=== PATIENT | female | born 1945 | race Caucasian/White ===

== ENCOUNTER 2019-10-19 10:39 | Inpatient (IN) | payer MEDICARE, BC, SELFPAY ==
[2019-10-19] VITALS (7 sets, daily range): BP systolic 129–178; BP diastolic 51–90; PULSE 59–88; RESP 14–22; TEMP 36.4–36.8; O2SAT 96–100; BMI 29.5
--- NOTE | ~2019-10-19 | CT_ITS ---
EXAMINATION: CT abdomen pelvis w con EXAM DATE: 10/19/2019 12:35 INDICATION: Low abdominal pain. Rectal bleeding. TECHNIQUE: Spiral CT of the abdomen and pelvis was performed following intravenous injection of 100 m L Omnipaque 350. Axial, coronal and sagittal images were reviewed. The dose-length product (DLP) fo r this examination was 797.08 mGy-cm. The exposure was tailored according to patient size (auto mA e xposure control), and iterative reconstruction (ASIR) was used as additional dose reduction technique . Comparison is made to prior examination from 07/03/2019. FINDINGS: The liver, spleen, adrenal glands and pancreas are unremarkable. The gallbladder is contra cted but otherwise unremarkable. Portal and splenic veins are patent. Kidneys enhance symmetrically . There is no hydronephrosis. Small regions of right renal cortical scarring. Mild right renal atrop hy. The uterus is unremarkable. The bladder is unremarkable. There is no retroperitoneal or pelvi c lymphadenopathy. Aortobiiliac endograft. Umbilical, infraumbilical small fat-containing hernias. The appendix is normal. The stomach and small bowel are unremarkable. There is rectosigmoid small a mount of fluid. Possible mild rectosigmoid wall edema, possible mild colitis. There is mild scattered colonic diverticulosis. There is no adjacent inflammatory change to suggest diverticulitis. No keely e intraperitoneal gas. The heart is normal in size. There are no pericardial or pleural effusions. The lung bases are unremarkable. There are no osteoblastic or osteolytic lesions identified. IMPRESSION: 1. Possible mild rectosigmoid colitis. 2. Small amount of rectosigmoid fluid correlate for diarrhea. 3. Chronic findings. Reviewed, dictated and finalized at location B. [employer] SPECIALIST
[2019-10-19 11:04] LABS: Basophils Percent Auto 0.4 % (0.2-1.2); Eosinophils Absolute Auto 0.1 K/mm3 (0-0.3); Eosinophils Percent Auto 1.6 % (0-4.4); Hematocrit 33.1 % (37.0-47.0); Immature Granulocyte Absolute 0.03 K/mm3 (0.00-0.031); Immature Granulocyte Percent A 0.5 % (0-0.5); Lymphocytes Absolute Auto 0.61 K/mm3 (0.9-3.2); Lymphocytes Percent Auto 11.1 % (18.3-44.2); Mean Corpuscular HGB Conc 30.2 g/dl (32-36); Mean Corpuscular Hemoglobin 28.3 pg (26-34); Mean Corpuscular Volume 93.8 fl (80-100); Mean Platelet Volume 10.8 fl (7.4-10.4); Monocytes Absolute Auto 0.4 K/mm3 (0.1-0.6); Monocytes Percent Auto 6.4 % (2.6-8.5); Neutrophils Absolute Auto 4.4 K/mm3 (1.3-6.7); Platelet Count Result 202 k/mm3 (150-375); Red Blood Count 3.53 M/mm3 (4.2-5.4); Red Cell Distribution Width 14.6 % (11.5-14.5); White Blood Count 5.5 K/mm3 (4.5-10.0)
[2019-10-19 11:14] LABS: Prothrombin Time 12.7 Seconds (11.1-14.7)
[2019-10-19 11:15] LABS: Partial Thromboplastin Time 23.9 SECONDS (22.3-36.8)
[2019-10-19 11:20] LABS: Alanine Aminotransferase 17 U/L (4-35); Alkaline Phosphatase 106 U/L (38-126); Aspartate Amino Transferase 37 U/L (14-36); Bilirubin,Total 0.4 mg/dL (0.2-1.3); Blood Urea Nitrogen 23 mg/dL (7-17); Calcium 8.9 mg/dL (8.4-10.2); Carbon Dioxide 26 mmol/L (22-30); Chloride 107 mmol/L (98-107); Estimated Glomerular Filt Rate 49; Glucose 110 mg/dL (65-105); Potassium 4.2 mmol/L (3.4-5.0); Sodium 143 mmol/L (137-145)
--- NOTE | 2019-10-19 11:41 | ED.GIBLEED ---
HPI - GI Bleed General Chief complaint: GI Bleed Stated complaint: gi bleed Time Seen by Provider: 10/19/19 11:34 Source: patient, family (Son at bedside) and RN notes reviewed Mode of arrival: ambulatory Limitations: no limitations History of Present Illness HPI Narrative: Pt is a 73 y/o female presenting to the ED c/o rectal bleeding. Pt states she started experiencing rectal bleeding this morning at 0200 with clots. Pt states her stools were originally bright red this morning but is now dark red. Pt also reports ABD cramping, diarrhea starting yesterday, and lightheadedness last Saturday, but denies N/V or fever. Pt states she [place] light[place] at a mall last Saturday that led to near-syncope. Pt notes she was admitted to this facility about 1.5 months ago in which she was seen by Dr. Kong and diagnosed with Colitis and a kidney infection. Pt reports Dr. Kong recommended a Colonoscopy if the pt noticed rectal bleeding again, so she has presented to the ED. Pt states she has a Hx of anemia and sees Dr. Wells as her PCP. Pt notes she is not currently on a blood thinner. Pt states she last had a Colonoscopy about 4 years ago that was negative. Pt also reports Hx's of SLE and Sjogren's disease. Pt's son at bedside reports the pt has been experiencing generalized weakness and SOB with exertion. Onset (ago): hour(s) (9.5) Context: other (Hx of Colitis) Associated symptoms: abdominal pain, shortness of breath (with exertion (per son)), weakness (Generalized (per son)) and other (Diarrhea; Lightheadedness; near-syncope) Related Data Home Medications Medication Instructions Recorded Confirmed acetaminophen 500 mg PO BID 10/19/19 10/19/19 albuterol sulfate 2 puff INHALATION BID 10/19/19 10/19/19 alprazolam 0.5 mg PO BID PRN 10/19/19 10/19/19 azathioprine 50 mg PO DAILY 10/19/19 10/19/19 cyclobenzaprine 10 mg PO HS PRN 10/19/19 10/19/19 fluoxetine 20 mg PO DAILY 10/19/19 10/19/19 fluticasone propion-salmeterol 2 puff INHALATION Q12H 10/19/19 10/19/19 [Advair HFA] furosemide 20 mg PO DAILY 10/19/19 10/19/19 irbesartan 300 mg PO DAILY 10/19/19 10/19/19 metronidazole 1 appful VAGINAL HS 10/19/19 10/19/19 pilocarpine HCl [Salagen 5 mg PO TID 10/19/19 10/19/19 (pilocarpine)] pregabalin 150 mg PO BID 10/19/19 10/19/19 Allergies Allergy/AdvReac Type Severity Reaction Status Date / Time cat dander Allergy Unknown Sneezing Verified 10/19/19 12:55 ciprofloxacin Allergy Unknown Nausea Verified 10/19/19 12:55 erythromycin base Allergy Unknown Nausea Verified 10/19/19 12:55 house dust Allergy Unknown Sneezing Verified 10/19/19 12:55 mold Allergy Unknown Sneezing Verified 10/19/19 12:55 Sulfa (Sulfonamide Allergy Unknown Nausea Verified 10/19/19 12:55 Antibiotics) Review of Systems Review of Systems: All systems reviewed & are unremarkable except as noted in HPI and below Constitutional: Constitutional: Denies fever(s) and Reports weakness (Generalized (per son)) Cardiovascular: Cardiovascular: Reports lightheadedness Respiratory: Respiratory: Reports dyspnea on exertion (Per son) Gastrointestinal: Gastrointestinal: Reports abdominal pain, Reports hematochezia, Reports diarrhea, Denies nausea and Denies vomiting Neurologic: Reports syncope (Near) [facility] Past Medical History Medical History Anemia Anxiety Asthma Bursitis of both hips C. difficile colitis Depression Early cataracts, bilateral Fibromyalgia GERD (gastroesophageal reflux disease) Herniated disc, cervical x2 Hypertension Lupus erythematosus RA (rheumatoid arthritis) Shingles UTI (urinary tract infection) Surgical History Surgical History H/O cataract extraction H/O cervical discectomy H/O laminectomy History of lumbar fusion History of renal stent History of tonsillectomy Family History Family History Sibling Family history
[2019-10-19] MEDS: LACTATED RINGERS 1,000 ML 999 ML IV CONT (13:12)
--- NOTE | 2019-10-19 14:41 | PC.NURSE ---
This patient, Carmen House, was admitted to 3 [facility] Surg Room 323-01. Patient/family oriented to hospital policies and general routines including ID bracelet, bed and alarms, visiting hours, pain management, procedures, bathroom and other care routines, personal items, smoking policy, room service/diet, and visiting hours. Valuables list has been completed. Information on how to activate the Rapid Response Team has been discussed. Patient/Family are encouraged to report perceived risks to care and to ask questions if they do not understand what they are told or what they should do.
[2019-10-19 15:17] LABS: Hematocrit 31.7 % (37.0-47.0); Hemoglobin 9.6 g/dL (12.0-15.0)
[2019-10-19] MEDS: LACTATED RINGERS 1,000 ML 125 ML IV CONT ×2 (15:21→23:58)
--- NOTE | 2019-10-19 19:30 | PM.IMHP ---
H&P: HPI History of Present Illness Chief complaint: Bloody stools. Narrative: Carmen House is a pleasant 73-year-old female with history of C diff, GERD, hypertension, chronic kidney disease, lupus, and several other comorbidities who presented to the emergency department earlier this morning via private vehicle from home for evaluation of bloody stools. Yesterday afternoon she had sudden onset of lower abdominal cramping, and estimates she had 9 episodes of diarrhea within the next couple of hours. Sometime this morning she felt the urge to have another bowel movement, and notes that she passed bright red blood followed by dark clots. She has felt a bit lightheaded upon standing and notes that she has been waking up at night with hot sweats for the past 4 days or so. She has also felt more fatigued than usual. She does mention straining to have a bowel movement a couple of days ago. She had oatmeal for breakfast this morning and tolerated that well and in fact, she is hungry at this time. She has not had any bowel movements since admission to the hospital, and feels much better. She has not had documented fever. No current abdominal pain or discomfort. No recent travel or antibiotic use. She denies sick contacts with similar symptoms. Weight has remained stable. Review of Systems Review of Systems: All systems reviewed & are unremarkable except as noted in HPI and below PMFSH Past Medical History Medical History (Updated 10/19/19 @ 22:40 by Veronica Estrada PA-C) Anxiety Asthma C. difficile colitis In August 2010. Chronic anemia Chronic kidney disease, stage 3 Baseline creatinine is between 1.0 and 1.10. Depression Fibromyalgia GERD (gastroesophageal reflux disease) Herniated disc, cervical x2 Hypertension Lupus erythematosus Osteoarthritis Shingles Tobacco dependence Surgical History Surgical History H/O cataract extraction H/O cervical discectomy H/O laminectomy History of lumbar fusion History of renal stent History of tonsillectomy Family History Family History Sibling Family history of cardiovascular disease Diabetes mellitus Family history of malignant neoplasm of urinary bladder Hypertension Father Patient's father is , Onset Age: 64 Family history of coronary artery disease Family history of schizophrenia Heart attack Atrial fibrillation Mother Patient's mother is , Onset Age: 89 Family history of coronary artery disease Family history of chronic obstructive pulmonary disease Throat cancer Other Cerebrovascular accident Family history of alcoholism Family history of arthritis Family history of heart disease in male family member before age 55 Family history of kidney disease Family history of malignant neoplasm Family history of mental disorder Family history of tuberculosis Social History Social History Social History: Patient lives with her of 50 years. She had 3 children, but 1 is now due to suicide. She smokes daily and has for the past 40 years, drinks 1 cocktail a week socially, and denies any recent illicit drug use. She wishes to be a full code and currently her is her POA, but she is requesting her [id number], Pratima to be her surrogate due to her 's recent diagnosis of dementia. Smoking packs per day: 1 Smoking cigarettes per day: 20.0 Years smoked: 40 Smoking pack-years: 40.00 Smoking status: Current every day smoker Tobacco type: cigarettes Second hand tobacco smoke exposure: Yes Alcohol intake: never Substance use: never Substance use type: marijuana Last use: Gender identity (if verbalized by the patient): Female Spiritual care concerns: No Agree to blood products: Yes Meds
[2019-10-19 19:49] LABS: Hematocrit 28.5 % (37.0-47.0)
[2019-10-19] MEDS: PREGABALIN 75 MG CAPSULE 150 MG PO (23:54)
[2019-10-19] MEDS: ACETAMINOPHEN 500 MG TABLET PO (23:54)
[2019-10-20 06:46] LABS: Basophils Percent Auto 0.4 % (0.2-1.2); Eosinophils Absolute Auto 0.1 K/mm3 (0-0.3); Eosinophils Percent Auto 4.1 % (0-4.4); Hematocrit 28.6 % (37.0-47.0); Hemoglobin 9.1 g/dL (12.0-15.0); Immature Granulocyte Absolute 0.01 K/mm3 (0.00-0.031); Immature Granulocyte Percent A 0.4 % (0-0.5); Lymphocytes Absolute Auto 0.69 K/mm3 (0.9-3.2); Lymphocytes Percent Auto 25.6 % (18.3-44.2); Mean Corpuscular HGB Conc 31.8 g/dl (32-36); Mean Corpuscular Hemoglobin 29.1 pg (26-34); Mean Corpuscular Volume 91.4 fl (80-100); Mean Platelet Volume 10.1 fl (7.4-10.4); Monocytes Absolute Auto 0.3 K/mm3 (0.1-0.6); Monocytes Percent Auto 10.7 % (2.6-8.5); Neutrophils Absolute Auto 1.6 K/mm3 (1.3-6.7); Neutrophils Percent Auto 58.8 % (45.5-73.1); Platelet Count Result 149 k/mm3 (150-375); Red Blood Count 3.13 M/mm3 (4.2-5.4); Red Cell Distribution Width 14.4 % (11.5-14.5); White Blood Count 2.7 K/mm3 (4.5-10.0)
[2019-10-20 06:49] LABS: Hematocrit 28.4 % (37.0-47.0); Hemoglobin 8.9 g/dL (12.0-15.0)
[2019-10-20 06:55] VITALS: BP 147/55; PULSE 56; RESP 20; TEMP 36.9; O2SAT 98
[2019-10-20 07:02] LABS: Alanine Aminotransferase 14 U/L (4-35); Albumin Level 3.2 g/dL (3.5-5.1); Alkaline Phosphatase 86 U/L (38-126); Aspartate Amino Transferase 33 U/L (14-36); Bilirubin,Total 0.6 mg/dL (0.2-1.3); Blood Urea Nitrogen 15 mg/dL (7-17); Calcium 8.3 mg/dL (8.4-10.2); Carbon Dioxide 28 mmol/L (22-30); Chloride 106 mmol/L (98-107); Estimated CRCL calculation 49 ml/min; Estimated Glomerular Filt Rate > 60; Glucose 97 mg/dL (65-105); Potassium 3.7 mmol/L (3.4-5.0); Sodium 140 mmol/L (137-145)
[2019-10-20] MEDS: LACTATED RINGERS 1,000 ML 125 ML IV CONT (08:51)
[2019-10-20] MEDS: FUROSEMIDE 20 MG TABLET PO (08:55)
[2019-10-20] MEDS: ACETAMINOPHEN 500 MG TABLET PO (08:55)
[2019-10-20] MEDS: FLUOXETINE HCL 20 MG CAP PO (08:55)
[2019-10-20] MEDS: IRBESARTAN 150 MG TABLET 300 MG PO (08:56)
[2019-10-20] MEDS: AZATHIOPRINE 50 MG TABLET PO (08:56)
[2019-10-20] MEDS: PREGABALIN 75 MG CAPSULE 150 MG PO (08:58)
[2019-10-20] MEDS: ALBUTEROL SULFATE (*SP) AEROSOL 1 PUFF 2 PUFF INHALATION (09:40)
--- NOTE | 2019-10-20 11:59 | PM.DS ---
DS: Diagnosis Admitting Diagnosis Admitting Diagnosis: Hemorrhage of anus and rectum Discharge Diagnosis (1) Rectal bleeding: Code(s): K62.5 - Hemorrhage of anus and rectum Status: Acute Assessment and Plan: Findings of possible mild rectosigmoid colitis on imaging today. Suspect a viral etiology and thus antibiotics are not indicated at this juncture. Will send stool studies for culture. Dr. Mckeon has been consulted and his input is appreciated. (2) Chronic anemia: Code(s): D64.9 - Anemia, unspecified Status: Acute Assessment and Plan: Hemoglobin and hematocrit are stable on review of previous labs. We will continue to trend these given rectal bleeding. (3) Chronic kidney disease, stage 3: Code(s): N18.3 - Chronic kidney disease, stage 3 (moderate) Status: Acute Assessment and Plan: Creatinine is stable on review of previous labs. (4) Hypertension: Code(s): I10 - Essential (primary) hypertension Status: Inactive Assessment and Plan: A bit elevated on arrival to the emergency department, but have improved. Continue antihypertensives and monitor daily. (5) Lupus erythematosus: Code(s): L93.0 - Discoid lupus erythematosus Status: Acute Assessment and Plan: She is immunosuppressed, on azathioprine. Will continue with this for now, but would need to be held should she developed fever or leukocytosis. (6) Tobacco dependence: Code(s): F17.200 - Nicotine dependence, unspecified, uncomplicated Status: Acute Assessment and Plan: Smoking cessation encouraged. DS: Summary Hospital Course Reason for hospitalization: Carmen House is a 73 year old female with a history of lupus, C-diff, COPD, and fibromyalgia that presented to the ER after being directed there per her PCP, Dr. Wells. The patient reports that she has been having severe diarrhea for over a week, but yesterday her abdominal pain was severe in the left lower quadrant. She was sent to the ER for a CT scan that showed 1. Colitis involving descending and proximal sigmoid colon. 2. Widemouthed infraumbilical ventral hernia containing nonobstructed small bowel. She was given one dose of IV Flagyl and Zosyn and placed on a heart healthy diet. Her creatinine was noted to be elevated at 1.7 and she was started on IVF. Her WBC in the ER was normal, 5.7. 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 She was previously on Plaquenil, but that was discontinued after having problems with her retina. She is currently not on any treatment. Upon my assessment the patient had eaten breakfast and immediately needed to use the restroom. Her diet will be changed to NPO and will consult GI for recommendations. Hospital Course: Findings of possible mild rectosigmoid colitis on imaging today. Suspect a viral etiology and thus antibiotics are not indicated at this juncture. Will send stool studies for culture. Dr. Mckeon has been consulted and his input is appreciated. Patient was seen by GI and evaluated patient is clinicaly stable, her symptoms have improved. can be discharge home on oral abx of 3 days. Status at Discharge Functional status at discharge: uses cane/walker Overall status at discharge: patient is back to baseline Time Spent with Patient Time attestation: Total time spent providing and/or coordinating discharge services: Patient was seen and examined at the time of the discharge Condition at discharge is stable Code status: Full code. Time spent preparing discharge summary, discharge medications, discussing discharge planning with case assembler and patient is 35 minutes. Time spent: Alexia bry
--- NOTE | 2019-10-20 12:01 | WPDGICN ---
Assessment and Plan Assessment and plan (1) Colitis: Code(s): K52.9 - Noninfective gastroenteritis and colitis, unspecified Status: Acute Assessment and Plan: probably infectious, could be also ischemic but already doing much better. Denies more bleeding. tolerating diet and asymptomatic now. ok to go home with soft diet, complete 3 more days of oral abx follow up office in 2-3 weeks and will plan on colonoscopy in ~6 weeks (2) Rectal bleeding: Code(s): K62.5 - Hemorrhage of anus and rectum Status: Acute Assessment and Plan: resolved (3) Chronic anemia: Code(s): D64.9 - Anemia, unspecified Status: Acute (4) Dehydration: Code(s): E86.0 - Dehydration Status: Acute Assessment and Plan: resolved (5) Essential (primary) hypertension: Code(s): I10 - Essential (primary) hypertension Status: Acute GI Consult Note Consult date/time: 10/20/19 12:01 Reason for consult: colitis HPI: Carmen House is a 74 year old female with history of remote C diff about 8 years ago, GERD, hypertension, chronic kidney disease, lupus and previous colitis 06/2019 treated medically (stool cultures back then were negative, no C diff) who presented to the emergency department because new onset of lower abdominal cramping followed by several episodes of diarrhea, then noted bright red blood followed by dark clots. She came to the hospital and admitted, CT scan showed mild rectosigmoid colitis. No fever, no travel history, no sick contacts. Her last colonoscopy about 3 years ago. Now she is doing great, no more pain and no diarrhea or bleeding since admission. She also has chronic anemia (10 last hospitalization, now ~ 9) Review of Systems Constitutional: Constitutional: Denies headache(s) and Denies weakness Eyes: Eyes: Denies blurry vision ENT: Reports Normal hearing present, Denies headache(s) and Denies neck pain Cardiovascular: Cardiovascular: Denies chest pain and Denies dyspnea Respiratory: Respiratory: Denies dyspnea Gastrointestinal: Gastrointestinal: Reports no additional gastrointestinal complaints Genitourinary: Genitourinary: Denies dysuria Musculoskeletal: Musculoskeletal: Denies neck pain Integumentary/Breasts: Skin/Breast: Denies dry skin Neurologic: Reports Normal hearing present, Denies headache(s) and Denies weakness Psychiatric: Psychiatric: Denies anxiety Endocrine: Endocrine: Denies change in body appearance Hematologic/Lymphatic: Hematologic/Lymphatic: Denies easy bleeding Allergic/Immunologic: Allergic/Immunologic: Denies urticaria PENDING SALE TO [facility] Past Medical History Medical History (Updated 10/19/19 @ 22:40 by Veronica Estrada PA-C) Anxiety Asthma C. difficile colitis In August 2010. Chronic anemia Chronic kidney disease, stage 3 Baseline creatinine is between 1.0 and 1.10. Depression Fibromyalgia GERD (gastroesophageal reflux disease) Herniated disc, cervical x2 Hypertension Lupus erythematosus Osteoarthritis Shingles Tobacco dependence Surgical History Surgical History H/O cataract extraction H/O cervical discectomy H/O laminectomy History of lumbar fusion History of renal stent History of tonsillectomy Family History Family History Sibling Family history of cardiovascular disease Diabetes mellitus Family history of malignant neoplasm of urinary bladder Hypertension Father Patient's father is , Onset Age: 64 Family history of coronary artery disease Family history of schizophrenia Heart attack Atrial fibrillation Mother Patient's mother is , Onset Age: 89 Family history of coronary artery disease Family history of chronic obstructive pulmonary disease Throat cancer Other Cerebrovascular accident Family history of alcoholism Family history of arthri
--- NOTE | 2019-10-20 13:20 | PCDIET ---
Nutrition MST screen complete Pt current nutrition is regular level 7 Nutrition recommendation: Agree Last recorded weight is 77.9 kg. Bowel Motility: diarrhea prior to arrival, now stopped Labs Reviewed:Hgb 9.1, Hct 28.6, Alb 3.2 Meds Noted:LRs, Prozac, Lasix, Lyrica Additional Notes: Seeing pt today due to MST score of 2 for mild wt loss of 2-13lbs and reduced appetite. Pt is going home today. Diarrhea has stopped and appetite improved. Pt with BMI of 29.5 and appears well nourished. Colitis confirmed by MD. Education provided regarding diet and colitis per pt request. Details under nutrition teaching. We will continue to monitor every five days if pt remains inpatient.
[2019-10-20 14:00] VITALS: BP 122/64; PULSE 60; RESP 16; TEMP 36.4; O2SAT 97
== END 2019-10-20 14:50 | disposition home or self-care (01) | DRG 392 ==
LOC: ANHED 13:19 → ANH3MEDSUR 14:29
PROVIDERS: Emergency Medicine; Admitting Provider Internal Medicine; Emergency Provider General Practice; PCP Family Medicine; Visit Provider Family Medicine
DX: A08.4 Viral intestinal infection, unspecified (principal); K62.5 Hemorrhage of anus and rectum; E86.0 Dehydration; K21.9 Gastro-esophageal reflux disease without esophagitis; I12.9 Hypertensive chronic kidney disease with stage 1 through stage 4 chronic kidney disease, or unspecified chronic kidney disease; N18.3 Chronic kidney disease, stage 3 (moderate); D63.1 Anemia in chronic kidney disease; L93.0 Discoid lupus erythematosus; M79.7 Fibromyalgia; J45.909 Unspecified asthma, uncomplicated; F41.9 Anxiety disorder, unspecified; M19.90 Unspecified osteoarthritis, unspecified site; F32.9 Major depressive disorder, single episode, unspecified; F17.210 Nicotine dependence, cigarettes, uncomplicated; Z98.1 Arthrodesis status; Z98.42 Cataract extraction status, left eye; Z98.41 Cataract extraction status, right eye
CPT/HCPCS: 36415; 74177; 80053; 85014; 85018; 85025; 85610; 85730; 86850; 86900; 86901; 94640; 96360; 99285; A9270; J7120; Q9967

== ENCOUNTER 2019-11-24 11:30 | Outpatient (CLI) | payer MEDICARE, BC, SELFPAY ==
[2019-11-24 11:49] LABS: Basophils Percent Auto 0.4 % (0.2-1.2); Eosinophils Absolute Auto 0.1 K/mm3 (0-0.3); Eosinophils Percent Auto 1.8 % (0-4.4); Hematocrit 33.4 % (37.0-47.0); Hemoglobin 10.6 g/dL (12.0-15.0); Immature Granulocyte Absolute 0.02 K/mm3 (0.00-0.031); Immature Granulocyte Percent A 0.4 % (0-0.5); Immature Reticulocyte Fraction 9.2 % (3.0-15.9); Lymphocytes Absolute Auto 0.56 K/mm3 (0.9-3.2); Lymphocytes Percent Auto 12.5 % (18.3-44.2); Mean Corpuscular HGB Conc 31.7 g/dl (32-36); Mean Corpuscular Volume 91.5 fl (80-100); Mean Platelet Volume 10.1 fl (7.4-10.4); Monocytes Absolute Auto 0.4 K/mm3 (0.1-0.6); Monocytes Percent Auto 8.5 % (2.6-8.5); Neutrophils Absolute Auto 3.4 K/mm3 (1.3-6.7); Neutrophils Percent Auto 76.4 % (45.5-73.1); Platelet Count Result 230 k/mm3 (150-375); Red Blood Count 3.65 M/mm3 (4.2-5.4); Red Cell Distribution Width 14.3 % (11.5-14.5); Reticulocyte Hemoglobin Conten 33.2 pg (28.2-35.7); Reticulocyte Percent 1.53 % (0.7-4.3); Reticulocytes Absolute 0.06 B/L (32.2-175.7); White Blood Count 4.5 K/mm3 (4.5-10.0)
[2019-11-24 16:41] LABS: Iron 74 ug/dL (37-170)
[2019-11-24 16:43] LABS: Alanine Aminotransferase 76 U/L (4-35); Albumin Level 3.9 g/dL (3.5-5.1); Alkaline Phosphatase 245 U/L (38-126); Aspartate Amino Transferase 106 U/L (14-36); Bilirubin,Total 0.4 mg/dL (0.2-1.3); Blood Urea Nitrogen 21 mg/dL (7-17); Calcium 8.9 mg/dL (8.4-10.2); Carbon Dioxide 25 mmol/L (22-30); Chloride 105 mmol/L (98-107); Estimated Glomerular Filt Rate 54; Glucose 95 mg/dL (65-105); Lactate Dehydrogenase 507 U/L (313-618); Potassium 4.5 mmol/L (3.4-5.0); Sodium 137 mmol/L (137-145)
[2019-11-24 16:53] LABS: Percent Iron Saturation 23 % (20-50)
[2019-11-24 17:31] LABS: Vitamin B12 > 1000.0 pg/mL (239-931)
[2019-11-26 21:45] LABS: Methylmalonic Acid 175 nmol/L (87-318)
[2019-11-27 16:32] LABS: Soluble Transferrin Receptor 1.75 mg/L (0.76-1.76)
== END 2019-11-24 11:31 | disposition home or self-care (01) ==
PROVIDERS: PCP Family Medicine; Referring Provider Family Medicine; Visit Provider Internal Medicine Hematology & Oncology
DX: D64.9 Anemia, unspecified (principal)
CPT/HCPCS: 36415; 80053; 82607; 82728; 83540; 83550; 83615; 83921; 84238; 85025; 85046

== ENCOUNTER 2019-12-04 07:20 | Outpatient (CLI) | payer MEDICARE, BC, SELFPAY ==
--- NOTE | ~2019-12-04 | US_ITS ---
EXAMINATION: US abdomen complete DATE: 12/04/2019 08:06 INDICATION: Abnormal liver function tests. TECHNIQUE: Multiple grayscale and Doppler ultrasound images of the abdomen were obtained. COMPARISON: CT abdomen and pelvis 10/19/2019 FINDINGS: Abdominal aorta is normal in caliber. Inferior vena cava is normal. The visualized portions of the head, body, and tail of the pancreas are normal. The liver is normal without focal lesion. No liver surface nodularity. There is normal flow in main portal vein. The gallbladder is normal in siz e and contains gallstones. No gallbladder wall thickening or sonographic Portillo sign. The common duct is normal and measures 3 mm. Right kidney measures 8.2 x 3.4 x 3.8 cm. Left kidney measures 9.9 x 5. 3 x 5.7 cm. The spleen is normal in size. IMPRESSION: 1. Cholelithiasis. No evidence of acute cholecystitis. 2. Mild atrophy of right kidney. Reviewed, dictated and finalized at location A.
== END 2019-12-04 07:21 | disposition home or self-care (01) ==
LOC: ANHIMG 07:24
PROVIDERS: PCP Family Medicine; Visit Provider Internal Medicine Hematology & Oncology
DX: R94.5 Abnormal results of liver function studies (principal); K80.20 Calculus of gallbladder without cholecystitis without obstruction
CPT/HCPCS: 76700

== ENCOUNTER 2020-01-15 10:52 | Outpatient (CLI) | payer MEDICARE, BC, SELFPAY ==
--- NOTE | ~2020-01-15 | XR_ITS ---
XR sacroiliac joints min 3V DATE: 01/15/2020 11:17 INDICATION: Pain TECHNIQUE: AP and bilateral oblique views COMPARISON: 10/19/2019 CT abdomen pelvis FINDINGS: Status post anterior and posterior lower lumbar spinal fusion. There is a transitional lumb osacral vertebra with sacralization pseudoarthrosis on the right. The sacroiliac joints are normal. There is normal alignment at the sacroiliac joints. No erosive adler ge or ankylosis or any significant degenerative changes identified. Mild osteitis pubis. Aortic/bilateral common iliac artery stent is noted. IMPRESSION: Transitional lumbosacral vertebra Normal sacroiliac joints Mild osteitis pubis Postoperative change of the lumbar spine Reviewed, dictated and finalized at Location A. Reviewed, dictated and finalized at location A.
--- NOTE | ~2020-01-15 | XR_ITS ---
EXAMINATION: XR hand BI arthritis min 3V DATE: 01/15/2020 11:17 INDICATION: Unspecified osteoarthritis, unspecified site TECHNIQUE: Posteroanterior, lateral, and oblique views of the left and of the right hands as well as a ballcatchers view of both hands were obtained. COMPARISON: 04/16/2015 FINDINGS: There is no fracture, dislocation, or subluxation. There is unchanged mild osteoarthritis of the left triscaphe and first carpometacarpal joint as well as in multiple interphalangeal joints of the left hand. There is unchanged mild osteoarthritis of the first metacarpophalangeal joint of the right hand and multiple interphalangeal joints. The soft tissues are unremarkable. IMPRESSION: 1. Mild polyarticular osteoarthritis of the hands without acute findings or significant interval adler ge. Reviewed, dictated and finalized at location A. IMPRESSION: 1. Mild polyarticular osteoarthritis of the hands without acute findings or sig nificant interval change.
--- NOTE | ~2020-01-15 | XR_ITS ---
EXAMINATION: XR foot LT standing 2V INDICATION: Other specified abnormal immunological findings in serum TECHNIQUE: Two views of the left foot are obtained. COMPARISON: None available FINDINGS: The bones are osteopenic. There is no fracture. Bone alignment is normal. There is mild-to- moderate osteoarthritis of multiple interphalangeal joints. Mild osteoarthritis is present in the fir st metatarsophalangeal joint. The soft tissues are unremarkable. IMPRESSION: 1. Polyarticular osteoarthritis without acute findings. Reviewed, dictated and finalized at location A.
--- NOTE | ~2020-01-15 | XR_ITS ---
EXAMINATION: XR foot RT standing 2V INDICATION: Other specified abnormal immunological findings in serum TECHNIQUE: Two views of the right foot are obtained. COMPARISON: None available FINDINGS: The bones are osteopenic. There is no fracture. Mild to moderate osteoarthritis is noted in multiple interphalangeal joints. There is mild osteoarthritis of the first metatarsophalangeal joint . The soft tissues are unremarkable. IMPRESSION: 1. Polyarticular osteoarthritis without acute findings. Reviewed, dictated and finalized at location A.
[2020-01-15 11:44] LABS: Hematocrit 35.9 % (37.0-47.0); Hemoglobin 11.5 g/dL (12.0-15.0); Mean Corpuscular Hemoglobin 29.3 pg (26-34); Mean Corpuscular Volume 91.3 fl (80-100); Platelet Count Result 244 k/mm3 (150-375); Red Blood Count 3.93 M/mm3 (4.2-5.4); Red Cell Distribution Width 14.6 % (11.5-14.5); White Blood Count 5.1 K/mm3 (4.5-10.0)
[2020-01-15 11:59] LABS: Alanine Aminotransferase 26 U/L (4-35); Alkaline Phosphatase 223 U/L (38-126); Aspartate Amino Transferase 47 U/L (14-36); Bilirubin,Total 0.3 mg/dL (0.2-1.3); Blood Urea Nitrogen 21 mg/dL (7-17); CRP 0.7 mg/dL (<1.0); Carbon Dioxide 29 mmol/L (22-30); Chloride 104 mmol/L (98-107); Estimated Glomerular Filt Rate 49; Glucose 97 mg/dL (65-105); Potassium 4.3 mmol/L (3.4-5.0); Rheumatoid Factor 69.8 IU/ML (<12); Sodium 139 mmol/L (137-145)
[2020-01-15 12:14] LABS: Erythrocyte Sedimentation Rate 79 mm/hr (0-20)
[2020-01-19 10:49] LABS: Anti Cyclic Citrullinated Pept <16 Units (<20)
== END 2020-01-15 10:53 | disposition home or self-care (01) ==
PROVIDERS: PCP Family Medicine; Visit Provider Internal Medicine
DX: R76.8 Other specified abnormal immunological findings in serum (principal); M25.551 Pain in right hip; M25.552 Pain in left hip; M32.9 Systemic lupus erythematosus, unspecified; M19.042 Primary osteoarthritis, left hand; M19.041 Primary osteoarthritis, right hand; Q76.49 Other congenital malformations of spine, not associated with scoliosis; M85.38 Osteitis condensans, other site; M19.072 Primary osteoarthritis, left ankle and foot; M19.071 Primary osteoarthritis, right ankle and foot
CPT/HCPCS: 36415; 72202; 73130; 73620; 80053; 85027; 85652; 86140; 86200; 86430

== ENCOUNTER 2020-01-25 10:32 | Outpatient (CLI) | payer MEDICARE, BC, SELFPAY ==
--- NOTE | ~2020-01-25 | XR_ITS ---
XR chest 1V DATE: 01/25/2020 10:50 INDICATION: Nontraumatic mitral insufficiency. Shortness of breath. TECHNIQUE: PA chest COMPARISON: 08/26/2016 AP and lateral chest FINDINGS: Probable chronic interstitial changes are noted throughout both lungs. The lungs are modera tely hyperinflated. No pulmonary consolidation. No pleural effusion. No pulmonary vascular congestion or pneumothorax. Normal heart size. IMPRESSION: Moderate bilateral hyperinflation and likely chronic interstitial changes throughout both lungs Reviewed, dictated and finalized at location A. IMPRESSION: Moderate bilateral hyperinflation and likely chronic interstitial c hanges throughout both lungs
[2020-01-25 11:45] LABS: Add Urine Microscopic? YES; Appearance Urine Clear (Clear); Bacteria Urine Trace /hpf; Bilirubin Urine Negative (Negative); Blood Urine Negative (Negative); Color Urine Yellow (Yellow); Glucose Urine UA Negative (Negative); Ketones Urine Negative (Negative); Leukocyte Esterase Ur Negative LEU/UL (Negative); Mucus Urine Rare /lpf; Nitrate Urine Negative (Negative); Protein Urine 1+ mg/dL (Negative); RBC Urine 0-2 /hpf (0-2); Specific Grav Ur 1.017 (1.001-1.035); Squamous Epithelial Cell Urine Few /hpf (Few); Transitional Epi Cells Urine Rare /hpf (None Seen); Urobilinogen Urine Negative mg/dL (<2.0); WBC Urine 0-3 /hpf
== END 2020-01-25 10:33 | disposition home or self-care (01) ==
PROVIDERS: PCP Family Medicine; Visit Provider Internal Medicine
DX: N39.0 Urinary tract infection, site not specified (principal); Z71.89 Other specified counseling; I34.0 Nonrheumatic mitral (valve) insufficiency; Z79.899 Other long term (current) drug therapy
CPT/HCPCS: 71045; 81001

== ENCOUNTER 2020-02-09 17:54 | Outpatient (CLI) | payer MEDICARE, BC, SELFPAY ==
--- NOTE | ~2020-02-09 | CT_ITS ---
EXAMINATION:CT chest high resolution w con DATE: 02/09/2020 18:39 INDICATION: Abnormal chest radiograph. TECHNIQUE: Computed tomography (CT) of the chest was performed without intravenous contrast. Automate d exposure control and iterative reconstruction technique were employed. The dose-length product (DLP ) was 231.74 mGy-cm. COMPARISON: Chest single view 01/25/2020, CT abdomen and pelvis 10/19/2019, 08/26/2016 FINDINGS: There is moderate emphysema. There is a 10 mm nodule in left lower lobe. No pleural effusio n. There is left atrial enlargement of the heart. There are coronary artery calcifications. No perica rdial effusion. A right paratracheal node measures 18 x 16 mm. There is cortical thinning of the kidn eys. Calcified periportal lymph nodes are consistent with old granulomatous disease. There is severe cervical and thoracic spondylosis. IMPRESSION: 1. Moderate emphysema. 2. 10 mm left lower lobe pulmonary nodule, stable from 08/26/2016, likely benign. 3. Enlarged right paratracheal lymph node, likely reactive. Reviewed, dictated and finalized at location A.
== END 2020-02-09 17:55 | disposition home or self-care (01) ==
LOC: ANHIMG 17:55
PROVIDERS: PCP Family Medicine; Visit Provider Internal Medicine
DX: J43.9 Emphysema, unspecified (principal); R91.1 Solitary pulmonary nodule; R59.0 Localized enlarged lymph nodes
CPT/HCPCS: 71260; Q9967

== ENCOUNTER 2020-04-25 11:59 | Outpatient (CLI) | payer MEDICARE, BC, SELFPAY ==
--- NOTE | ~2020-04-25 | XR_ITS ---
XR tibia fibula LT 2V DATE: 04/25/2020 12:14 INDICATION: Fall. Left leg injury, pain TECHNIQUE: AP and lateral views COMPARISON: None FINDINGS: No fracture or dislocation, periosteal reaction or bone destruction. Normal alignment at th e knee and ankle joints. IMPRESSION: Negative Reviewed, dictated and finalized at location A. IMPRESSION: Negative
== END 2020-04-25 12:00 | disposition home or self-care (01) ==
PROVIDERS: PCP Family Medicine; Visit Provider Physician Assistant
DX: M79.605 Pain in left leg (principal)
CPT/HCPCS: 73590

== ENCOUNTER 2020-05-16 15:52 | Outpatient (CLI) | payer MEDICARE, BC, SELFPAY ==
--- NOTE | ~2020-05-16 | CT_ITS ---
EXAMINATION: CT LE LT wo/w con DATE: 05/16/2020 16:31 INDICATION: Left lower extremity mass. TECHNIQUE: Computed tomography (CT) of the left lower leg was performed without and with 100 mL Omnip aque 350 intravenous contrast. Automated exposure control and iterative reconstruction technique were employed. The dose-length product was 1488.86 mGy-cm. COMPARISON: Left tibia and fibula radiographs 04/25/2020 FINDINGS: Bone alignment is normal. No fracture. There is mild fatty atrophy of some of the musculatu re. There is tendinopathy of Achilles tendon. There is intermittent total occlusion of posterior tibi al artery. There is moderate stenosis of left anterior tibial artery origin. There is mild stenosis o f the tibioperoneal trunk. There is subcutaneous edema, worst laterally where there is a skin marker. IMPRESSION: 1. Subcutaneous edema in the lower leg in the patient's area of concern. No abnormal mass. 2. Arterial occlusive disease. Reviewed, dictated and finalized at location A. IMPRESSION: 1. Subcutaneous edema in the lower leg in the patient's area of concern. No abn ormal mass. 2. Arterial occlusive disease.
== END 2020-05-16 15:53 | disposition home or self-care (01) ==
PROVIDERS: PCP Family Medicine; Visit Provider Physician Assistant
DX: M79.89 Other specified soft tissue disorders (principal); I73.9 Peripheral vascular disease, unspecified
CPT/HCPCS: 73702; Q9967

== ENCOUNTER 2020-09-12 09:13 | Outpatient (CLI) | payer MEDICARE, BC, SELFPAY ==
--- NOTE | 2020-09-12 09:24 | ECHO_ITS ---
Patient Info Name: Carmen House Age: 74 years : 1945 Gender: Female Ht: 64 in Wt: 145 lbs BSA: 1.73 m2 HR: 60 bpm BP: 145 / 84 mmHg Heart Rhythm: Sinus Rhythm Technical Quality: Good Exam Date: 09/12/2020 9:32 AM Exam Location: [facility] Pulmonary Patient Status: Outpatient Admit Date: 09/12/2020 Staff Ordering Physician: Ivanna Meng MD Dispute Resolution Analyst: Juan Francisco Marley RDCS Attending Provider: Ivanna Meng MD Referring Physician: Taqueria MUJICA; Exam Type: CA echo doppler color flow Study Info Indications R06.02 - Shortness of breath Complete two-dimensional, color flow and Doppler transthoracic echocardiogram is performed. History/Risk Factors Shortness of breath; COPD. Summary 1. Complete two-dimensional, color flow and Doppler transthoracic echocardiogram is performed. 2. Left ventricular chamber dimension is normal. 3. Left ventricular systolic function is normal, estimated at 55-60%. 4. There is mildly increased left ventricular wall thickness. 5. The left ventricular diastolic function is abnormal. 6. E/e' 20 is elevated. 7. Right ventricular systolic function is mildly reduced and with TAPSE 1.6 cm. 8. Left atrial chamber dimension is moderately enlarged. 9. There is mild aortic valve sclerosis. 10. The mitral valve has mildly calcified annulus. 11. There is mild mitral valve regurgitation. 12. There is mild tricuspid valve regurgitation. 13. No pulmonary hypertension, estimated pulmonary arterial systolic pressure is 25 mmHg. 14. There is trace pulmonic regurgitation. 15. There is small circumferential pericardial effusion. Left Ventricle E/e' 20 is elevated. Left ventricular chamber dimension is normal. Left ventricular systolic function is normal, estimated at 55-60%. There is mildly increased left ventricular wall thickness. The left ventricular diastolic function is abnormal. Right Ventricle Right ventricular systolic function is mildly reduced and with TAPSE 1.6 cm. Right ventricular chamber dimension is normal. Left Atria Left atrial chamber dimension is moderately enlarged. Right Atria Right atrial chamber dimension is normal. Aortic Valve The aortic valve is trileaflet. There is mild aortic valve sclerosis. There is no aortic valve stenosis. There is no aortic valve regurgitation. Pulmonic Valve There is trace pulmonic regurgitation. Mitral Valve The mitral valve has mildly calcified annulus. There is no mitral valve stenosis. There is mild mitral valve regurgitation. Tricuspid Valve There is mild tricuspid valve regurgitation. No pulmonary hypertension, estimated pulmonary arterial systolic pressure is 25 mmHg. Pericardium/Pleural There is small circumferential pericardial effusion. Inferior Vena Cava Normal inferior vena cava with >50% collapse upon inspiration consistent with normal right atrial pressure, 5 mmHg. Aorta The aortic root size at the sinus of Valsalva is normal. Left Ventricular Outflow Tract Name Value Normal LVOT 2D LVOT Diameter 2.0 cm LVOT Doppler LVOT Peak Gradient
--- NOTE | 2020-09-12 13:22 | WPDSIXMINUTE ---
Six Minute Walk This is a 6 minutes walk for exertional dyspnea. Findings: The patient's resting room air oxygen saturation measured by pulse oximetry was 96% and her heart rate was 67 bpm. Patient ambulated for 244 meters and oxygen saturation remained 94 to 98%. Heart rate at the end of the study was 96 bpm. There are no prior studies for comparison.
--- NOTE | 2020-09-12 13:24 | WPDPFTINT ---
PFT Interpretation This is a pulmonary function test with pre and post-bronchodilator spirometry, plethysmography and diffusing capacity. The test was performed and results interpreted in accordance with the 2019 and 2005 ATS/ERS Task Force guidelines respectively using the Lei/Jim reference equations. Findings: Spirometry: There is decreased maximal expiratory airflow at all lung volumes with concave expiratory flow tracing. The pre bronchodilator FVC is 2.62 L, 95% predicted. The pre bronchodilator FEV1 is 1.63 L, 84% predicted. That if the V1: FVC ratio 62%. The post bronchodilator FVC is 2.73 L, representing a 4% increase. The post bronchodilator FEV1 is 1.72 L, representing a 5% increase. Plethysmography: The total lung capacity is 3.99 L, 83% predicted. The functional residual capacity is 2.16 L, 78% predicted. The residual volume is 1.36 L, 70% predicted. Diffusing capacity absolute diffusion capacity is 10.1, 55% predicted. The diffusing capacity corrected for alveolar volume is 2.81, 81% predicted. Impression: There is a mild obstructive abnormality without significant improvement after inhaling a single dose of albuterol. There is no significant improvement after inhaling a single dose of albuterol. There is a reduction in the residual volume and functional residual capacity with a normal total lung capacity. This is an abnormal but nonspecific lung volume pattern. The absolute diffusing capacity is moderately decreased but normalizes when corrected for alveolar volume. There are no prior studies for comparison
== END 2020-09-12 09:14 | disposition home or self-care (01) ==
LOC: ANHCARD 09:16
PROVIDERS: PCP Family Medicine; Visit Provider Internal Medicine Critical Care Medicine
DX: R06.02 Shortness of breath (principal); J44.9 Chronic obstructive pulmonary disease, unspecified; R94.2 Abnormal results of pulmonary function studies; I34.0 Nonrheumatic mitral (valve) insufficiency; I35.1 Nonrheumatic aortic (valve) insufficiency; I36.1 Nonrheumatic tricuspid (valve) insufficiency
CPT/HCPCS: 93306; 94060; 94726; 94729

== ENCOUNTER → 2020-11-17 14:16 | Outpatient (CLI) | payer MEDICARE, BC, SELFPAY ==
--- NOTE | ~2020-11-17 | MR_ITS ---
EXAMINATION: MR brain/brain stem wo/w con EXAM DATE: 11/17/2020 15:43 INDICATION: Episode of dizziness, blurred vision, left-sided paresthesia lasting 1 1/2 hours. Episode was a few weeks ago, the 1st week in October. TECHNIQUE: Magnetic resonance imaging (MRI) of the brain/brain stem obtained without contrast. Sagit murphy T1, axial diffusion, gradient echo (T2*), T1, T2, FLAIR sequences obtained. Patient was then inj ected with 13 cc intravenous Multihance contrast. Axial and coronal postcontrast T1 weighted sequence s obtained. Correlation is made to head CT 04/16/2015. FINDINGS: There are no areas of restricted diffusion to suggest acute infarction. There is no acute hemorrhage seen on the T2*, a hemosiderin sensitive sequence. No intraparenchymal brain mass lesion. There is mild periventricular and subcortical T2/FLAIR signal hyperintensity, nonspecific but probab ly related to small vessel ischemic disease (microangiopathy). There is mild prominence of the sulc i and ventricles related to cerebral atrophy. There are no extra-axial collections. Flow voids are seen in the cerebral arteries on the T2-weighted sequences consistent with their expected patency. Patient has had bilateral ocular lens surgery. Soft tissue is unremarkable. Trace mastoid effusions . There are no areas of abnormal enhancement on the post contrast images. IMPRESSION: 1. No acute intracranial findings. 2. Mild age related findings. Reviewed, dictated and finalized at location A.
[2020-11-17 15:04] LABS: Estimated Glomerular Filt Rate > 60
== END ==
PROVIDERS: PCP Family Medicine; Visit Provider Physician Assistant
DX: G81.90 Hemiplegia, unspecified affecting unspecified side (principal)
CPT/HCPCS: 70553; A9577

== ENCOUNTER → 2021-04-29 00:46 | Outpatient (CLI) | payer MEDICARE, BC, SELFPAY ==
[2021-04-29 21:01] LABS: SARS-CoV-2 RNA PCR Negative
== END ==
PROVIDERS: PCP Family Medicine; Visit Provider Internal Medicine Gastroenterology
DX: Z01.812 Encounter for preprocedural laboratory examination (principal); Z20.828 Contact with and (suspected) exposure to other viral communicable diseases; Z20.822 Contact with and (suspected) exposure to COVID-19
CPT/HCPCS: C9803; U0003; U0005

== ENCOUNTER 2021-05-02 00:58 | Day surgery (SDC) | payer MEDICARE, BC, SELFPAY ==
[2021-04-19 13:44] VITALS: BMI 25.0
[2021-05-02 06:49] VITALS: BP 120/56; PULSE 80; RESP 18; TEMP 36.3; O2SAT 98
[2021-05-02] MEDS: LACTATED RINGERS 1,000 ML 150 ML IV CONT (06:51)
--- NOTE | 2021-05-02 06:52 | WPDANESEPPF ---
Anes - Initial Pre Proc Eval Procedure: Operation Date: 05/02/21 08:00 Proposed Procedures p Esophagogastroduodenoscopy & Colonoscopy - Gerald Mckeon MD Date/Time: 05/02/21 06:52 Surgeon: Gerald Mckeon MD Pre Op Diagnosis: VANDANA D50.9, Colitis K52.89 Patient Data Age: 75 Gender: F Height: 1.63 m Weight: 66.5 kg Last Vital Signs Temp 36.3 C L 05/02/21 06:49 Pulse 80 05/02/21 06:49 Resp 18 05/02/21 06:49 BP 120/56 L 05/02/21 06:49 Pulse Ox 98 05/02/21 06:49 Allergies Allergy/AdvReac Type Severity Reaction Status Date / Time cat dander Allergy Unknown Sneezing Verified 05/02/21 06:47 ciprofloxacin Allergy Unknown Nausea Verified 05/02/21 06:47 erythromycin base Allergy Unknown Nausea Verified 05/02/21 06:47 house dust Allergy Unknown Sneezing Verified 05/02/21 06:47 mold Allergy Unknown Sneezing Verified 05/02/21 06:47 Sulfa (Sulfonamide Allergy Unknown Nausea Verified 05/02/21 06:47 Antibiotics) Home Medications Medication Instructions Recorded Confirmed Type metronidazole 1 appful VAGINAL HS 10/19/19 05/02/21 History pilocarpine HCl [Salagen 5 mg PO TID PRN 10/19/19 05/02/21 History (pilocarpine)] nystatin 100,000 unit/gram topical See Rx Instructions .ROUTE 06/30/20 05/02/21 Rx cream .COMPLEX #30 g methocarbamol 750 mg tablet 750 mg PO TID PRN #90 tablet 07/05/20 05/02/21 Rx irbesartan 300 mg tablet 300 mg PO DAILY #90 tablet 08/02/20 05/02/21 Rx pregabalin 150 mg capsule 150 mg PO BID #60 cap 10/31/20 05/02/21 Rx aspirin 81 mg tablet,delayed 81 mg PO DAILY 11/10/20 05/02/21 History release alprazolam 0.5 mg tablet 0.5 mg PO BID PRN #60 tablet 12/01/20 05/02/21 Rx clotrimazole 10 mg lenny 10 mg MUCOUS MEMBRANE .COMPLEX #35 12/08/20 05/02/21 Rx tablet hydrocodone 5 mg-acetaminophen 325 1 tablet PO Q6H PRN #60 tablet 01/03/21 05/02/21 Rx mg tablet albuterol sulfate 2 puff INHALATION BID PRN 04/19/21 05/02/21 History clopidogrel 75 mg PO DAILY 04/19/21 05/02/21 History fluoxetine 20 mg PO DAILY 04/19/21 05/02/21 History vspbllblyzq-ppqusznan-bciifaiy 1 inh INHALATION DAILY 04/19/21 05/02/21 History [Trelegy Ellipta] furosemide 20 mg PO DAILY 04/19/21 05/02/21 History tramadol 50 mg tablet 50 mg PO QID PRN #60 tablet 04/24/21 05/02/21 Rx Patient hx anesthesia problems: none Family hx anesthesia problems: none [facility] Past Medical History Medical History (Updated 04/28/21 @ 12:23 by Eulogio August DO) Abnormal CXR Anemia Anxiety Aortic dissection Asthma C. difficile colitis In August 2010. Chronic anemia Chronic kidney disease, stage 3 Baseline creatinine is between 1.0 and 1.10. 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 Shingles Shortness of Breath SLE (systemic lupus erythematosus related syndrome) (~1988) TIA (transient ischemic attack) Tobacco abuse Tobacco dependence Surgical History Surgical History (Updated 05/02/21 @ 06:59 by Eulogio August DO) H/O cataract extraction H/O cervical discectomy H/O laminectomy History of lumbar fusion History of renal stent History of tonsillectomy Family History Family History Sibling Family history of cardiovascular disease Diabetes mellitus Family history of malignant neoplasm of urinary bladder Hypertension Father Patient's father is , Onset Age: 64 Family history of coronary artery disease Family history of schizophrenia Heart attack Atrial fibrillation Mother Patient's mother is , Onset Age: 89 Family history of coronary artery disease Family history of chronic obstructive pulmonary disease [place]
--- NOTE | 2021-05-02 07:52 | WPDHPUPDATE1 ---
History and Physical Update Update Date/Time: 05/02/21 07:52 History and Physical has been reviewed, including an updated exam of the patient. There are NO changes in the patient's condition. Risks, benefits, and alternatives have been discussed and questions answered. Patient agrees to proceed with procedure.
[2021-05-02 08:33] VITALS: BP 139/71; PULSE 63; RESP 18; O2SAT 100
[2021-05-02 08:43] VITALS: BP 155/77; PULSE 63; RESP 15; O2SAT 100
[2021-05-02 08:53] VITALS: BP 156/69; PULSE 61; RESP 14; O2SAT 99
== END 2021-05-02 09:08 | disposition home or self-care (01) ==
PROVIDERS: PCP Family Medicine; Visit Provider Internal Medicine Gastroenterology
PROC: 0DJ08ZZ Inspection of Upper Intestinal Tract, Via Natural or Artificial Opening Endoscopic (ICD-10-PCS; CPT 43235; principal; 2021-05-02 08:00)
DX: D50.0 Iron deficiency anemia secondary to blood loss (chronic) (principal); K57.30 Diverticulosis of large intestine without perforation or abscess without bleeding; K64.8 Other hemorrhoids; K29.50 Unspecified chronic gastritis without bleeding; F41.8 Other specified anxiety disorders; J44.9 Chronic obstructive pulmonary disease, unspecified; M79.7 Fibromyalgia; K21.9 Gastro-esophageal reflux disease without esophagitis; M32.9 Systemic lupus erythematosus, unspecified; I12.9 Hypertensive chronic kidney disease with stage 1 through stage 4 chronic kidney disease, or unspecified chronic kidney disease; N18.30 Chronic kidney disease, stage 3 unspecified; Z98.1 Arthrodesis status; F17.210 Nicotine dependence, cigarettes, uncomplicated; Z86.73 Personal history of transient ischemic attack (TIA), and cerebral infarction without residual deficits; Z79.02 Long term (current) use of antithrombotics/antiplatelets; Z79.51 Long term (current) use of inhaled steroids; Z79.82 Long term (current) use of aspirin; Z79.891 Long term (current) use of opiate analgesic
CPT/HCPCS: 45378; 43239; 88305; J2704; J7120

== ENCOUNTER 2021-05-15 06:08 | Inpatient (IN) | payer MEDICARE, BC, SELFPAY ==
[2021-05-15] VITALS (23 sets, daily range): BP systolic 103–152; BP diastolic 57–118; PULSE 63–97; RESP 15–63; TEMP 36.1–36.6; O2SAT 95–100; BMI 25.8
--- NOTE | ~2021-05-15 | XR_ITS ---
EXAMINATION: XR chest 1V portable DATE: 05/19/2021 05:29 INDICATION: Lung disease. Abnormal chest radiographs. TECHNIQUE: A single frontal view of the chest was obtained. COMPARISON: Chest single view 05/16/2021 FINDINGS: There are airspace and interstitial opacities throughout the lungs bilaterally. There is a small right pleural effusion. No pneumothorax. The heart size is normal. IMPRESSION: 1. Stable diffuse lung disease, consistent with pulmonary edema versus pneumonia superimposed on emph ysema. 2. Small right pleural effusion. Reviewed, dictated and finalized at location A. IMPRESSION: 1. Stable diffuse lung disease, consistent with pulmonary edema versus pneumoni a superimposed on emphysema. 2. Small right pleural effusion.
--- NOTE | ~2021-05-15 | XR_ITS ---
EXAMINATION: XR chest 1V portable DATE: 05/16/2021 07:38 INDICATION: Shortness of breath. TECHNIQUE: A single frontal view of the chest was obtained. COMPARISON: Chest 2 views 05/15/21, chest single view 01/25/20 FINDINGS: The patient is rotated to her right. There are airspace and interstitial opacities througho ut the lungs bilaterally. No pleural effusion or pneumothorax. The heart size is normal. IMPRESSION: 1. Worsened diffuse lung disease, consistent with pulmonary edema versus pneumonia superimposed on em physema. Reviewed, dictated and finalized at location A. IMPRESSION: 1. Worsened diffuse lung disease, consistent with pulmonary edema versus pneumo red superimposed on emphysema.
--- NOTE | ~2021-05-15 | CT_ITS ---
EXAMINATION: CT diagnostic chest wo con DATE: 05/19/2021 17:27 INDICATION: pna TECHNIQUE: Computed tomography (CT) of the chest was performed without intravenous contrast. Addition al 3D reconstructions utilizing coronal maximum intensity projection (MIP) were performed. Automated exposure control and iterative reconstruction technique were employed. The dose-length product was 15 0.70 mGy-cm. COMPARISON: 02/09/2020 and FINDINGS: Moderate emphysema. Small bilateral pleural effusions. There are new groundglass opacities in the garrick ateral upper lobes. There is also new smooth septal line thickening consistent with mild pulmonary ed santo at the bilateral lung bases. No interval change in a 1.3 x 1.1 cm left lower lobe nodule. Mild ca rdiomegaly with left atrial enlargement. No pericardial effusion. Small amount of atherosclerotic cor onary artery calcific lesion along the left anterior descending coronary artery with likely stenting along the circumflex coronary artery. Thoracic aorta is normal in caliber. Mediastinal lymphadenopath y with increase in size of a now 2.3 x 2.1 cm precarinal lymph node most recently measuring 1.8 x 1.5 cm corresponding dimensions. Calcite periportal lymph nodes consistent with old granulomatous diseas e. Severe cervical and thoracic spondylosis. IMPRESSION: 1. Likely congestive heart failure with mild interstitial edema at the at the lung bases and small bi lateral pleural effusions. 2. New groundglass opacities in bilateral upper lobes which could represent additional pulmonary erin a or pneumonia. 3. Moderate emphysema. 4. No interval change since 08/26/2016 in a 1.3 x 1.1 cm left lower lobe nodule which given the interva l stability is most likely benign. 5. Mediastinal lymphadenopathy with mild increase in size of a pretracheal lymph node most likely hayes ctive although differential includes metastatic disease of unknown primary or lymphoma. Reviewed, dictated and finalized at location A. IMPRESSION: 1. Likely congestive heart failure with mild interstitial edema at the at the l luke bases and small bilateral pleural effusions. 2. New groundglass opacities in bilateral upper lobes which could represent add itional pulmonary edema or pneumonia. 3. Moderate emphysema. 4. No interval change since 08/26/2016 in a 1.3 x 1.1 cm left lower lobe nodule w hich given the interval stability is most likely benign. 5. Mediastinal lymphadenopathy with mild increase in size of a pretracheal lymp h node most likely reactive although differential includes metastatic disease o f unknown primary or lymphoma.
--- NOTE | ~2021-05-15 | XR_ITS ---
EXAMINATION: XR chest 2V DATE: 05/15/2021 06:43 INDICATION: Shortness of breath. TECHNIQUE: Frontal and lateral views of the chest were obtained. COMPARISON: Chest single view 01/25/2020, chest CT 02/09/2020 FINDINGS: The lungs are hyperexpanded. There are airspace opacities and coarse interstitial opacities throughout the lungs bilaterally. No pleural effusion or pneumothorax. The heart size is normal. IMPRESSION: 1. Worsened diffuse lung disease, consistent with pneumonia versus pulmonary edema superimposed on em physema. Reviewed, dictated and finalized at location A. IMPRESSION: 1. Worsened diffuse lung disease, consistent with pneumonia versus pulmonary ed santo superimposed on emphysema.
--- NOTE | 2021-05-15 06:17 | ECG_ITS ---
Measurements Intervals [place] Rate: 73 P: 68 CT: 156 QRS: 22 QRSD: 94 T: 180 QT: 403 QTc: 445 Interpretive Statements SINUS RHYTHM DELAYED PRECORDIAL R/S TRANSITION NONSPECIFIC ST & T-WAVE ABNORMALITY- DIFFUSE LEADS BASELINE ARTIFACT- I, II, III, AVR, AVL, AVF, V4 BORDERLINE ECG Electronically Signed On 05-15-2021 7:26:51 CDT by Beka Cervantes D.O.
[2021-05-15 06:34] LABS: Basophils Percent Auto 0.3 % (0.2-1.2); Eosinophils Absolute Auto 0.1 K/mm3 (0-0.3); Eosinophils Percent Auto 1.1 % (0-4.4); Hematocrit 27.6 % (37.0-47.0); Hemoglobin 8.5 g/dL (12.0-15.0); Immature Granulocyte Absolute 0.03 K/mm3 (0.00-0.031); Immature Granulocyte Percent A 0.4 % (0-0.5); Lymphocytes Absolute Auto 0.64 K/mm3 (0.9-3.2); Lymphocytes Percent Auto 8.8 % (18.3-44.2); Mean Corpuscular HGB Conc 30.8 g/dl (32-36); Mean Corpuscular Hemoglobin 27.5 pg (26-34); Mean Corpuscular Volume 89.3 fl (80-100); Mean Platelet Volume 11.2 fl (7.4-10.4); Monocytes Absolute Auto 0.5 K/mm3 (0.1-0.6); Neutrophils Percent Auto 82.4 % (45.5-73.1); Platelet Count Result 296 k/mm3 (150-375); Red Blood Count 3.09 M/mm3 (4.2-5.4); Red Cell Distribution Width 14.7 % (11.5-14.5); White Blood Count 7.3 K/mm3 (4.5-10.0)
[2021-05-15 06:45] LABS: Anion Gap 9 mmol/L (8-16); Blood Urea Nitrogen 23 mg/dL (7-17); Calcium 8.4 mg/dL (8.4-10.2); Carbon Dioxide 25 mmol/L (22-30); Chloride 105 mmol/L (98-107); Estimated CRCL calculation 44 ml/min; Estimated Glomerular Filt Rate 54; Glucose 137 mg/dL (65-110); Potassium 3.5 mmol/L (3.4-5.0); Sodium 139 mmol/L (137-145)
--- NOTE | 2021-05-15 06:47 | ED.GENADULT ---
HPI - General Adult General Chief complaint: Shortness of Breath/Dyspnea <Main Vela MD - Last Filed: 05/15/21 06:50> Stated complaint: sob <Main Vela MD - Last Filed: 05/15/21 06:50> Time Seen by Provider: 05/15/21 06:36 <Main Vela MD - Last Filed: 05/15/21 06:50> History of Present Illness HPI narrative: Patient is a 75-year-old female presents the emergency department with chief complaint of shortness of breath. Patient reports she has history of asthma and reports that she has been having some generalized body aches and not feeling well since she had a colonoscopy and EGD in the first week of April. The patient states that she has had chills reports that she just started having increasing shortness of breath and was wheezing tonight whenever EMS was called. The patient was given a dose of steroids and also given a breathing treatment in route. Per EMS the patient had saturations in the 80s when they arrived and placed the patient on 3 L nasal cannula upon arrival to the emergency department patient was 99% and was able to be removed from oxygen therapy. The patient reports she is had a cough that is been productive for some time she reports that she received 1 vaccination of the Covid vaccine and had a reaction and was advised to not take any further doses of the Covid vaccine. <Main Vela MD - Last Filed: 05/15/21 06:50> Related Data Home medications: Home Medications Medication Instructions Recorded Confirmed metronidazole 1 appful VAGINAL HS 10/19/19 05/02/21 pilocarpine HCl [Salagen 5 mg PO TID PRN 10/19/19 05/02/21 (pilocarpine)] aspirin 81 mg tablet,delayed 81 mg PO DAILY 11/10/20 05/02/21 release albuterol sulfate 2 puff INHALATION BID PRN 04/19/21 05/02/21 clopidogrel 75 mg PO DAILY 04/19/21 05/02/21 fluoxetine 20 mg PO DAILY 04/19/21 05/02/21 imhhlxjsfoi-xhxoqdzvu-pftfplzm 1 inh INHALATION DAILY 04/19/21 05/02/21 [Trelegy Ellipta] furosemide 20 mg PO DAILY 04/19/21 05/02/21 <Main Vela MD - Last Filed: 05/15/21 06:50> Allergies/adverse reactions: Allergies Allergy/AdvReac Type Severity Reaction Status Date / Time cat dander Allergy Unknown Sneezing Verified 05/15/21 06:15 ciprofloxacin Allergy Unknown Nausea Verified 05/15/21 06:15 erythromycin base Allergy Unknown Nausea Verified 05/15/21 06:15 house dust Allergy Unknown Sneezing Verified 05/15/21 06:15 mold Allergy Unknown Sneezing Verified 05/15/21 06:15 Sulfa (Sulfonamide Allergy Unknown Nausea Verified 05/15/21 06:15 Antibiotics) <Main Vela MD - Last Filed: 05/15/21 06:50> Review of Systems Review of Systems: A 10 system review of systems was completed on the patient and is negative except for what is stated in the HPI. Nursing and ancillary documentation was reviewed. <Main Vela MD - Last Filed: 05/15/21 06:50> [facility] Past Medical History Medical History: Medical History Abnormal CXR Anemia Anxiety Aortic dissection Asthma C. difficile colitis In August 2010. Chronic anemia Chronic kidney disease, stage 3 Baseline creatinine is between 1.0 and 1.10. 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
--- NOTE | 2021-05-15 07:03 | PC.NURSE ---
Covid swab obtained and sent to lab as ordered. RT notified on inhaler and administration ordered. pt resting on stretcher c call light in reach. Will continue to monitor.
[2021-05-15] MEDS: ALBUTEROL SULFATE (*SP) INHALER 2 PUFF INHALATION (07:11)
[2021-05-15 07:20] LABS: Alanine Aminotransferase 22 U/L (4-35); Albumin Level 3.6 g/dL (3.5-5.1); Alkaline Phosphatase 193 U/L (38-126); Aspartate Amino Transferase 44 U/L (14-36); Bilirubin,Total 0.5 mg/dL (0.2-1.3)
[2021-05-15 07:34] LABS: INR 1.2; Lactic Acid Reflex 1.1 mmol/L (0.7-2.1); Prothrombin Time 14.6 Seconds (11.1-14.7)
[2021-05-15 07:35] LABS: Partial Thromboplastin Time 31.3 SECONDS (22.3-36.8)
[2021-05-15 07:42] LABS: NT Pro B Type Natriuretic Pept 9340 pg/mL (5-100)
[2021-05-15] MEDS: FUROSEMIDE INJ 40 MG/4 ML VIAL IV PUSH (08:35)
[2021-05-15] MEDS: HEPARIN SODIUM 5,000 UNITS/ML VIAL 4000 UNITS IV PUSH ×2 (09:01→16:21)
[2021-05-15 09:11] LABS: Add Urine Microscopic? YES; Appearance Urine Clear (Clear); Bilirubin Urine Negative (Negative); Blood Urine Negative (Negative); Color Urine Yellow (Yellow); Glucose Urine UA Negative (Negative); Ketones Urine Negative (Negative); Leukocyte Esterase Ur Negative LEU/UL (Negative); Nitrate Urine Negative (Negative); Protein Urine 2+ mg/dL (Negative); RBC Urine 0-2 /hpf (0-2); Specific Grav Ur 1.023 (1.001-1.035); Squamous Epithelial Cell Urine Rare /hpf (Few); Urobilinogen Urine Negative mg/dL (<2.0); WBC Urine 0-3 /hpf
[2021-05-15] MEDS: HEPARIN SOD/D5W 100 UNITS/ML 25,000 UNITS/250 ML BAG 8 UNITS IV CONT (09:34)
--- NOTE | 2021-05-15 10:00 | ADMGEN ---
This patient, Carmen House, was admitted to Intensive Care Unit-10. Patient/family oriented to hospital policies and general routines including ID bracelet, bed and alarms, visiting hours, pain management, procedures, bathroom and other care routines, personal items, smoking policy, room service/diet, and visiting hours. Information on how to activate the Rapid Response Team has been discussed. Patient/Family are encouraged to report perceived risks to care and to ask questions if they do not understand what they are told or what they should do.
--- NOTE | 2021-05-15 13:35 | PM.CNCAR ---
Assessment and Plan Assessment and plan (1) Non-ST elevation [place] (NSTEMI): Code(s): I21.4 - Non-ST elevation (NSTEMI) myocardial infarction Status: Acute Assessment and Plan: Elevated troponin with downward trend since admission most likely consistent with subacute pattern. Patient describes chest tightness intermittently for several months at rest primarily and not with exertion prior to admission. No anginal symptoms at present. Ongoing fatigue and exertional dyspnea may be anginal equivalent. EKG with diffuse ST abnormalities consider ischemia, no ST elevation. No prior known history of CAD. -Heparin infusion for 48 hours, aspirin 81 mg daily, statin. -repeat 12 lead EKG. -repeat 2D echocardiogram. -follow H&H closely. Monitor renal function. -CT chest with coronary artery calcification on CT lower extremities with significant peripheral arterial disease significantly increases in likelihood of obstructive CAD. Hold off on coronary angiography as patient is otherwise relatively asymptomatic, downward trending troponin, acute on chronic anemia. Follow H/H to establish trend and tolerance of heparin infusion. Angiography may be considered if hemodynamic instability and or refractory anginal symptoms. Further recommendations to follow. Ischemic evaluation warranted timing and nature of this evaluation depending upon clinical course. (2) CHF exacerbation: Code(s): I50.9 - Heart failure, unspecified Status: Acute Assessment and Plan: Elevated BNP, chest x-ray possible pulmonary vascular congestion, however, appears more concerning for diffuse infiltrate. She remains on isolation for COVID rule out. (3) PAD (peripheral artery disease): Code(s): I73.9 - Peripheral vascular disease, unspecified Status: Acute Assessment and Plan: Documented PAD on CT lower extremity total occlusion of posterior tibial artery, moderate stenosis left anterior to ileal mild stenosis of tibioperoneal trunk left lower extremity. Followed by vascular surgery as an outpatient, Dr. Pinto. Patient has a history of prior iliac stenting of the left lower extremity. Patient also has stable moderate right internal carotid arterial stenosis. (4) Suspected COVID-19 virus infection: Code(s): Z20.822 - Contact with and (suspected) exposure to COVID-19 Status: Acute Assessment and Plan: COVID swab pending. Swab pending. She has a history of receiving only 1 vaccination in December with an adverse reaction possible TIAs reported for which she was counseled not to receive the 2nd vaccination. (5) Anemia: Code(s): D64.9 - Anemia, unspecified Status: Acute Assessment and Plan: Follow H&H closely. Tolerating heparin drip thus far. Check CBC. (6) Lupus erythematosus: Code(s): L93.0 - Discoid lupus erythematosus Status: Acute Assessment and Plan: Per primary service. (7) Essential (primary) hypertension: Code(s): I10 - Essential (primary) hypertension Status: Acute Assessment and Plan: Stable no acute issues. History of Present Illness History of Present Illness Consult date/time: Date of service: 05/15/21 13:35 Cardiology consultation at the request of Dr. Calvillo of the [facility] for our opinion regarding elevated troponin and CHF. Requesting physician: Ike Calvillo MD Consult reason: congestive heart failure and Other (elevated troponin) Reason For Visit: chest pain/chf exacerbation/covid pui/anemia Narrative: Patient is a pleasant 75-year-old female with a past medical history significant for peripheral arterial disease followed by Dr. Pinto, irregular heart rhythm found to be consistent with PACs without atrial fibrillation, systemic lupus erythema ptosis, hypertension, tobacco abuse, anemia, chronic kidney disease who presented to the emergency department with complaints of worsening shortness of breath and fatigue.
[2021-05-15 16:04] LABS: Partial Thromboplastin Time 50.8 SECONDS (22.3-36.8)
[2021-05-15 19:00] LABS: SARS-CoV-2 RNA PCR Negative
--- NOTE | 2021-05-15 20:22 | PM.IMHP ---
H&P: HPI History of Present Illness Date/Time: 05/15/21 20:22 Chief Complaint: Shortness of breath Narrative: This is a 75-year-old female with past medical history significant for SLE, peripheral vascular disease, COPD, congestive heart failure, erosive esophagitis. Patient presented to the emergency room due to worsening shortness of breath for the last 3 days or so. Patient has been ruled out for COVID-19 pneumonia. Preliminary workup in the emergency room was significant for elevated troponims and diffuse ST segment changes in EKG. Patient had recently had an endoscopy performed due to anemia that was significant for esophagitis erosive. Upon further investigation she had COVID vaccine vaccination 1st dose but had some sort of reaction to it and was discouraged to get second shot. She has had productive cough of jack to greenish sputum has been having trouble getting around due to her shortness of breath getting progressively worse she denies any fevers any chills any rigors. She usually uses a cane to help her walk. 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 She denies any chest pain, nausea, vomiting, diarrhea, no PND no orthopnea no leg swelling, no syncope or near syncope no lightheadedness or dizziness. Chest x-ray was significant for diffuse infiltrates as well. Review of Systems Review of Systems: Worsening shortness of breath cough productive of jack to greenish sputum. Constitutional: Constitutional: Denies chills, Reports fatigue, Denies fever(s), Reports lethargy, Denies malaise, Denies night sweats and Reports weakness Eyes: Eyes: Denies change in vision ENT: Denies dysphagia, Denies nasal congestion, Denies nasal discharge, Denies nasal obstruction and Denies odynophagia Cardiovascular: Cardiovascular: Denies lightheadedness, Denies radiating jaw, neck or arm pain, Denies palpitations, Reports dyspnea, Reports dyspnea on exertion and Denies orthopnea Respiratory: Respiratory: Reports change in phlegm color, Reports cough, Reports excessive phlegm production and Reports dyspnea Gastrointestinal: Gastrointestinal: Denies abdominal pain, Denies dyspepsia, Denies heartburn, Denies nausea and Denies vomiting Genitourinary: Genitourinary: Reports no additional female genitourinary complaints Musculoskeletal: Musculoskeletal: Reports no additional musculoskeletal complaints Integumentary/Breasts: Skin/Breast: Reports system reviewed and no additional complaints, except as docu Neurologic: Reports system reviewed and no additional complaints, except as documented Psychiatric: Psychiatric: Reports no additional psychiatric complaints Endocrine: Endocrine: Reports no additional endocrine complaints Hematologic/Lymphatic: Hematologic/Lymphatic: Reports no additional hematologic/lymphatic complaints Allergic/Immunologic: Allergic/Immunologic: Reports no additional allergic/immunologic complaints PMFSH Past Medical History Medical History Abnormal CXR Anemia Anxiety Aortic dissection Asthma C. difficile colitis In August 2010. Chronic anemia Chronic kidney disease, stage 3 Baseline creatinine is between 1.0 and 1.10. Colitis COPD (chronic obstructive pulmonary disease) Cough Degenerative joint disease (DJD) of lumbar spine Depression Fibromyalgia GERD (gastroesophageal reflux disease) Herniated disc, cervical x2 Hypertension Lupus erythematosus Osteoarthritis Other senior care (current) drug therapy Shingles Shortness of Breath SLE (systemic lupus erythematosus related syndrome) (~1988) TIA (transient ischemic attack) Tobacco abuse Tobacco dependence Surgical History Surgical History H/O cataract extraction H/O cervical discectomy H/O laminectomy History of lumbar fusion History of renal stent History of t
--- NOTE | 2021-05-15 21:45 | PHAR ---
HOME MED VERIFIED = YAIR [id number] PILOCARPINE 5 MG TABS TAKE 1 TAB TID
[2021-05-15 21:55] LABS: Partial Thromboplastin Time 155.6 SECONDS (22.3-36.8)
[2021-05-15] MEDS: FUROSEMIDE INJ 40 MG/4 ML VIAL 20 MG IV PUSH (22:24)
[2021-05-15] MEDS: MICONAZOLE NITRATE 2% CREAM 30 GM TUBE 1 APPLIC TOPICAL (22:25)
[2021-05-16] VITALS (17 sets, daily range): BP systolic 106–127; BP diastolic 55–74; PULSE 62–78; RESP 16–24; TEMP 36.5–36.9; O2SAT 97–100
[2021-05-16] MEDS: PREGABALIN (*CRX) 75 MG CAPSULE 150 MG PO ×3 (00:26→17:45)
[2021-05-16] MEDS: ALBUTEROL SULFATE (*SP) AEROSOL 1 PUFF 2 PUFF INHALATION (00:33)
[2021-05-16 06:41] LABS: Basophils Percent Auto 0.3 % (0.2-1.2); Eosinophils Percent Auto 0.4 % (0-4.4); Hematocrit 26.2 % (37.0-47.0); Hemoglobin 8.1 g/dL (12.0-15.0); Immature Granulocyte Absolute 0.04 K/mm3 (0.00-0.031); Immature Granulocyte Percent A 0.6 % (0-0.5); Lymphocytes Absolute Auto 0.93 K/mm3 (0.9-3.2); Lymphocytes Percent Auto 13.2 % (18.3-44.2); Mean Corpuscular HGB Conc 30.9 g/dl (32-36); Mean Corpuscular Hemoglobin 27.9 pg (26-34); Mean Corpuscular Volume 90.3 fl (80-100); Mean Platelet Volume 11.2 fl (7.4-10.4); Monocytes Absolute Auto 0.5 K/mm3 (0.1-0.6); Monocytes Percent Auto 6.5 % (2.6-8.5); Neutrophils Absolute Auto 5.6 K/mm3 (1.3-6.7); Platelet Count Result 286 k/mm3 (150-375); Red Cell Distribution Width 14.7 % (11.5-14.5); White Blood Count 7.1 K/mm3 (4.5-10.0)
[2021-05-16 06:57] LABS: Alanine Aminotransferase 21 U/L (4-35); Albumin Level 3.4 g/dL (3.5-5.1); Alkaline Phosphatase 149 U/L (38-126); Anion Gap 8 mmol/L (8-16); Aspartate Amino Transferase 38 U/L (14-36); Bilirubin,Total 0.2 mg/dL (0.2-1.3); Blood Urea Nitrogen 28 mg/dL (7-17); Calcium 8.4 mg/dL (8.4-10.2); Carbon Dioxide 25 mmol/L (22-30); Chloride 106 mmol/L (98-107); Estimated CRCL calculation 38 ml/min; Estimated Glomerular Filt Rate 54; Glucose 118 mg/dL (65-110); Magnesium 1.8 mg/dL (1.6-2.3); Potassium 3.8 mmol/L (3.4-5.0); Sodium 139 mmol/L (137-145)
[2021-05-16 06:59] LABS: Partial Thromboplastin Time 55.8 SECONDS (22.3-36.8)
--- NOTE | 2021-05-16 07:00 | PM.IMPN ---
Progress Note: A&P Assessment and Plan (1) Hypoxia: Code(s): R09.02 - Hypoxemia Status: Acute Assessment and Plan: Patient's chest x-ray shows some diffuse bilateral lung infiltrates. She has normal WBC count and elevated BNP suggestive of congestive heart failure COVID-19 PCR was negative and patient is partially vaccinated with 1 dose of Pfizer She is also being empirically treated for pneumonia-blood cultures are pending Continue empiric antibiotics and deescalate depending on the cultures at 48 hours Continue Lasix IV q.12 hours and increase dose to 40 mg DuoNebs q.4 hours p.r.n. Continue prednisone Continue supplemental oxygen Check procalcitonin Incentive spirometry (2) CHF exacerbation: Code(s): I50.9 - Heart failure, unspecified Status: Acute Assessment and Plan: See above David in Intake and output daily (3) COPD mixed type: Code(s): J44.9 - Chronic obstructive pulmonary disease, unspecified Status: Acute Assessment and Plan: See above (4) Suspected COVID-19 virus infection: Code(s): Z20.822 - Contact with and (suspected) exposure to COVID-19 Status: Acute Assessment and Plan: PCR was negative and she is partially vaccinated with 1 dose of Pfizer I encouraged patient to get either 2nd dose of Pfizer or get a different vaccine for example Ramon &Ramon (5) Non-ST elevation CO (NSTEMI): Code(s): I21.4 - Non-ST elevation (NSTEMI) myocardial infarction Status: Acute Assessment and Plan: Patient is on heparin drip, aspirin, statin and ARB ECHO is ordered and pending Cardiology is following (6) Hypertension: Qualifiers: Hypertension type: essential hypertension Qualified Code(s): I10 - Essential (primary) hypertension Code(s): I10 - Essential (primary) hypertension Status: Inactive Assessment and Plan: Currently on losartan (7) Nonrheumatic mitral (valve) insufficiency: Code(s): I34.0 - Nonrheumatic mitral (valve) insufficiency Status: Acute Assessment and Plan: Check echo (8) Fibromyalgia: Code(s): M79.7 - Fibromyalgia Status: Acute Assessment and Plan: Resume home med (9) Lupus erythematosus: Qualifiers: Lupus erythematosus form: unspecified Qualified Code(s): L93.0 - Discoid lupus erythematosus Code(s): L93.0 - Discoid lupus erythematosus Status: Acute Assessment and Plan: Plaquenil has been stopped Patient receiving infliximab infusion (10) Nicotine dependence, cigarettes, uncomplicated: Code(s): F17.210 - Nicotine dependence, cigarettes, uncomplicated Status: Acute Assessment and Plan: Patient states she quit 2 months ago and has not smoked (11) Chronic back pain: Code(s): M54.9 - Dorsalgia, unspecified; G89.29 - Other chronic pain Status: Acute Assessment and Plan: Continue home med (12) PAD (peripheral artery disease): Code(s): I73.9 - Peripheral vascular disease, unspecified Status: Acute Assessment and Plan: Stable Continue to monitor (13) C. difficile colitis: Code(s): A04.72 - Enterocolitis due to Clostridium difficile, not specified as recurrent Status: Acute Assessment and Plan: P.o. vancomycin for prophylaxis Additional Plan DVT prophylaxis -heparin infusion Nutrition -cardiac diet Code Status - Full Code Subjective Date/time seen: 05/16/21 09:05 Patient states he continues to feel shortness of breath although it is better than when she presented. Some dry cough. She has an episode of chest pressure on left side last night which has resolved at this time. She continues to be on heparin infusion. Her review of system was positive for dyspnea on exertion and orthopnea. All other systems were reviewed and were negative Review of Systems Review of Systems: All systems reviewed & are unremarkable
[2021-05-16] MEDS: LEVALBUTEROL NEB 1.25 MG/3 ML 0.63 MG INHALATION (07:27)
[2021-05-16] MEDS: HEPARIN SODIUM 5,000 UNITS/ML VIAL 2500 UNITS IV PUSH (07:48)
[2021-05-16] MEDS: ASPIRIN 81 MG ENTERIC TABLET PO (08:42)
[2021-05-16] MEDS: PANTOPRAZOLE 40 MG TABLET PO (08:42)
[2021-05-16] MEDS: ATORVASTATIN 40 MG TABLET PO (08:43)
[2021-05-16] MEDS: CYANOCOBALAMIN 1,000 MCG TABLET 1000 MCG PO (08:44)
[2021-05-16] MEDS: FLUoxetine HCL 20 MG CAPSULE PO (08:44)
[2021-05-16] MEDS: FUROSEMIDE INJ 40 MG/4 ML VIAL IV PUSH ×2 (08:45→21:21)
[2021-05-16] MEDS: IRBESARTAN 150 MG TABLET 300 MG PO (08:45)
[2021-05-16] MEDS: predniSONE 20 MG TABLET 40 MG PO (08:51)
[2021-05-16] MEDS: FLUTICASONE/UMECLIDIN/VILANTER 100-62.5-25 MCG ELLIPTA 1 PUFF INHALATION (09:53)
[2021-05-16] MEDS: HEPARIN SOD/D5W 100 UNITS/ML 25,000 UNITS/250 ML BAG 10 UNITS IV CONT (12:40)
--- NOTE | 2021-05-16 13:06 | PM.PNCARD ---
Progress Note: A&P Assessment and Plan (1) Non-ST elevation VT (NSTEMI): Code(s): I21.4 - Non-ST elevation (NSTEMI) myocardial infarction Status: Acute Assessment and Plan: Elevated troponin with downward trend since admission most likely consistent with subacute pattern. Patient describes chest tightness intermittently for several months at rest primarily and not with exertion prior to admission. No anginal symptoms at present. Ongoing fatigue and exertional dyspnea may be anginal equivalent. EKG with diffuse ST abnormalities consider ischemia, no ST elevation. No prior known history of CAD. -Heparin infusion for 48 hours, aspirin 81 mg daily, statin. Personally review 2D echocardiogram. Discussed results with patient. Given declining EF now moderate LV dysfunction and 35-40% concern for underlying CAD given she does presentation with subacute NSTEMI. Patient remains relatively asymptomatic yet worsening chest x-ray suggestive of heart failure concerned this is ischemic driven. Discussed options including coronary angiography for delineation of coronary anatomy. Patient verbalized understanding and agrees. She states she is not comfortable with medical therapy alone and wishes to proceed with coronary angiography. Hold heparin drip in a.m.. NPO after midnight plan for coronary angiography as tolerated. Discussed in detail risks versus benefits she, alternatives including but not limited to bleeding, infection, stroke, myocardial infarction, and or . All questions answered to her satisfaction. We discussed medical therapy, stent implantation and or possible recommendation for CABG referral. (2) CHF exacerbation: Code(s): I50.9 - Heart failure, unspecified Status: Acute Assessment and Plan: Agree with increase Lasix. Chest x-ray worse compared to yesterday. She is now on 2 L nasal cannula. Ruled out for COVID. (3) PAD (peripheral artery disease): Code(s): I73.9 - Peripheral vascular disease, unspecified Status: Acute Assessment and Plan: Documented PAD on CT lower extremity total occlusion of posterior tibial artery, moderate stenosis left anterior to ileal mild stenosis of tibioperoneal trunk left lower extremity. Followed by vascular surgery as an outpatient, Dr. Pinto. Patient has a history of prior iliac stenting of the left lower extremity. Patient also has stable moderate right internal carotid arterial stenosis. (4) Suspected COVID-19 virus infection: Code(s): Z20.822 - Contact with and (suspected) exposure to COVID-19 Status: Acute Assessment and Plan: Swab negative. (5) Anemia: Code(s): D64.9 - Anemia, unspecified Status: Acute Assessment and Plan: Follow H&H closely. Tolerating heparin drip thus far. (6) Lupus erythematosus: Code(s): L93.0 - Discoid lupus erythematosus Status: Acute Assessment and Plan: Per primary service. (7) Essential (primary) hypertension: Code(s): I10 - Essential (primary) hypertension Status: Acute Assessment and Plan: Stable no acute issues. Subjective Date/time seen: Date of service: 05/16/21 13:06 Follow-up for CHF, elevated troponin She denies chest pain, cough shortness of breath improved on oxygen. IV Lasix increased due to worsening chest x-ray. Denies palpitations. She continues to feel somewhat weak. No fevers, chills overnight. She remains on heparin drip and IV antibiotics. 2D echo performed earlier today revealed declined EF 35-40%, severe pulmonary hypertension RVSP 79 mm Hg all new compared to echo from August 2020. Review of Systems Review of Systems: All systems reviewed & are unremarkable except as noted in HPI and below Constitutional: Constitutional: Reports as per HPI, Reports no additional constitutional complaints, Reports fatigue, Reports lethargy and Reports weakness Eyes: Eyes: Reports as per HPI and Reports
--- NOTE | 2021-05-16 14:16 | ECHO_ITS ---
Patient Info Name: Carmen House Age: 75 years : 1945 Gender: Female Ht: 64 in Wt: 150 lbs BSA: 1.77 m2 HR: 67 bpm BP: 106 / 62 mmHg Exam Date: 05/16/2021 9:33 AM Exam Location: [facility] Patient Status: Inpatient Admit Date: 05/15/2021 Staff Ordering Physician: Kashif Barrientos MD Hedis Abstractor: Arpit Portillo, NATTY, RT Attending Provider: Emerald Cortez MD Referring Physician: Iliana ELIZALDE; Exam Type: CA echo doppler color flow Study Info Indications I50.9 - Heart failure, unspecified Complete two-dimensional, color flow and Doppler transthoracic echocardiogram is performed. Strain analysis performed. Summary 1. Complete two-dimensional, color flow and Doppler transthoracic echocardiogram is performed. 2. Mild LVH, borderline LV enlargement; moderate LV systolic dysfunction, ejection fraction 35-40%; diastolic dysfunction is present with elevated left heart pressures. Mild RV enlargement with mild hypokinesis. TAPSE 1.9 cm. Mild biatrial enlargement. Mild mitral annular calcification, [id number] MR, mild mitral stenosis. Sclerotic aortic valve, mild aortic stenosis, RICKIE 1.8 cm2. Moderate tricuspid regurgitation, severe pulmonary hypertension, RVSP 79 mmHg. Mild pulmonic regurgitation. Dilated IVC without respiratory collapse. Left Ventricle Left ventricular chamber dimension is mildly enlarged. Left ventricular systolic function is moderately reduced, estimated at 35-40%. There is mildly increased left ventricular wall thickness. The left ventricular diastolic function is abnormal. Right Ventricle Right ventricular chamber dimension is mildly enlarged. Right ventricular systolic function is reduced. Left Atria Left atrial chamber dimension is mildly enlarged. Right Atria Right atrial chamber dimension is mildly enlarged. Aortic Valve There is mild aortic valve sclerosis. There is mild aortic valve stenosis. Pulmonic Valve The pulmonic valve is not well visualized. There is mild pulmonic regurgitation. Mitral Valve The mitral valve has normal leaflets. There is mild to moderate mitral valve regurgitation. There is mild mitral valve calcification. Tricuspid Valve The tricuspid valve leaflets are normal. There is moderate tricuspid valve regurgitation. Severe pulmonary hypertension, estimated pulmonary arterial systolic pressure is 79 mmHg. Pericardium/Pleural There is trivial pericardial effusion. Inferior Vena Cava Dilated inferior vena cava with no collapse upon inspiration consistent with elevated right atrial pressure, 15 mmHg. Tricuspid Valve Name Value Normal Estimated PAP/RSVP RA Pressure 15 mmHg <=5 PA Systolic Pressure 79 mmHg <36 Report Signatures
[2021-05-16 17:24] LABS: Partial Thromboplastin Time 38.8 SECONDS (22.3-36.8)
[2021-05-16 17:38] LABS: Anion Gap 10 mmol/L (8-16); Blood Urea Nitrogen 28 mg/dL (7-17); Calcium 8.2 mg/dL (8.4-10.2); Carbon Dioxide 26 mmol/L (22-30); Chloride 103 mmol/L (98-107); Estimated CRCL calculation 38 ml/min; Estimated Glomerular Filt Rate 54; Glucose 216 mg/dL (65-110); Potassium 3.5 mmol/L (3.4-5.0); Sodium 139 mmol/L (137-145)
[2021-05-16] MEDS: HEPARIN SODIUM 5,000 UNITS/ML VIAL 4000 UNITS IV PUSH (17:45)
[2021-05-16] MEDS: ALPRAZolam (*CRX) 0.5 MG TABLET PO (17:47)
--- NOTE | 2021-05-16 18:38 | PC.NURSE ---
This patient, Carmen House, was transferred to [facility] via bed on 05/16/21 at 1725 without issue. Personal belongings sent with patient. Report given to Margi Daugherty RN. Appropriate documentation sent with patient.
[2021-05-16] MEDS: MICONAZOLE NITRATE 2% CREAM 30 GM TUBE 1 APPLIC TOPICAL (21:31)
[2021-05-17] VITALS (31 sets, daily range): BP systolic 104–132; BP diastolic 43–83; PULSE 55–70; RESP 16–22; TEMP 36.2–37; O2SAT 94–100
[2021-05-17 01:43] LABS: Partial Thromboplastin Time 166.7 SECONDS (22.3-36.8)
[2021-05-17 05:52] LABS: Hematocrit 26.2 % (37.0-47.0); Hemoglobin 8.2 g/dL (12.0-15.0); Mean Corpuscular HGB Conc 31.3 g/dl (32-36); Mean Corpuscular Hemoglobin 27.9 pg (26-34); Mean Corpuscular Volume 89.1 fl (80-100); Mean Platelet Volume 11.8 fl (7.4-10.4); Platelet Count Result 328 k/mm3 (150-375); Red Blood Count 2.94 M/mm3 (4.2-5.4); Red Cell Distribution Width 14.7 % (11.5-14.5)
[2021-05-17 06:13] LABS: Alanine Aminotransferase 24 U/L (4-35); Albumin Level 3.5 g/dL (3.5-5.1); Alkaline Phosphatase 149 U/L (38-126); Anion Gap 8 mmol/L (8-16); Aspartate Amino Transferase 37 U/L (14-36); Bilirubin,Total 0.2 mg/dL (0.2-1.3); Blood Urea Nitrogen 32 mg/dL (7-17); Calcium 8.6 mg/dL (8.4-10.2); Carbon Dioxide 25 mmol/L (22-30); Chloride 106 mmol/L (98-107); Estimated CRCL calculation 38 ml/min; Estimated Glomerular Filt Rate 54; Glucose 113 mg/dL (65-110); Sodium 139 mmol/L (137-145)
--- NOTE | 2021-05-17 07:20 | P.CDI_ITS ---
CDI Query Clarification Request -CHF exacerbation has been documented -BNP 9340 -05/16 CXR impression: Worsened diffuse lung disease, consistent with pulmonary edema versus pneumonia superimposed on emphysema -05/16 Echo summary: EF 35-40%, abnormal diastolic function Please further specify type of CHF: * Systolic *Acute * Diastolic *Chronic * Both systolic and diastolic *Acute on chronic * Unable to determine *Unable to determine <Ivonne Barber RN - Last Filed: 05/17/21 07:26> Acute on chronic systolic and diastolic heart failure <Lani Rodriguez MD - Last Filed: 05/20/21 18:59>
[2021-05-17] MEDS: IRBESARTAN 150 MG TABLET 300 MG PO (08:08)
[2021-05-17] MEDS: PREGABALIN (*CRX) 75 MG CAPSULE 150 MG PO ×2 (08:08→17:16)
[2021-05-17] MEDS: PANTOPRAZOLE 40 MG TABLET PO (08:09)
[2021-05-17] MEDS: CYANOCOBALAMIN 1,000 MCG TABLET 1000 MCG PO (08:09)
[2021-05-17] MEDS: ASPIRIN 81 MG ENTERIC TABLET PO (08:09)
[2021-05-17] MEDS: FLUoxetine HCL 20 MG CAPSULE PO (08:09)
[2021-05-17] MEDS: ATORVASTATIN 40 MG TABLET PO (08:09)
[2021-05-17] MEDS: predniSONE 20 MG TABLET 40 MG PO (08:09)
[2021-05-17] MEDS: FLUTICASONE/UMECLIDIN/VILANTER 100-62.5-25 MCG ELLIPTA 1 PUFF INHALATION (08:27)
--- NOTE | 2021-05-17 08:54 | WPDMODSED ---
Moderate Sedation Note-Pt Data Patient Data Diagnosis: Newly diagnosed left ventricular systolic dysfunction chronic anemia etiology yet to be determined evidence of COPD with longstanding history of previous smoking previous aortic stent in abdominal aorta details not available to me Present Complaint: generalized weakness /shortness of breath Procedure to be performed/Plan: left heart catheterization Allergies Allergy/AdvReac Type Severity Reaction Status Date / Time cat dander Allergy Unknown Sneezing Verified 05/15/21 06:15 house dust Allergy Unknown Sneezing Verified 05/15/21 06:15 mold Allergy Unknown Sneezing Verified 05/15/21 06:15 ciprofloxacin AdvReac Unknown Nausea Verified 05/16/21 13:24 erythromycin base AdvReac Unknown Nausea Verified 05/16/21 13:24 Sulfa (Sulfonamide AdvReac Unknown Nausea Verified 05/16/21 13:24 Antibiotics) Home Medications Medication Instructions Recorded Confirmed Type metronidazole 1 appful VAGINAL HS PRN 10/19/19 05/15/21 History pilocarpine HCl [Salagen 5 mg PO TID PRN 10/19/19 05/15/21 History (pilocarpine)] nystatin 100,000 unit/gram topical See Rx Instructions .ROUTE 06/30/20 05/15/21 Rx cream .COMPLEX #30 g methocarbamol 750 mg tablet 750 mg PO TID PRN #90 tablet 07/05/20 05/15/21 Rx pregabalin 150 mg capsule 150 mg PO BID #60 cap 10/31/20 05/15/21 Rx aspirin 81 mg tablet,delayed 81 mg PO DAILY 11/10/20 05/15/21 History release alprazolam 0.5 mg tablet 0.5 mg PO BID PRN #60 tablet 12/01/20 05/15/21 Rx hydrocodone 5 mg-acetaminophen 325 1 tablet PO Q6H PRN #60 tablet 01/03/21 05/15/21 Rx mg tablet albuterol sulfate 2 puff INHALATION BID PRN 04/19/21 05/15/21 History clopidogrel 75 mg PO DAILY 04/19/21 05/15/21 History fluoxetine 20 mg PO DAILY 04/19/21 05/15/21 History xlrypzgombg-[id number]-qeluzrqh 1 inh INHALATION DAILY 04/19/21 05/15/21 History [Trelegy Ellipta] furosemide 20 mg PO DAILY 04/19/21 05/15/21 History tramadol 50 mg tablet 50 mg PO QID PRN #60 tablet 04/24/21 05/15/21 Rx pantoprazole 40 mg tablet,delayed 40 mg PO QAM #30 tablet 05/02/21 05/15/21 Rx release irbesartan 300 mg tablet 300 mg PO DAILY #90 tablet 05/09/21 05/15/21 Rx cyanocobalamin (vitamin B-12) 1,000 mcg PO DAILY 05/15/21 05/15/21 History furosemide 20 mg PO DAILY 05/15/21 05/15/21 History irbesartan 300 mg PO DAILY 05/15/21 05/15/21 History pantoprazole 40 mg PO DAILY 05/15/21 05/15/21 History Current Medications: Active Medications Acetaminophen (Acetaminophen 325 Mg Tablet) 650 mg PO Q4H PRN PRN Reason: Mild Pain (1-3) or Fever Hydrocodone Bitart/Acetaminophen (Hydrocodone/Acetaminophen (*Crx) 5-325 Mg Tablet) 1 tab PO Q4H PRN PRN Reason: Pain Rated 4-6 Hydrocodone Bitart/Acetaminophen (Hydrocodone/Acetaminophen (*Crx) 5-325 Mg Tablet) 1 tab PO Q6H PRN PRN Reason: pain Albuterol (Albuterol Sulfate (*Sp) Aerosol 1 Puff) 2 puff INHALATION Q4HRT PRN PRN Reason: Wheezing Alprazolam (Alprazolam (*Crx) 0.5 Mg Tablet) 0.5 mg PO BID PRN PRN Reason: Anxiety Last Admin: 05/16/21 17:47 Dose: 0.5 mg Documented by: Aspirin (Aspirin 81 Mg Enteric Tablet) 81 mg PO QAM [facility] Last Admin: 05/17/21 08:09 Dose: 81 mg Documented by: Atorvastatin Calcium (Atorvastatin 40 Mg Tablet) 40 mg PO DAILY [facility] Last Admin: 05/17/21 08:09 Dose: 40 mg Documented by: Cyanocobalamin (Cyanocobalamin 1,000 Mcg Tablet) 1,000 mcg PO DAILY [facility] Last Admin: 05/17/21 08:09 Dose: 1,000 mcg Documented by: Fluoxetine HCl (Fluoxetine Hcl 20 Mg Capsule) 20 mg PO DAILY [facility] Last Admin: 05/17/21 08:09 Dose: 20 mg Documented by: Fluticasone/Umeclidinium/Vilanterol (Fluticasone/Umeclidin/Vilanter 100-62.5-25 Mcg Ellipta) 1 puff INHALATION DAILY [facility] Last Admin: 05/17/21 08:27 Dose: 1 puff Documented by: Furosemide (Furosemide Inj 40 Mg/4 Ml Vial) 40 mg IV PUSH Q12HR [facility] Last Admin: 05/16/21 21:21 Dose: 40 mg Documented by: Cefepime HCl (Maxipime 2 Gm/D5w 50 Ml) 2 gm in 50 mls @ 100 mls/hr IV
[2021-05-17 08:58] LABS: Partial Thromboplastin Time 30.8 SECONDS (22.3-36.8)
--- NOTE | 2021-05-17 09:53 | ECG_ITS ---
Measurements Intervals [place] Rate: 63 P: 79 SC: 151 QRS: 43 QRSD: 122 T: 39 QT: 461 QTc: 475 Interpretive Statements SINUS RHYTHM ST-T WAVE ABNORMALITY IN ANTEROLATERAL LEADS- CONSIDER ISCHEMIA BASELINE ARTIFACT- I, II, III, AVR, AVL, AVF ABNORMAL ECG Electronically Signed On 05-17-2021 10:29:22 CDT by Beka Cervantes D.O.
--- NOTE | 2021-05-17 09:58 | WPDCARDPROC ---
Cardiac Cath Procedure Note Date of procedure:: 05/17/21 Performing physician:: Maxwell Gaines MD Indication:: newly diagnosed left ventricular systolic dysfunction Brief clinical history:: this is a 75-year-old woman without previous cardiac history who has been found to have left ventricular systolic dysfunction by echo. Patient has a long history of previous smoking and also history of significant anemia which is still being evaluated and worked up. GI evaluation has shown no evidence of bleeding. Procedure Procedure performed:: Coronary angiography left ventriculography PCI(ROYAL) to the circumflex Sedation/Medication given:: fentanyl 50 mg Versed 2 mg case start time 9:03 a.m. case end time 9:47 a.m. sedation provided by Dl Goodman RN, trained observer Access site:: right femoral artery Estimated blood loss:: 10-15 cc Procedure note:: patient was brought to the cardiac catheterization lab in the postabsorptive state where the right femoral triangleWas prepared and draped in usual sterile fashion. Anesthesia was provided with 1% lidocaine infiltrated locally. Using the modified Seldinger technique a 5 Russian vascular sheath was placed into the right common femoral artery. The patient has had a previous aortoiliac distal stent. Under fluoroscopic visualization the guidewire was advanced through the stent material into the central aorta. After this I engaged and injected the left coronary artery using a standard 5 Russian FL4 catheter. The catheter was then exchanged over the wire for a 5 Russian JR4 catheter which was used to engage inject the RCA. the cineangiograms were then reviewed and PCI of the circumflex was recommended and carried out as detailed below. At that point the 5 Russian sheath was changed over the guidewire for 6 Russian device. The patient was systemically anticoagulated with Angiomax and received 2 baby aspirins and 600 mg of clopidogrel orally. I used a 6 Russian CLS 3.5 guiding catheter to engage and inject the left coronary artery for PCI. Following intervention the guiding catheter wires were removed. Lastly I used a 5 Russian angled pigtail catheter to measure left-sided hemodynamics and to inject LV g in the RODRIGUEZ projection. The catheters were then removed the sheath was sutured into position with 2-0 silk and the case was terminated the patient was taken back to her room for post cath/PCI recovery. Procedure was uncomplicated and well tolerated there was no sign of a groin hematoma upon leaving the hatchery laborer. Findings:: Hemodynamics: Central aortic pressure is 108 over 54 left ventricle 108/6 end-diastolic 20 there is no gradient on pullback across the aortic valve. Left ventricle: The LV is mildly enlarged the infero posterior segments are markedly hypodynamic the anterior wall contracts well. The global ejection fraction I would natural science curator to be 35% by visual estimation the left main coronary artery is widely patent and relatively short the left anterior descending is a large to moderate size artery extending down to around the apex. There is mild atherosclerosis in proximal LAD no more than 20-30% stenosis is identified in any segment. The circumflex is a large caliber vessel which is dominant to the posterior circulation. Most of the circumflex looks angiographically normal but interestingly there is a high-grade 95% stenosis in the mid circumflex at the origin of a very small OM branch. The distal circumflex vessels after this are free of significant disease. The right coronary artery small to medium in caliber non dominant giving rise to right ventricular circulation the right coronary artery is angiographically not disease. Intervention: The left coronary artery once again was engaged using 6 Russian CLS 3.5 guiding catheter. I used a 0.014 BMW coronary guidewire to traverse the circumflex lesion advancing the wire into the distal posterior circumflex vessels. After this the myranda
[2021-05-17] MEDS: FUROSEMIDE INJ 40 MG/4 ML VIAL IV PUSH ×2 (10:23→21:01)
[2021-05-17] MEDS: SODIUM CHLORIDE 0.9% IV 1,000 ML 125 ML IV CONT (10:23)
[2021-05-17 10:27] LABS: Cholesterol 147 mg/dL (0-200); HDL Direct 36 mg/dL; Triglycerides 89 mg/dL (<150)
[2021-05-17 10:38] LABS: LDL Cholesterol Direct 79 mg/dL
--- NOTE | 2021-05-17 11:00 | PC.NURSE ---
Patient arrived back from [facility] shortly before 10:00 with Lore Insurance Sales Associate RN present. Per GAGAN Torrez there are no available beds for patient recovery in the [facility] or [facility] PACU so she will be remaining with the patient and recovering her in 209 following their standard protocol. Lore will stay with her throughout the Angiomax infusion, bedrest, sheath pull and for one hour post hemostasis.
[2021-05-17] MEDS: METOPROLOL SUCCINATE EXT REL 25 MG TABCR PO (13:00)
--- NOTE | 2021-05-17 14:11 | SUR.PHASEII ---
Pt in IMU room 209, Cardiac Glass Pulverizer Equipment Operator RN observing patient, sheath site, VS. Sheath removed at 1348 - manual pressure currently in progress by Rosalba Gandhi, label drier RN
--- NOTE | 2021-05-17 15:21 | SUR.PHASEII ---
Report given to Cynthia FARAH, Site remains clean dry and intact. HOB elevated to 30 degrees - tolerated well. Taking sips of clear liquids without nausea and vomiting. Pt instructed on bedrest until 2020 - 6 hours after completed with sheath pull. Pt instructed on continuing to take Plavix daily and the importance of not missing any doses.
--- NOTE | 2021-05-17 15:43 | PC.NURSE ---
I resumed care of the patient from Lore Longwall Machine Operator Helper RN at 15:25. Patients sheath was pulled at 13:48 and hemostasis was achieved at 14:18. Site is dry and clear with no hematoma present. Patient is alert and oriented and vital signs are stable. Will continue recovery vital signs. Bedrest until 20:20. Patient verbalizes understanding.
--- NOTE | 2021-05-17 16:16 | PC.NURSE ---
On 05/17/21, the student, Deonna OVALLES, PSYCHIATRIC, provided care and completed [employer] documentation on this patient. I have reviewed the student's documentation and agree with the findings.
--- NOTE | 2021-05-17 17:29 | PC.NURSE ---
[facility] flyer was given to patient.
[2021-05-17] MEDS: MICONAZOLE NITRATE 2% CREAM 30 GM TUBE 1 APPLIC TOPICAL (21:05)
--- NOTE | 2021-05-17 22:03 | PM.IMPN ---
Progress Note: A&P Assessment and Plan (1) Multilobar lung infiltrate: Code(s): R91.8 - Other nonspecific abnormal finding of lung field Status: Acute Assessment and Plan: Patient has been started on vancomycin cefepime and Zithromax Blood cultures pending Continue to monitor (2) Non-ST elevation [place] (NSTEMI): Code(s): I21.4 - Non-ST elevation (NSTEMI) myocardial infarction Status: Acute Assessment and Plan: Patient is on heparin drip Follow cardiology recommendations (3) Suspected COVID-19 virus infection: Code(s): Z20.822 - Contact with and (suspected) exposure to COVID-19 Status: Acute Assessment and Plan: Ruled out (4) CHF exacerbation: Code(s): I50.9 - Heart failure, unspecified Status: Acute Assessment and Plan: Gentle diuresis Hernandez in Intake and output daily (5) C. difficile colitis: Code(s): A04.72 - Enterocolitis due to Clostridium difficile, not specified as recurrent Status: Acute Assessment and Plan: P.o. vancomycin for prophylaxis (6) Fibromyalgia: Code(s): M79.7 - Fibromyalgia Status: Acute Assessment and Plan: Resume home med (7) Lupus erythematosus: Qualifiers: Lupus erythematosus form: unspecified Qualified Code(s): L93.0 - Discoid lupus erythematosus Code(s): L93.0 - Discoid lupus erythematosus Status: Acute Assessment and Plan: Plaquenil has been stopped Patient receiving infliximab infusion (8) Nicotine dependence, cigarettes, uncomplicated: Code(s): F17.210 - Nicotine dependence, cigarettes, uncomplicated Status: Acute Assessment and Plan: Nicotine patch as needed (9) Nonrheumatic mitral (valve) insufficiency: Code(s): I34.0 - Nonrheumatic mitral (valve) insufficiency Status: Acute Assessment and Plan: Continue to monitor (10) Tobacco dependence: Code(s): F17.200 - Nicotine dependence, unspecified, uncomplicated Status: Acute Assessment and Plan: Nicotine patch as needed (11) COPD mixed type: Code(s): J44.9 - Chronic obstructive pulmonary disease, unspecified Status: Acute Assessment and Plan: Continue home meds Breathing treatments Continuous pulse ox Actively wheezing Will start on prednisone 40 p.o. (12) Chronic back pain: Code(s): M54.9 - Dorsalgia, unspecified; G89.29 - Other chronic pain Status: Acute Assessment and Plan: Continue home med (13) PAD (peripheral artery disease): Code(s): I73.9 - Peripheral vascular disease, unspecified Status: Acute Assessment and Plan: Stable Continue to monitor Additional Plan 05/17/21 doing ok s/p uncomplicated cath w PCI (see report above) monitor overnight cont telemetry monitoring supportive care possible dc in am cardiology recs appreciated Subjective Date/time seen: 05/17/21 12:03 pt seen s/p cath w PCI doing ok no complaints Exam Narrative: GEN: NAD, AAOx3, cooperative HEENT: NCAT, MMM, EOMI Neck: no JVD Heart: S1S2 RRR Lungs: CTA B/l Abd: soft, NT, ND, bowel sounds normoactive Neuro: CN intact no motor deficits appreciated Psych: mood and affect congruent Objective Data Vital Signs Vital Signs: Vital Signs - 24 hr 05/16/21 23:44 05/17/21 00:00 05/17/21 02:00 Temperature 97.9 F Pulse Rate 65 65 56 L Respiratory Rate 20 Blood Pressure 113/68 Pulse Oximetry 97 98 05/17/21 04:00 05/17/21 06:00 05/17/21 08:00 Temperature 97.8 F 98.6 F Pulse Rate 59 L 55 L 61 Respiratory Rate 20 18 Blood Pressure 127/74 130/69 Pulse Oximetry 99 100 05/17/21 10:00 05/17/21 10:10 05/17/21 10:20 Temperature 97.5 F L Pulse Rate 64 63 62 Respiratory Rate 18 18 Blood Pressure 109/58 L 109/52 L Pulse Oximetry 96 100 05/17/21 10:30 05/17/21 10:45 05/17/21 11:00 Temperature Pulse Rate 65 66 64 Respiratory Rate 18 18 17 [place]
[2021-05-17] MEDS: DOCUSATE SODIUM 100 MG CAPSULE PO (22:49)
[2021-05-18] VITALS (16 sets, daily range): BP systolic 96–119; BP diastolic 50–67; PULSE 52–64; RESP 12–18; TEMP 36.1–36.8; O2SAT 95–100
[2021-05-18 03:45] LABS: Hematocrit 25.9 % (37.0-47.0); Hemoglobin 8.2 g/dL (12.0-15.0); Mean Corpuscular HGB Conc 31.7 g/dl (32-36); Mean Corpuscular Hemoglobin 28.6 pg (26-34); Mean Corpuscular Volume 90.2 fl (80-100); Mean Platelet Volume 11.3 fl (7.4-10.4); Platelet Count Result 344 k/mm3 (150-375); Red Blood Count 2.87 M/mm3 (4.2-5.4); Red Cell Distribution Width 14.6 % (11.5-14.5); White Blood Count 8.7 K/mm3 (4.5-10.0)
[2021-05-18 03:51] LABS: Alanine Aminotransferase 22 U/L (4-35); Albumin Level 3.4 g/dL (3.5-5.1); Alkaline Phosphatase 138 U/L (38-126); Anion Gap 8 mmol/L (8-16); Aspartate Amino Transferase 36 U/L (14-36); Bilirubin,Total 0.2 mg/dL (0.2-1.3); Blood Urea Nitrogen 31 mg/dL (7-17); Calcium 8.6 mg/dL (8.4-10.2); Carbon Dioxide 27 mmol/L (22-30); Chloride 103 mmol/L (98-107); Estimated CRCL calculation 34 ml/min; Estimated Glomerular Filt Rate 49; Glucose 107 mg/dL (65-110); Magnesium 1.9 mg/dL (1.6-2.3); Potassium 3.7 mmol/L (3.4-5.0); Sodium 138 mmol/L (137-145)
--- NOTE | 2021-05-18 05:11 | ECG_ITS ---
Measurements Intervals [place] Rate: 65 P: 98 NV: 160 QRS: 32 QRSD: 96 T: -61 QT: 431 QTc: 449 Interpretive Statements SINUS RHYTHM VENTRICULAR PREMATURE COMPLEX ST-T WAVE ABNORMALITY IN INFERIOR LEADS- CONSIDER ISCHEMIA BASELINE ARTIFACT- I, II, III, AVR, AVL, AVF, V1-V6 BORDERLINE ECG Electronically Signed On 05-18-2021 9:22:17 CDT by Beka Cervantes D.O.
[2021-05-18] MEDS: PREGABALIN (*CRX) 75 MG CAPSULE 150 MG PO ×2 (08:33→16:42)
[2021-05-18] MEDS: CYANOCOBALAMIN 1,000 MCG TABLET 1000 MCG PO (08:33)
[2021-05-18] MEDS: METOPROLOL SUCCINATE EXT REL 25 MG TABCR PO (08:33)
[2021-05-18] MEDS: IRBESARTAN 150 MG TABLET 300 MG PO (08:33)
[2021-05-18] MEDS: ATORVASTATIN 40 MG TABLET PO (08:33)
[2021-05-18] MEDS: predniSONE 20 MG TABLET 40 MG PO (08:33)
[2021-05-18] MEDS: DOCUSATE SODIUM 100 MG CAPSULE PO ×2 (08:33→20:16)
[2021-05-18] MEDS: CLOPIDOGREL BISULFATE 75 MG TABLET PO (08:34)
[2021-05-18] MEDS: PANTOPRAZOLE 40 MG TABLET PO (08:34)
[2021-05-18] MEDS: ASPIRIN 81 MG CHEWABLE TABLET PO (08:34)
[2021-05-18] MEDS: FUROSEMIDE INJ 40 MG/4 ML VIAL IV PUSH ×2 (08:41→20:16)
[2021-05-18] MEDS: ALBUTEROL SULFATE (*SP) AEROSOL 1 PUFF 2 PUFF INHALATION (08:56)
[2021-05-18] MEDS: FLUTICASONE/UMECLIDIN/VILANTER 100-62.5-25 MCG ELLIPTA 1 PUFF INHALATION (08:56)
[2021-05-18] MEDS: ALPRAZolam (*CRX) 0.5 MG TABLET PO (09:00)
--- NOTE | 2021-05-18 09:02 | PM.PNCARD ---
Progress Note: A&P Assessment and Plan (1) Non-ST elevation [place] (NSTEMI): Code(s): I21.4 - Non-ST elevation (NSTEMI) myocardial infarction Status: Acute Assessment and Plan: Elevated troponin with downward trend since admission most likely consistent with subacute pattern. Patient describes chest tightness intermittently for several months at rest primarily and not with exertion prior to admission. No anginal symptoms at present. Ongoing fatigue and exertional dyspnea may be anginal equivalent. EKG with diffuse ST abnormalities consider ischemia, no ST elevation. No prior known history of CAD. -Heparin infusion for 48 hours, aspirin 81 mg daily, statin. Status post 3.5 x 23 mm Orsiro ROYAL to 95% stenosis mid Cx without complication. Continue aspirin 81 mg daily, clopidogrel 75 mg daily, Toprol XL 25 mg daily, and atorvastatin 40 mg daily. Needs DVT prophylaxis. (2) CHF exacerbation: Code(s): I50.9 - Heart failure, unspecified Status: Acute Assessment and Plan: Clinically she appears minimally decompensated based on crackles on exam otherwise no edema, abdominal fullness or JVD. Continue IV Lasix. Accurate input and output, daily weight. Monitor renal function electrolytes. (3) Multilobar lung infiltrate: Code(s): R91.8 - Other nonspecific abnormal finding of lung field Status: Acute Assessment and Plan: Management per primary service. She remains on vancomycin, azithromycin, and cefepime. Cultures pending. Respiratory status compromised by multilobar pneumonia. Repeat Chest x-ray. She is now on 2 L nasal cannula. Bronchodilator therapy. Although less likely, it is possible she may be experiencing bronchoconstriction from beta-boy therapy. Will monitor closely in this regard as we may need to discontinue if suspicion is high. (4) Anemia: Code(s): D64.9 - Anemia, unspecified Status: Acute Assessment and Plan: She remains significantly anemic but H&H stable at present. Continue to follow H&H closely. (5) PAD (peripheral artery disease): Code(s): I73.9 - Peripheral vascular disease, unspecified Status: Acute Assessment and Plan: Documented PAD on CT lower extremity total occlusion of posterior tibial artery, moderate stenosis left anterior to ileal mild stenosis of tibioperoneal trunk left lower extremity. Followed by vascular surgery as an outpatient, Dr. Pinto. Patient has a history of prior iliac stenting of the left lower extremity. Patient also has stable moderate right internal carotid arterial stenosis. (6) Essential (primary) hypertension: Code(s): I10 - Essential (primary) hypertension Status: Acute Assessment and Plan: Stable no acute issues. (7) Lupus erythematosus: Code(s): L93.0 - Discoid lupus erythematosus Status: Acute Assessment and Plan: Per primary service. Subjective Date/time seen: Date of service: 05/18/21 09:02 Follow-up for NSTEMI, shortness of breath and chest pain, new cardiomyopathy Patient was doing very well yesterday afternoon status post coronary angiography and 3.5 x 23 mm Orsiro ROYAL to mid Cx 95% stenosis. However, overnight became more short of breath the oxygen saturations were stable placed on 2 L nasal cannula. Patient complains of coughing and wheezing. No chest pain. No bleeding complications post cardiac catheterization. She admits she was feeling very well yesterday Review of Systems Review of Systems: All systems reviewed & are unremarkable except as noted in HPI and below Constitutional: Constitutional: Reports as per HPI, Reports no additional constitutional complaints, Reports fatigue, Reports lethargy and Reports weakness Eyes: Eyes: Reports as per HPI and Reports no additional eye complaints ENT: Reports system reviewed and no additional complaints, except as documented and Reports as per HPI Cardiovascular: Cardiovascular:
--- NOTE | 2021-05-18 11:49 | PM.IMPN ---
Progress Note: A&P Assessment and Plan (1) Multilobar lung infiltrate: Code(s): R91.8 - Other nonspecific abnormal finding of lung field Status: Acute Assessment and Plan: Patient has been started on vancomycin cefepime and Zithromax Blood cultures pending Continue to monitor (2) Non-ST elevation [place] (NSTEMI): Code(s): I21.4 - Non-ST elevation (NSTEMI) myocardial infarction Status: Acute Assessment and Plan: Patient is on heparin drip Follow cardiology recommendations (3) Suspected COVID-19 virus infection: Code(s): Z20.822 - Contact with and (suspected) exposure to COVID-19 Status: Acute Assessment and Plan: Ruled out (4) CHF exacerbation: Code(s): I50.9 - Heart failure, unspecified Status: Acute Assessment and Plan: Gentle diuresis Hernandez in Intake and output daily (5) C. difficile colitis: Code(s): A04.72 - Enterocolitis due to Clostridium difficile, not specified as recurrent Status: Acute Assessment and Plan: P.o. vancomycin for prophylaxis (6) Fibromyalgia: Code(s): M79.7 - Fibromyalgia Status: Acute Assessment and Plan: Resume home med (7) Lupus erythematosus: Qualifiers: Lupus erythematosus form: unspecified Qualified Code(s): L93.0 - Discoid lupus erythematosus Code(s): L93.0 - Discoid lupus erythematosus Status: Acute Assessment and Plan: Plaquenil has been stopped Patient receiving infliximab infusion (8) Nicotine dependence, cigarettes, uncomplicated: Code(s): F17.210 - Nicotine dependence, cigarettes, uncomplicated Status: Acute Assessment and Plan: Nicotine patch as needed (9) Nonrheumatic mitral (valve) insufficiency: Code(s): I34.0 - Nonrheumatic mitral (valve) insufficiency Status: Acute Assessment and Plan: Continue to monitor (10) Tobacco dependence: Code(s): F17.200 - Nicotine dependence, unspecified, uncomplicated Status: Acute Assessment and Plan: Nicotine patch as needed (11) COPD mixed type: Code(s): J44.9 - Chronic obstructive pulmonary disease, unspecified Status: Acute Assessment and Plan: Continue home meds Breathing treatments Continuous pulse ox Actively wheezing Will start on prednisone 40 p.o. (12) Chronic back pain: Code(s): M54.9 - Dorsalgia, unspecified; G89.29 - Other chronic pain Status: Acute Assessment and Plan: Continue home med (13) PAD (peripheral artery disease): Code(s): I73.9 - Peripheral vascular disease, unspecified Status: Acute Assessment and Plan: Stable Continue to monitor Additional Plan 05/17/21 doing ok s/p uncomplicated cath w PCI (see report above) monitor overnight cont telemetry monitoring supportive care possible dc in am cardiology recs appreciated 05/18/21 pt w systolic CHF s/p cath pt w pulmonary edema diruesis hold dc cont current care cardiology following Subjective Date/time seen: 05/18/21 11:49 Patient with shortness of breath noted to have wheezing on physical examination this morning discharge planning held. At the time of my interview she continues to report some shortness of breath but is improving Exam Narrative: GEN: NAD, AAOx3, cooperative HEENT: NCAT, MMM, EOMI Neck: no JVD Heart: S1S2 RRR Lungs: diffuse wheezing and rales Abd: soft, NT, ND, bowel sounds normoactive Neuro: CN intact no motor deficits appreciated Psych: mood and affect congruent Objective Data Vital Signs Vital Signs: Vital Signs - 24 hr 05/17/21 18:00 05/17/21 20:00 05/17/21 23:46 Temperature 97.2 F L 97.8 F 97.9 F Pulse Rate 58 L 65 65 Respiratory Rate 16 18 20 Blood Pressure 132/48 L 109/57 L 117/70 Pulse Oximetry 98 99 97 05/18/21 00:00 05/18/21 02:00 05/18/21 04:00 Temperature 97.6 F Pulse Rate 58 L 61 64 Respiratory Rate 18 Blood Pressure
[2021-05-18] MEDS: MICONAZOLE NITRATE 2% CREAM 30 GM TUBE 1 APPLIC TOPICAL (20:17)
[2021-05-18 22:33] LABS: Vancomycin Trough 8.8 ug/mL (10.0-20.0)
[2021-05-19] VITALS (19 sets, daily range): BP systolic 103–125; BP diastolic 59–75; PULSE 49–61; RESP 16–24; TEMP 36.7–37.1; O2SAT 98–100
[2021-05-19 05:04] LABS: Hematocrit 25.7 % (37.0-47.0); Hemoglobin 7.9 g/dL (12.0-15.0); Mean Corpuscular HGB Conc 30.7 g/dl (32-36); Mean Corpuscular Hemoglobin 28.1 pg (26-34); Mean Corpuscular Volume 91.5 fl (80-100); Mean Platelet Volume 11.4 fl (7.4-10.4); Platelet Count Result 333 k/mm3 (150-375); Red Blood Count 2.81 M/mm3 (4.2-5.4); Red Cell Distribution Width 14.6 % (11.5-14.5); White Blood Count 8.3 K/mm3 (4.5-10.0)
[2021-05-19 05:19] LABS: Alanine Aminotransferase 20 U/L (4-35); Albumin Level 3.3 g/dL (3.5-5.1); Alkaline Phosphatase 121 U/L (38-126); Anion Gap 7 mmol/L (8-16); Aspartate Amino Transferase 30 U/L (14-36); Bilirubin,Total 0.2 mg/dL (0.2-1.3); Blood Urea Nitrogen 37 mg/dL (7-17); Calcium 8.8 mg/dL (8.4-10.2); Carbon Dioxide 31 mmol/L (22-30); Chloride 101 mmol/L (98-107); Estimated CRCL calculation 27 ml/min; Estimated Glomerular Filt Rate 37; Glucose 120 mg/dL (65-110); Magnesium 1.9 mg/dL (1.6-2.3); Potassium 3.8 mmol/L (3.4-5.0); Sodium 139 mmol/L (137-145)
--- NOTE | 2021-05-19 08:06 | PM.IMPN ---
Progress Note: A&P Assessment and Plan (1) Multilobar lung infiltrate: Code(s): R91.8 - Other nonspecific abnormal finding of lung field Status: Acute Assessment and Plan: Patient has been started on vancomycin cefepime and Zithromax Blood cultures pending Continue to monitor (2) Non-ST elevation [place] (NSTEMI): Code(s): I21.4 - Non-ST elevation (NSTEMI) myocardial infarction Status: Acute Assessment and Plan: Patient is on heparin drip Follow cardiology recommendations (3) Suspected COVID-19 virus infection: Code(s): Z20.822 - Contact with and (suspected) exposure to COVID-19 Status: Acute Assessment and Plan: Ruled out (4) CHF exacerbation: Code(s): I50.9 - Heart failure, unspecified Status: Acute Assessment and Plan: Gentle diuresis Hernandez in Intake and output daily (5) C. difficile colitis: Code(s): A04.72 - Enterocolitis due to Clostridium difficile, not specified as recurrent Status: Acute Assessment and Plan: P.o. vancomycin for prophylaxis (6) Fibromyalgia: Code(s): M79.7 - Fibromyalgia Status: Acute Assessment and Plan: Resume home med (7) Lupus erythematosus: Qualifiers: Lupus erythematosus form: unspecified Qualified Code(s): L93.0 - Discoid lupus erythematosus Code(s): L93.0 - Discoid lupus erythematosus Status: Acute Assessment and Plan: Plaquenil has been stopped Patient receiving infliximab infusion (8) Nicotine dependence, cigarettes, uncomplicated: Code(s): F17.210 - Nicotine dependence, cigarettes, uncomplicated Status: Acute Assessment and Plan: Nicotine patch as needed (9) Nonrheumatic mitral (valve) insufficiency: Code(s): I34.0 - Nonrheumatic mitral (valve) insufficiency Status: Acute Assessment and Plan: Continue to monitor (10) Tobacco dependence: Code(s): F17.200 - Nicotine dependence, unspecified, uncomplicated Status: Acute Assessment and Plan: Nicotine patch as needed (11) COPD mixed type: Code(s): J44.9 - Chronic obstructive pulmonary disease, unspecified Status: Acute Assessment and Plan: Continue home meds Breathing treatments Continuous pulse ox Actively wheezing Will start on prednisone 40 p.o. (12) Chronic back pain: Code(s): M54.9 - Dorsalgia, unspecified; G89.29 - Other chronic pain Status: Acute Assessment and Plan: Continue home med (13) PAD (peripheral artery disease): Code(s): I73.9 - Peripheral vascular disease, unspecified Status: Acute Assessment and Plan: Stable Continue to monitor Additional Plan 05/17/21 doing ok s/p uncomplicated cath w PCI (see report above) monitor overnight cont telemetry monitoring supportive care possible dc in am cardiology recs appreciated 05/18/21 pt w systolic CHF s/p cath pt w pulmonary edema diruesis hold dc cont current care cardiology following 05/19/21 Cr and BUN rising on lasix for diuresis CXR w/o improvement CT chest wo con (elevated Cr) decrease IV lasix stop prophylactic C dif tx stop vanco pt came from [facility] for PNA procal , CRP, ESR cont steroids, duonebs Subjective Date/time seen: 05/19/21 08:06 Patient reports that she is feeling somewhat better but not overall improved. We review her history of Clostridium difficile colitis which she cannot confirm. She has never taken oral vancomycin for any problem with her bowels. Pt w dx of SLE but is not currently on any therapy for this. Exam Narrative: GEN: NAD, AAOx3, cooperative HEENT: NCAT, MMM, EOMI Neck: no JVD Heart: S1S2 RRR Lungs:improved wheezing and rales Abd: soft, NT, ND, bowel sounds normoactive Neuro: CN intact no motor deficits appreciated Psych: mood and affect congruent Objective Data Vital Signs Vital Signs: Vital Signs - 24 hr 0
--- NOTE | 2021-05-19 08:23 | WPDCDIQUERY2 ---
CDI Query Clarification Request - Respiratory status compromised by multilobar pneumonia documented by cardiology -Multilobar lung infiltrate and Patient has been started on vancomycin cefepime and Zithromax documented by hospitalist Please clarify if pneumonia has been ruled in or ruled out. <Ivonne Barber RN - Last Filed: 05/19/21 08:36>
[2021-05-19] MEDS: CYANOCOBALAMIN 1,000 MCG TABLET 1000 MCG PO (08:55)
[2021-05-19] MEDS: CLOPIDOGREL BISULFATE 75 MG TABLET PO (08:55)
[2021-05-19] MEDS: POTASSIUM CHLORIDE 20 MEQ TABLET PO (08:55)
[2021-05-19] MEDS: predniSONE 20 MG TABLET 40 MG PO (08:55)
[2021-05-19] MEDS: FUROSEMIDE INJ 40 MG/4 ML VIAL IV PUSH (08:55)
[2021-05-19] MEDS: ASPIRIN 81 MG CHEWABLE TABLET PO (08:56)
[2021-05-19] MEDS: ATORVASTATIN 40 MG TABLET PO (08:56)
[2021-05-19] MEDS: DOCUSATE SODIUM 100 MG CAPSULE PO ×2 (08:56→21:03)
[2021-05-19] MEDS: PANTOPRAZOLE 40 MG TABLET PO (08:56)
[2021-05-19] MEDS: IRBESARTAN 150 MG TABLET 300 MG PO (08:56)
[2021-05-19] MEDS: METOPROLOL SUCCINATE EXT REL 25 MG TABCR PO (08:56)
[2021-05-19] MEDS: PREGABALIN (*CRX) 75 MG CAPSULE 150 MG PO ×2 (08:56→18:27)
[2021-05-19] MEDS: MICONAZOLE NITRATE 2% CREAM 30 GM TUBE 1 APPLIC TOPICAL (08:57)
[2021-05-19] MEDS: FLUTICASONE/UMECLIDIN/VILANTER 100-62.5-25 MCG ELLIPTA 1 PUFF INHALATION (09:18)
--- NOTE | 2021-05-19 13:49 | PM.PNCARD ---
Progress Note: A&P Assessment and Plan (1) Non-ST elevation [place] (NSTEMI): Code(s): I21.4 - Non-ST elevation (NSTEMI) myocardial infarction Status: Acute Assessment and Plan: Elevated troponin with downward trend since admission most likely consistent with subacute pattern. Patient describes chest tightness intermittently for several months at rest primarily and not with exertion prior to admission. No anginal symptoms at present. Ongoing fatigue and exertional dyspnea may be anginal equivalent. EKG with diffuse ST abnormalities consider ischemia, no ST elevation. No prior known history of CAD. -Heparin infusion for 48 hours, aspirin 81 mg daily, statin. Status post 3.5 x 23 mm Orsiro ROYAL to 95% stenosis mid Cx without complication. Continue aspirin 81 mg daily, clopidogrel 75 mg daily, Toprol XL 25 mg daily, and atorvastatin 40 mg daily. Needs DVT prophylaxis. (2) CHF exacerbation: Code(s): I50.9 - Heart failure, unspecified Status: Acute Assessment and Plan: Clinically she appears minimally decompensated based on crackles on exam otherwise no edema, abdominal fullness or JVD. Continue IV Lasix. Accurate input and output, daily weight. Monitor renal function electrolytes. (3) Multilobar lung infiltrate: Code(s): R91.8 - Other nonspecific abnormal finding of lung field Status: Acute Assessment and Plan: Management per primary service. She remains on vancomycin, azithromycin, and cefepime. Cultures pending. Respiratory status compromised by multilobar pneumonia. Repeat Chest x-ray. She is now on 2 L nasal cannula. Bronchodilator therapy. Although less likely, it is possible she may be experiencing bronchoconstriction from beta-boy therapy. Will monitor closely in this regard as we may need to discontinue if suspicion is high. (4) Anemia: Code(s): D64.9 - Anemia, unspecified Status: Acute Assessment and Plan: She remains significantly anemic but H&H stable at present. Continue to follow H&H closely. (5) PAD (peripheral artery disease): Code(s): I73.9 - Peripheral vascular disease, unspecified Status: Acute Assessment and Plan: Documented PAD on CT lower extremity total occlusion of posterior tibial artery, moderate stenosis left anterior to ileal mild stenosis of tibioperoneal trunk left lower extremity. Followed by vascular surgery as an outpatient, Dr. Pinto. Patient has a history of prior iliac stenting of the left lower extremity. Patient also has stable moderate right internal carotid arterial stenosis. (6) Essential (primary) hypertension: Code(s): I10 - Essential (primary) hypertension Status: Acute Assessment and Plan: Stable no acute issues. (7) Lupus erythematosus: Code(s): L93.0 - Discoid lupus erythematosus Status: Acute Assessment and Plan: Per primary service. Subjective Date/time seen: 05/19/21 13:49 Cardiology follow up Date of service 05/19/2021: Continues to have some shortness of breath today. She does say that she has been up out of bed moving about the room with no difficulty. Denying any chest pain. Review of Systems Review of Systems: All systems reviewed & are unremarkable except as noted in HPI and below Constitutional: Constitutional: Reports as per HPI, Reports no additional constitutional complaints, Reports fatigue, Reports lethargy and Reports weakness Eyes: Eyes: Reports as per HPI and Reports no additional eye complaints ENT: Reports system reviewed and no additional complaints, except as documented and Reports as per HPI Cardiovascular: Cardiovascular: Reports as per HPI, Reports no additional cardiovascular complaints, Reports chest pain, Denies diaphoresis, Denies leg edema, Denies lightheadedness, Denies palpitations, Reports dyspnea and Reports dyspnea on exertion Respiratory: Respiratory: Reports as per HPI, Reports no additional res
[2021-05-19 18:17] LABS: CRP 1.7 mg/dL (<1.0)
[2021-05-19] MEDS: SACCHAROMYCES BOULARDII 250 MG CAPSULE PO (18:27)
[2021-05-19 18:53] LABS: Erythrocyte Sedimentation Rate 61 mm/hr (0-20)
[2021-05-20] VITALS (17 sets, daily range): BP systolic 111–127; BP diastolic 49–65; PULSE 50–60; RESP 16–21; TEMP 35.6–36.8; O2SAT 97–100
[2021-05-20 05:02] LABS: Hematocrit 25.7 % (37.0-47.0); Hemoglobin 8.1 g/dL (12.0-15.0); Mean Corpuscular HGB Conc 31.5 g/dl (32-36); Mean Corpuscular Hemoglobin 27.6 pg (26-34); Mean Corpuscular Volume 87.7 fl (80-100); Mean Platelet Volume 11.5 fl (7.4-10.4); Platelet Count Result 394 k/mm3 (150-375); Red Blood Count 2.93 M/mm3 (4.2-5.4); Red Cell Distribution Width 14.5 % (11.5-14.5); White Blood Count 9.8 K/mm3 (4.5-10.0)
[2021-05-20 05:19] LABS: Alanine Aminotransferase 19 U/L (4-35); Albumin Level 3.3 g/dL (3.5-5.1); Alkaline Phosphatase 122 U/L (38-126); Anion Gap 4 mmol/L (8-16); Aspartate Amino Transferase 27 U/L (14-36); Bilirubin,Total 0.2 mg/dL (0.2-1.3); Blood Urea Nitrogen 42 mg/dL (7-17); Calcium 8.7 mg/dL (8.4-10.2); Carbon Dioxide 31 mmol/L (22-30); Chloride 102 mmol/L (98-107); Estimated CRCL calculation 32 ml/min; Estimated Glomerular Filt Rate 44; Glucose 121 mg/dL (65-110); Sodium 137 mmol/L (137-145)
[2021-05-20] MEDS: PREGABALIN (*CRX) 75 MG CAPSULE 150 MG PO ×2 (08:18→17:11)
[2021-05-20] MEDS: IRBESARTAN 150 MG TABLET 300 MG PO (08:19)
[2021-05-20] MEDS: CLOPIDOGREL BISULFATE 75 MG TABLET PO (08:20)
[2021-05-20] MEDS: predniSONE 20 MG TABLET 40 MG PO ×2 (08:20→17:12)
[2021-05-20] MEDS: METOPROLOL SUCCINATE EXT REL 25 MG TABCR PO (08:20)
[2021-05-20] MEDS: ASPIRIN 81 MG CHEWABLE TABLET PO (08:20)
[2021-05-20] MEDS: SACCHAROMYCES BOULARDII 250 MG CAPSULE PO ×3 (08:21→17:12)
[2021-05-20] MEDS: DOCUSATE SODIUM 100 MG CAPSULE PO ×2 (08:21→20:19)
[2021-05-20] MEDS: PANTOPRAZOLE 40 MG TABLET PO (08:21)
[2021-05-20] MEDS: CYANOCOBALAMIN 1,000 MCG TABLET 1000 MCG PO (08:21)
[2021-05-20] MEDS: ATORVASTATIN 40 MG TABLET PO (08:21)
[2021-05-20] MEDS: FUROSEMIDE INJ 40 MG/4 ML VIAL IV PUSH (08:24)
--- NOTE | 2021-05-20 09:00 | PM.IMPN ---
Progress Note: A&P Assessment and Plan (1) Multilobar lung infiltrate: Code(s): R91.8 - Other nonspecific abnormal finding of lung field Status: Acute Assessment and Plan: Patient has been started on vancomycin cefepime and Zithromax Blood cultures pending Continue to monitor (2) Non-ST elevation [place] (NSTEMI): Code(s): I21.4 - Non-ST elevation (NSTEMI) myocardial infarction Status: Acute Assessment and Plan: Patient is on heparin drip Follow cardiology recommendations (3) Suspected COVID-19 virus infection: Code(s): Z20.822 - Contact with and (suspected) exposure to COVID-19 Status: Acute Assessment and Plan: Ruled out (4) CHF exacerbation: Code(s): I50.9 - Heart failure, unspecified Status: Acute Assessment and Plan: Gentle diuresis Hernandez in Intake and output daily (5) C. difficile colitis: Code(s): A04.72 - Enterocolitis due to Clostridium difficile, not specified as recurrent Status: Acute Assessment and Plan: P.o. vancomycin for prophylaxis (6) Fibromyalgia: Code(s): M79.7 - Fibromyalgia Status: Acute Assessment and Plan: Resume home med (7) Lupus erythematosus: Qualifiers: Lupus erythematosus form: unspecified Qualified Code(s): L93.0 - Discoid lupus erythematosus Code(s): L93.0 - Discoid lupus erythematosus Status: Acute Assessment and Plan: Plaquenil has been stopped Patient receiving infliximab infusion (8) Nicotine dependence, cigarettes, uncomplicated: Code(s): F17.210 - Nicotine dependence, cigarettes, uncomplicated Status: Acute Assessment and Plan: Nicotine patch as needed (9) Nonrheumatic mitral (valve) insufficiency: Code(s): I34.0 - Nonrheumatic mitral (valve) insufficiency Status: Acute Assessment and Plan: Continue to monitor (10) Tobacco dependence: Code(s): F17.200 - Nicotine dependence, unspecified, uncomplicated Status: Acute Assessment and Plan: Nicotine patch as needed (11) COPD mixed type: Code(s): J44.9 - Chronic obstructive pulmonary disease, unspecified Status: Acute Assessment and Plan: Continue home meds Breathing treatments Continuous pulse ox Actively wheezing Will start on prednisone 40 p.o. (12) Chronic back pain: Code(s): M54.9 - Dorsalgia, unspecified; G89.29 - Other chronic pain Status: Acute Assessment and Plan: Continue home med (13) PAD (peripheral artery disease): Code(s): I73.9 - Peripheral vascular disease, unspecified Status: Acute Assessment and Plan: Stable Continue to monitor Additional Plan 05/17/21 doing ok s/p uncomplicated cath w PCI (see report above) monitor overnight cont telemetry monitoring supportive care possible dc in am cardiology recs appreciated 05/18/21 pt w systolic CHF s/p cath pt w pulmonary edema diruesis hold dc cont current care cardiology following 05/19/21 Cr and BUN rising on lasix for diuresis CXR w/o improvement CT chest wo con (elevated Cr) decrease IV lasix stop prophylactic C dif tx stop vanco pt came from [facility] [place] for PNA procal , CRP, ESR cont steroids, duonebs 05/20/21 CT reviewed change lasix to bumex cont abx now on RA transfer to Med surg w tele cont abx anticipate dc home in 24-48hrs w outpt follow up w rheumatology, nephrology, cardiology, and her PCP Subjective Date/time seen: 05/20/21 09:00 Patient reports that she is feeling better she has successfully been weaned from oxygen. Her concern is that this morning she had very black stools. Patient here reports previous endoscopy and colonoscopy without identified source of GI bleeding. This been an ongoing problem for her. CT scan reviewed and plan of care discussed with pt and RN Exam Narrative: GEN: NAD, AAOx3, cooperative HEENT: NCAT, MMM, EOM
[2021-05-20] MEDS: FLUTICASONE/UMECLIDIN/VILANTER 100-62.5-25 MCG ELLIPTA 1 PUFF INHALATION (09:33)
[2021-05-20] MEDS: BUMETANIDE INJ 1 MG/4 ML VIAL IV PUSH ×2 (11:10→17:13)
--- NOTE | 2021-05-20 11:36 | PM.PNCARD ---
Progress Note: A&P Assessment and Plan (1) Non-ST elevation [place] (NSTEMI): Code(s): I21.4 - Non-ST elevation (NSTEMI) myocardial infarction Status: Acute Assessment and Plan: Elevated troponin with downward trend since admission most likely consistent with subacute pattern. Patient describes chest tightness intermittently for several months at rest primarily and not with exertion prior to admission. No anginal symptoms at present. Ongoing fatigue and exertional dyspnea may be anginal equivalent. EKG with diffuse ST abnormalities consider ischemia, no ST elevation. No prior known history of CAD. -Heparin infusion for 48 hours, aspirin 81 mg daily, statin. Status post 3.5 x 23 mm Orsiro ROYAL to 95% stenosis mid Cx without complication. Continue aspirin 81 mg daily, clopidogrel 75 mg daily, Toprol XL 25 mg daily, and atorvastatin 40 mg daily. (2) CHF exacerbation: Code(s): I50.9 - Heart failure, unspecified Status: Acute Assessment and Plan: Clinically she appears minimally decompensated based on crackles on exam otherwise no edema, abdominal fullness or JVD. Continue IV Bumex. Accurate input and output, daily weight. Monitor renal function electrolytes. (3) Multilobar lung infiltrate: Code(s): R91.8 - Other nonspecific abnormal finding of lung field Status: Acute Assessment and Plan: Management per primary service. She remains on vancomycin, azithromycin, and cefepime. Cultures pending. Respiratory status compromised by multilobar pneumonia. Repeat Chest x-ray off oxygen. Bronchodilator therapy. Although less likely, it is possible she may be experiencing bronchoconstriction from beta-boy therapy. Will monitor closely in this regard as we may need to discontinue if suspicion is high. (4) Anemia: Code(s): D64.9 - Anemia, unspecified Status: Acute Assessment and Plan: She remains significantly anemic but H&H stable at present. Continue to follow H&H closely especially given dual anti-platelet therapy (5) PAD (peripheral artery disease): Code(s): I73.9 - Peripheral vascular disease, unspecified Status: Acute Assessment and Plan: Documented PAD on CT lower extremity total occlusion of posterior tibial artery, moderate stenosis left anterior to ileal mild stenosis of tibioperoneal trunk left lower extremity. Followed by vascular surgery as an outpatient, Dr. Pinto. Patient has a history of prior iliac stenting of the left lower extremity. Patient also has stable moderate right internal carotid arterial stenosis. (6) Essential (primary) hypertension: Code(s): I10 - Essential (primary) hypertension Status: Acute Assessment and Plan: Stable no acute issues. (7) Lupus erythematosus: Code(s): L93.0 - Discoid lupus erythematosus Status: Acute Assessment and Plan: Per primary service. Subjective Date/time seen: 05/20/21 11:36 Interval history: 75-year-old admitted for shortness of breath Date of service 05/20/2021: Feels okay. Breathing is better and able to wean oxygen. No chest pain. No groin pain Review of Systems Review of Systems: All systems reviewed & are unremarkable except as noted in HPI and below Constitutional: Constitutional: Reports as per HPI, Reports no additional constitutional complaints, Reports fatigue, Reports lethargy and Reports weakness Eyes: Eyes: Reports as per HPI and Reports no additional eye complaints ENT: Reports system reviewed and no additional complaints, except as documented and Reports as per HPI Cardiovascular: Cardiovascular: Reports as per HPI, Reports no additional cardiovascular complaints, Reports chest pain, Denies diaphoresis, Denies leg edema, Denies lightheadedness, Denies palpitations, Reports dyspnea and Reports dyspnea on exertion Respiratory: Respiratory: Reports as per HPI, Reports no additional respiratory complaints, Denies co
[2021-05-20 13:16] LABS: Hematocrit 28.2 % (37.0-47.0); Hemoglobin 8.9 g/dL (12.0-15.0); Mean Corpuscular HGB Conc 31.6 g/dl (32-36); Mean Corpuscular Hemoglobin 28.6 pg (26-34); Mean Corpuscular Volume 90.7 fl (80-100); Mean Platelet Volume 11.1 fl (7.4-10.4); Platelet Count Result 397 k/mm3 (150-375); Red Blood Count 3.11 M/mm3 (4.2-5.4); Red Cell Distribution Width 14.6 % (11.5-14.5); White Blood Count 13.6 K/mm3 (4.5-10.0)
--- NOTE | 2021-05-20 18:21 | PC.NURSE ---
This patient, Carmen House, was transferred to [ [id number] ] on 05/20/21 at 1805. Personal belongings sent with patient. Report given to [ GAGAN Gilliam ]. Appropriate documentation sent with patient.
[2021-05-20] MEDS: MICONAZOLE NITRATE 2% CREAM 30 GM TUBE 1 APPLIC TOPICAL (20:19)
[2021-05-21] VITALS (9 sets, daily range): BP systolic 108–135; BP diastolic 50–59; PULSE 47–56; RESP 16–20; TEMP 36.1–36.5; O2SAT 97–98
[2021-05-21 05:35] LABS: Alanine Aminotransferase 17 U/L (4-35); Albumin Level 3.4 g/dL (3.5-5.1); Alkaline Phosphatase 133 U/L (38-126); Anion Gap 7 mmol/L (8-16); Aspartate Amino Transferase 24 U/L (14-36); Bilirubin,Total < 0.1 mg/dL (0.2-1.3); Blood Urea Nitrogen 40 mg/dL (7-17); Calcium 8.8 mg/dL (8.4-10.2); Carbon Dioxide 29 mmol/L (22-30); Chloride 102 mmol/L (98-107); Estimated CRCL calculation 38 ml/min; Estimated Glomerular Filt Rate 54; Glucose 201 mg/dL (65-110); Potassium 3.8 mmol/L (3.4-5.0); Sodium 138 mmol/L (137-145)
[2021-05-21 05:44] LABS: Hematocrit 26.2 % (37.0-47.0); Hemoglobin 8.4 g/dL (12.0-15.0); Mean Corpuscular HGB Conc 32.1 g/dl (32-36); Mean Corpuscular Hemoglobin 28.2 pg (26-34); Mean Corpuscular Volume 87.9 fl (80-100); Mean Platelet Volume 11.3 fl (7.4-10.4); Platelet Count Result 365 k/mm3 (150-375); Red Blood Count 2.98 M/mm3 (4.2-5.4); Red Cell Distribution Width 14.4 % (11.5-14.5); White Blood Count 11.4 K/mm3 (4.5-10.0)
[2021-05-21] MEDS: ATORVASTATIN 40 MG TABLET PO (08:37)
[2021-05-21] MEDS: SACCHAROMYCES BOULARDII 250 MG CAPSULE PO ×2 (08:37→13:16)
[2021-05-21] MEDS: CYANOCOBALAMIN 1,000 MCG TABLET 1000 MCG PO (08:37)
[2021-05-21] MEDS: CLOPIDOGREL BISULFATE 75 MG TABLET PO (08:37)
[2021-05-21] MEDS: DOCUSATE SODIUM 100 MG CAPSULE PO (08:37)
[2021-05-21] MEDS: BUMETANIDE INJ 1 MG/4 ML VIAL IV PUSH (08:37)
[2021-05-21] MEDS: methocarbamoL 750 MG TABLET PO (08:37)
[2021-05-21] MEDS: predniSONE 20 MG TABLET 40 MG PO (08:37)
[2021-05-21] MEDS: METOPROLOL SUCCINATE EXT REL 25 MG TABCR PO (08:38)
[2021-05-21] MEDS: IRBESARTAN 150 MG TABLET 300 MG PO (08:39)
[2021-05-21] MEDS: ASPIRIN 81 MG CHEWABLE TABLET PO (08:39)
[2021-05-21] MEDS: PANTOPRAZOLE 40 MG TABLET PO (08:39)
[2021-05-21] MEDS: MICONAZOLE NITRATE 2% CREAM 30 GM TUBE 1 APPLIC TOPICAL (08:40)
[2021-05-21] MEDS: PREGABALIN (*CRX) 75 MG CAPSULE 150 MG PO (08:46)
[2021-05-21] MEDS: ALPRAZolam (*CRX) 0.5 MG TABLET PO (08:46)
--- NOTE | 2021-05-21 09:18 | PM.PNCARD ---
Progress Note: A&P Assessment and Plan (1) Non-ST elevation [place] (NSTEMI): Code(s): I21.4 - Non-ST elevation (NSTEMI) myocardial infarction Status: Acute Assessment and Plan: Elevated troponin with downward trend since admission most likely consistent with subacute pattern. Patient describes chest tightness intermittently for several months at rest primarily and not with exertion prior to admission. No anginal symptoms at present. Ongoing fatigue and exertional dyspnea may be anginal equivalent. EKG with diffuse ST abnormalities consider ischemia, no ST elevation. No prior known history of CAD. -Heparin infusion for 48 hours, aspirin 81 mg daily, statin. Status post 3.5 x 23 mm Orsiro ROYAL to 95% stenosis mid Cx without complication. Continue aspirin 81 mg daily, clopidogrel 75 mg daily, Toprol XL 25 mg daily, and atorvastatin 40 mg daily. (2) CHF exacerbation: Code(s): I50.9 - Heart failure, unspecified Status: Acute Assessment and Plan: Clinically she appears minimally decompensated based on crackles on exam otherwise no edema, abdominal fullness or JVD. Continue IV Bumex times another 24 hours then likely transition oral diuretics.. Accurate input and output, daily weight. Monitor renal function electrolytes. Hopefully home within the next 24-48 hours (3) Multilobar lung infiltrate: Code(s): R91.8 - Other nonspecific abnormal finding of lung field Status: Acute Assessment and Plan: Management per primary service. She remains on vancomycin, azithromycin, and cefepime. Cultures pending. Respiratory status compromised by multilobar pneumonia. Repeat Chest x-ray off oxygen. Bronchodilator therapy. Although less likely, it is possible she may be experiencing bronchoconstriction from beta-boy therapy. Will monitor closely in this regard as we may need to discontinue if suspicion is high. (4) Anemia: Code(s): D64.9 - Anemia, unspecified Status: Acute Assessment and Plan: She remains significantly anemic but H&H stable at present. Continue to follow H&H closely especially given dual anti-platelet therapy (5) PAD (peripheral artery disease): Code(s): I73.9 - Peripheral vascular disease, unspecified Status: Acute Assessment and Plan: Documented PAD on CT lower extremity total occlusion of posterior tibial artery, moderate stenosis left anterior to ileal mild stenosis of tibioperoneal trunk left lower extremity. Followed by vascular surgery as an outpatient, Dr. Pinto. Patient has a history of prior iliac stenting of the left lower extremity. Patient also has stable moderate right internal carotid arterial stenosis. (6) Essential (primary) hypertension: Code(s): I10 - Essential (primary) hypertension Status: Acute Assessment and Plan: Stable no acute issues. (7) Lupus erythematosus: Code(s): L93.0 - Discoid lupus erythematosus Status: Acute Assessment and Plan: Per primary service. Subjective Date/time seen: 05/21/21 09:18 Interval history: 75-year-old admitted for shortness of breath Date of service 05/20/2021: Feels okay. Breathing is better and able to wean oxygen. No chest pain. No groin pain Date of service 05/21 21: Seems to be diuresing better with Bumex. No significant chest pain. Review of Systems Review of Systems: All systems reviewed & are unremarkable except as noted in HPI and below Constitutional: Constitutional: Reports as per HPI, Reports no additional constitutional complaints, Reports fatigue, Reports lethargy and Reports weakness Eyes: Eyes: Reports as per HPI and Reports no additional eye complaints ENT: Reports system reviewed and no additional complaints, except as documented and Reports as per HPI Cardiovascular: Cardiovascular: Reports as per HPI, Reports no additional cardiovascular complaints, Reports chest pain, Denies diaphoresis, Denies leg rashida
[2021-05-21] MEDS: FLUTICASONE/UMECLIDIN/VILANTER 100-62.5-25 MCG ELLIPTA 1 PUFF INHALATION (09:21)
[2021-05-21] MEDS: ALBUTEROL SULFATE (*SP) AEROSOL 1 PUFF 2 PUFF INHALATION (09:21)
[2021-05-21 14:25] LABS: IFOB Positive Control Positive; Immunochemical Fecal Occult Bl Positive (N)
--- NOTE | 2021-05-21 15:37 | PM.DS ---
DS: Admitting Diagnosis Discharge Date 05/21/21 Admitting Diagnosis (1) Multilobar lung infiltrate: Code(s): R91.8 - Other nonspecific abnormal finding of lung field Status: Acute Assessment and Plan: Patient has been started on vancomycin cefepime and Zithromax Blood cultures pending Continue to monitor (2) Non-ST elevation [place] (NSTEMI): Code(s): I21.4 - Non-ST elevation (NSTEMI) myocardial infarction Status: Acute Assessment and Plan: Patient is on heparin drip Follow cardiology recommendations (3) Suspected COVID-19 virus infection: Code(s): Z20.822 - Contact with and (suspected) exposure to COVID-19 Status: Acute Assessment and Plan: Ruled out (4) CHF exacerbation: Code(s): I50.9 - Heart failure, unspecified Status: Acute Assessment and Plan: Gentle diuresis Hernandez in Intake and output daily (5) C. difficile colitis: Code(s): A04.72 - Enterocolitis due to Clostridium difficile, not specified as recurrent Status: Acute Assessment and Plan: P.o. vancomycin for prophylaxis (6) Hypertension: Qualifiers: Hypertension type: essential hypertension Qualified Code(s): I10 - Essential (primary) hypertension Code(s): I10 - Essential (primary) hypertension Status: Inactive Assessment and Plan: Resume home med (7) Fibromyalgia: Code(s): M79.7 - Fibromyalgia Status: Acute Assessment and Plan: Resume home med (8) Lupus erythematosus: Qualifiers: Lupus erythematosus form: unspecified Qualified Code(s): L93.0 - Discoid lupus erythematosus Code(s): L93.0 - Discoid lupus erythematosus Status: Acute Assessment and Plan: Plaquenil has been stopped Patient receiving infliximab infusion (9) Nicotine dependence, cigarettes, uncomplicated: Code(s): F17.210 - Nicotine dependence, cigarettes, uncomplicated Status: Acute Assessment and Plan: Nicotine patch as needed (10) Nonrheumatic mitral (valve) insufficiency: Code(s): I34.0 - Nonrheumatic mitral (valve) insufficiency Status: Acute Assessment and Plan: Continue to monitor (11) Tobacco dependence: Code(s): F17.200 - Nicotine dependence, unspecified, uncomplicated Status: Acute Assessment and Plan: Nicotine patch as needed (12) COPD mixed type: Code(s): J44.9 - Chronic obstructive pulmonary disease, unspecified Status: Acute Assessment and Plan: Continue home meds Breathing treatments Continuous pulse ox Actively wheezing Will start on prednisone 40 p.o. (13) Chronic back pain: Code(s): M54.9 - Dorsalgia, unspecified; G89.29 - Other chronic pain Status: Acute Assessment and Plan: Continue home med (14) PAD (peripheral artery disease): Code(s): I73.9 - Peripheral vascular disease, unspecified Status: Acute Assessment and Plan: Stable Continue to monitor DS: Discharge Diagnosis Discharge Diagnosis (1) Dehydration: Code(s): E86.0 - Dehydration Status: Acute (2) Fibromyalgia: Code(s): M79.7 - Fibromyalgia Status: Acute (3) Lupus erythematosus: Qualifiers: Lupus erythematosus form: unspecified Qualified Code(s): L93.0 - Discoid lupus erythematosus Code(s): L93.0 - Discoid lupus erythematosus Status: Acute (4) Anxiety: Code(s): F41.9 - Anxiety disorder, unspecified Status: Acute (5) SWEETIE (acute kidney injury): Code(s): N17.9 - Acute kidney failure, unspecified Status: Acute (6) Chronic kidney disease, stage 3 (moderate): Code(s): N18.3 - Chronic kidney disease, stage 3 (moderate) Status: Acute (7) Chronic anemia: Code(s): D64.9 - Anemia, unspecified Status: Acute (8) Tobacco dependence: Code(s): F17.200 - Nicotine dependence, unspecified, uncomplicated Status: Acute (9) Nonrhe
== END 2021-05-21 16:17 | disposition home health service (06) | DRG 246 ==
LOC: ANHED 09:20 → ANHICU 09:43 → ANHIMU 05-19 14:57 → ANH2MED 05-21 15:37 → ANHICU 05-23 09:36 → ANHIMU 05-23 09:36
PROVIDERS: Emergency Medicine; Internal Medicine; Specialist; Admitting Provider Family Medicine; Emergency Provider Emergency Medicine; PCP Family Medicine; Visit Provider Hospitalist
PROC: 4A023N7 Measurement of Cardiac Sampling and Pressure, Left Heart, Percutaneous Approach (ICD-10-PCS; CPT 93452; principal; 2021-05-17 08:30)
PROC: 027034Z Dilation of Coronary Artery, One Artery with Drug-eluting Intraluminal Device, Percutaneous Approach (ICD-10-PCS; CPT 92928; 2021-05-17 08:30)
DX: I13.0 Hypertensive heart and chronic kidney disease with heart failure and stage 1 through stage 4 chronic kidney disease, or unspecified chronic kidney disease (principal); J18.9 Pneumonia, unspecified organism; I21.4 Non-ST elevation (NSTEMI) myocardial infarction; I50.43 Acute on chronic combined systolic (congestive) and diastolic (congestive) heart failure; J96.01 Acute respiratory failure with hypoxia; K22.10 Ulcer of esophagus without bleeding; J44.0 Chronic obstructive pulmonary disease with (acute) lower respiratory infection; N17.9 Acute kidney failure, unspecified; K92.1 Melena; D64.9 Anemia, unspecified; Z79.82 Long term (current) use of aspirin; F32.9 Major depressive disorder, single episode, unspecified; J44.9 Chronic obstructive pulmonary disease, unspecified; I12.9 Hypertensive chronic kidney disease with stage 1 through stage 4 chronic kidney disease, or unspecified chronic kidney disease; N18.30 Chronic kidney disease, stage 3 unspecified; M79.7 Fibromyalgia; F41.9 Anxiety disorder, unspecified; K21.9 Gastro-esophageal reflux disease without esophagitis; M19.90 Unspecified osteoarthritis, unspecified site; Z86.73 Personal history of transient ischemic attack (TIA), and cerebral infarction without residual deficits; F17.210 Nicotine dependence, cigarettes, uncomplicated; I73.9 Peripheral vascular disease, unspecified; H35.52 Pigmentary retinal dystrophy; Z20.822 Contact with and (suspected) exposure to COVID-19; I34.0 Nonrheumatic mitral (valve) insufficiency; L93.0 Discoid lupus erythematosus; M54.9 Dorsalgia, unspecified; G89.29 Other chronic pain; Z86.19 Personal history of other infectious and parasitic diseases; E86.0 Dehydration; I25.10 Atherosclerotic heart disease of native coronary artery without angina pectoris
CPT/HCPCS: 36415; 51701; 71045; 71046; 71250; 80048; 80053; 80061; 80076; 80202; 81001; 82274; 83605; 83735; 83880; 84145; 84484; 85025; 85027; 85610; 85652; 85730; 86140; 87040; 93005; 93306; 93458; 94640; 96365; 96375; 96376; 97110; 97116; 97162; 97165; 97535; 99285; A9270; C1725; C1769; C1874; C1887; C1894; C9600; C9803; J0456; J0461; J0583; J0692; J0696; J1644; J1940; J2250; J3010; J3370; J7030; J7040; J7512; U0003; U0005

== ENCOUNTER 2021-07-25 07:39 | Outpatient (CLI) | payer MEDICARE, BC, SELFPAY ==
--- NOTE | ~2021-07-25 | PE_ITS ---
EXAMINATION: PET skull to mid thigh DATE: 07/25/2021 10:15 INDICATION: Solitary pulmonary nodule TECHNIQUE: Blood glucose level was 111 mg/dL. 10.945 mCi of 18-fluorodeoxyglucose (18-FDG) was admini stered i.v. Low dose computed tomography (CT) images were acquired from the base of the brain to the proximal thighs for attenuation correction and anatomic localization. Positron emission tomography (P ET) images were acquired in the same distribution beginning 81 minutes after injection. Images includ ing fused PET/CT images were reconstructed in axial, coronal, and sagittal planes. Automated exposure control technique was employed. The dose-length product was 827.14mGy-cm. COMPARISON: Chest CT dated 05/19/2021 FINDINGS: Head/neck: There is symmetric increased activity in the oral cavity, laryngeal muscles, ocular muscles without C T correlate, likely physiologic. Additional increased uptake in the left sternocleidomastoid and righ t longus capitis muscles without radiologic correlate also likely physiologic. No pathologically enla rged cervical lymphadenopathy or suspicious foci of increased FDG uptake in the visualized head or ne ck. Chest: Moderate paraseptal predominant emphysema. Small posterior layering left pleural effusion. Diffuse gr oundglass opacities throughout both lungs likely related to atelectasis and expiratory phase of imagi ng. Approximately 1.4 cm nodule at the posterior left lower lobe which is without evident FDG uptake or change since 08/26/16, likely benign. No other new, enlarging or FDG avid pulmonary nodules. Mild ca rdiomegaly with left atrial enlargement. No abnormal increased FDG uptake associated with the previou s noted mildly enlarged mediastinal lymph nodes including the largest precarinal lymph nodes measurin g 2.2 x 1.7 cm with maximal SUV value of 2.6 and 1.3 x 1.2 cm with maximal SUV of 2.2 which are likel y reactive. No other abnormal FDG avid lesions in the thorax. Abdomen/pelvis/proximal thighs: Physiologic renal accumulation and excretion of FDG activity in the kidneys, bladder and along portio ns of ureters. Normal degree and heterogenous pattern of increased uptake throughout the liver withou t radiologic correlate or dominant FDG avid lesion. The gallbladder, pancreas, spleen and bilateral a drenal glands are normal. Mild uptake scattered throughout the bowels without radiologic correlate, a lso likely physiologic. Mild scattered diverticulosis with sigmoid predominance without adjacent infl ammatory change to suggest diverticular colitis. Normal appendix. Small fat-containing ventral hernia along a surgical scar. No other abnormal foci of increased FDG uptake or pathologically enlarged lym phadenopathy in the abdomen, pelvis or proximal thighs. Aortobiiliac stenting. Musculoskeletal: Severe thoracolumbar spondylosis. Postoperative changes in the lumbar spine including L3-L4 and parti al L2 laminectomies with L3-L4 posterior spinal fusion with bilateral vertical keisha and pedicle screw fixation and L4-L5 anterior spinal fusion with anterior plate and screw fixation. No suspicious lytic , blastic or FDG avid bone lesions. IMPRESSION: 1. No FDG uptake associated with a likely benign 1.4 cm nodule in the left lower lobe which is also w ithout interval change since 2017. 2. Moderate emphysema and small left pleural effusion. 3. Cardiomegaly. 4. Mild mediastinal lymphadenopathy without significant increased FDG uptake to suggest metastatic di sease or lymphoma and these are most likely reactive. Reviewed, dictated and finalized at location A. T METAL WORKER SUPERVISOR IMPRESSION: 1. No FDG uptake associated with a likely benign 1.4 cm nodule in the left lowe r lobe which is also without interval change since 2017. 2. Moderate emphysema and s
[2021-07-25 07:57] LABS: Glucose Point of Care 111 mg/dl (65-105)
== END 2021-07-25 07:40 | disposition home or self-care (01) ==
PROVIDERS: PCP Family Medicine; Visit Provider Internal Medicine Critical Care Medicine
DX: R91.1 Solitary pulmonary nodule (principal); R59.0 Localized enlarged lymph nodes; J43.9 Emphysema, unspecified
CPT/HCPCS: 78815; A9552

== ENCOUNTER 2021-10-05 11:00 | Outpatient (RCR) | payer MEDICARE, BC, SELFPAY | END 2021-10-05 19:30 | disposition home or self-care (01) | LOC: ANHCPREHAB 11:00 | PROVIDERS: PCP Family Medicine; Visit Provider Specialist | DX: Z95.5 Presence of coronary angioplasty implant and graft (principal) | CPT/HCPCS: 93798 ==

== ENCOUNTER 2021-10-09 13:43 | Outpatient (CLI) | payer MEDICARE, BC, SELFPAY ==
[2021-10-09 16:26] LABS: Add Urine Microscopic? YES; Appearance Urine Clear (Clear); Bacteria Urine Trace /hpf; Bilirubin Urine Negative (Negative); Blood Urine Negative (Negative); Color Urine Yellow (Yellow); Glucose Urine UA Negative (Negative); Ketones Urine Negative (Negative); Leukocyte Esterase Ur Negative LEU/UL (Negative); Mucus Urine Rare /lpf; Nitrate Urine Negative (Negative); Protein Urine 2+ mg/dL (Negative); Squamous Epithelial Cell Urine Few /hpf (Few); Urobilinogen Urine Negative mg/dL (<2.0); WBC Urine 0-3 /hpf
== END 2021-10-09 13:44 | disposition home or self-care (01) ==
LOC: ANHLAB 13:43
PROVIDERS: PCP Family Medicine; Visit Provider Internal Medicine Hematology & Oncology
DX: L93.0 Discoid lupus erythematosus (principal)
CPT/HCPCS: 81001

== ENCOUNTER 2021-11-01 09:24 | Outpatient (CLI) | payer MEDICARE, BC, SELFPAY ==
--- NOTE | ~2021-11-01 | CT_ITS ---
EXAMINATION: CT chest high resolution wo nd DATE: 11/01/2021 09:41 INDICATION: Crackles, shortness of breath TECHNIQUE: Computed tomography (CT) of the chest was performed without intravenous contrast. The dose -length product (DLP) was 152.85 mGy-cm. Automated exposure control and iterative reconstruction tech [employer] were employed. COMPARISON: 05/19/2021, 02/09/2020 FINDINGS: There is moderate emphysema. Previously described interstitial opacities have resolved. No acute airspace opacities are identified. There is stable 1.3 cm nodule of the left lower lobe. There is no pleural effusion or pneumothorax. Mediastinal lymphadenopathy persists but has improved. Cardio megaly is noted. The gallbladder is surgically absent. There is severe thoracic spondylosis. IMPRESSION: 1. Interval resolution of pulmonary edema versus pneumonia. 2. Persistent but improved mediastinal lymphadenopathy, likely reactive. 3. Moderate emphysema. 4. Stable left lower lobe nodule, probably benign. Reviewed, dictated and finalized at location B. CHAIN DYEING MACHINE OPERATOR
== END 2021-11-01 09:25 | disposition home or self-care (01) ==
LOC: ANHIMG 09:25
PROVIDERS: PCP Family Medicine; Visit Provider Internal Medicine Critical Care Medicine
DX: R91.8 Other nonspecific abnormal finding of lung field (principal); J43.9 Emphysema, unspecified; R91.1 Solitary pulmonary nodule
CPT/HCPCS: 71250

== ENCOUNTER → 2021-11-17 02:30 | Outpatient (CLI) | payer MEDICARE, BC, SELFPAY ==
[2021-11-17 12:15] LABS: SARS-CoV-2 RNA PCR Negative
== END ==
PROVIDERS: PCP Family Medicine; Visit Provider Internal Medicine Cardiovascular Disease
DX: Z01.812 Encounter for preprocedural laboratory examination (principal); Z20.822 Contact with and (suspected) exposure to COVID-19
CPT/HCPCS: C9803; U0003; U0005

== ENCOUNTER 2021-11-20 01:47 | Day surgery (SDC) | payer MEDICARE, BC, SELFPAY ==
[2021-11-20] VITALS (10 sets, daily range): BP systolic 121–165; BP diastolic 57–95; PULSE 47–59; RESP 11–22; TEMP 36.6; O2SAT 96–100; BMI 26.3
--- NOTE | 2021-11-20 07:00 | ECG_ITS ---
Measurements Intervals [place] Rate: 66 P: [place]: 0 QRS: 7 QRSD: 97 T: 0 QT: 415 QTc: 436 Interpretive Statements ATRIAL FIBRILLATION NONSPECIFIC ST DEPRESSION [0.05+ mV ST DEPRESSION] ABNORMAL ECG COMPARED TO ECG 05/18/2021 09:10:51 ATRIAL FIBRILLATION NOW PRESENT ST (T WAVE) DEVIATION NOW PRESENT Electronically Signed On 11-20-2021 12:20:46 CDT by Kashif Barrientos M.D.
[2021-11-20 07:41] LABS: Anion Gap 8 mmol/L (8-16); Blood Urea Nitrogen 21 mg/dL (7-17); Carbon Dioxide 26 mmol/L (22-30); Chloride 105 mmol/L (98-107); Estimated CRCL calculation 41 ml/min; Estimated Glomerular Filt Rate > 60; Glucose 96 mg/dL (65-110); Potassium 3.1 mmol/L (3.4-5.0); Sodium 139 mmol/L (137-145)
[2021-11-20 07:43] LABS: Magnesium 1.6 mg/dL (1.6-2.3)
[2021-11-20] MEDS: POTASSIUM CHLORIDE INJ 40 MEQ in SODIUM CHLORIDE 0.9% IV 500 ML 130 MEQ IVPB (08:27)
--- NOTE | 2021-11-20 08:32 | WPDHPUPDATE1 ---
History and Physical Update Update Date/Time: 11/20/21 08:32 History and Physical has been reviewed, including an updated exam of the patient. There are NO changes in the patient's condition. Risks, benefits, and alternatives have been discussed and questions answered. Patient agrees to proceed with procedure.
--- NOTE | 2021-11-20 08:32 | WPDCARDVER ---
Cardioversion Cardioversion Date of procedure: 11/20/21 Procedure: Elective electrical cardioversion Pre-op diagnosis: Atrial fibrillation Post-op diagnosis: Same Indications: Atrial fibrillation Description of procedure: Brief history present illness: Patient is a pleasant 76-year-old female with past medical history significant for CAD status post NSTEMI and PCI symptom 2020, recent onset new atrial fibrillation started on Xarelto, history of systemic lupus erythematosus and COPD, history of cardiomyopathy referred for elective electrical cardioversion in attempt to restore sinus rhythm. Pt. confirmed she has not missed a single dose of Xarelto 20mg qhs, therefore, REED guidance not warranted. Procedure in detail: After verbal and written informed consent was obtained the patient risks, benefits, and alternatives explained in detail the patient agreed to proceed with the plan of care as outlined above. Patient was evaluated at bedside in the [facility] procedure room. On examination, neck was supple with normal range of motion, no restrictions to opening of the oral cavity, jaw angle and posterior hypopharynx was clear. Lungs were clear to auscultation. Patient was placed in appropriate 30 to 45 degree angle in a supine position. Patient was monitored throughout the study with telemetry, oxygen saturation, end-tidal CO2 monitoring, blood pressure, heart rate, and respirations. Anterior and posterior defibrillator pads placed in the appropriate positions. After confirmation of adequate sedation electrical cardioversion was carried out without complication. Patient tolerated the procedure well without difficulty. Prior to proceeding with the procedure her potassium was noted to be low at 3.1 for which potassium chloride 40 mEq IV supplementation was ordered and procedure was delayed for approximately 2 hours post initiation of infusion to improve success with the procedure. Sedation: Moderate Sedation/Anesthesia administration: Patient denied previous intolerance or complications with anesthesia/sedation. Please see sedation note for documentation of the pre-procedure physical examination. A total of 2mg intravenous Versed and a total of 75mcg intravenous Fentanyl in multiple divided doses was utilized for moderate sedation. Sedation start time was 1025 and end time was 1034 for a total of 11 minutes [id number] intra-procedure time. Sedation was administered by a qualified observer Juhi Bansal RN under my supervision with intra-procedure [id number] observation and management throughout the entirety of the procedure. There were no other issues or complications and patient tolerated the procedure well and sedation protocol well and I was present for the entirety. Findings: Elective electrical cardioversion: After confirmation of adequate sedation and persistence of atrial fibrillation, 200 joules synched biphasic energy x1 was delivered with immediate yazdanism of sinus rhythm. Twelve lead EKG was obtained postprocedure confirming sinus rhythm. Complications: None Conclusion: Successful yazdanism of sinus rhythm with 200J synched biphasic energy x1. Recommendation: Continue systemic anticoagulation without interruption unless otherwise advised but especially for the next 30 days post cardioversion. Complete KCl 40MEQ infusion and check K+ level prior to discharge. Obtain BMP in one week post discharge to check potassium levels. Add KCl 10MEQ daily upon discharge.
--- NOTE | 2021-11-20 08:45 | ECG_ITS ---
Measurements Intervals [place] Rate: 49 P: 67 [place]: 173 QRS: 16 QRSD: 97 T: 30 QT: 494 QTc: 448 Interpretive Statements SINUS BRADYCARDIA WITH OCCASIONAL SUPRAVENTRICULAR PREMATURE COMPLEXES LOW-VOLTAGE QRS PRECORDIAL LEADS BORDERLINE ECG COMPARED TO ECG 11/20/2021 07:19:06 SINUS BRADYCARDIA NOW PRESENT MYOCARDIAL INFARCT FINDING NOW PRESENT Electronically Signed On 11-20-2021 12:29:36 CDT by Kashif Barrientos M.D.
[2021-11-20 13:34] LABS: Potassium 3.9 mmol/L (3.4-5.0)
--- NOTE | 2021-11-20 14:39 | SUR.PHASEII ---
1350-kcl infusion completed. Potassium level drawn as ordered. Potassium level resulted, 3.9. Okay for discharge. Discharge instruction reviewed with pt., verbalized understanding. Pt escorted off floor via w/c.
== END 2021-11-20 14:00 | disposition home or self-care (01) ==
PROVIDERS: PCP Family Medicine; Visit Provider Internal Medicine Cardiovascular Disease
PROC: 5A2204Z Restoration of Cardiac Rhythm, Single (ICD-10-PCS; principal; 2021-11-20 08:30)
DX: I48.19 Other persistent atrial fibrillation (principal); I25.10 Atherosclerotic heart disease of native coronary artery without angina pectoris; I25.2 Old myocardial infarction; J44.9 Chronic obstructive pulmonary disease, unspecified; M32.9 Systemic lupus erythematosus, unspecified; I42.9 Cardiomyopathy, unspecified; N18.2 Chronic kidney disease, stage 2 (mild); D64.9 Anemia, unspecified; Z87.891 Personal history of nicotine dependence; Z79.02 Long term (current) use of antithrombotics/antiplatelets; Z95.5 Presence of coronary angioplasty implant and graft; Z79.01 Long term (current) use of anticoagulants
CPT/HCPCS: 36415; 80048; 83735; 84132; 92960; J2250; J2310; J3010; J3480; J7040

== ENCOUNTER 2022-03-09 13:47 | Outpatient (RCR) | payer MEDICARE, BC, SELFPAY ==
[2022-03-09] MEDS: ACETAMINOPHEN 325 MG TABLET 650 MG PO (14:44)
[2022-03-09] MEDS: diphenhydrAMINE HCl CAP 25 MG CAPSULE PO (14:45)
[2022-03-09] MEDS: SODIUM CHLORIDE 0.9% IV 250 ML 30 ML IV CONT (14:48)
[2022-03-09 14:52] VITALS: BP 122/62; PULSE 56; RESP 16; TEMP 36.1; O2SAT 100
[2022-03-09 15:07] VITALS: BP 147/61; PULSE 56; RESP 16; TEMP 36.1; O2SAT 100
[2022-03-09 16:07] VITALS: BP 113/60; PULSE 57; RESP 18; TEMP 36.2; O2SAT 100
[2022-03-09 17:07] VITALS: BP 132/69; PULSE 50; RESP 18; TEMP 36.4; O2SAT 100
[2022-03-09 18:00] VITALS: BP 146/61; PULSE 58; RESP 18; TEMP 36.4; O2SAT 100
== END 2022-03-09 14:00 | disposition home or self-care (01) ==
LOC: ANHCPCTRAN 13:47
PROVIDERS: PCP Family Medicine; Visit Provider Internal Medicine Hematology & Oncology
DX: D64.9 Anemia, unspecified (principal)
CPT/HCPCS: 36415; 36430; 86850; 86900; 86901; 86920; A9270; J7050; P9016

== ENCOUNTER 2022-04-01 13:21 | Emergency (ER) | payer MEDICARE, BC, SELFPAY ==
[2022-04-01 13:32] VITALS: BP 105/56; PULSE 84; RESP 20; TEMP 36.4; O2SAT 100
--- NOTE | 2022-04-01 14:08 | ED.FEMALEGU ---
HPI - Female Genitourinary General Chief complaint: Urogenital-Female Stated complaint: UTI Time Seen by Provider: 04/01/22 14:08 Source: patient Mode of arrival: ambulatory Limitations: no limitations History of Present Illness HPI Narrative: 76-year-old female presents with complaint of urinary frequency, urgency, pressure for 4 days. Reports started to have low back pain yesterday. Has been diaphoretic during the night for the last 2 nights. Denies chills. No nausea vomiting diarrhea. Called her urology office on Saturday and no one called her back. [facility] to [facility] urgent care was closed. Was told by her daughter to come to [facility] today. All systems reviewed and negative except as noted above. Related Data Home Medications Medication Instructions Recorded Confirmed pilocarpine HCl 5 mg tablet 5 mg PO TID PRN Dry Mouth 10/19/19 03/30/22 (Salagen (pilocarpine)) irbesartan 300 mg tablet 300 mg PO DAILY 05/15/21 03/30/22 furosemide 20 mg tablet 40 mg PO BID 06/27/21 03/30/22 cyclobenzaprine 10 mg tablet 10 mg PO HS PRN Spasms 07/10/21 03/30/22 rivaroxaban 2.5 mg tablet (Xarelto) 2.5 mg PO BID 10/06/21 03/30/22 Allergies Allergy/AdvReac Type Severity Reaction Status Date / Time cat dander Allergy Unknown Sneezing Verified 03/30/22 13:44 house dust Allergy Unknown Sneezing Verified 03/30/22 13:44 mold Allergy Unknown Sneezing Verified 03/30/22 13:44 ciprofloxacin AdvReac Unknown Nausea Verified 03/30/22 13:44 erythromycin base AdvReac Unknown Nausea Verified 03/30/22 13:44 Sulfa (Sulfonamide AdvReac Unknown Nausea Verified 03/30/22 13:44 Antibiotics) Review of Systems Review of Systems: CONSTITUTIONAL: Denies fever, chills, or sweats. EYES: Denies visual changes, redness, or discharge. ENT: Denies rhinorrhea, congestion, sore throat, or otalgia. CARDIOVASCULAR: Denies chest pain, palpitations, or edema. RESPIRATORY: Denies cough or dyspnea. GASTROINTESTINAL: Denies abdominal pain, nausea, vomiting, or diarrhea. GENITOURINARY: Reports dysuria, pressure, frequency, urgency. SKIN: Denies rash or itching. MUSCULOSKELETAL: Denies back pain, joint pain, or myalgia. NEUROLOGIC: Denies headache, numbness, or weakness. PSYCHIATRIC: Denies anxiety or depression. All other systems reviewed are negative, except as documented in HPI. [facility] Past Medical History Medical History Abnormal CXR Anemia Anxiety Aortic dissection Asthma C. difficile colitis In August 2010. 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 Colitis Congestive heart disease (~05/16/21) COPD (chronic obstructive pulmonary disease) Cough Degenerative joint disease (DJD) of lumbar spine Depression Fibromyalgia GERD (gastroesophageal reflux disease) Heart attack Herniated disc, cervical x2 Hypertension Lupus erythematosus Osteoarthritis Other long term care phlebotomist (current) drug therapy Shingles Shortness of Breath SLE (systemic lupus erythematosus related syndrome) (~1988) TIA (transient ischemic attack) Tobacco abuse Tobacco dependence Surgical History Surgical History H/O cataract extraction H/O cervical discectomy H/O laminectomy History of lumbar fusion History of renal stent History of tonsillectomy Family History Family History Sibling Family history of cardiovascular disease Diabetes mellitus Family history of malignant neoplasm of urinary bladder Hypertension Father Patient's father is , Onset Age: 64 Family history of coronary artery disease Family history of schizophrenia Heart attack Atrial fibrillation Mother Patient's mother is , Onset Age: 89 Family history of coronary artery disease Family history of chronic obstructive pulmonary dis
== END 2022-04-01 14:26 | disposition home or self-care (01) ==
PROVIDERS: Emergency Provider Nurse Practitioner Family
DX: N39.0 Urinary tract infection, site not specified (principal); Z87.891 Personal history of nicotine dependence; I13.0 Hypertensive heart and chronic kidney disease with heart failure and stage 1 through stage 4 chronic kidney disease, or unspecified chronic kidney disease; N18.30 Chronic kidney disease, stage 3 unspecified; I50.9 Heart failure, unspecified; J44.9 Chronic obstructive pulmonary disease, unspecified; M79.7 Fibromyalgia; K21.9 Gastro-esophageal reflux disease without esophagitis; I25.2 Old myocardial infarction; M19.90 Unspecified osteoarthritis, unspecified site; M32.9 Systemic lupus erythematosus, unspecified; Z79.01 Long term (current) use of anticoagulants
CPT/HCPCS: 81003; 87077; 87086; 87186; 99213; G0463

== ENCOUNTER 2022-04-16 06:37 | Inpatient (IN) | payer MEDICARE, BC, SELFPAY ==
[2022-04-16] VITALS (28 sets, daily range): BP systolic 119–144; BP diastolic 53–81; PULSE 57–82; RESP 12–26; TEMP 36.2–37.1; O2SAT 93–100; BMI 29.7
--- NOTE | 2022-04-16 | ECHO_ITS ---
Patient Info Name: Carmen House Age: 76 years : 1945 Gender: Female Ht: 63 in Wt: 167 lbs BSA: 1.86 m2 HR: 82 bpm BP: 136 / 60 mmHg Heart Rhythm: Bradycardia, Sinus Rhythm Technical Quality: Good Exam Date: 04/16/2022 3:11 PM Exam Location: [facility] Pulmonary Exam Room: 212 Patient Status: Inpatient Admit Date: 04/16/2022 Staff Ordering Physician: Alan Brown Market Superintendent: Mira Mitchell RDCS Attending Provider: Emerald Cortez MD Referring Physician: Kevin ATKINSON; Exam Type: CA echo doppler color flow Study Info Indications - fluid status elevated troponins Complete two-dimensional, color flow and Doppler transthoracic echocardiogram is performed. Summary 1. Complete two-dimensional, color flow and Doppler transthoracic echocardiogram is performed. 2. Left ventricular chamber dimension is normal. 3. Left ventricular systolic function is normal, estimated at 65-70%. 4. There is mildly increased left ventricular wall thickness. 5. The left ventricular diastolic function is grade II diastolic dysfunction. 6. Color-flow Doppler consistent with prominent vhke-[id number]-vzqwl shunt. 7. There is mild mitral valve regurgitation. 8. There is mild tricuspid valve regurgitation. 9. Mild pulmonary hypertension, estimated pulmonary arterial systolic pressure is 40 mmHg. 10. Technically difficult study with limited views. Left Ventricle Left ventricular chamber dimension is normal. Left ventricular systolic function is normal, estimated at 65-70%. There is mildly increased left ventricular wall thickness. The left ventricular diastolic function is grade II diastolic dysfunction. Right Ventricle Right ventricular chamber dimension is normal. Right ventricular systolic function is normal. Left Atria Left atrial chamber dimension is mildly enlarged. Right Atria Right atrial chamber dimension is mildly enlarged. Atrial Septum Color-flow Doppler consistent with prominent [id number]-sp-ffcvp shunt. Aortic Valve The aortic valve is trileaflet. There is no aortic valve stenosis. There is trace aortic valve regurgitation. There is mild aortic valve calcification. Pulmonic Valve The pulmonic valve is not well visualized. There is mild pulmonic regurgitation. Mitral Valve The mitral valve has thickened leaflets. There is mild mitral valve regurgitation. The mitral valve annulus is moderately calcified. Tricuspid Valve The tricuspid valve leaflets are normal. There is mild tricuspid valve regurgitation. Mild pulmonary hypertension, estimated pulmonary arterial systolic pressure is 40 mmHg. Pericardium/Pleural The pericardium appears not well visualized. There is small pericardial effusion. Aorta The aortic root size at the sinus of Valsalva is normal. There is mild aortic atherosclerosis. Left Ventricular Outflow Tract Name Value Normal LVOT 2D LVOT Diameter 2.0 cm LVOT Doppler LVOT Peak Gradient 5 mmHg LVOT Mean Gradient 3 mmHg LVOT VTI 22 cm LVOT VTI/AV VT
--- NOTE | ~2022-04-16 | XR_ITS ---
EXAMINATION: XR chest 1V portable DATE: 04/16/2022 07:10 INDICATION: Shortness of breath. TECHNIQUE: A single frontal view of the chest was obtained. COMPARISON: Chest single view 05/19/2021, chest CT 11/01/2021 FINDINGS: The lung volumes are normal. There is a coarse interstitial pattern throughout the lungs bi laterally. There are small pleural effusions. No pneumothorax. Cardiomegaly is noted. IMPRESSION: 1. Diffuse lung disease, likely mild pulmonary edema superimposed on emphysema. 2. Small pleural effusions. 3. Cardiomegaly. Reviewed, dictated and finalized at location A.
--- NOTE | 2022-04-16 06:46 | ECG_ITS ---
Measurements Intervals [place] Rate: 68 P: 68 [place]: 157 QRS: 5 QRSD: 89 T: 7 QT: 430 QTc: 460 Interpretive Statements SINUS RHYTHM WITH FREQUENT SUPRAVENTRICULAR PREMATURE COMPLEXES BASELINE ARTIFACT POOR R WAVE PROGRESSION BORDERLINE ECG COMPARED TO ECG 11/20/2021 10:37:31 SINUS RHYTHM NOW PRESENT Electronically Signed On 04-16-2022 16:19:50 CDT by Kashif Barrientos M.D.
[2022-04-16 07:08] LABS: Basophils Percent Auto 0.3 % (0.2-1.2); Eosinophils Absolute Auto 0.1 K/mm3 (0-0.3); Eosinophils Percent Auto 0.9 % (0-4.4); Hematocrit 24.8 % (37.0-47.0); Hemoglobin 7.5 g/dL (12.0-15.0); Immature Granulocyte Absolute 0.02 K/mm3 (0.00-0.031); Immature Granulocyte Percent A 0.3 % (0-0.5); Lymphocytes Percent Auto 6.9 % (18.3-44.2); Mean Corpuscular HGB Conc 30.2 g/dl (32-36); Mean Corpuscular Hemoglobin 31.5 pg (26-34); Mean Corpuscular Volume 104.2 fl (80-100); Mean Platelet Volume 10.8 fl (7.4-10.4); Monocytes Absolute Auto 0.4 K/mm3 (0.1-0.6); Neutrophils Percent Auto 85.6 % (45.5-73.1); Platelet Count Result 200 k/mm3 (150-375); Red Blood Count 2.38 M/mm3 (4.2-5.4); Red Cell Distribution Width 18.1 % (11.5-14.5); White Blood Count 5.8 K/mm3 (4.5-10.0)
[2022-04-16 07:15] LABS: Alveolar/Arterial O2 Gradient 36.7 mmHg; Base Excess ABG 2.4 mEq/l (+/-2.0); Carboxyhemoglobin 0.3 % THb (0-2.0); Fractional Inspired Oxygen 21 %; HCO3 ABG 25.7 mEq/l (22.0-26.0); Methemoglobin ABG 0.2 %THb (0-1.5); Oxygen Content ABG 10.9 %vol (16.0-22.0); Oxygen Saturation ABG 95.8 % (95.0-100.0); Oxyhemoglobin 93.3 % THb (90.0-100.0); PCO2 ABG 34.2 mmHg (35.0-45.0); PO2 ABG 72.1 mmHg (80.0-100.0); PO2 FiO2 Ratio Arterial Blood 3.43 %; Reduced Hemoglobin 6.2 %THb (0-5.0); Total Hemoglobin 8.2 g/dL (12.0-18.0); pH ABG 7.494 (7.350-7.450)
[2022-04-16 07:16] LABS: Device ROOM AIR; Modified Allen's Test Pass; Site Drawn LEFT RADIAL
[2022-04-16 07:18] LABS: INR 3.6; Prothrombin Time 34.9 Seconds (11.1-14.7)
--- NOTE | 2022-04-16 07:18 | ED.SOB ---
HPI - SOB/Dyspnea General Chief Complaint: Shortness of Breath/Dyspnea <Rosanne Willoughby MD - Last Filed: 04/16/22 07:23> Stated Complaint: difficulty breathing, sob <Rosanne Willoughby MD - Last Filed: 04/16/22 07:23> Time Seen by Provider: 04/16/22 06:40 <Rosanne Willoughby MD - Last Filed: 04/16/22 07:23> Source: patient, family (son at bedside), EMS and RN notes reviewed <Rosanne Willoughby MD - Last Filed: 04/16/22 07:23> Mode of arrival: EMS <Rosanne Willoughby MD - Last Filed: 04/16/22 07:23> Limitations: no limitations <Rosanne Willoughby MD - Last Filed: 04/16/22 07:23> History of Present Illness HPI Narrative: This is a 76 year old female with history of atrial fibrillation who presents for evaluation of shortness of breath. Her son is at bedside to assist with history. He states he is in town to take care of his mother as she recuperates from her cardiac ablation on Saturday. He states she told him she has been short of breath since midnight, and it worsened at 3 am. She tried her inhaler without relief. Patient denies chest pain, fever, or chills. She has had similar episodes in the past and she states at that time she was diagnosed with heart attack. She has mild cough. She also has sore throat from her intubation for her procedure. Car Lot Attendant is Dr. Barrientos. <Rosanne Willoughby MD - Last Filed: 04/16/22 07:23> Related Data Home Medications: Home Medications Medication Instructions Recorded Confirmed pilocarpine HCl 5 mg tablet 5 mg PO TID PRN Dry Mouth 10/19/19 03/30/22 (Salagen (pilocarpine)) irbesartan 300 mg tablet 300 mg PO DAILY 05/15/21 03/30/22 furosemide 20 mg tablet 40 mg PO BID 06/27/21 03/30/22 cyclobenzaprine 10 mg tablet 10 mg PO HS PRN Spasms 07/10/21 03/30/22 rivaroxaban 2.5 mg tablet (Xarelto) 2.5 mg PO BID 10/06/21 03/30/22 <Rosanne Willoughby MD - Last Filed: 04/16/22 07:23> Allergies/Adverse Reactions: Allergies Allergy/AdvReac Type Severity Reaction Status Date / Time cat dander Allergy Unknown Sneezing Verified 04/16/22 06:48 house dust Allergy Unknown Sneezing Verified 04/16/22 06:48 mold Allergy Unknown Sneezing Verified 04/16/22 06:48 ciprofloxacin AdvReac Unknown Nausea Verified 04/16/22 06:48 erythromycin base AdvReac Unknown Nausea Verified 04/16/22 06:48 Sulfa (Sulfonamide AdvReac Unknown Nausea Verified 04/16/22 06:48 Antibiotics) <Rosanne Willoughby MD - Last Filed: 04/16/22 07:23> Review of Systems Review of Systems: All systems reviewed & are unremarkable except as noted in HPI and below <Rosanne Willoughby MD - Last Filed: 04/16/22 07:23> Constitutional: Constitutional: Denies chills, Reports fatigue and Denies fever(s) <Rosanne Willoughby MD - Last Filed: 04/16/22 07:23> ENT: Denies nasal congestion and Reports sore throat <Rosanne Willoughby MD - Last Filed: 04/16/22 07:23> Cardiovascular: Cardiovascular: Denies chest pain and Denies radiating jaw, neck or arm pain <Rosanne Willoughby MD - Last Filed: 04/16/22 07:23> Respiratory: Respiratory: Reports cough and Reports dyspnea <Rosanne Willoughby MD - Last Filed: 04/16/22 07:23> Gastrointestinal: Gastrointestinal: Denies abdominal pain, Denies bloating, Reports nausea and Denies vomiting <Rosanne Willoughby MD - Last Filed: 04/16/22 07:23> [facility] Past Medical History Medical History: Medical History Abnormal CXR Anemia Anxiety Aortic dissection Asthma C. difficile colitis In August 2010. 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 Colitis Congestive heart disease (~05/16/21) COPD (chronic obstructive pulmonary disease) Cough Degenerative joint disease (DJD) of lumbar spine Depression Fibromyalgia GERD (gastroesophageal reflux disease) Heart attack Herniated disc, cervical x2 Hypertension Lupus erythema
[2022-04-16 07:19] LABS: Partial Thromboplastin Time 47.6 SECONDS (22.3-36.8)
[2022-04-16 07:27] LABS: Alanine Aminotransferase 29 U/L (6-35); Albumin Level 3.2 g/dL (3.5-5.1); Alkaline Phosphatase 210 U/L (38-126); Anion Gap 8 mmol/L (8-16); Aspartate Amino Transferase 47 U/L (14-36); Bilirubin,Total 0.9 mg/dL (0.2-1.3); Blood Urea Nitrogen 13 mg/dL (7-17); Carbon Dioxide 24 mmol/L (22-30); Chloride 105 mmol/L (98-107); Estimated Glomerular Filt Rate > 60; Glucose 124 mg/dL (65-110); Potassium 3.6 mmol/L (3.4-5.0); Sodium 137 mmol/L (137-145)
--- NOTE | 2022-04-16 07:35 | ECG_ITS ---
Measurements Intervals [place] Rate: 58 P: [place]: 0 QRS: 13 QRSD: 94 T: 13 QT: 429 QTc: 422 Interpretive Statements SINUS BRADYCARDIA WITH FREQUENT PREMATURE ATRIAL CONTRACTIONS BORDERLINE ECG COMPARED TO ECG 04/16/2022 06:55:20 NO SIGNIFICANT CHANGE Electronically Signed On 04-16-2022 16:21:07 CDT by Kashif Barrientos M.D.
[2022-04-16 07:43] LABS: NT Pro B Type Natriuretic Pept 4820 pg/mL (5-100); Troponin I 0.666 ng/mL (0.000-0.034)
[2022-04-16 08:32] LABS: SARS-CoV-2 RNA PCR Negative
--- NOTE | 2022-04-16 09:00 | PM.IMHP ---
H&P: HPI History of Present Illness Date/Time: 04/16/22 0900 Chief Complaint: Shortness of breath Narrative: patient is 76-year-old female with a past medical history of COPD, hypertension, chronic anemia, lupus who presented the ED with increased shortness of breath. Patient stated that all started last night about 10 or 11:00 p.m.. She said that she has had an ablation last Saturday [employer] in which she was told that she had multiple places that needed cauterization. She stated that Dr went in and did it all. Her shortness of breath started the next day. She stated that she start diuretics day before the procedure but restarted than the very next day. She stated as the shortness of breath got worse she did try her inhaler which did not help. She denies any pain including chest pain. She did state that she has a cough and her mucus has been white or green. She denies it being more different than normal she did state that it was less than normal. She does have chronic anemia in which she sees Dr. Olmedo and usually gets an iron infusion every other week. She did get blood about a month ago. She also stated that she got her last iron infusion 2 weeks ago. She denies any issues with urination. She did state that her chest has been sore which she contributes to the ablation. She also stated that she never has any swelling however last week she did notice some bilateral ankle swelling. However she does state that she was on her feet or legs a lot isn't her who is in the memory care center for dementia. She also has been very nausea the last couple days. About a month ago she stated that she was having issues with dizziness and syncope and did almost fall however caught herself on the night stand. Currently patient's BNP was 48 20 and her troponin was elevated at 0.666 and 0.573. Cardiology is consulted and patient has been placed on IV Lasix twice a day. Patient has been admitted to the hospital service as observation. Review of Systems Review of Systems: All systems reviewed & are unremarkable except as noted in HPI and below PMFSH Past Medical History Medical History Abnormal CXR Afib Anemia Anxiety Aortic dissection Asthma C. difficile colitis In August 2010. 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 Colitis Congestive heart disease (~05/16/21) COPD (chronic obstructive pulmonary disease) Cough Degenerative joint disease (DJD) of lumbar spine Depression Fibromyalgia GERD (gastroesophageal reflux disease) Heart attack Herniated disc, cervical x2 Hypertension Lupus erythematosus Osteoarthritis Other penitentiary (current) drug therapy Shingles Shortness of Breath SLE (systemic lupus erythematosus related syndrome) (~1988) TIA (transient ischemic attack) Tobacco abuse Tobacco dependence Surgical History Surgical History H/O cataract extraction H/O cervical discectomy H/O laminectomy History of lumbar fusion History of renal stent History of tonsillectomy Family History Family History Sibling Family history of cardiovascular disease Diabetes mellitus Family history of malignant neoplasm of urinary bladder Hypertension Father Patient's father is , Onset Age: 64 Family history of coronary artery disease Family history of schizophrenia Heart attack Atrial fibrillation Mother Patient's mother is , Onset Age: 89 Family history of coronary artery disease Family history of chronic obstructive pulmonary disease Throat cancer Other Cerebrovascular accident Family history of alcoholism Family history of arthritis Family history of heart disease in male family member before age 55 Family history of kidney di
[2022-04-16] MEDS: FUROSEMIDE INJ 40 MG/4 ML VIAL IV PUSH ×2 (09:04→18:05)
--- NOTE | 2022-04-16 10:26 | PM.CNCAR ---
Assessment and Plan Assessment and plan (1) Heart failure with reduced ejection fraction: Code(s): I50.20 - Unspecified systolic (congestive) heart failure Status: Acute Assessment and Plan: EF 35-40% by echocardiogram 04/2021 setting of NSTEMI status post drug-eluting stent to circumflex. BNP mildly elevated in setting of chronic anemia, very recent atrial fibrillation ablation mild troponin elevation. Chest x-ray with minimal pulmonary vascular congestion, no peripheral edema or obvious JVD on exam. May continue diuresis with somewhat cautiously. Monitor input and output, daily weight. Monitor electrolytes closely. Ideally, I would transition to Entresto over irbesartan. Continue Toprol XL. Repeat 2D echocardiogram to assess LV size/function, valve pathology and pulmonary pressures, chamber size. Recommendations to follow. She also has a history of severe pulmonary hypertension with mild COPD. Overall, I believe for shortness of breath multifactorial with possibly more mild decompensated heart failure with reduced ejection fraction, severe anemia, history of severe pulmonary hypertension, underlying COPD. Do not resume irbesartan. Plan to initiate Entresto tomorrow evening after 36 hour washout. (2) CAD (coronary artery disease): Code(s): I25.10 - Atherosclerotic heart disease of [place] coronary artery without angina pectoris Status: Acute Assessment and Plan: She must continue Clopidogrel through April 2022 given drug-eluting stent 05/17/21. Follow H&H. Resume beta-boy, statin therapy. Off aspirin given concomitant systemic anticoagulation with clopidogrel to reduce bleeding risk. (3) Elevated troponin: Code(s): R77.8 - Other specified abnormalities of plasma proteins Status: Acute Assessment and Plan: Most likely type 2 infarction not acute coronary syndrome and/or plaque rupture. Repeat troponin, follow trend. No acute ischemic changes by EKG. Patient is not exhibiting clear anginal symptoms. Elevated troponin not surprising since soon after atrial fibrillation ablation. She remains on clopidogrel and Xarelto (4) Chronic anemia: Code(s): D64.9 - Anemia, unspecified Status: Acute Assessment and Plan: She is followed by Dr. Olmedo and has received IV iron, oral iron and blood transfusions. She has chronic anemia which has been reasonably stable. She reports blood transfusion approximately 1 month ago. (5) Paroxysmal atrial fibrillation: Code(s): I48.0 - Paroxysmal atrial fibrillation Status: Acute Assessment and Plan: Currently maintaining sinus rhythm thus far post ablation. Continue systemic anticoagulation with Xarelto 20mg qhs appropriate dose given renal function GFR greater than 60. Continue Toprol XL 25 mg daily as tolerated. (6) Pulmonary hypertension: Code(s): I27.20 - Pulmonary hypertension, unspecified Status: Acute Assessment and Plan: Previously noted to be severe, RVSP 79 mm Hg 04/2021 echocardiogram. Repeat 2D echo to assess. History of mild COPD yet severity of pulmonary hypertension appears to be out of proportion who documented lung disease. (7) Chronic kidney disease, stage 3 (moderate): Code(s): N18.3 - Chronic kidney disease, stage 3 (moderate) Status: Acute Assessment and Plan: Stable, historically stage III although creatinine 0.8 improved compared to prior admissions. (8) Lupus erythematosus: Qualifiers: Lupus erythematosus form: unspecified Qualified Code(s): L93.0 - Discoid lupus erythematosus Code(s): L93.0 - Discoid lupus erythematosus Status: Acute Assessment and Plan: Per primary service. History of Present Illness History of Present Illness Consult date/time: Date of service: 04/16/22 10:26 Cardiology consultation at the request of Alan Brown NP of the [facility] service for opinion regarding shortness of baljit
--- NOTE | 2022-04-16 11:27 | PC.NURSE ---
This patient, Carmen House, was admitted to IMU Room 212-01. Patient/family oriented to hospital policies and general routines including ID bracelet, bed and alarms, visiting hours, pain management, procedures, bathroom and other care routines, personal items, smoking policy, room service/diet, and visiting hours. Information on how to activate the Rapid Response Team has been discussed. Patient/Family are encouraged to report perceived risks to care and to ask questions if they do not understand what they are told or what they should do.
[2022-04-16 11:57] LABS: Troponin I 0.573 ng/mL (0.000-0.034)
[2022-04-16] MEDS: CLOPIDOGREL BISULFATE 75 MG TABLET PO (13:38)
[2022-04-16 14:45] LABS: Troponin I 0.547 ng/mL (0.000-0.034)
[2022-04-16] MEDS: RIVAROXABAN 20 MG TABLET PO (18:06)
[2022-04-16] MEDS: ALPRAZolam (*CRX) 0.5 MG TABLET PO (20:23)
[2022-04-16] MEDS: PREGABALIN (*CRX) 75 MG CAPSULE 150 MG PO (20:23)
[2022-04-17] VITALS (14 sets, daily range): BP systolic 103–148; BP diastolic 43–63; PULSE 53–97; RESP 12–20; TEMP 36.1–37.3; O2SAT 94–98
[2022-04-17 05:12] LABS: Basophils Percent Auto 0.3 % (0.2-1.2); Eosinophils Absolute Auto 0.2 K/mm3 (0-0.3); Eosinophils Percent Auto 5.1 % (0-4.4); Hematocrit 25.2 % (37.0-47.0); Hemoglobin 7.6 g/dL (12.0-15.0); Immature Granulocyte Absolute 0.03 K/mm3 (0.00-0.031); Immature Granulocyte Percent A 0.8 % (0-0.5); Lymphocytes Absolute Auto 0.42 K/mm3 (0.9-3.2); Lymphocytes Percent Auto 11.2 % (18.3-44.2); Mean Corpuscular HGB Conc 30.2 g/dl (32-36); Mean Corpuscular Hemoglobin 30.6 pg (26-34); Mean Corpuscular Volume 101.6 fl (80-100); Mean Platelet Volume 10.5 fl (7.4-10.4); Monocytes Absolute Auto 0.4 K/mm3 (0.1-0.6); Monocytes Percent Auto 10.7 % (2.6-8.5); Neutrophils Absolute Auto 2.7 K/mm3 (1.3-6.7); Neutrophils Percent Auto 71.9 % (45.5-73.1); Nucleated Red Blood Cells Perc 0.5 % (0.0-0.2); Platelet Count Result 217 k/mm3 (150-375); Red Blood Count 2.48 M/mm3 (4.2-5.4); Red Cell Distribution Width 17.3 % (11.5-14.5); White Blood Count 3.8 K/mm3 (4.5-10.0)
[2022-04-17 05:20] LABS: Alanine Aminotransferase 23 U/L (6-35); Albumin Level 3.1 g/dL (3.5-5.1); Alkaline Phosphatase 180 U/L (38-126); Anion Gap 6 mmol/L (8-16); Aspartate Amino Transferase 43 U/L (14-36); Bilirubin,Total 0.9 mg/dL (0.2-1.3); Blood Urea Nitrogen 11 mg/dL (7-17); Calcium 7.8 mg/dL (8.4-10.2); Carbon Dioxide 32 mmol/L (22-30); Chloride 101 mmol/L (98-107); Estimated CRCL calculation 42 ml/min; Estimated Glomerular Filt Rate 54; Glucose 108 mg/dL (65-110); Magnesium 1.5 mg/dL (1.6-2.3); Potassium 3.1 mmol/L (3.4-5.0); Sodium 139 mmol/L (137-145)
[2022-04-17 08:35] LABS: Immature Reticulocyte Fraction 24.6 % (3.0-15.9); Reticulocyte Hemoglobin Conten 28.3 pg (28.2-35.7); Reticulocyte Percent 4.67 % (0.7-4.3); Reticulocytes Absolute 0.12 B/L (32.2-175.7)
--- NOTE | 2022-04-17 08:45 | PM.IMPN ---
Progress Note: A&P Assessment and Plan (1) CHF (congestive heart failure): Code(s): I50.9 - Heart failure, unspecified Status: Acute Assessment and Plan: EKG Shows afib Chest xray shows pulmonary edema superimposed on emphysema Heart rate controlled BNP elevated at 4820 Strict I&Os Trend urine output From review this appears to be an acute on chronic combined systolic and diastolic heart failure Echo from 05/16 shows EF of 35/40% with an abnormal diastolic dysfunction repeat echo EF of 65-70% left vent wall thickness, with grade 2 diastolic dysfunction, Pulm HTN 40mmHg IV lasix 40mg BID Continue metoprolol Entresto will be started per cardiology Tele monitor (2) Elevated troponin: Code(s): R77.8 - Other specified abnormalities of plasma proteins Status: Acute Assessment and Plan: Trop 0.666, 0.573 Probably elevated from recent ablation and CHF exacerbation Continue to trend Cardiology consulted thank you for your help EKG looks stable and does not appear to have any ST elevation, or any significant changes from her last admission (3) Essential (primary) hypertension: Code(s): I10 - Essential (primary) hypertension Status: Acute Assessment and Plan: Current BP is 148/63 Hold home irbesartan 300mg pO Daily Continue metoprolol 25mg PO Daily Start Entresto per cardiology Trend BP Adjust therapy as indicated (4) COPD (chronic obstructive pulmonary disease): Code(s): J44.9 - Chronic obstructive pulmonary disease, unspecified Status: Acute Assessment and Plan: Hold home Trelegy for now Neb treatments ordered PRN Does not fit an acute exacerbation, as she denies any increased sputum production, or increased wheezes Supplemental oxygen as indicated, titrate to maintain saturation >90% Restart home medications as indicated (5) Anemia: Code(s): D64.9 - Anemia, unspecified Status: Acute Assessment and Plan: Current H/H 7.6/25.2 Could be related to fluid overload Trend labs Anemia labs Supplement as indicated Consider iron infusion Probably will need some iron supplementation orally as well Transfuse if HGB <7.0 (6) CAD (coronary artery disease): Code(s): I25.10 - Atherosclerotic heart disease of [place] coronary artery without angina pectoris Status: Acute Assessment and Plan: No reports of chest pain Continue aspirin, Plavix Tele monitor (7) Afib: Code(s): I48.91 - Unspecified atrial fibrillation Status: Acute Assessment and Plan: Ablation noted last saturday EKG shows patient is currently in afib Continue Xarelto Hold Aspirin while on the Plavix Chadvas score is a 6 Cardiology on board (8) Pulmonary hypertension: Code(s): I27.20 - Pulmonary hypertension, unspecified Status: Acute Assessment and Plan: Echo from 05/16 shows RVSP 79 mm Hg Repeat echo shows RVSP of 40 History of mild COPD yet severity of pulmonary hypertension appears to be out of proportion who documented lung disease (9) Type 2 [place] (myocardial infarction): Code(s): I21.A1 - Myocardial infarction type 2 Status: Acute Assessment and Plan: Does not appear to be ischemic Probably related to CHF exacerbation, or increased pulmonary HTN Cardiology following (10) Electrolyte abnormality: Code(s): E87.8 - Other disorders of electrolyte and fluid balance, not elsewhere classified Status: Acute Assessment and Plan: K is 3.1, Mg is 1.5 Replace with 4gm of mag, and 40mcg of potassium Recheck electrolytes this afternoon replace as indicated Time Spent With Patient Time with patient: Greater than 35 minutes Subjective Date/time seen: 04/17/22 08:45 Interval history: 04/17/22 8:45 Patient stated that s
--- NOTE | 2022-04-17 08:45 | P.PNIM_ITS ---
Progress Note: A&P Assessment and Plan (1) CHF (congestive heart failure): Code(s): I50.9 - Heart failure, unspecified Status: Acute Assessment and Plan: * EKG Shows afib * Chest xray shows pulmonary edema superimposed on emphysema * Heart rate controlled * BNP elevated at 4820 * Strict I&Os * Trend urine output * From review this appears to be an acute on chronic combined systolic and diastolic heart failure * Echo from 05/16 shows EF of 35/40% with an abnormal diastolic dysfunction * repeat echo EF of 65-70% left vent wall thickness, with grade 2 diastolic dysfunction, Pulm HTN 40mmHg * IV lasix 40mg BID * Continue metoprolol * Entresto will be started per cardiology * Tele monitor (2) Elevated troponin: Code(s): R77.8 - Other specified abnormalities of plasma proteins Status: Acute Assessment and Plan: * Trop 0.666, 0.573 * Probably elevated from recent ablation and CHF exacerbation * Continue to trend * Cardiology consulted thank you for your help * EKG looks stable and does not appear to have any ST elevation, or any significant changes from her last admission (3) Essential (primary) hypertension: Code(s): I10 - Essential (primary) hypertension Status: Acute Assessment and Plan: * Current BP is 148/63 * Hold home irbesartan 300mg pO Daily * Continue metoprolol 25mg PO Daily * Start Entresto per cardiology * Trend BP * Adjust therapy as indicated (4) COPD (chronic obstructive pulmonary disease): Code(s): J44.9 - Chronic obstructive pulmonary disease, unspecified Status: Acute Assessment and Plan: * Hold home Trelegy for now * Neb treatments ordered PRN * Does not fit an acute exacerbation, as she denies any increased sputum production, or increased wheezes * Supplemental oxygen as indicated, titrate to maintain saturation >90% * Restart home medications as indicated (5) Anemia: Code(s): D64.9 - Anemia, unspecified Status: Acute Assessment and Plan: * Current H/H 7.6/25.2 * Could be related to fluid overload * Trend labs * Anemia labs * Supplement as indicated * Consider iron infusion * Probably will need some iron supplementation orally as well * Transfuse if HGB <7.0 (6) CAD (coronary artery disease): Code(s): I25.10 - Atherosclerotic heart disease of [place] coronary artery without angina pectoris Status: Acute Assessment and Plan: * No reports of chest pain * Continue aspirin, Plavix * Tele monitor (7) Afib: Code(s): I48.91 - Unspecified atrial fibrillation Status: Acute Assessment and Plan: * Ablation noted last saturday * EKG shows patient is currently in afib * Continue Xarelto * Hold Aspirin while on the Plavix * Chadvas score is a 6 * Cardiology on board (8) Pulmonary hypertension: Code(s): I27.20 - Pulmonary hypertension, unspecified Status: Acute Assessment and Plan: * Echo from 05/16 shows RVSP 79 mm Hg * Repeat echo shows RVSP of 40 * History of mild COPD yet severity of pulmonary hypertension appears to be out of proportion who documented lung disease (9) Type 2 [place] (myocardial infarction): Code(s): I21.A1 - Myocardial infarction type 2 Status: Acute Assessment and Plan:
[2022-04-17] MEDS: PREGABALIN (*CRX) 75 MG CAPSULE 150 MG PO ×2 (09:33→20:50)
[2022-04-17] MEDS: METOPROLOL SUCCINATE EXT REL 25 MG TABCR PO (09:33)
[2022-04-17] MEDS: POTASSIUM CHLORIDE 10 MEQ TABLET.ER PO (09:33)
[2022-04-17] MEDS: FLUoxetine HCL 20 MG CAPSULE PO (09:33)
[2022-04-17] MEDS: CLOPIDOGREL BISULFATE 75 MG TABLET PO (09:33)
[2022-04-17] MEDS: FUROSEMIDE INJ 40 MG/4 ML VIAL IV PUSH (09:34)
[2022-04-17] MEDS: ATORVASTATIN 40 MG TABLET PO (09:34)
[2022-04-17] MEDS: POTASSIUM CHLORIDE 20 MEQ TABLET 40 MEQ PO ×2 (10:00→15:34)
[2022-04-17] MEDS: MAGNESIUM SULF 4 GM/WATER100ML 4 GM/100 ML BAG IVPB (10:04)
[2022-04-17 11:13] LABS: Iron 47 ug/dL (37-170)
[2022-04-17 11:26] LABS: Percent Iron Saturation 19 % (20-50)
[2022-04-17 11:41] LABS: Transferrin 154 mg/dL (206-381)
[2022-04-17 13:06] LABS: Folic Acid 10.2 ng/mL (2.76->20)
--- NOTE | 2022-04-17 13:21 | PM.PNCARD ---
Progress Note: A&P Assessment and Plan (1) Heart failure with reduced ejection fraction: Code(s): I50.20 - Unspecified systolic (congestive) heart failure <HAROON Gan - Last Filed: 04/17/22 16:31> Status: Acute <HAROON Gan - Last Filed: 04/17/22 16:31> Assessment and Plan: EF 35-40% by echocardiogram 04/2021 setting of NSTEMI status post drug-eluting stent to circumflex. BNP mildly elevated in setting of chronic anemia, very recent atrial fibrillation ablation mild troponin elevation. Chest x-ray with minimal pulmonary vascular congestion, no peripheral edema or obvious JVD on exam. May continue diuresis with somewhat cautiously. Shift to oral diuretic. Monitor input and output, daily weight. Monitor electrolytes closely. Continue Toprol XL. Start Entresto 24-26 tonight. Monitor blood pressure closely Echocardiogram showed normal LV systolic function, EF 65-70%. Grade 2 diastolic dysfunction. Mild MR, mild TR, mild pulmonary hypertension estimated PASP 44 mmHg. Anticipate discharge home possibly tomorrow <HAROON Gan - Last Filed: 04/17/22 16:31> (2) CAD (coronary artery disease): Code(s): I25.10 - Atherosclerotic heart disease of [place] coronary artery without angina pectoris <HAROON Gan - Last Filed: 04/17/22 16:31> Status: Acute <HAROON Gan - Last Filed: 04/17/22 16:31> Assessment and Plan: She must continue Clopidogrel through April 2022 given drug-eluting stent 05/17/21. Follow H&H. Resume beta-boy, statin therapy. Off aspirin given concomitant systemic anticoagulation with clopidogrel to reduce bleeding risk. <HAROON Gan - Last Filed: 04/17/22 16:31> (3) Elevated troponin: Code(s): R77.8 - Other specified abnormalities of plasma proteins <HAROON Gan - Last Filed: 04/17/22 16:31> Status: Acute <HAROON Gan - Last Filed: 04/17/22 16:31> Assessment and Plan: Most likely type 2 infarction not acute coronary syndrome and/or plaque rupture. Repeat troponin, follow trend. No acute ischemic changes by EKG. Patient is not exhibiting clear anginal symptoms. Elevated troponin not surprising since soon after atrial fibrillation ablation. She remains on clopidogrel and Xarelto <HAROON Gan - Last Filed: 04/17/22 16:31> (4) Chronic anemia: Code(s): D64.9 - Anemia, unspecified <HAROON Gan - Last Filed: 04/17/22 16:31> Status: Acute <HAROON Gan - Last Filed: 04/17/22 16:31> Assessment and Plan: She is followed by Dr. Olmedo and has received IV iron, oral iron and blood transfusions. She has chronic anemia which has been reasonably stable. She reports blood transfusion approximately 1 month ago. <HAROON Gan - Last Filed: 04/17/22 16:31> (5) Paroxysmal atrial fibrillation: Code(s): I48.0 - Paroxysmal atrial fibrillation <HAROON Gan - Last Filed: 04/17/22 16:31> Status: Acute <HAROON Gan - Last Filed: 04/17/22 16:31> Assessment and Plan: Currently maintaining sinus rhythm thus far post ablation. Continue systemic anticoagulation with Xarelto 20mg qhs appropriate dose given renal function GFR greater than 60. Continue Toprol XL 25 mg daily as tolerated. <HAROON Gan - Last Filed: 04/17/22 16:31> (6) Pulmonary hypertension: Code(s): I27.20 - Pulmonary hypertension, unspecified <HAROON Gan - Last Filed: 04/17/22 16:31> Status: Acute <HAROON Gan - Last Filed: 04/17/22 16:31> Assessment and Plan: Previously noted to be severe, RVSP 79 mm Hg 04/2021 echocardiogram. Repeat 2D echo to assess. History of mild COPD yet severity of pulmonary hypertension appears to be out of proportion who documented lung disease. <Maricel Valderrama APN-C - Last Filed: 04/17/22 16:31>
[2022-04-17 14:20] LABS: Alanine Aminotransferase 23 U/L (6-35); Albumin Level 3.2 g/dL (3.5-5.1); Alkaline Phosphatase 182 U/L (38-126); Anion Gap 10 mmol/L (8-16); Aspartate Amino Transferase 39 U/L (14-36); Blood Urea Nitrogen 13 mg/dL (7-17); Calcium 8.2 mg/dL (8.4-10.2); Carbon Dioxide 29 mmol/L (22-30); Chloride 98 mmol/L (98-107); Estimated CRCL calculation 42 ml/min; Estimated Glomerular Filt Rate 54; Glucose 128 mg/dL (65-110); Magnesium 2.9 mg/dL (1.6-2.3); Potassium 3.1 mmol/L (3.4-5.0); Sodium 137 mmol/L (137-145)
[2022-04-17] MEDS: POTASSIUM CHLORIDE INJ 40 MEQ in SODIUM CHLORIDE 0.9% IV 500 ML 130 MEQ IVPB (15:34)
[2022-04-17] MEDS: FUROSEMIDE 40 MG TABLET PO (17:16)
[2022-04-17] MEDS: RIVAROXABAN 20 MG TABLET PO (17:16)
[2022-04-17] MEDS: FERROUS SULFATE 324 MG TABLET PO (17:16)
[2022-04-17 20:29] LABS: Anion Gap 8 mmol/L (8-16); Blood Urea Nitrogen 13 mg/dL (7-17); Carbon Dioxide 27 mmol/L (22-30); Chloride 102 mmol/L (98-107); Estimated CRCL calculation 42 ml/min; Estimated Glomerular Filt Rate 54; Glucose 112 mg/dL (65-110); Potassium 4.9 mmol/L (3.4-5.0); Sodium 137 mmol/L (137-145)
[2022-04-17] MEDS: SACUBITRIL/VALSARTAN 24-26 MG TABLET 1 TAB PO (20:50)
[2022-04-17] MEDS: ALPRAZolam (*CRX) 0.5 MG TABLET PO (20:53)
[2022-04-18] VITALS: PULSE 56
[2022-04-18 04:00] VITALS: PULSE 54
[2022-04-18 05:18] LABS: Basophils Percent Auto 0.6 % (0.2-1.2); Eosinophils Absolute Auto 0.2 K/mm3 (0-0.3); Eosinophils Percent Auto 7.1 % (0-4.4); Hematocrit 27.5 % (37.0-47.0); Hemoglobin 8.2 g/dL (12.0-15.0); Immature Granulocyte Absolute 0.02 K/mm3 (0.00-0.031); Immature Granulocyte Percent A 0.6 % (0-0.5); Lymphocytes Absolute Auto 0.59 K/mm3 (0.9-3.2); Lymphocytes Percent Auto 17.4 % (18.3-44.2); Mean Corpuscular HGB Conc 29.8 g/dl (32-36); Mean Corpuscular Hemoglobin 30.6 pg (26-34); Mean Corpuscular Volume 102.6 fl (80-100); Mean Platelet Volume 10.4 fl (7.4-10.4); Monocytes Absolute Auto 0.5 K/mm3 (0.1-0.6); Monocytes Percent Auto 13.9 % (2.6-8.5); Neutrophils Absolute Auto 2.1 K/mm3 (1.3-6.7); Neutrophils Percent Auto 60.4 % (45.5-73.1); Platelet Count Result 261 k/mm3 (150-375); Red Blood Count 2.68 M/mm3 (4.2-5.4); Red Cell Distribution Width 17.2 % (11.5-14.5); White Blood Count 3.4 K/mm3 (4.5-10.0)
[2022-04-18 05:29] LABS: Alanine Aminotransferase 22 U/L (6-35); Albumin Level 3.1 g/dL (3.5-5.1); Alkaline Phosphatase 202 U/L (38-126); Anion Gap 3 mmol/L (8-16); Aspartate Amino Transferase 36 U/L (14-36); Bilirubin,Total 0.8 mg/dL (0.2-1.3); Blood Urea Nitrogen 15 mg/dL (7-17); Carbon Dioxide 33 mmol/L (22-30); Chloride 101 mmol/L (98-107); Estimated CRCL calculation 38 ml/min; Estimated Glomerular Filt Rate 48; Glucose 112 mg/dL (65-110); Magnesium 2.2 mg/dL (1.6-2.3); Potassium 4.6 mmol/L (3.4-5.0); Sodium 137 mmol/L (137-145)
[2022-04-18 08:00] VITALS: BP 119/66; PULSE 51; PULSE 52; RESP 16; TEMP 36.4; O2SAT 99
[2022-04-18 08:01] VITALS: PULSE 58; O2SAT 96
--- NOTE | 2022-04-18 08:30 | P.DS_ITS ---
DS: Admitting Diagnosis Discharge Date 04/18/22 0830 Admitting Diagnosis CHF exacerbation DS: Discharge Diagnosis Discharge Diagnosis (1) CHF (congestive heart failure): Code(s): I50.9 - Heart failure, unspecified Status: Acute Assessment and Plan: * EKG Shows afib * Chest xray shows pulmonary edema superimposed on emphysema * Heart rate controlled * BNP elevated at 4820 * Strict I&Os * Trend urine output * From review this appears to be an acute on chronic combined systolic and diastolic heart failure * Echo from 05/16 shows EF of 35/40% with an abnormal diastolic dysfunction * repeat echo EF of 65-70% left vent wall thickness, with grade 2 diastolic dysfunction, Pulm HTN 40mmHg * IV lasix 40mg BID, convert to 40mg PO BID * Continue metoprolol * Entresto will be started per cardiology * Tele monitor (2) Elevated troponin: Code(s): R77.8 - Other specified abnormalities of plasma proteins Status: Acute Assessment and Plan: * Trop 0.666, 0.573 * Probably elevated from recent ablation and CHF exacerbation * Continue to trend * Cardiology consulted thank you for your help * EKG looks stable and does not appear to have any ST elevation, or any significant changes from her last admission (3) Essential (primary) hypertension: Code(s): I10 - Essential (primary) hypertension Status: Acute Assessment and Plan: * Current BP is 119/66 * Hold home irbesartan 300mg pO Daily * Continue metoprolol 25mg PO Daily * Start Entresto per cardiology * Trend BP * Adjust therapy as indicated (4) COPD (chronic obstructive pulmonary disease): Code(s): J44.9 - Chronic obstructive pulmonary disease, unspecified Status: Acute Assessment and Plan: * Hold home Trelegy for now * Neb treatments ordered PRN * Does not fit an acute exacerbation, as she denies any increased sputum production, or increased wheezes * Supplemental oxygen as indicated, titrate to maintain saturation >90% * Restart home medications as indicated (5) Anemia: Code(s): D64.9 - Anemia, unspecified Status: Acute Assessment and Plan: * Current H/H 8.2/27.5 * Could be related to fluid overload * Trend labs * Anemia labs * Supplement as indicated * Consider iron infusion * Probably will need some iron supplementation orally as well * Transfuse if HGB <7.0 (6) CAD (coronary artery disease): Code(s): I25.10 - Atherosclerotic heart disease of [place] coronary artery without angina pectoris Status: Acute Assessment and Plan: * No reports of chest pain * Continue aspirin, Plavix * Tele monitor (7) Afib: Code(s): I48.91 - Unspecified atrial fibrillation Status: Acute Assessment and Plan: * Ablation noted last saturday * EKG shows patient is currently in afib * Continue Xarelto * Hold Aspirin while on the Plavix * Chadvas score is a 6 * Cardiology on board (8) Pulmonary hypertension: Code(s): I27.20 - Pulmonary hypertension, unspecified Status: Acute Assessment and Plan: * Echo from 05/16 shows RVSP 79 mm Hg * Repeat echo shows RVSP of 40 * History of mild COPD yet severity of pulmonary hypertension appears to be out of proportion who documented lung disease (9) Type 2 [place] (myocardial infa
--- NOTE | 2022-04-18 08:30 | PM.DS ---
DS: Admitting Diagnosis Discharge Date 04/18/22 0830 Admitting Diagnosis CHF exacerbation DS: Discharge Diagnosis Discharge Diagnosis (1) CHF (congestive heart failure): Code(s): I50.9 - Heart failure, unspecified Status: Acute Assessment and Plan: EKG Shows afib Chest xray shows pulmonary edema superimposed on emphysema Heart rate controlled BNP elevated at 4820 Strict I&Os Trend urine output From review this appears to be an acute on chronic combined systolic and diastolic heart failure Echo from 05/16 shows EF of 35/40% with an abnormal diastolic dysfunction repeat echo EF of 65-70% left vent wall thickness, with grade 2 diastolic dysfunction, Pulm HTN 40mmHg IV lasix 40mg BID, convert to 40mg PO BID Continue metoprolol Entresto will be started per cardiology Tele monitor (2) Elevated troponin: Code(s): R77.8 - Other specified abnormalities of plasma proteins Status: Acute Assessment and Plan: Trop 0.666, 0.573 Probably elevated from recent ablation and CHF exacerbation Continue to trend Cardiology consulted thank you for your help EKG looks stable and does not appear to have any ST elevation, or any significant changes from her last admission (3) Essential (primary) hypertension: Code(s): I10 - Essential (primary) hypertension Status: Acute Assessment and Plan: Current BP is 119/66 Hold home irbesartan 300mg pO Daily Continue metoprolol 25mg PO Daily Start Entresto per cardiology Trend BP Adjust therapy as indicated (4) COPD (chronic obstructive pulmonary disease): Code(s): J44.9 - Chronic obstructive pulmonary disease, unspecified Status: Acute Assessment and Plan: Hold home Trelegy for now Neb treatments ordered PRN Does not fit an acute exacerbation, as she denies any increased sputum production, or increased wheezes Supplemental oxygen as indicated, titrate to maintain saturation >90% Restart home medications as indicated (5) Anemia: Code(s): D64.9 - Anemia, unspecified Status: Acute Assessment and Plan: Current H/H 8.2/27.5 Could be related to fluid overload Trend labs Anemia labs Supplement as indicated Consider iron infusion Probably will need some iron supplementation orally as well Transfuse if HGB <7.0 (6) CAD (coronary artery disease): Code(s): I25.10 - Atherosclerotic heart disease of [place] coronary artery without angina pectoris Status: Acute Assessment and Plan: No reports of chest pain Continue aspirin, Plavix Tele monitor (7) Afib: Code(s): I48.91 - Unspecified atrial fibrillation Status: Acute Assessment and Plan: Ablation noted last saturday EKG shows patient is currently in afib Continue Xarelto Hold Aspirin while on the Plavix Chadvas score is a 6 Cardiology on board (8) Pulmonary hypertension: Code(s): I27.20 - Pulmonary hypertension, unspecified Status: Acute Assessment and Plan: Echo from 05/16 shows RVSP 79 mm Hg Repeat echo shows RVSP of 40 History of mild COPD yet severity of pulmonary hypertension appears to be out of proportion who documented lung disease (9) Type 2 [place] (myocardial infarction): Code(s): I21.A1 - Myocardial infarction type 2 Status: Acute Assessment and Plan: Does not appear to be ischemic Probably related to CHF exacerbation, or increased pulmonary HTN Cardiology following (10) Electrolyte abnormality: Code(s): E87.8 - Other disorders of electrolyte and fluid balance, not elsewhere classified Status: Acute Assessment and Plan: K is 4.6, Mg is 2.5 Trend labs Keep K above 4 and mag above 2 replace as indicated DS: Summary Hospital Course Hospital Course: Patient is 76-year-old female with a past medical histor
[2022-04-18] MEDS: CLOPIDOGREL BISULFATE 75 MG TABLET PO (08:55)
[2022-04-18] MEDS: FERROUS SULFATE 324 MG TABLET PO (08:55)
[2022-04-18] MEDS: ATORVASTATIN 40 MG TABLET PO (08:55)
[2022-04-18] MEDS: FLUoxetine HCL 20 MG CAPSULE PO (08:56)
[2022-04-18 09:16] VITALS: PULSE 54
[2022-04-18] MEDS: SACUBITRIL/VALSARTAN 24-26 MG TABLET 1 TAB PO (09:16)
[2022-04-18] MEDS: PREGABALIN (*CRX) 75 MG CAPSULE 150 MG PO (09:16)
[2022-04-18] MEDS: FUROSEMIDE 40 MG TABLET PO (09:16)
[2022-04-18] MEDS: METOPROLOL SUCCINATE EXT REL 25 MG TABCR PO (09:16)
[2022-04-18 12:00] VITALS: PULSE 62
== END 2022-04-18 15:27 | disposition home or self-care (01) | DRG 280 ==
LOC: ANHED 08:17 → ANHIMU 08:44
PROVIDERS: General Practice; Admitting Provider Family Medicine; Emergency Provider Emergency Medicine; Visit Provider Nurse Practitioner
DX: I13.0 Hypertensive heart and chronic kidney disease with heart failure and stage 1 through stage 4 chronic kidney disease, or unspecified chronic kidney disease (principal); I50.43 Acute on chronic combined systolic (congestive) and diastolic (congestive) heart failure; I21.A1 Myocardial infarction type 2; N18.30 Chronic kidney disease, stage 3 unspecified; I25.10 Atherosclerotic heart disease of native coronary artery without angina pectoris; I48.91 Unspecified atrial fibrillation; R77.8 Other specified abnormalities of plasma proteins; J43.9 Emphysema, unspecified; Z20.822 Contact with and (suspected) exposure to COVID-19; D63.1 Anemia in chronic kidney disease; E78.5 Hyperlipidemia, unspecified; E87.8 Other disorders of electrolyte and fluid balance, not elsewhere classified; F41.9 Anxiety disorder, unspecified; F32.A Depression, unspecified; I27.20 Pulmonary hypertension, unspecified; I25.2 Old myocardial infarction; I73.9 Peripheral vascular disease, unspecified; K21.9 Gastro-esophageal reflux disease without esophagitis; L93.0 Discoid lupus erythematosus; M47.816 Spondylosis without myelopathy or radiculopathy, lumbar region; M79.7 Fibromyalgia; M19.90 Unspecified osteoarthritis, unspecified site; Z79.899 Other long term (current) drug therapy; Z86.73 Personal history of transient ischemic attack (TIA), and cerebral infarction without residual deficits; Z87.891 Personal history of nicotine dependence; Z98.49 Cataract extraction status, unspecified eye; Z98.1 Arthrodesis status; Z96.0 Presence of urogenital implants; Z95.5 Presence of coronary angioplasty implant and graft; Z79.02 Long term (current) use of antithrombotics/antiplatelets; Z79.01 Long term (current) use of anticoagulants
CPT/HCPCS: 36415; 36600; 71045; 80048; 80053; 82375; 82607; 82728; 82746; 82805; 83050; 83540; 83550; 83735; 83880; 84466; 84484; 85025; 85046; 85610; 85730; 93005; 93306; 96375; 99285; A9270; C9803; G0378; J1940; J3475; J3480; J7040; U0003; U0005

== ENCOUNTER 2022-07-08 13:05 | Inpatient (IN) | payer MEDICARE, BC, SELFPAY ==
[2022-07-08] VITALS (9 sets, daily range): BP systolic 139–164; BP diastolic 67–82; PULSE 65–74; RESP 12–20; TEMP 36.6; O2SAT 97–100; BMI 25.3; BMI 21.5
--- NOTE | ~2022-07-08 | US_ITS ---
EXAMINATION: US abdomen limited DATE: 07/09/2022 09:44 INDICATION: Abnormal liver function tests. TECHNIQUE: Multiple grayscale and Doppler ultrasound images of the abdomen were obtained. COMPARISON: Chest CT 11/01/2021 FINDINGS: The visualized portions of the head, body, and tail of the pancreas are normal. The liver i s normal without focal lesion. There is normal flow in main portal vein. The gallbladder is normal in size and contains gallstones. No gallbladder wall thickening or sonographic Portillo sign. The common duct is normal and measures 4 mm. IMPRESSION: 1. Cholelithiasis. No evidence of acute cholecystitis. Reviewed, dictated and finalized at location A. TIZER
--- NOTE | ~2022-07-08 | CT_ITS ---
EXAMINATION: CT brain wo con INDICATION: Transient alteration of awareness COMPARISON: 04/16/2015 TECHNIQUE: Standard unenhanced head CT. The dose-length product (DLP) was 605.33 mGy-cm. The mA was a djusted according to patient size. Iterative reconstruction technique was employed. FINDINGS: There is no acute intraparenchymal hemorrhage. No evidence of mass lesion. No evidence of a cute infarction. There is mild periventricular and subcortical hypodensity probably related to small vessel ischemic disease. There is mild prominence of the sulci and ventricles related to cerebral atr ophy. Intracranial calcified cerebral atherosclerosis is noted. There are no extra-axial collections. There is no mass effect or midline shift. Changes in the globes are likely from ocular lens surgery. The visualized sinuses and mastoid air cells are well aerated. IMPRESSION: 1. No acute intracranial abnormality. 2. Age related findings. Reviewed, dictated and finalized at location A. RWRITING SUPPORT MANAGER
--- NOTE | ~2022-07-08 | XR_ITS ---
EXAMINATION: XR chest 2V DATE: 07/08/2022 14:10 INDICATION: Transient alteration of awareness TECHNIQUE: AP and lateral views of the chest are obtained. COMPARISON: 04/16/2022 FINDINGS: Coarse interstitial opacities are present with improvement since the comparison examination . No pleural effusion or pneumothorax. Cardiomegaly is noted. There is moderate thoracic spondylosis. IMPRESSION: 1. Diffuse lung disease, likely mild pulmonary edema on a background of emphysema. Reviewed, dictated and finalized at location A. NEERING TEST MECHANIC IMPRESSION: 1. Diffuse lung disease, likely mild pulmonary edema on a background of emphyse maAlba
--- NOTE | 2022-07-08 13:47 | ECG_ITS ---
Measurements Intervals [place] Rate: 72 P: 125 ID: [id number] QRS: 28 QRSD: 92 T: 55 QT: 407 QTc: 447 Interpretive Statements SINUS RHYTHM FREQUENT VENTRICULAR PREMATURE COMPLEXES NONSPECIFIC ST & T-WAVE ABNORMALITY- DIFFUSE LEADS BASELINE ARTIFACT- I, II, III, AVR, AVL, AVF, V1-V6 ABNORMAL ECG COMPARED TO ECG 04/16/2022 07:42:05 SINUS RHYTHM NOW PRESENT FREQUENT VENTRICULAR PREMATURE COMPLEXES NOW PRESENT NONSPECIFIC ST & T-WAVE ABNORMALITY- DIFFUSE LEADS NOW PRESENT Electronically Signed On 07-08-2022 16:19:40 COPRA SAMPLER by Beka eCrvantes D.O.
[2022-07-08] MEDS: MECLIZINE HCL 25 MG TABLET 12.5 MG PO (14:13)
[2022-07-08 14:22] LABS: Basophils Percent Auto 0.5 % (0.2-1.2); Eosinophils Absolute Auto 0.1 K/mm3 (0-0.3); Eosinophils Percent Auto 2.1 % (0-4.4); Hematocrit 34.4 % (37.0-47.0); Hemoglobin 10.9 g/dL (12.0-15.0); Immature Granulocyte Absolute 0.01 K/mm3 (0.00-0.031); Immature Granulocyte Percent A 0.2 % (0-0.5); Lymphocytes Absolute Auto 0.42 K/mm3 (0.9-3.2); Lymphocytes Percent Auto 6.7 % (18.3-44.2); Mean Corpuscular HGB Conc 31.7 g/dl (32-36); Mean Corpuscular Hemoglobin 30.5 pg (26-34); Mean Corpuscular Volume 96.4 fl (80-100); Mean Platelet Volume 11.3 fl (7.4-10.4); Monocytes Absolute Auto 0.6 K/mm3 (0.1-0.6); Monocytes Percent Auto 9.5 % (2.6-8.5); Neutrophils Absolute Auto 5.1 K/mm3 (1.3-6.7); Platelet Count Result 191 k/mm3 (150-375); Red Blood Count 3.57 M/mm3 (4.2-5.4); Red Cell Distribution Width 13.2 % (11.5-14.5); White Blood Count 6.3 K/mm3 (4.5-10.0)
[2022-07-08 14:54] LABS: Appearance Urine Slightly Cloudy (Clear); Bilirubin Urine 3+ (Negative); Blood Urine Trace-intact (Negative); Color Urine Yellow (Yellow); Glucose Urine UA Negative (Negative); Ketones Urine 1+ mg/dL (Negative); Leukocyte Esterase Ur 1+ LEU/UL (Negative); Nitrate Urine Negative (Negative); Protein Urine 2+ mg/dL (Negative); pH Urine 5.5 (5.0-9.0)
[2022-07-08 15:01] LABS: Alanine Aminotransferase 92 U/L (6-35); Albumin Level 3.5 g/dL (3.5-5.1); Alkaline Phosphatase 197 U/L (38-126); Anion Gap 11 mmol/L (8-16); Aspartate Amino Transferase 206 U/L (14-36); Bilirubin,Total 2.1 mg/dL (0.2-1.3); Blood Urea Nitrogen 12 mg/dL (7-17); Calcium 8.5 mg/dL (8.4-10.2); Carbon Dioxide 27 mmol/L (22-30); Chloride 101 mmol/L (98-107); Estimated CRCL calculation 37 ml/min; Estimated Glomerular Filt Rate 54; Glucose 114 mg/dL (65-110); Potassium 2.8 mmol/L (3.4-5.0); Sodium 139 mmol/L (137-145)
[2022-07-08 15:05] LABS: Bacteria Urine 2+ /hpf; Mucus Urine Heavy /lpf; Squamous Epithelial Cell Urine Few /hpf (Few); WBC Urine >75 /hpf
[2022-07-08 15:10] LABS: Add Urine Microscopic? YES
--- NOTE | 2022-07-08 15:19 | ED.WEAKNESS ---
HPI - Weakness General Chief complaint: Weakness Stated complaint: SYNCOPAL Time Seen by Provider: 07/08/22 13:21 History of Present Illness HPI Narrative: Patient is a 76-year-old female who presents ER with weakness and syncope. Reports for several weeks she has been getting lightheaded when she goes from sitting to standing. Over the last couple days she has had multiple syncopal episodes were EMS of had to come out to the house and pick her up. Denies chest pain. No fevers or chills or sweats. Reports normal oral intake of food and water. She lives at home with her who has dementia. She reports she is not ready to be in a fpc or assisted living. Patient was her dizziness is not rotational and things go black. She does take Xarelto and has hit her head on the floor. Related Data Home Medications Medication Instructions Recorded Confirmed pilocarpine HCl 5 mg tablet 5 mg PO TID PRN Dry Mouth 10/19/19 05/03/22 ([place] (pilocarpine)) cyclobenzaprine 10 mg tablet 10 mg PO HS PRN Spasms 07/10/21 05/03/22 rivaroxaban 2.5 mg tablet (Xarelto) 2.5 mg PO DAILY 10/06/21 05/03/22 albuterol sulfate 90 mcg/actuation 2 inh inhalation BID 04/16/22 05/03/22 aerosol inhaler clopidogrel 75 mg tablet 75 mg PO DAILY 04/16/22 05/03/22 fluoxetine 20 mg tablet 20 mg PO DAILY 04/16/22 05/03/22 fluticasone fur. 100 mcg-umeclid 1 inh inhalation DAILY 04/16/22 05/03/22 62.5 mcg-vilant 25 mcg inhalat.powder (Trelegy Ellipta) nystatin 100,000 unit/gram topical See Rx Instructions .Route 04/16/22 05/03/22 cream .COMPLEX PRN yeast pregabalin 150 mg capsule 150 mg PO Q12H 04/16/22 05/03/22 irbesartan 300 mg tablet 150 mg PO DAILY 06/07/22 Allergies Allergy/AdvReac Type Severity Reaction Status Date / Time cat dander Allergy Unknown Sneezing Verified 07/08/22 13:16 house dust Allergy Unknown Sneezing Verified 07/08/22 13:16 mold Allergy Unknown Sneezing Verified 07/08/22 13:16 ciprofloxacin AdvReac Unknown Nausea Verified 07/08/22 13:16 erythromycin base AdvReac Unknown Nausea Verified 07/08/22 13:16 Sulfa (Sulfonamide AdvReac Unknown Nausea Verified 07/08/22 13:16 Antibiotics) Review of Systems Review of Systems: All systems reviewed & are unremarkable except as noted in HPI and below Constitutional: Constitutional: Denies chills, Reports fatigue, Denies fever(s) and Reports weakness ENT: Denies nasal congestion and Denies sore throat Cardiovascular: Cardiovascular: Denies chest pain, Denies rapid heart rate and Denies radiating jaw, neck or arm pain Respiratory: Respiratory: Denies cough and Denies dyspnea Gastrointestinal: Gastrointestinal: Denies abdominal pain, Denies nausea and Denies vomiting Neurologic: Reports syncope, Denies headache(s), Denies focal weakness and Denies numbness PMF Past Medical History Medical History (Updated 07/08/22 @ 17:13 by Ike Calvillo MD) Abnormal CXR Anemia Anxiety Aortic dissection Asthma C. difficile colitis In August 2010. 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 Colitis Congestive heart disease (~05/16/21) Cough Degenerative joint disease (DJD) of lumbar spine Depression Fibromyalgia GERD (gastroesophageal reflux disease) Heart attack Herniated disc, cervical x2 Osteoarthritis Other manager intermediate (current) drug therapy Shingles Shortness of Breath SLE (systemic lupus erythematosus related syndrome) (~1988) Tobacco abuse Surgical History Surgical History H/O cataract extraction H/O cervical discectomy H/O laminectomy History of lumbar fusion History of renal stent History of tonsillectomy Family History Family History Sibling Family history of cardiovascular disease Diabetes mellitus Family history of malignant neoplasm of urinary bladder Hypertension F
[2022-07-08 15:20] LABS: NT Pro B Type Natriuretic Pept 948 pg/mL (5-100)
--- NOTE | 2022-07-08 16:05 | PC.NURSE ---
Pt refused the powder potassium said i am going to vomit, I just can not take liquid meds.
[2022-07-08] MEDS: POTASSIUM CHLORIDE 20 MEQ TABLET 40 MEQ PO (16:16)
--- NOTE | 2022-07-08 17:00 | PM.IMHP ---
H&P: HPI History of Present Illness Date/Time: 07/08/22 17:00 Chief Complaint: Weakness and syncope. Narrative: This is a 76-year-old female with history of coronary artery disease with history of stents, heart failure with reduced ejection fraction with most recent EF of 35 to 40%, peripheral arterial disease, hypertension, hyperlipidemia, paroxysmal atrial fibrillation status post ablation, chronic anemia, and systemic lupus erythematosus who presented to the emergency department via EMS from home for evaluation of weakness and syncope x2. Over the last couple of months she has been having issues with what sounds like orthostatic hypotension and she reports that she occasionally feels lightheaded and dizzy when going from a seated to standing position. She has had a couple of falls over the last 2 days and she believes those falls were due to a brief loss of consciousness after she became extremely weak, lightheaded, and dizzy when standing. She reports crumbling to the floor and luckily she did not sustain any injuries in these falls. She believes that she did hit the back of her head however there was no laceration or swelling noted on exam. She also reports that she has not had much of an appetite for the last 1 and half to 2 weeks though she has not had any overt nausea. Additionally she has felt run down and increasingly fatigued and the last few days she has had some urinary urgency. She has not had fever, chills, or sweats. No headache or neck ache. She has had mild runny nose and itchy watery eyes. No sore throat. No chest pain, pleuritic pain, or palpitations. She has no sick contacts to her knowledge. Her vital signs were stable on arrival to the emergency department. Labs in the ER were significant for a potassium of 2.8, total bilirubin 2.1, AST 206, ALT 92, alkaline phosphatase 187, troponin 0.080, BNP 948. Chest x-ray showed diffuse lung disease, likely mild pulmonary edema on a background of emphysema though with questioning she has not had any chest congestion cough, wheezing, or shortness of breath. Brain CT was unremarkable. EKG showed sinus rhythm with frequent PVCs and nonspecific ST T-wave abnormalities in diffuse leads. She is being admitted in this setting for potassium replacement, close monitoring on telemetry and Cardiology consultation, as well as investigation into her elevated LFTs. Review of Systems Review of Systems: Twelve systems were reviewed and are negative except for as per HPI. [facility] Past Medical History Medical History (Updated 07/08/22 @ 21:27 by Veronica Estrada PA-C) Anemia Anxiety Aortic dissection Asthma C. difficile colitis In August 2010. 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 Colitis Congestive heart disease (~05/16/21) Cough Degenerative joint disease (DJD) of lumbar spine Depression Fibromyalgia GERD (gastroesophageal reflux disease) Heart attack Herniated disc, cervical x2 Osteoarthritis Paroxysmal atrial fibrillation Pulmonary hypertension Shingles SLE (systemic lupus erythematosus related syndrome) (~1988) Tobacco abuse Surgical History Surgical History (Updated 07/08/22 @ 21:21 by Veronica Estrada PA-C) H/O cataract extraction H/O cervical discectomy H/O laminectomy History of cardiac radiofrequency ablation History of lumbar fusion History of renal stent History of tonsillectomy Family History Family History Sibling Family history of cardiovascular disease Diabetes mellitus Family history of malignant neoplasm of urinary bladder Hypertension Father Patient's father is , Onset Age: 64 Family history of coronary artery disease Family history of schizophrenia Heart attack Atrial fibrillation Mother Patient's mother is , Onset Age: 89 Family history of coronary artery disease Fam
[2022-07-08] MEDS: POTASSIUM CHLORIDE INJ 40 MEQ in SODIUM CHLORIDE 0.9% IV 500 ML 130 MEQ IVPB (17:07)
[2022-07-08 18:00] LABS: SARS-CoV-2 RNA PCR Negative
--- NOTE | 2022-07-08 20:52 | PC.NURSE ---
patient transferred to IMU with potassium infusing.
--- NOTE | 2022-07-08 21:23 | ADMGEN ---
This patient, Carmen House, was admitted to IMU Room 205-02 at 2058. Patient/family oriented to hospital policies and general routines including ID bracelet, bed and alarms, visiting hours, pain management, procedures, bathroom and other care routines, personal items, smoking policy, room service/diet, and visiting hours. Information on how to activate the Rapid Response Team has been discussed. Patient/Family are encouraged to report perceived risks to care and to ask questions if they do not understand what they are told or what they should do.
[2022-07-08 22:21] LABS: Magnesium 1.5 mg/dL (1.6-2.3); Potassium 3.7 mmol/L (3.4-5.0)
[2022-07-08 23:57] LABS: Procalcitonin 0.1 ng/mL
[2022-07-09] VITALS (17 sets, daily range): BP systolic 110–157; BP diastolic 48–64; PULSE 55–84; RESP 16–28; TEMP 35.7–36.7; O2SAT 96–100
[2022-07-09 05:05] LABS: Hematocrit 31.2 % (37.0-47.0); Hemoglobin 9.7 g/dL (12.0-15.0); Mean Corpuscular HGB Conc 31.1 g/dl (32-36); Mean Corpuscular Hemoglobin 30.4 pg (26-34); Mean Corpuscular Volume 97.8 fl (80-100); Mean Platelet Volume 11.8 fl (7.4-10.4); Platelet Count Result 169 k/mm3 (150-375); Red Blood Count 3.19 M/mm3 (4.2-5.4); Red Cell Distribution Width 13.2 % (11.5-14.5); White Blood Count 3.6 K/mm3 (4.5-10.0)
[2022-07-09 05:13] LABS: INR 1.3; Prothrombin Time 15.9 Seconds (11.1-14.7)
[2022-07-09 05:15] LABS: Alanine Aminotransferase 76 U/L (6-35); Albumin Level 3.1 g/dL (3.5-5.1); Alkaline Phosphatase 188 U/L (38-126); Anion Gap 7 mmol/L (8-16); Aspartate Amino Transferase 160 U/L (14-36); Bilirubin,Total 1.3 mg/dL (0.2-1.3); Blood Urea Nitrogen 12 mg/dL (7-17); Calcium 8.2 mg/dL (8.4-10.2); Carbon Dioxide 25 mmol/L (22-30); Chloride 106 mmol/L (98-107); Estimated CRCL calculation 37 ml/min; Estimated Glomerular Filt Rate 54; Glucose 103 mg/dL (65-110); Lipase 71 U/L (23-300); Magnesium 1.5 mg/dL (1.6-2.3); Potassium 3.8 mmol/L (3.4-5.0); Sodium 138 mmol/L (137-145)
[2022-07-09 06:06] LABS: Hepatitis B Surface Antigen Negative (Negative)
[2022-07-09 06:11] LABS: HAV RESULT Negative (Negative); Hepatitis B Core IgM Result Negative (Negative)
[2022-07-09 06:23] LABS: Hepatitis C Virus Antibody Negative (Negative)
[2022-07-09] MEDS: ENOXAPARIN 40 MG/0.4 ML SYRINGE SUB-Q (10:00)
[2022-07-09] MEDS: ARTIFICIAL TEARS OPHTH SOLN 15 ML BOTTLE 1 DROP EACH EYE (10:00)
[2022-07-09] MEDS: POTASSIUM CHLORIDE 20 MEQ TABLET.ER PO (10:00)
--- NOTE | 2022-07-09 10:41 | PM.CNCAR ---
Assessment and Plan Assessment and plan (1) Vasovagal syncope: Code(s): R55 - Syncope and collapse Status: Acute Assessment and Plan: falls and syncopal episodes preceded by weakness, dizziness with positional change, previously documented orthostatic hypotension yet she remained on diuretic therapy and antihypertensive. Furthermore, symptoms very likely complicated by poor oral intake for several weeks and the presence of a UTI. Judicious hydration, hold off on diuretics and irbesartan for now. Monitor orthostatic vital signs with recommendations to follow. Treatment of UTI with antibiotics per primary service. Will monitor response to therapy. Continue telemetry for now. Clinically, I do not suspect arrhythmia etiology for her symptoms as they are clearly positional in nature in the setting as noted above. Will continue to monitor however as above. (2) Orthostatic hypotension: Code(s): I95.1 - Orthostatic hypotension Status: Acute Assessment and Plan: As above. If she remains orthostatic judicious IV fluids. Recommendation to follow. Hold off on Lasix for now. (3) Elevated troponin: Code(s): R77.8 - Other specified abnormalities of plasma proteins Status: Acute Assessment and Plan: Mild elevation troponin 0.080 x 1 without anginal symptoms most likely demand ischemia in setting of anemia and orthostatic hypotension. No clinical evidence for acute coronary syndrome and/or plaque rupture. (4) Coronary artery disease: Qualifiers: Coronary Disease-Associated Artery/Lesion type: [place] artery [place] vs. transplanted heart: [place] heart Associated angina: without angina Qualified Code(s): I25.10 - Atherosclerotic heart disease of [place] coronary artery without angina pectoris Code(s): I25.10 - Atherosclerotic heart disease of [place] coronary artery without angina pectoris Status: Acute Assessment and Plan: Continue aggressive medical therapy as tolerated with Antiplatelet therapy, statin therapy. History of drug-eluting stent April 2021. as it has been 12 months since her last intervention may change to aspirin 81 mg daily in addition to systemic anticoagulation for atrial fibrillation with Xarelto 20 mg at bedtime. (5) Acute UTI: Code(s): N39.0 - Urinary tract infection, site not specified Status: Acute Assessment and Plan: Per primary service. As above. (6) Elevated LFTs: Code(s): R79.89 - Other specified abnormal findings of blood chemistry Status: Acute Assessment and Plan: Significant elevation in liver function tests somewhat chronic but more significant since admission. May be related to statin therapy. Workup underway. Hold statin for now observe response. Abdominal ultrasound revealed cholelithiasis without acute cholecystitis. (7) Paroxysmal atrial fibrillation: Code(s): I48.0 - Paroxysmal atrial fibrillation Status: Acute Assessment and Plan: Maintaining sinus rhythm status post ablation. Previous discussions with regards to left atrial appendage occlusion as an outpatient. For now anticoagulation as appropriate. Counseled the risk of falls and catastrophic bleeding complications on anticoagulation unless patient deemed stable after treatment of UTI, appropriate hydration prior to discharge. Xarelto 2.5 mg daily is an inappropriate dose for embolic stroke risk reduction for recurrence of atrial fibrillation. Patient is not currently on AV mitchel blocking agents or antiarrhythmic therapy. 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 (8) Hypokalemia: Code(s): E87.6 - Hypokalemia Status: Acute Assessment and Plan: Patient was on Lasix 40 mg daily as well as potassium chloride she claims 3 tablets daily of 10 mEq potassium chloride. Our records indicate she was taking potassium chloride 10 mEq once daily. Nonetheless, replete potassium
[2022-07-09] MEDS: PREGABALIN (*CRX) 75 MG CAPSULE 150 MG PO ×2 (11:43→20:05)
[2022-07-09] MEDS: MAGNESIUM SULF 2 GM/WATER 50ML 2 GM/50 ML BAG IVPB (11:43)
[2022-07-09] MEDS: SODIUM CHLORIDE 0.9% IV 500 ML 100 ML IV CONT (11:44)
[2022-07-09] MEDS: FERROUS SULFATE 324 MG TABLET PO (17:04)
--- NOTE | 2022-07-09 18:16 | PM.IMPN ---
Progress Note: A&P Assessment and Plan (1) Syncope: Code(s): R55 - Syncope and collapse Status: Acute Assessment and Plan: 07/09/2022 interval history: patient is 76-year-old female presented with complaint of dizzy and lightheadedness patient is positive for orthostatic hypotension seen by cardiology and discussed recommended to hold blood pressure medication and to monitor, will continue to monitor orthostatics, and have PT OT evaluate the patient, patient is found to have elevated liver enzymes acute hepatitis panel is negative most likely secondary to statin, will hold, as well as inflammation and stress, to further evaluate patient had a right upper quadrant ultrasound it shows patient has cholelithiasis but no cholecystitis, will continue to trend LFT, will continue to monitor patient seen by Cardiology and further recommendation to follow, will have a PT OT evaluate the patient will benefit going to acute rehab. (2) Hypokalemia: Code(s): E87.6 - Hypokalemia Status: Acute Assessment and Plan: will monitor and supplement (3) Abnormal chest x-ray: Code(s): R93.89 - Abnormal findings on diagnostic imaging of other specified body structures Status: Acute Assessment and Plan: patient has a mild CHF as well as emphysema (4) Heart failure with reduced ejection fraction: Code(s): I50.20 - Unspecified systolic (congestive) heart failure Status: Acute Assessment and Plan: patient does not appear to be volume overloaded seen by power hammer operator further recommendation to follow (5) Chronic kidney disease, stage 3: Code(s): N18.3 - Chronic kidney disease, stage 3 (moderate) Status: Acute (6) Elevated troponin: Code(s): R77.8 - Other specified abnormalities of plasma proteins Status: Acute (7) Coronary artery disease: Qualifiers: Associated angina: without angina Coronary Disease-Associated Artery/Lesion type: [place] artery [place] vs. transplanted heart: [place] heart Qualified Code(s): I25.10 - Atherosclerotic heart disease of [place] coronary artery without angina pectoris Code(s): I25.10 - Atherosclerotic heart disease of [place] coronary artery without angina pectoris Status: Acute Assessment and Plan: most likely demand ischemia seen by cardiology no ischemic workup was recommended (8) Paroxysmal atrial fibrillation: Code(s): I48.0 - Paroxysmal atrial fibrillation Status: Acute Assessment and Plan: rate is controlled (9) SLE (systemic lupus erythematosus related syndrome): Onset Date: ~1988 Code(s): M32.9 - Systemic lupus erythematosus, unspecified Status: Chronic (10) Elevated LFTs: Code(s): R79.89 - Other specified abnormal findings of blood chemistry Status: Acute Assessment and Plan: etiology uncertain (11) Acute UTI: Code(s): N39.0 - Urinary tract infection, site not specified Status: Acute Assessment and Plan: you is concerning UTI being treated with ceftriaxone will follow-up on urine culture. Plan The patient presented to the emergency department today from home for evaluation weakness and syncope x2. She reports ongoing issues over the last month and half or more with what sounds like orthostatic hypotension. The last 2 nights she has been experiencing extreme weakness and lightheadedness with standing and she reports having to brief losses of consciousness causing her to fall into the bedroom floor, likely without injury. She has also been nauseated the last 2 weeks and her appetite has been poor. She has had mild dysuria as well. She is being admitted overnight for close monitoring on telemetry to rule out cardiac dysrhythmia as a cause of her syncopal episode. Troponins will be trended. I will ask Dr. Goode to see her in consultation for recommendations. Orthostatic vital signs will be monitored and fall
[2022-07-10] VITALS (15 sets, daily range): BP systolic 103–136; BP diastolic 53–66; PULSE 58–103; RESP 16–18; TEMP 35.9–36.9; O2SAT 10–100
[2022-07-10 05:16] LABS: Hematocrit 31.1 % (37.0-47.0); Hemoglobin 9.4 g/dL (12.0-15.0); Mean Corpuscular HGB Conc 30.2 g/dl (32-36); Mean Corpuscular Hemoglobin 30.3 pg (26-34); Mean Corpuscular Volume 100.3 fl (80-100); Mean Platelet Volume 11.7 fl (7.4-10.4); Platelet Count Result 142 k/mm3 (150-375); Red Cell Distribution Width 13.5 % (11.5-14.5); White Blood Count 2.8 K/mm3 (4.5-10.0)
[2022-07-10 05:34] LABS: Anion Gap 13 mmol/L (8-16); Blood Urea Nitrogen 8 mg/dL (7-17); Calcium 7.9 mg/dL (8.4-10.2); Carbon Dioxide 25 mmol/L (22-30); Chloride 103 mmol/L (98-107); Estimated CRCL calculation 41 ml/min; Estimated Glomerular Filt Rate > 60; Glucose 124 mg/dL (65-110); Magnesium 1.9 mg/dL (1.6-2.3); Potassium 3.8 mmol/L (3.4-5.0); Sodium 141 mmol/L (137-145)
--- NOTE | 2022-07-10 06:07 | PC.NURSE ---
This patient, Carmen House, was transferred to [[id number]] on 07/10/22 at 0607. Personal belongings sent with patient. Report given to [GAGAN Leslie]. Appropriate documentation sent with patient.
[2022-07-10 07:59] LABS: Alanine Aminotransferase 79 U/L (6-35); Albumin Level 2.8 g/dL (3.5-5.1); Alkaline Phosphatase 190 U/L (38-126); Aspartate Amino Transferase 186 U/L (14-36)
[2022-07-10] MEDS: ALBUTEROL SULFATE (*SP) AEROSOL 1 PUFF 2 PUFF INHALATION ×2 (08:31→20:54)
[2022-07-10] MEDS: FLUTICASONE/UMECLIDIN/VILANTER 100-62.5-25 MCG ELLIPTA 1 PUFF INHALATION (08:31)
[2022-07-10] MEDS: PREGABALIN (*CRX) 75 MG CAPSULE 150 MG PO ×2 (08:48→20:24)
[2022-07-10] MEDS: POTASSIUM CHLORIDE 20 MEQ TABLET.ER PO (08:49)
[2022-07-10] MEDS: FERROUS SULFATE 324 MG TABLET PO ×2 (08:50→17:11)
[2022-07-10] MEDS: ARTIFICIAL TEARS OPHTH SOLN 15 ML BOTTLE 1 DROP EACH EYE (08:50)
[2022-07-10] MEDS: RIVAROXABAN 2.5 MG TABLET PO (08:50)
[2022-07-10] MEDS: CLOPIDOGREL BISULFATE 75 MG TABLET PO (08:50)
--- NOTE | 2022-07-10 10:03 | PM.PNCARD ---
Progress Note: A&P Assessment and Plan (1) Vasovagal syncope: Code(s): R55 - Syncope and collapse Status: Acute Assessment and Plan: Falls and syncopal episodes preceded by weakness, dizziness with positional change, previously documented orthostatic hypotension yet she remained on diuretic therapy and antihypertensive. Furthermore, symptoms very likely complicated by poor oral intake for several weeks and the presence of a UTI. Feeling better today. Judicious hydration Continue to hold diuretics and irbesartan for now. Monitor orthostatic vital signs with recommendations to follow. Treatment of UTI with antibiotics per primary service. Continue telemetry for now Evidence of orthostatic hypotension with SBP 141 --> 111. (2) Orthostatic hypotension: Code(s): I95.1 - Orthostatic hypotension Status: Acute Assessment and Plan: As above. Continue to hold lasix and irbesartan (3) Elevated troponin: Code(s): R77.8 - Other specified abnormalities of plasma proteins Status: Acute Assessment and Plan: Mild elevation troponin 0.080 x 1 without anginal symptoms most likely demand ischemia in setting of anemia and orthostatic hypotension. No clinical evidence for acute coronary syndrome and/or plaque rupture. (4) Coronary artery disease: Qualifiers: Coronary Disease-Associated Artery/Lesion type: [place] artery [place] vs. transplanted heart: [place] heart Associated angina: without angina Qualified Code(s): I25.10 - Atherosclerotic heart disease of [place] coronary artery without angina pectoris Code(s): I25.10 - Atherosclerotic heart disease of [place] coronary artery without angina pectoris Status: Acute Assessment and Plan: Continue aggressive medical therapy as tolerated with Antiplatelet therapy, statin therapy. History of drug-eluting stent April 2021. as it has been 12 months since her last intervention may change to aspirin 81 mg daily in addition to systemic anticoagulation for atrial fibrillation with Xarelto 20 mg at bedtime. (5) Acute UTI: Code(s): N39.0 - Urinary tract infection, site not specified Status: Acute Assessment and Plan: Per primary service. As above. (6) Elevated LFTs: Code(s): R79.89 - Other specified abnormal findings of blood chemistry Status: Acute Assessment and Plan: Significant elevation in liver function tests somewhat chronic but more significant since admission. May be related to statin therapy. Workup underway. Hold statin for now observe response. Abdominal ultrasound revealed cholelithiasis without acute cholecystitis. (7) Paroxysmal atrial fibrillation: Code(s): I48.0 - Paroxysmal atrial fibrillation Status: Acute Assessment and Plan: Maintaining sinus rhythm status post ablation. Previous discussions with regards to left atrial appendage occlusion as an outpatient. For now anticoagulation as appropriate. (8) Hypokalemia: Code(s): E87.6 - Hypokalemia Status: Acute Assessment and Plan: Improved, 3.8 today. (9) Pulmonary hypertension: Code(s): I27.20 - Pulmonary hypertension, unspecified Status: Acute Assessment and Plan: Mild in severity RVSP 40 mm Hg by echo 03/2022. Evidence of [id number] shunt. Compared to echo 05/16/21 pulmonary pressures significantly improved with a or previously documented at 79 mm Hg. (10) (HFpEF) heart failure with preserved ejection fraction: Code(s): I50.30 - Unspecified diastolic (congestive) heart failure Status: Acute Assessment and Plan: Patient is not decompensated heart failure. In fact, clinically she appears to be somewhat intravascularly volume depleted. EF at previously normalized to 65-70% by echocardiogram 03/2022. Would not resume lasix on discharge. Subjective Date/time seen: 07/10/22 10:03 Cardiology follow up for tayo
--- NOTE | 2022-07-10 11:47 | PM.IMPN ---
Progress Note: A&P Assessment and Plan (1) Syncope: Code(s): R55 - Syncope and collapse Status: Acute Assessment and Plan: 07/10/2022 interval history: patient is 76-year-old female presented with complaint of dizzy and lightheadedness patient is positive for orthostatic hypotension seen by cardiology and on 07/09 discussed recommended to hold blood pressure medication and to monitor, Patient blood pressure is trending patient states see was able to ambulate to the bathroom by herself, will continue to monitor orthostatics, and have PT OT evaluate the patient, patient is found to have elevated liver enzymes acute hepatitis panel is negative, most likely secondary to statin, will hold, as well as inflammation and stress, to further evaluate patient had a right upper quadrant ultrasound it shows patient has cholelithiasis but no cholecystitis, will continue to trend LFT, will continue to monitor patient seen by Cardiology and further recommendation to follow, will have a PT OT evaluate the patient will benefit going to acute rehab. (2) Hypokalemia: Code(s): E87.6 - Hypokalemia Status: Acute Assessment and Plan: will monitor and supplement (3) Abnormal chest x-ray: Code(s): R93.89 - Abnormal findings on diagnostic imaging of other specified body structures Status: Acute Assessment and Plan: patient has a mild CHF as well as emphysema (4) Heart failure with reduced ejection fraction: Code(s): I50.20 - Unspecified systolic (congestive) heart failure Status: Acute Assessment and Plan: patient does not appear to be volume overloaded seen by blender operator further recommendation to follow (5) Chronic kidney disease, stage 3: Code(s): N18.3 - Chronic kidney disease, stage 3 (moderate) Status: Acute (6) Elevated troponin: Code(s): R77.8 - Other specified abnormalities of plasma proteins Status: Acute (7) Coronary artery disease: Qualifiers: Coronary Disease-Associated Artery/Lesion type: [place] artery [place] vs. transplanted heart: [place] heart Associated angina: without angina Qualified Code(s): I25.10 - Atherosclerotic heart disease of [place] coronary artery without angina pectoris Code(s): I25.10 - Atherosclerotic heart disease of [place] coronary artery without angina pectoris Status: Acute Assessment and Plan: most likely demand ischemia seen by cardiology no ischemic workup was recommended (8) Paroxysmal atrial fibrillation: Code(s): I48.0 - Paroxysmal atrial fibrillation Status: Acute Assessment and Plan: rate is controlled (9) SLE (systemic lupus erythematosus related syndrome): Onset Date: ~1988 Code(s): M32.9 - Systemic lupus erythematosus, unspecified Status: Chronic (10) Elevated LFTs: Code(s): R79.89 - Other specified abnormal findings of blood chemistry Status: Acute Assessment and Plan: etiology uncertain (11) Acute UTI: Code(s): N39.0 - Urinary tract infection, site not specified Status: Acute Assessment and Plan: you is concerning UTI being treated with ceftriaxone will follow-up on urine culture. Plan The patient presented to the emergency department today from home for evaluation weakness and syncope x2. She reports ongoing issues over the last month and half or more with what sounds like orthostatic hypotension. The last 2 nights she has been experiencing extreme weakness and lightheadedness with standing and she reports having to brief losses of consciousness causing her to fall into the bedroom floor, likely without injury. She has also been nauseated the last 2 weeks and her appetite has been poor. She has had mild dysuria as well. She is being admitted overnight for close monitoring on telemetry to rule out cardiac dysrhythmia as a cause of her syncopal episode. Troponins will be trended. I will
[2022-07-11] VITALS (15 sets, daily range): BP systolic 63–140; BP diastolic 32–82; PULSE 59–91; RESP 16–18; TEMP 35.9–36.6; O2SAT 92–100
[2022-07-11 05:12] LABS: Hematocrit 29.1 % (37.0-47.0); Hemoglobin 8.9 g/dL (12.0-15.0); Mean Corpuscular HGB Conc 30.6 g/dl (32-36); Mean Corpuscular Hemoglobin 29.5 pg (26-34); Mean Corpuscular Volume 96.4 fl (80-100); Mean Platelet Volume 12.1 fl (7.4-10.4); Platelet Count Result 134 k/mm3 (150-375); Red Blood Count 3.02 M/mm3 (4.2-5.4); Red Cell Distribution Width 13.3 % (11.5-14.5); White Blood Count 2.9 K/mm3 (4.5-10.0)
[2022-07-11 05:24] LABS: Alanine Aminotransferase 70 U/L (6-35); Albumin Level 2.6 g/dL (3.5-5.1); Alkaline Phosphatase 197 U/L (38-126); Anion Gap 6 mmol/L (8-16); Aspartate Amino Transferase 152 U/L (14-36); Bilirubin,Total 0.8 mg/dL (0.2-1.3); Blood Urea Nitrogen 8 mg/dL (7-17); Calcium 7.8 mg/dL (8.4-10.2); Carbon Dioxide 23 mmol/L (22-30); Chloride 106 mmol/L (98-107); Estimated CRCL calculation 51 ml/min; Estimated Glomerular Filt Rate > 60; Glucose 105 mg/dL (65-110); Potassium 3.7 mmol/L (3.4-5.0); Sodium 135 mmol/L (137-145)
[2022-07-11 05:42] LABS: Magnesium 1.6 mg/dL (1.6-2.3)
[2022-07-11] MEDS: PREGABALIN (*CRX) 75 MG CAPSULE 150 MG PO ×2 (08:28→20:59)
[2022-07-11] MEDS: FERROUS SULFATE 324 MG TABLET PO ×2 (08:28→17:25)
[2022-07-11] MEDS: POTASSIUM CHLORIDE 20 MEQ TABLET.ER PO (08:28)
[2022-07-11] MEDS: CLOPIDOGREL BISULFATE 75 MG TABLET PO (08:28)
[2022-07-11] MEDS: RIVAROXABAN 2.5 MG TABLET PO (08:28)
[2022-07-11] MEDS: ARTIFICIAL TEARS OPHTH SOLN 15 ML BOTTLE 1 DROP EACH EYE (08:28)
[2022-07-11] MEDS: ALBUTEROL SULFATE (*SP) AEROSOL 1 PUFF 2 PUFF INHALATION ×2 (08:50→21:42)
[2022-07-11] MEDS: FLUTICASONE/UMECLIDIN/VILANTER 100-62.5-25 MCG ELLIPTA 1 PUFF INHALATION (08:50)
--- NOTE | 2022-07-11 12:08 | PM.IMPN ---
Progress Note: A&P Assessment and Plan (1) Syncope: Code(s): R55 - Syncope and collapse Status: Acute Assessment and Plan: still had orthostatic hypotension today. Asymptomatic -No dizziness or vertigo noted. No syncope noted. (2) Hypokalemia: Code(s): E87.6 - Hypokalemia Status: Acute Assessment and Plan: will monitor and supplement (3) Abnormal chest x-ray: Code(s): R93.89 - Abnormal findings on diagnostic imaging of other specified body structures Status: Acute Assessment and Plan: patient has a mild CHF as well as emphysema No respiratory complaints (4) Heart failure with reduced ejection fraction: Code(s): I50.20 - Unspecified systolic (congestive) heart failure Status: Acute Assessment and Plan: appreciate cardiology input (5) Chronic kidney disease, stage 3: Code(s): N18.3 - Chronic kidney disease, stage 3 (moderate) Status: Acute (6) Elevated troponin: Code(s): R77.8 - Other specified abnormalities of plasma proteins Status: Acute (7) Coronary artery disease: Qualifiers: Coronary Disease-Associated Artery/Lesion type: [place] artery [place] vs. transplanted heart: [place] heart Associated angina: without angina Qualified Code(s): I25.10 - Atherosclerotic heart disease of [place] coronary artery without angina pectoris Code(s): I25.10 - Atherosclerotic heart disease of [place] coronary artery without angina pectoris Status: Acute Assessment and Plan: most likely demand ischemia seen by cardiology no ischemic workup was recommended (8) Paroxysmal atrial fibrillation: Code(s): I48.0 - Paroxysmal atrial fibrillation Status: Acute Assessment and Plan: rate is controlled (9) SLE (systemic lupus erythematosus related syndrome): Onset Date: ~1988 Code(s): M32.9 - Systemic lupus erythematosus, unspecified Status: Chronic (10) Elevated LFTs: Code(s): R79.89 - Other specified abnormal findings of blood chemistry Status: Acute Assessment and Plan: etiology uncertain (11) Acute UTI: Code(s): N39.0 - Urinary tract infection, site not specified Status: Acute Assessment and Plan: cultures noted. Need to keep the patient in the hospital until sensitivities are noted. Current bacteria growing does have some possibility of weird antibiotics Susceptibility Plan The patient presented to the emergency department today from home for evaluation weakness and syncope x2. She reports ongoing issues over the last month and half or more with what sounds like orthostatic hypotension. The last 2 nights she has been experiencing extreme weakness and lightheadedness with standing and she reports having to brief losses of consciousness causing her to fall into the bedroom floor, likely without injury. She has also been nauseated the last 2 weeks and her appetite has been poor. She has had mild dysuria as well. She is being admitted overnight for close monitoring on telemetry to rule out cardiac dysrhythmia as a cause of her syncopal episode. Troponins will be trended. I will ask Dr. Goode to see her in consultation for recommendations. Orthostatic vital signs will be monitored and fall precautions have been initiated. She does have faint bibasilar crackles on lung exam today and chest x-ray shows diffuse lung disease, likely mild pulmonary edema. Clinically she looks a bit dry if anything and her BNP is much lower than what it typically runs. Her history does not suggest underlying pneumonia. With dysuria and an abnormal urinalysis, she has been started on ceftriaxone, pending urine culture. Regarding her elevated LFTs, her abdominal exam is benign though she has had ongoing nausea and poor appetite the last few weeks. Hepatitis found right upper quadrant ultrasound have been ordered for further evaluation. Antiemetics available as needed
--- NOTE | 2022-07-11 14:57 | PC.NURSE ---
On 07/11/22, the student, [Bill العلي], provided care and completed [facility] documentation on this patient. I have reviewed the student's documentation and agree with the findings.
[2022-07-11] MEDS: MICONAZOLE NITRATE 2% CREAM 30 GM TUBE 1 APPLIC TOPICAL (17:26)
[2022-07-12] VITALS: PULSE 80
[2022-07-12 04:00] VITALS: PULSE 69
[2022-07-12 05:06] VITALS: BP 131/50; PULSE 63; RESP 17; TEMP 36.6; O2SAT 100
[2022-07-12 06:37] LABS: Hematocrit 28.8 % (37.0-47.0); Hemoglobin 8.9 g/dL (12.0-15.0); Mean Corpuscular HGB Conc 30.9 g/dl (32-36); Mean Platelet Volume 12.5 fl (7.4-10.4); Platelet Count Result 119 k/mm3 (150-375); Red Blood Count 2.97 M/mm3 (4.2-5.4); Red Cell Distribution Width 13.5 % (11.5-14.5); White Blood Count 2.8 K/mm3 (4.5-10.0)
[2022-07-12 06:59] LABS: Alanine Aminotransferase 64 U/L (6-35); Albumin Level 2.6 g/dL (3.5-5.1); Alkaline Phosphatase 182 U/L (38-126); Anion Gap 8 mmol/L (8-16); Aspartate Amino Transferase 121 U/L (14-36); Bilirubin,Total 0.6 mg/dL (0.2-1.3); Blood Urea Nitrogen 9 mg/dL (7-17); Calcium 7.9 mg/dL (8.4-10.2); Carbon Dioxide 25 mmol/L (22-30); Chloride 105 mmol/L (98-107); Estimated CRCL calculation 42 ml/min; Estimated Glomerular Filt Rate 54; Glucose 102 mg/dL (65-110); Magnesium 1.7 mg/dL (1.6-2.3); Potassium 4.3 mmol/L (3.4-5.0); Sodium 138 mmol/L (137-145)
[2022-07-12 08:00] VITALS: PULSE 64
[2022-07-12] MEDS: FLUTICASONE/UMECLIDIN/VILANTER 100-62.5-25 MCG ELLIPTA 1 PUFF INHALATION (08:13)
[2022-07-12] MEDS: ALBUTEROL SULFATE (*SP) AEROSOL 1 PUFF 2 PUFF INHALATION (08:13)
[2022-07-12 09:00] VITALS: PULSE 64; RESP 18; O2SAT 100
[2022-07-12 09:39] VITALS: RESP 18; O2SAT 100
[2022-07-12] MEDS: ARTIFICIAL TEARS OPHTH SOLN 15 ML BOTTLE 1 DROP EACH EYE (09:51)
[2022-07-12] MEDS: CLOPIDOGREL BISULFATE 75 MG TABLET PO (09:51)
[2022-07-12] MEDS: FERROUS SULFATE 324 MG TABLET PO (09:51)
[2022-07-12] MEDS: POTASSIUM CHLORIDE 20 MEQ TABLET.ER PO (09:51)
[2022-07-12] MEDS: PREGABALIN (*CRX) 75 MG CAPSULE 150 MG PO (09:51)
[2022-07-12] MEDS: RIVAROXABAN 2.5 MG TABLET PO (09:51)
--- NOTE | 2022-07-12 11:20 | PM.DS ---
DS: Admitting Diagnosis Discharge Date July 12, 2022 Admitting Diagnosis orthostatic hypotension and UTI DS: Discharge Diagnosis Discharge Diagnosis (1) Syncope: Code(s): R55 - Syncope and collapse Status: Acute Assessment and Plan: dizziness and vertigo and syncope near resolved. patient does have a drop in blood pressure when standing but she is asymptomatic and has been able walk around the room and walk in the hallway. She wants to go home. (2) Hypokalemia: Code(s): E87.6 - Hypokalemia Status: Acute Assessment and Plan: resolved (3) Heart failure with reduced ejection fraction: Code(s): I50.20 - Unspecified systolic (congestive) heart failure Status: Acute Assessment and Plan: appreciate cardiology input (4) Chronic kidney disease, stage 3: Code(s): N18.3 - Chronic kidney disease, stage 3 (moderate) Status: Acute (5) Elevated troponin: Code(s): R77.8 - Other specified abnormalities of plasma proteins Status: Acute (6) Coronary artery disease: Qualifiers: Coronary Disease-Associated Artery/Lesion type: [place] artery [place] vs. transplanted heart: [place] heart Associated angina: without angina Qualified Code(s): I25.10 - Atherosclerotic heart disease of [place] coronary artery without angina pectoris Code(s): I25.10 - Atherosclerotic heart disease of [place] coronary artery without angina pectoris Status: Acute Assessment and Plan: most likely demand ischemia seen by cardiology no ischemic workup was recommended (7) Paroxysmal atrial fibrillation: Code(s): I48.0 - Paroxysmal atrial fibrillation Status: Acute Assessment and Plan: rate is controlled (8) SLE (systemic lupus erythematosus related syndrome): Onset Date: ~1988 Code(s): M32.9 - Systemic lupus erythematosus, unspecified Status: Chronic (9) Elevated LFTs: Code(s): R79.89 - Other specified abnormal findings of blood chemistry Status: Acute Assessment and Plan: etiology uncertain (10) Acute UTI: Code(s): N39.0 - Urinary tract infection, site not specified Status: Acute Assessment and Plan: cultures noted. Need to keep the patient in the hospital until sensitivities are noted. Current bacteria growing does have some possibility of weird antibiotics Susceptibility Plan The patient presented to the emergency department today from home for evaluation weakness and syncope x2. She reports ongoing issues over the last month and half or more with what sounds like orthostatic hypotension. The last 2 nights she has been experiencing extreme weakness and lightheadedness with standing and she reports having to brief losses of consciousness causing her to fall into the bedroom floor, likely without injury. She has also been nauseated the last 2 weeks and her appetite has been poor. She has had mild dysuria as well. She is being admitted overnight for close monitoring on telemetry to rule out cardiac dysrhythmia as a cause of her syncopal episode. Troponins will be trended. I will ask Dr. Goode to see her in consultation for recommendations. Orthostatic vital signs will be monitored and fall precautions have been initiated. She does have faint bibasilar crackles on lung exam today and chest x-ray shows diffuse lung disease, likely mild pulmonary edema. Clinically she looks a bit dry if anything and her BNP is much lower than what it typically runs. Her history does not suggest underlying pneumonia. With dysuria and an abnormal urinalysis, she has been started on ceftriaxone, pending urine culture. Regarding her elevated LFTs, her abdominal exam is benign though she has had ongoing nausea and poor appetite the last few weeks. Hepatitis found right upper quadrant ultrasound have been ordered for further evaluation. Antiemetics available as needed. Her anemia and chronic kidney diseas
--- NOTE | 2022-07-12 13:35 | PC.NURSE ---
On 07/12/22, the student, [Milka Portillo], provided care and completed [facility] documentation on this patient. I have reviewed the student's documentation and agree with the findings.
== END 2022-07-12 13:25 | disposition home health service (06) | DRG 312 ==
LOC: ANHED 17:13 → ANHIMU 19:40 → ANH2MED 07-10 06:14
PROVIDERS: Family Medicine; Physician Assistant; Admitting Provider Internal Medicine; Emergency Provider Emergency Medicine; PCP Emergency Medicine; Visit Provider Chiropractor
DX: I95.1 Orthostatic hypotension (principal); I13.0 Hypertensive heart and chronic kidney disease with heart failure and stage 1 through stage 4 chronic kidney disease, or unspecified chronic kidney disease; I50.22 Chronic systolic (congestive) heart failure; N39.0 Urinary tract infection, site not specified; E87.6 Hypokalemia; N18.30 Chronic kidney disease, stage 3 unspecified; J43.9 Emphysema, unspecified; I48.0 Paroxysmal atrial fibrillation; I25.10 Atherosclerotic heart disease of native coronary artery without angina pectoris; I73.9 Peripheral vascular disease, unspecified; I25.2 Old myocardial infarction; E78.5 Hyperlipidemia, unspecified; K21.9 Gastro-esophageal reflux disease without esophagitis; K80.20 Calculus of gallbladder without cholecystitis without obstruction; M32.9 Systemic lupus erythematosus, unspecified; M79.7 Fibromyalgia; M19.90 Unspecified osteoarthritis, unspecified site; M47.816 Spondylosis without myelopathy or radiculopathy, lumbar region; F41.9 Anxiety disorder, unspecified; F32.A Depression, unspecified; Z20.822 Contact with and (suspected) exposure to COVID-19; Z79.01 Long term (current) use of anticoagulants; Z79.899 Other long term (current) drug therapy; Z95.5 Presence of coronary angioplasty implant and graft; Z98.1 Arthrodesis status; R77.8 Other specified abnormalities of plasma proteins; I27.20 Pulmonary hypertension, unspecified; R79.89 Other specified abnormal findings of blood chemistry
CPT/HCPCS: 36415; 70450; 71046; 76705; 80048; 80053; 80074; 80076; 81001; 83690; 83735; 83880; 84132; 84145; 84443; 84484; 85025; 85027; 85610; 85730; 87077; 87086; 87088; 87186; 93005; 94640; 96365; 96366; 96367; 96372; 96375; 97161; 97165; 99285; A9270; G0378; J0696; J1650; J3475; J3480; J7040; U0003; U0005

== ENCOUNTER 2022-08-27 12:41 | Inpatient (IN) | payer MEDICARE, BC, SELFPAY ==
[2022-08-27] VITALS (10 sets, daily range): BP systolic 93–189; BP diastolic 55–117; PULSE 63–85; RESP 15–22; TEMP 36.4–36.7; O2SAT 98–100; BMI 23.8
--- NOTE | ~2022-08-27 | US_ITS ---
EXAMINATION: US abdomen limited DATE: 08/30/2022 08:55 INDICATION: Abnormal liver function tests. TECHNIQUE: Multiple grayscale and Doppler ultrasound images of the abdomen were obtained. COMPARISON: Ultrasound abdomen 07/09/2022, chest CT 11/01/2021 FINDINGS: The visualized portions of the head, body, and tail of the pancreas are normal. The liver i s normal without focal lesion. There is normal flow in main portal vein. The gallbladder is normal in size and contains stones. No gallbladder wall thickening or sonographic Portillo sign. The common duct is normal and measures 6 mm. IMPRESSION: 1. Cholelithiasis. No evidence of acute cholecystitis. Reviewed, dictated and finalized at location A. FITTER HELPER
--- NOTE | ~2022-08-27 | MR_ITS ---
EXAMINATION: MR brain/brain stem wo/w con DATE: 08/28/2022 09:12 INDICATION: Vertigo. Dizziness. TECHNIQUE: Magnetic resonance imaging (MRI) of the brain and brainstem was performed without and with 12 mL MultiHance intravenous contrast. COMPARISON: Brain MRI 11/17/2020, head CT 08/27/2022 FINDINGS: There are scattered areas of nonspecific increased T2-weighted signal intensity in the cere bral white matter and kg, which is within normal limits for the patient's age. Again seen is a pun ctate focus of susceptibility artifact in posterior body of left lateral ventricle, likely an old marya rohemorrhage. There is no acute ischemic infarct or abnormal mass lesion. The ventricles are normal i n size. There is mild mucosal thickening in the ethmoid sinuses. There are likely changes of ocular l ens replacement surgeries. There are small bilateral mastoid effusions. IMPRESSION: 1. No acute intracranial pathology. 2. Small bilateral mastoid effusions. Reviewed, dictated and finalized at location A. OPATHIC NEUROLOGIST
--- NOTE | ~2022-08-27 | CT_ITS ---
EXAMINATION: CT brain wo con DATE: 08/27/2022 13:16 INDICATION: Dizziness. TECHNIQUE: Computed tomography (CT) of the head was performed without intravenous contrast. The mA wa s adjusted according to patient size. Iterative reconstruction technique was employed. The dose-lengt h product was 908.00 mGy-cm. COMPARISON: Head CT 07/08/2022 FINDINGS: There is no intracranial hemorrhage, acute infarction, or abnormal intracranial mass lesion . There are scattered areas of low attenuation in the cerebral white matter, which is within normal l imits for the patient's age. The ventricles are normal in size. The paranasal sinuses are clear. Ther e are likely changes of ocular lens replacement surgeries. There are small bilateral mastoid effusion s. IMPRESSION: 1. Normal aging brain. Reviewed, dictated and finalized at location A. INTEGRATION ARCHITECT IMPRESSION: 1. Normal aging brain.
--- NOTE | ~2022-08-27 | CT_ITS ---
EXAMINATION: CTA brain carotid DATE: 08/27/2022 17:03 INDICATION: vertigo TECHNIQUE: Computed tomographic angiography (CTA) of the head and neck was performed with 100 mL Omni paque-350 intravenous contrast. Automated exposure control and iterative reconstruction technique wer e employed. The dose-length product was 997.97 mGy-cm. Maximum intensity projection and volume render ed 3D-reconstructions were created by the technologist on a separate workstation. COMPARISON: CT brain 08/27/2022. FINDINGS: CTA HEAD: No large vessel occlusion, aneurysm, high flow vascular malformation, nidus or extravasation. [place] us carotid calcification without significant stenosis. CTA NECK: Aortic arch and proximal great vessels: Mild arch ectasia. Mild arch and proximal great vessels calci fied plaque. Very small web/dissection flap at the origin of the left subclavian artery. Right common carotid, carotid bifurcation, and internal carotid artery: Calcified and noncalcified pl aque at the bifurcation.There is 31% stenosis of the proximal right internal carotid artery relative to normal distal artery lumen diameter (NASCET criteria). Left common carotid, carotid bifurcation, and internal carotid artery: Minimal calcified plaque at th e bifurcation.There is 0% stenosis of the proximal left internal carotid artery relative to normal di stal artery lumen diameter (NASCET criteria). Vertebral arteries: No significant plaque or stenosis. Left vertebral artery is dominant. Other findings: Bilateral pleural scarring. Severe paraseptal emphysematous change. Mediastinal lymph adenopathy. IMPRESSION: 1. No large vessel occlusion. 2. 31% stenosis of the proximal right internal carotid artery relative to normal distal artery lumen diameter (Flanagna criteria). 3. 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 4. Bilateral pleural scarring. Severe paraseptal emphysematous change. Mediastinal lymphadenopathy. Reviewed, dictated and finalized at location K. CLEANER IMPRESSION: 1. No large vessel occlusion. 2. 31% stenosis of the proximal right internal carotid artery relative to aurelio l distal artery lumen diameter (Flanagan criteria). 3. 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 4. Bilateral pleural scarring. Severe paraseptal emphysematous change. Mediasti nal lymphadenopathy.
--- NOTE | 2022-08-27 12:48 | ECG_ITS ---
Measurements Intervals [place] Rate: 61 P: 72 MS: 136 QRS: 22 QRSD: 106 T: 30 QT: 434 QTc: 438 Interpretive Statements SINUS RHYTHM DELAYED PRECORDIAL R/S TRANSITION BORDERLINE T WAVE ABNORMALITY- ANTERIOR LEADS BASELINE ARTIFACT- I, II, III, AVR, AVL, AVF, V1-V6 BORDERLINE ECG COMPARED TO ECG 07/08/2022 14:42:29 NO SIGNIFICANT CHANGES Electronically Signed On 08-27-2022 14:50:22 SENIOR AGRICULTURAL ASSISTANT by Beka Cervantes D.O.
[2022-08-27 13:01] LABS: Basophils Percent Auto 1.1 % (0.2-1.2); Eosinophils Absolute Auto 0.1 K/mm3 (0-0.3); Eosinophils Percent Auto 3.3 % (0-4.4); Hematocrit 37.9 % (37.0-47.0); Hemoglobin 12.3 g/dL (12.0-15.0); Immature Granulocyte Absolute 0.01 K/mm3 (0.00-0.031); Immature Granulocyte Percent A 0.4 % (0-0.5); Lymphocytes Absolute Auto 0.62 K/mm3 (0.9-3.2); Lymphocytes Percent Auto 22.5 % (18.3-44.2); Mean Corpuscular HGB Conc 32.5 g/dl (32-36); Mean Corpuscular Hemoglobin 29.3 pg (26-34); Mean Corpuscular Volume 90.2 fl (80-100); Mean Platelet Volume 11.8 fl (7.4-10.4); Monocytes Absolute Auto 0.3 K/mm3 (0.1-0.6); Monocytes Percent Auto 9.1 % (2.6-8.5); Neutrophils Absolute Auto 1.8 K/mm3 (1.3-6.7); Neutrophils Percent Auto 63.6 % (45.5-73.1); Platelet Count Result 154 k/mm3 (150-375); Red Cell Distribution Width 14.2 % (11.5-14.5); White Blood Count 2.8 K/mm3 (4.5-10.0)
[2022-08-27 13:13] LABS: INR 1.1; Prothrombin Time 13.3 Seconds (11.1-14.7)
[2022-08-27 13:21] LABS: Alanine Aminotransferase 21 U/L (6-35); Albumin Level 3.1 g/dL (3.5-5.1); Alkaline Phosphatase 122 U/L (38-126); Anion Gap 3 mmol/L (8-16); Aspartate Amino Transferase 57 U/L (14-36); Bilirubin,Total 1.4 mg/dL (0.2-1.3); Blood Urea Nitrogen 7 mg/dL (7-17); Calcium 7.8 mg/dL (8.4-10.2); Carbon Dioxide 26 mmol/L (22-30); Chloride 107 mmol/L (98-107); Estimated CRCL calculation 59 ml/min; Estimated Glomerular Filt Rate > 60; Glucose 107 mg/dL (65-110); Sodium 136 mmol/L (137-145)
--- NOTE | 2022-08-27 13:26 | ED.GENADULT ---
HPI - General Adult General Chief complaint: Dizziness Stated complaint: dizzy/weak Time Seen by Provider: 08/27/22 12:48 History of Present Illness HPI narrative: 76-year-old female with history of coronary disease presenting the emergency department for evaluation of cute onset of dizziness. 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 Patient states he did not feel like she is going to have loss consciousness but states she did have a spinning sensation. At rest in bed patient denies any current dizziness. Patient was hypertensive on arrival but denies any current chest pain or shortness of breath. Patient states last April she did have a heart attack and had persistent generalized weakness since then. Patient denies any change in her generalized weakness. Patient did call EMS for these symptoms today. Related Data Home Medications Medication Instructions Recorded Confirmed pilocarpine HCl 5 mg tablet 5 mg PO TID PRN Dry Mouth 10/19/19 07/08/22 ([place] (pilocarpine)) cyclobenzaprine 10 mg tablet 10 mg PO HS PRN Spasms 07/10/21 07/08/22 rivaroxaban 2.5 mg tablet (Xarelto) 2.5 mg PO DAILY 10/06/21 07/08/22 albuterol sulfate 90 mcg/actuation 2 inh inhalation BID 04/16/22 07/08/22 aerosol inhaler clopidogrel 75 mg tablet 75 mg PO DAILY 04/16/22 07/08/22 fluticasone fur. 100 mcg-umeclid 1 inh inhalation DAILY 04/16/22 07/08/22 62.5 mcg-vilant 25 mcg inhalat.powder (Trelegy Ellipta) nystatin 100,000 unit/gram topical See Rx Instructions .Route 04/16/22 07/08/22 cream .COMPLEX PRN yeast pregabalin 150 mg capsule 150 mg PO Q12H 04/16/22 07/08/22 Allergies Allergy/AdvReac Type Severity Reaction Status Date / Time cat dander Allergy Unknown Sneezing Verified 07/08/22 13:16 house dust Allergy Unknown Sneezing Verified 07/08/22 13:16 mold Allergy Unknown Sneezing Verified 07/08/22 13:16 ciprofloxacin AdvReac Unknown Nausea Verified 07/08/22 13:16 erythromycin base AdvReac Unknown Nausea Verified 07/08/22 13:16 Sulfa (Sulfonamide AdvReac Unknown Nausea Verified 07/08/22 13:16 Antibiotics) Review of Systems Review of Systems: CONSTITUTIONAL: Denies fever, chills, or sweats. EYES: Denies visual changes, redness, or discharge. ENT: Denies rhinorrhea, congestion, sore throat, or otalgia. CARDIOVASCULAR: Denies chest pain, palpitations, or edema. RESPIRATORY: Denies cough or dyspnea. GASTROINTESTINAL: Denies abdominal pain, nausea, vomiting, or diarrhea. GENITOURINARY: Denies dysuria or hematuria. SKIN: Denies rash or itching. MUSCULOSKELETAL: Denies back pain, joint pain, or myalgia. NEUROLOGIC: Denies headache, numbness, or weakness. Dizziness, see HPI [facility] Past Medical History Medical History Anemia Anxiety Aortic dissection Asthma C. difficile colitis In August 2010. 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 Colitis Congestive heart disease (~05/16/21) Cough Degenerative joint disease (DJD) of lumbar spine Depression Fibromyalgia GERD (gastroesophageal reflux disease) Heart attack Herniated disc, cervical x2 Osteoarthritis Paroxysmal atrial fibrillation Pulmonary hypertension Shingles SLE (systemic lupus erythematosus related syndrome) (~1988) Tobacco abuse Surgical History Surgical History H/O cataract extraction H/O cervical discectomy H/O laminectomy History of cardiac radiofrequency ablation History of lumbar fusion History of renal stent History of tonsillectomy Family History Family History Sibling Family history of cardiovascular disease Diabetes mellitus Family history of malignant neoplasm of urin
[2022-08-27] MEDS: NITROGLYCERIN OINTMENT 1 INCH DOSE TRANSDERM (13:46)
[2022-08-27] MEDS: MECLIZINE HCL 25 MG TABLET PO (13:46)
[2022-08-27] MEDS: hydrALAZINE HCL 20 MG/ML VIAL 10 MG IV PUSH (15:36)
--- NOTE | 2022-08-27 16:58 | PC.NURSE ---
heart healthy food tray diet ordered
[2022-08-27] MEDS: ONDANSETRON INJ 4 MG/2 ML VIAL IV PUSH (17:55)
[2022-08-27] MEDS: diazePAM (*CRX) 5 MG TABLET PO (18:03)
--- NOTE | 2022-08-27 18:30 | PM.IMHP ---
H&P: HPI History of Present Illness Date/Time: 08/27/22 18:30 Chief Complaint: Extreme dizziness. Narrative: This is a 76-year-old female with history of coronary artery disease with history of stents, heart failure with reduced ejection fraction with most recent EF of 35 to 40%, peripheral arterial disease, hypertension, hyperlipidemia, paroxysmal atrial fibrillation status post ablation, chronic anemia, and systemic lupus erythematosus who presented to the emergency department via EMS from home for evaluation of extreme dizziness. She is known to myself and the hospitalist service from an admission in mid June 2022 at which time she presented with dizziness and syncope. At that time she was noted to have a drop in blood pressure with standing and it was also thought she had some component of vertigo as well. She has been doing okay since that time however reports an increase in stress as she recently brought her home from [facility]. In any event she got up last night to go to the bathroom quite quickly at which point she developed severe dizziness that she describes as a spinning sensation associated with slight blurry vision, nausea, sweats, and dry heaves. Vertigo is worse when sitting up but seems to improve when lying still. She denies aural fullness and tinnitus. She also denies facial droop, difficulty speaking and swallowing, focal weakness, and paresthesias. She has not had chest pain, pleuritic pain, palpitations, or shortness of breath. Her blood pressures were as high as 189/80 in the emergency department though she was noticeably anxious. Brain CT did not show any acute findings. 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 This was discussed with a vascular surgeon at [facility] by the ED physician who did not feel that these findings had any bearing on her symptoms today and reports patient can follow-up with them as an outpatient. She was given meclizine and Valium with some improvement in her symptoms though she continues to have significant vertigo when sitting forward and she is being admitted in this setting. Review of Systems Review of Systems: Twelve systems were reviewed and are negative except for as per HPI. [facility] Past Medical History Medical History Anemia Anxiety Aortic dissection Asthma C. difficile colitis In August 2010. 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 Colitis Congestive heart disease (~05/16/21) Cough Degenerative joint disease (DJD) of lumbar spine Depression Fibromyalgia GERD (gastroesophageal reflux disease) Heart attack Herniated disc, cervical x2 Osteoarthritis Paroxysmal atrial fibrillation Pulmonary hypertension Shingles SLE (systemic lupus erythematosus related syndrome) (~1988) Tobacco abuse Surgical History Surgical History H/O cataract extraction H/O cervical discectomy H/O laminectomy History of cardiac radiofrequency ablation History of lumbar fusion History of renal stent History of tonsillectomy Family History Family History Sibling Family history of cardiovascular disease Diabetes mellitus Family history of malignant neoplasm of urinary bladder Hypertension Father Patient's father is , Onset Age: 64 Family history of coronary artery disease Family history of schizophrenia Heart attack Atrial fibrillation Mother Patient's mother is , Onset Age: 89 Family history of coronary artery disease Family history of chronic obstructive pulmonary disease Throat cancer Other Cerebrovascular accident Family history
[2022-08-27 19:49] LABS: Influenza A QL RT-PCR Negative (Negative); Influenza B QL RT-PCR Negative (Negative); RSV RNA, RT-PCR Negative (Negative); SARS-CoV-2 RNA PCR Negative
[2022-08-28] VITALS (13 sets, daily range): BP systolic 113–139; BP diastolic 53–72; PULSE 64–94; RESP 17–18; TEMP 36.3–36.6; O2SAT 96–100
[2022-08-28] MEDS: MELATONIN 3 MG TABLET 6 MG PO (00:40)
--- NOTE | 2022-08-28 03:41 | ADMGEN ---
This patient, Carmen House, was admitted to Medical Room 253-01. Patient/family oriented to hospital policies and general routines including ID bracelet, bed and alarms, visiting hours, pain management, procedures, bathroom and other care routines, personal items, smoking policy, room service/diet, and visiting hours. Information on how to activate the Rapid Response Team has been discussed. Patient/Family are encouraged to report perceived risks to care and to ask questions if they do not understand what they are told or what they should do.
[2022-08-28 05:34] LABS: Hematocrit 32.6 % (37.0-47.0); Hemoglobin 10.5 g/dL (12.0-15.0); Mean Corpuscular HGB Conc 32.2 g/dl (32-36); Mean Corpuscular Hemoglobin 29.2 pg (26-34); Mean Corpuscular Volume 90.6 fl (80-100); Mean Platelet Volume 11.5 fl (7.4-10.4); Platelet Count Result 144 k/mm3 (150-375); Red Cell Distribution Width 14.1 % (11.5-14.5); White Blood Count 2.6 K/mm3 (4.5-10.0)
[2022-08-28 05:40] LABS: Anion Gap 2 mmol/L (8-16); Blood Urea Nitrogen 7 mg/dL (7-17); Calcium 7.6 mg/dL (8.4-10.2); Carbon Dioxide 27 mmol/L (22-30); Chloride 103 mmol/L (98-107); Estimated CRCL calculation 46 ml/min; Estimated Glomerular Filt Rate > 60; Glucose 93 mg/dL (65-110); Potassium 3.6 mmol/L (3.4-5.0); Sodium 132 mmol/L (137-145)
--- NOTE | 2022-08-28 09:32 | WPDNEURCNPN ---
Assessment and Plan Assessment and plan (1) Vertigo: Code(s): R42 - Dizziness and giddiness Status: Acute (2) Abnormal angiography: Code(s): R93.89 - Abnormal findings on diagnostic imaging of other specified body structures Status: Acute (3) Orthostatic hypotension: Code(s): I95.1 - Orthostatic hypotension Status: Acute (4) Paroxysmal atrial fibrillation: Code(s): I48.0 - Paroxysmal atrial fibrillation Status: Acute Plan Carmen House is a 76 year old female with a history of CAD s/p stents, HF, PAD, HTN, HLD, paroxysmal atrial fibrillation s/p abliation (on Xeralto), SLUE who presented due to dizziness. She has presented previously with similar symptoms that were attributed to orthostatic hypotension. MRI brain is negative for stroke involving posterior circulation or any other central cause. - Recommend checking orthostatics and ruling out cardiac etiology of symptoms - Recommend vestibular therapy with physical therapy - Outpatient follow-up with vascular surgery for CTA findings. Consult date: 08/28/22 Time Seen: 09:32 Reason for consult: Dizziness HPI: Cramen House is a 76 year old female with a history of CAD s/p stents, HF, PAD, HTN, HLD, paroxysmal atrial fibrillation s/p abliation (on Xeralto), SLUE who presented due to dizziness. Of note, patient was admitted in June 2022 due to dizziness and lightheadedness. At that time she was found to have orthostatic hypotension as well as UTI. Her symptoms eventually resolved, and she was discharged. Patient presented on 08/27/22 due to having positional dizziness while caring for her . She was sitting down but turned her head up quickly which resulted in dizziness described as spinning sensation, associated with blurry vision, nausea, and diaphoresis. She presented to [place] ED where initial BP was elevated in the 180s systolic. She received nitropaste and hydralazine which resulted in improvement in BP. CT head was negative for acute process. 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 Imaging studies were discussed with [facility] vascular surgeon, and the recommendation given was for outpatient follow-up. She received meclizine and Valium in the ED with some improvement, but was ultimately admitted due to persistent positional vertigo. She had an MRI brain done this morning that was negative for acute process. This morning, she feels that her symptoms have improved. She denies any hearing loss, tinnitus. Review of Systems Constitutional: Constitutional: Reports fatigue Eyes: Eyes: Reports blurry vision ENT: Reports Normal hearing present and Denies tinnitus Cardiovascular: Cardiovascular: Reports palpitations Respiratory: Respiratory: Reports dyspnea on exertion Gastrointestinal: Gastrointestinal: Reports no additional gastrointestinal complaints Genitourinary: Genitourinary: Reports no additional female genitourinary complaints Musculoskeletal: Musculoskeletal: Reports arthralgias Integumentary/Breasts: Skin/Breast: Reports dry skin and Reports rash Neurologic: Reports as per HPI Psychiatric: Psychiatric: Reports anxiety PMFSH Past Medical History Medical History Anemia Anxiety Aortic dissection Asthma C. difficile colitis In August 2010. 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 Colitis Congestive heart disease (~05/16/21) Cough Degenerative joint disease (DJD) of lumbar spine Depression Fibromyalgia GERD (gastroesophageal reflux disease) Heart attack Herniated disc, cervical x2 Osteoarthritis Paroxysmal atrial fibrillation Pulmonary hypertension Shingles SLE (systemic lupus erythematosus related syndrome)
--- NOTE | 2022-08-28 13:49 | PM.IMPN ---
Progress Note: A&P Assessment and Plan (1) Vertigo: Code(s): R42 - Dizziness and giddiness Status: Acute Assessment and Plan: patient still has intermittent dizziness, worsened with movement, and turning her head. Current patient has a sinus rhythm. MRI of brain, CTA head and CTA were unremarkable, except a 30% stenosis of right internal carotid artery. Suspecting small bite versus dissection flap of the right internal carotid artery. Vascular surgery consult will follow patient outpatient at [facility] possible vestibular vertigo consult neurologist and physical therapist (2) (HFpEF) heart failure with preserved ejection fraction: Code(s): I50.30 - Unspecified diastolic (congestive) heart failure Status: Acute (3) Hypertension: Code(s): I10 - Essential (primary) hypertension Status: Acute Assessment and Plan: blood pressure is controlled monitor blood pressure closely (4) Elevated LFTs: Code(s): R79.89 - Other specified abnormal findings of blood chemistry Status: Acute (5) Paroxysmal atrial fibrillation: Code(s): I48.0 - Paroxysmal atrial fibrillation Status: Acute Assessment and Plan: Patient has a sinus rhythm new line continue Xarelto (6) Chronic kidney disease, stage 3: Code(s): N18.3 - Chronic kidney disease, stage 3 (moderate) Status: Acute Assessment and Plan: stable Follow-up BMP (7) Abnormal angiography: Code(s): R93.89 - Abnormal findings on diagnostic imaging of other specified body structures Status: Acute (8) Pancytopenia, acquired: Code(s): D61.818 - Other pancytopenia Status: Acute Assessment and Plan: pancytopenia persists, at baseline. follow-up with your oncologist outpatient considers secondary to kidney and immunosuppressive therapy for lupus 4 follow-up with heme oncologist of the patient Subjective Date/time seen: 08/28/22 13:49 I saw and examined patient today, patient does not have new issues or events overnight. Patient still has intermittent dizziness, worse with moving out of bed and ambulate. patient denies loss consciousness, focal weakness, chest pain, shortness of breath, palpitation, patient also denies chest pain. Review of Systems Review of Systems: All systems reviewed & are unremarkable except as noted in HPI and below Exam Narrative: General: Well-developed, nontoxic-appearing female sitting up in bed. Weight: 63 kilograms. BMI: 23.8. HEENT: Normocephalic, atraumatic. PERRL, EOMI. Sclera anicteric. Tacky mucous membranes. Patient has a horizontal nystagmus with head movement Neck: Supple. No carotid bruits. Respiratory: Lungs are clear to auscultation bilaterally. Cardiovascular: Regular rate and rhythm with S1-S2. Soft systolic murmur at the upper sternal border. Gastrointestinal: Abdomen is soft, nontender, and nondistended with positive bowel sounds. Skin: Warm and dry. No rash or lesions on limited exam. Extremities: No cyanosis, clubbing, or edema. Radial and pedal pulses intact. Neurological: Alert and oriented. Cranial nerves 2-12 are grossly intact. Speech is clear. No facial asymmetry. Hand loom cleaner and foot pushes equal bilaterally. No pronator drift. Normal [id number]. Reproducible vertigo when sitting forward. Psychiatric: Cooperative. Appropriate mood. Quite anxious. Objective Data Vital Signs Vital Signs: Vital Signs - 24 hr 08/27/22 15:40 08/27/22 14:47 08/27/22 15:02 Temperature Pulse Rate 67 63 69 Respiratory Rate 18 16 16 Blood Pressure 175/91 H 189/80 H 171/99 H Pulse Oximetry 100 98 99 Oxygen Delivery 08/27/22 16:17 08/27/22 16:30 08/27/22 16:32 Temperature Pulse Rate 80 83 85 Respiratory Rate 18 15 22 H Blood Pressure 93/55 L 111/75 128/57 L Pulse Oximetry 100 100 100 Oxygen Delivery 08/27/22 20:46 08/27/22 20:36 08/28/22 05:28 Temperature 98.0 F 97
[2022-08-28] MEDS: FERROUS SULFATE 324 MG TABLET PO (14:40)
[2022-08-28] MEDS: PREGABALIN (*CRX) 75 MG CAPSULE 150 MG PO ×2 (14:40→21:58)
[2022-08-28] MEDS: CLOPIDOGREL BISULFATE 75 MG TABLET PO (14:41)
[2022-08-28] MEDS: RIVAROXABAN 2.5 MG TABLET PO (14:41)
[2022-08-28] MEDS: ATORVASTATIN 40 MG TABLET PO (14:41)
[2022-08-28] MEDS: MECLIZINE HCL 12.5 MG TABLET PO (17:15)
[2022-08-28] MEDS: DOCUSATE SODIUM 100 MG CAPSULE PO (17:18)
[2022-08-29] VITALS (16 sets, daily range): BP systolic 103–160; BP diastolic 57–91; PULSE 61–95; RESP 17–18; TEMP 36.5–37.1; O2SAT 95–100
--- NOTE | 2022-08-29 | ECHO_ITS ---
Patient Info Name: Carmen House Age: 76 years : 1945 Gender: Female Ht: 64 in Wt: 139 lbs BSA: 1.70 m2 HR: 78 bpm BP: 141 / 63 mmHg Heart Rhythm: Atrial Fibrillation Technical Quality: Fair Exam Date: 08/29/2022 2:58 PM Exam Location: [facility] Pulmonary Exam Room: 253 Patient Status: Inpatient Admit Date: 08/28/2022 Staff Ordering Physician: Theresa Langston PA-C Physician Office Clin Asst: Mira Mitchell RDCS Attending Provider: Nehemiah Osborne MD Referring Physician: Kian PINK; Exam Type: CA echo doppler color flow Study Info Indications - c/o dizziness hx/o chf PAROXYSMAL AFIB Complete two-dimensional, color flow and Doppler transthoracic echocardiogram is performed. Summary 1. Complete two-dimensional, color flow and Doppler transthoracic echocardiogram is performed. 2. Normal left ventricular size and thickness with mild global hypokinesis, worse in the basal inferior wall. Calculated ejection fraction 57% but visually it appears to be more in the 50% range. Diastolic dysfunction is present. 3. Left atrial chamber dimension is moderately enlarged. 4. There is mild mitral valve regurgitation. 5. Mild pulmonary hypertension, estimated pulmonary arterial systolic pressure is 39 mmHg. 6. Atrial fibrillation. Left Ventricle Left ventricular chamber dimension is normal. Left ventricular systolic function is mildly reduced, estimated at 50-55%. There is no increased left ventricular wall thickness. Left ventricular septal wall motion is normal. The left ventricular diastolic function is abnormal. Right Ventricle Right ventricular chamber dimension is normal. Right ventricular systolic function is normal. Left Atria Left atrial chamber dimension is moderately enlarged. Right Atria Right atrial chamber dimension is normal. Aortic Valve The aortic valve is trileaflet. There is no aortic valve sclerosis. There is no aortic valve stenosis. There is no aortic valve regurgitation. Pulmonic Valve The pulmonic valve is normal. There is no pulmonic valve stenosis. There is trace pulmonic regurgitation. Mitral Valve The mitral valve has normal leaflets. There is no mitral valve stenosis. There is mild mitral valve regurgitation. Tricuspid Valve The tricuspid valve leaflets are normal. There is no significant tricuspid valve stenosis. There is trace tricuspid valve regurgitation. Mild pulmonary hypertension, estimated pulmonary arterial systolic pressure is 39 mmHg. Pericardium/Pleural The pericardium appears normal. There is no pericardial effusion. Inferior Vena Cava Normal inferior vena cava with >50% collapse upon inspiration consistent with Empty right atrial pressure, 10 mmHg. Aorta The aortic root size at the sinus of Valsalva is normal. The prox ascending aorta size is normal. Left Ventricular Outflow Tract Name Value Normal LVOT 2D LVOT Diameter 2.0 cm LVOT Doppler LVOT Peak Gradient 4 mmHg LVOT Mean Gradient 3 mmHg LVOT VTI 22 cm LVOT
[2022-08-29 07:47] LABS: Anion Gap 4 mmol/L (8-16); Blood Urea Nitrogen 9 mg/dL (7-17); Calcium 7.7 mg/dL (8.4-10.2); Carbon Dioxide 26 mmol/L (22-30); Chloride 105 mmol/L (98-107); Estimated CRCL calculation 46 ml/min; Estimated Glomerular Filt Rate > 60; Glucose 87 mg/dL (65-110); Potassium 3.5 mmol/L (3.4-5.0); Sodium 135 mmol/L (137-145)
[2022-08-29 07:49] LABS: Hematocrit 33.5 % (37.0-47.0); Hemoglobin 10.7 g/dL (12.0-15.0); Mean Corpuscular HGB Conc 31.9 g/dl (32-36); Mean Corpuscular Hemoglobin 29.1 pg (26-34); Mean Platelet Volume 11.7 fl (7.4-10.4); Platelet Count Result 149 k/mm3 (150-375); Red Blood Count 3.68 M/mm3 (4.2-5.4); Red Cell Distribution Width 14.4 % (11.5-14.5); White Blood Count 2.9 K/mm3 (4.5-10.0)
[2022-08-29] MEDS: RIVAROXABAN 2.5 MG TABLET PO (08:54)
[2022-08-29] MEDS: MECLIZINE HCL 12.5 MG TABLET PO (08:54)
[2022-08-29] MEDS: ATORVASTATIN 40 MG TABLET PO (08:54)
[2022-08-29] MEDS: FERROUS SULFATE 324 MG TABLET PO (08:54)
[2022-08-29] MEDS: CLOPIDOGREL BISULFATE 75 MG TABLET PO (08:54)
[2022-08-29] MEDS: PREGABALIN (*CRX) 75 MG CAPSULE 150 MG PO ×2 (08:57→20:45)
[2022-08-29] MEDS: FLUTICASONE/UMECLIDIN/VILANTER 100-62.5-25 MCG ELLIPTA 1 PUFF INHALATION (10:25)
--- NOTE | 2022-08-29 14:02 | PM.IMPN ---
Progress Note: A&P Assessment and Plan (1) Vertigo: Code(s): R42 - Dizziness and giddiness Status: Acute Assessment and Plan: patient still has intermittent dizziness, worsened with movement, and turning her head. Current patient has a sinus rhythm. MRI of brain, CTA head and CTA were unremarkable, except a 30% stenosis of right internal carotid artery. Suspecting small bite versus dissection flap of the right internal carotid artery. Vascular surgery consult will follow patient outpatient at [facility] Patient describes dizziness as the room is spinning with associated nausea. possible vestibular vertigo CTA revealed 30% stenosis of the right internal carotid artery, no large vessel occlusion, and emphysema. MRI of the brain revealed no acute intracranial pathology and small bilateral mastoid effusions. consult neurologist and physical therapist Patient given BPPV exercises that have seemed to improve patient's symptoms Meclizine 12.5 q.i.d. p.r.n. prescribed Alprazolam 0.5 mg b.i.d. p.r.n. prescribed Zofran 4 mg q.6h p.r.n. prescribed Orthostatics Q shift - stable Medications are proving patient's symptoms Possible discharge tomorrow pending improvement of the patient. (2) (HFpEF) heart failure with preserved ejection fraction: Code(s): I50.30 - Unspecified diastolic (congestive) heart failure Status: Chronic Assessment and Plan: Patient has history of CHF Echocardiogram ordered Patient not on any CHF medications at home (3) Hypertension: Code(s): I10 - Essential (primary) hypertension Status: Chronic Assessment and Plan: blood pressure is controlled monitor blood pressure closely (4) Elevated LFTs: Code(s): R79.89 - Other specified abnormal findings of blood chemistry Status: Acute Assessment and Plan: Slightly elevated AST of 57, slightly elevated total bili at 1.4, ALT and alk-phos within normal limits. (5) Paroxysmal atrial fibrillation: Code(s): I48.0 - Paroxysmal atrial fibrillation Status: Chronic Assessment and Plan: Chronic Patient has a sinus rhythm new line continue Xarelto (6) Pancytopenia, acquired: Code(s): D61.818 - Other pancytopenia Status: Acute Assessment and Plan: pancytopenia persists, at baseline. follow-up with your oncologist outpatient considers secondary to kidney and immunosuppressive therapy for lupus 4 follow-up with heme oncologist of the patient Time Spent With Patient Time with patient: Greater than 35 minutes Subjective Date/time seen: 08/29/22 14:02 Interval history: 08/29/22 66-year-old female with history of CHF, hypertension, CAD, paroxysmal AFib, pulmonary hypertension, type 2 diabetes, SLE, COPD, and CKD. Patient admitted due to progressive dizziness. Patient stated that the room was spinning and she would become nauseous and scared that she was going to fall. Patient given this vestibular exercises by PT and states that they have been helping her. Patient denies chest pain, shortness a breath, loss of consciousness, abdominal pain, vomiting, diarrhea, fever and swelling. States the dizziness is improved as well as the nausea but has not completely gone away. Review of Systems Review of Systems: All systems reviewed & are unremarkable except as noted in HPI and below Exam Narrative: GENERAL: Comfortable, no acute distress HENMT: moist mucous membranes EYES: EOM intact b/l, no nystagmus NECK: no lymphadenopathy RESPIRATORY: clear to auscultation CARDIO: RRR GI: soft, nontender, bowel sounds present SKIN: no rashes EXTREMITIES: no edema, redness or tenderness Objective Data Vital Signs Vital Signs: Vital Signs - 24 hr 08/28/22 16:07 08/28/22 20:12 08/28/22 20:15 Temperature 97.8 F 97.8 F Pulse Rate 69 68 81 Respiratory Rate 18 18 Blood Pressure 124/55 L 114/62 Pulse Oximetry 100 100 Oxygen Delivery 08/28/22 20:
--- NOTE | 2022-08-29 16:18 | PM.IMPN ---
Progress Note: A&P Assessment and Plan (1) Vertigo: Code(s): R42 - Dizziness and giddiness Status: Acute Assessment and Plan: patient still has intermittent dizziness, worsened with movement, and turning her head. Current patient has a sinus rhythm. MRI of brain, CTA head and CTA were unremarkable, except a 30% stenosis of right internal carotid artery. Suspecting small bite versus dissection flap of the right internal carotid artery. Vascular surgery consult will follow patient outpatient at [facility] Patient describes dizziness as the room is spinning with associated nausea. possible vestibular vertigo CTA revealed 30% stenosis of the right internal carotid artery, no large vessel occlusion, and emphysema. MRI of the brain revealed no acute intracranial pathology and small bilateral mastoid effusions. consult neurologist and physical therapist Patient given BPPV exercises that have seemed to improve patient's symptoms Meclizine 12.5 q.i.d. p.r.n. prescribed Alprazolam 0.5 mg b.i.d. p.r.n. prescribed Zofran 4 mg q.6h p.r.n. prescribed Orthostatics Q shift - stable Medications are proving patient's symptoms Possible discharge tomorrow pending improvement of the patient. (2) (HFpEF) heart failure with preserved ejection fraction: Code(s): I50.30 - Unspecified diastolic (congestive) heart failure Status: Chronic Assessment and Plan: Patient has history of CHF Echocardiogram ordered Patient not on any CHF medications at home (3) Hypertension: Code(s): I10 - Essential (primary) hypertension Status: Chronic Assessment and Plan: blood pressure is controlled monitor blood pressure closely (4) Elevated LFTs: Code(s): R79.89 - Other specified abnormal findings of blood chemistry Status: Acute Assessment and Plan: Slightly elevated AST of 57, slightly elevated total bili at 1.4, ALT and alk-phos within normal limits. (5) Paroxysmal atrial fibrillation: Code(s): I48.0 - Paroxysmal atrial fibrillation Status: Chronic Assessment and Plan: Chronic Patient has a sinus rhythm new line continue Xarelto (6) Pancytopenia, acquired: Code(s): D61.818 - Other pancytopenia Status: Acute Assessment and Plan: pancytopenia persists, at baseline. follow-up with your oncologist outpatient considers secondary to kidney and immunosuppressive therapy for lupus 4 follow-up with heme oncologist of the patient Subjective Date/time seen: 08/29/22 16:18 Interval history: 08/29/22 66-year-old female with history of CHF, hypertension, CAD, paroxysmal AFib, pulmonary hypertension, type 2 diabetes, SLE, COPD, and CKD. Patient admitted due to progressive dizziness. Patient stated that the room was spinning and she would become nauseous and scared that she was going to fall. Patient given this vestibular exercises by PT and states that they have been helping her. Patient denies chest pain, shortness a breath, loss of consciousness, abdominal pain, vomiting, diarrhea, fever and swelling. States the dizziness is improved as well as the nausea but has not completely gone away. Review of Systems Review of Systems: All systems reviewed & are unremarkable except as noted in HPI and below Exam Narrative: GENERAL: Comfortable, no acute distress HENMT: moist mucous membranes EYES: EOM intact b/l, no nystagmus NECK: no lymphadenopathy RESPIRATORY: clear to auscultation CARDIO: RRR GI: soft, nontender, bowel sounds present SKIN: no rashes EXTREMITIES: no edema, redness or tenderness Objective Data Vital Signs Vital Signs: Vital Signs - 24 hr 08/28/22 20:12 08/28/22 20:15 08/28/22 20:18 Temperature 97.8 F 97.8 F 97.8 F Pulse Rate 68 81 94 Respiratory Rate 18 18 18 Blood Pressure 124/55 L 114/62 116/72 Pulse Oximetry 100 100 100 Oxygen Delivery 08/28/22 21:18 08/29/22 05:00 08/28/22 20:00 Temperature 97.8
[2022-08-30] VITALS (7 sets, daily range): BP systolic 136–153; BP diastolic 62–71; PULSE 64–70; RESP 16–18; TEMP 36.6–36.8; O2SAT 98
[2022-08-30 05:48] LABS: Hematocrit 34.4 % (37.0-47.0); Hemoglobin 10.8 g/dL (12.0-15.0); Immature Platelet Fraction Pct 3.9 % (0.9-11.2); Mean Corpuscular HGB Conc 31.4 g/dl (32-36); Mean Corpuscular Volume 92.5 fl (80-100); Mean Platelet Volume 11.6 fl (7.4-10.4); Platelet Count Result 141 k/mm3 (150-375); Red Blood Count 3.72 M/mm3 (4.2-5.4); Red Cell Distribution Width 14.3 % (11.5-14.5); White Blood Count 3.2 K/mm3 (4.5-10.0)
[2022-08-30 05:59] LABS: Alanine Aminotransferase 41 U/L (6-35); Albumin Level 2.8 g/dL (3.5-5.1); Alkaline Phosphatase 142 U/L (38-126); Anion Gap 4 mmol/L (8-16); Aspartate Amino Transferase 157 U/L (14-36); Bilirubin,Total 0.8 mg/dL (0.2-1.3); Blood Urea Nitrogen 10 mg/dL (7-17); Calcium 7.8 mg/dL (8.4-10.2); Carbon Dioxide 28 mmol/L (22-30); Chloride 105 mmol/L (98-107); Estimated CRCL calculation 37 ml/min; Estimated Glomerular Filt Rate 54; Glucose 91 mg/dL (65-110); Potassium 3.5 mmol/L (3.4-5.0); Sodium 137 mmol/L (137-145)
[2022-08-30] MEDS: FLUTICASONE/UMECLIDIN/VILANTER 100-62.5-25 MCG ELLIPTA 1 PUFF INHALATION (08:53)
--- NOTE | 2022-08-30 08:59 | P.CDI_ITS ---
CDI Query Clarified Diagnosis Clarified Diagnosis: Pt with documented history of CHF. CHF noted on the assessment and plan. Please specify type and acuity of heart failure if known. * Acute * Chronic * Acute on Chronic * Unknown * Systolic * Diastolic * Combined Systolic and Diastolic * Unknown
--- NOTE | 2022-08-30 08:59 | WPDCDIQUERY2 ---
CDI Query Clarified Diagnosis Clarified Diagnosis: Pt with documented history of CHF. CHF noted on the assessment and plan. Please specify type and acuity of heart failure if known. Acute Chronic Acute on Chronic Unknown Systolic Diastolic Combined Systolic and Diastolic Unknown
[2022-08-30] MEDS: CLOPIDOGREL BISULFATE 75 MG TABLET PO (09:03)
[2022-08-30] MEDS: RIVAROXABAN 2.5 MG TABLET PO (09:03)
[2022-08-30] MEDS: PREGABALIN (*CRX) 75 MG CAPSULE 150 MG PO (09:03)
[2022-08-30] MEDS: FERROUS SULFATE 324 MG TABLET PO (09:04)
[2022-08-30] MEDS: ATORVASTATIN 40 MG TABLET PO (09:04)
[2022-08-30] MEDS: MECLIZINE HCL 12.5 MG TABLET PO ×2 (09:04→13:37)
--- NOTE | 2022-08-30 09:09 | P.CDI_ITS ---
CDI Query Clarified Diagnosis Clarified Diagnosis: Pt with documented history of CHF. CHF noted on Assessment and Plan. Pt currently receiving no treatment for CHF at home or as inpatient. Please specify type and acuity of heart failure if known. * Acute * Chronic * Acute on Chronic * Unknown * Systolic * Diastolic * Combined Systolic and Diastolic * Unknown
--- NOTE | 2022-08-30 09:09 | WPDCDIQUERY2 ---
CDI Query Clarified Diagnosis Clarified Diagnosis: Pt with documented history of CHF. CHF noted on Assessment and Plan. Pt currently receiving no treatment for CHF at home or as inpatient. Please specify type and acuity of heart failure if known. Acute Chronic Acute on Chronic Unknown Systolic Diastolic Combined Systolic and Diastolic Unknown
--- NOTE | 2022-08-30 13:14 | PM.DS ---
DS: Admitting Diagnosis Discharge Date 08/30/22 Admitting Diagnosis Dizziness and giddiness DS: Discharge Diagnosis Discharge Diagnosis (1) Vertigo: Code(s): R42 - Dizziness and giddiness Status: Acute Assessment and Plan: patient still has intermittent dizziness, worsened with movement, and turning her head. Current patient has a sinus rhythm. MRI of brain, CTA head and CTA were unremarkable, except a 30% stenosis of right internal carotid artery. Suspecting small bite versus dissection flap of the right internal carotid artery. Vascular surgery consult will follow patient outpatient at [facility] Patient describes dizziness as the room is spinning with associated nausea. possible vestibular vertigo CTA revealed 30% stenosis of the right internal carotid artery, no large vessel occlusion, and emphysema. MRI of the brain revealed no acute intracranial pathology and small bilateral mastoid effusions. consult neurologist and physical therapist Patient given BPPV exercises that have seemed to improve patient's symptoms Meclizine 12.5 q.i.d. p.r.n. prescribed Alprazolam 0.5 mg b.i.d. p.r.n. prescribed Zofran 4 mg q.6h p.r.n. prescribed Orthostatics Q shift - stable Medications are proving patient's symptoms Possible discharge tomorrow pending improvement of the patient. (2) (HFpEF) heart failure with preserved ejection fraction: Code(s): I50.30 - Unspecified diastolic (congestive) heart failure Status: Chronic Assessment and Plan: Patient has history of chronic diastolic CHF Echocardiogram ordered Echo results: EF of 70%, diastolic dysfunction present, mitral valve regurg, pulmonary hypertension at 39 mmHg Patient not on any CHF medications at home (3) Hypertension: Code(s): I10 - Essential (primary) hypertension Status: Chronic Assessment and Plan: blood pressure is controlled monitor blood pressure closely (4) Elevated LFTs: Code(s): R79.89 - Other specified abnormal findings of blood chemistry Status: Acute Assessment and Plan: Slightly elevated AST of 57, slightly elevated total bili at 1.4, ALT and alk-phos within normal limits. (5) Paroxysmal atrial fibrillation: Code(s): I48.0 - Paroxysmal atrial fibrillation Status: Chronic Assessment and Plan: Chronic Patient has a sinus rhythm new line continue Xarelto (6) Pancytopenia, acquired: Code(s): D61.818 - Other pancytopenia Status: Acute Assessment and Plan: pancytopenia persists, at baseline. follow-up with your oncologist outpatient considers secondary to kidney and immunosuppressive therapy for lupus 4 follow-up with heme oncologist of the patient DS: Summary Hospital Course Reason for hospitalization: BPPV Hospital Course: 76-year-old female presented to the ED on 08/27/2022 with chief complaint of dizziness. Patient had been getting progressively more dizzy describing as room spinning over the past few days. Patient states that she was unable to walk very far due to the fear of falling. Patient was put on Xanax, meclizine and Zofran on admission and her symptoms have improved. She has been working with this tubular PT as far as BPPV exercises and states that it has been helping. Patient states that her symptoms have improved. She is stable rate go home. Time Spent with Patient Time attestation: Total time spent providing and/or coordinating discharge services: Exam Narrative: GENERAL: Comfortable, no acute distress HENMT: moist mucous membranes EYES: EOM intact b/l, no nystagmus NECK: no lymphadenopathy RESPIRATORY: clear to auscultation CARDIO: RRR GI: soft, nontender, bowel sounds present SKIN: no rashes EXTREMITIES: no edema, redness or tenderness DS: Data Data Completed and Pending Labs on day of discharge: Labs from last 24 hours 08/30/22 08/30/22 05:22 05:22 WBC 3.2 L RBC 3.72 L Hgb 10.8 L
== END 2022-08-30 16:05 | disposition home or self-care (01) | DRG 149 ==
LOC: ANHED 18:29 → ANH2MED 19:45
PROVIDERS: Physician Assistant; Admitting Provider Internal Medicine; Emergency Provider Emergency Medicine; PCP Emergency Medicine; Visit Provider Internal Medicine Critical Care Medicine
DX: R42 Dizziness and giddiness (principal); I13.0 Hypertensive heart and chronic kidney disease with heart failure and stage 1 through stage 4 chronic kidney disease, or unspecified chronic kidney disease; D61.818 Other pancytopenia; I50.32 Chronic diastolic (congestive) heart failure; N18.30 Chronic kidney disease, stage 3 unspecified; I48.0 Paroxysmal atrial fibrillation; I25.10 Atherosclerotic heart disease of native coronary artery without angina pectoris; I27.20 Pulmonary hypertension, unspecified; I65.21 Occlusion and stenosis of right carotid artery; J45.909 Unspecified asthma, uncomplicated; D64.9 Anemia, unspecified; K21.9 Gastro-esophageal reflux disease without esophagitis; M32.9 Systemic lupus erythematosus, unspecified; M47.816 Spondylosis without myelopathy or radiculopathy, lumbar region; M79.7 Fibromyalgia; R93.89 Abnormal findings on diagnostic imaging of other specified body structures; F41.9 Anxiety disorder, unspecified; F32.A Depression, unspecified; Z20.822 Contact with and (suspected) exposure to COVID-19; I25.2 Old myocardial infarction; Z79.01 Long term (current) use of anticoagulants; Z87.891 Personal history of nicotine dependence; Z95.5 Presence of coronary angioplasty implant and graft; Z98.1 Arthrodesis status
CPT/HCPCS: 36415; 70450; 70496; 70498; 70553; 76705; 80048; 80053; 85025; 85027; 85055; 85610; 87637; 93005; 93306; 94640; 96374; 96375; 97110; 97161; 97530; 99285; A9270; A9577; G0378; J0360; J2405; Q9967

== ENCOUNTER 2023-02-04 01:03 | Day surgery (SDC) | payer MEDICARE, BC, SELFPAY ==
[2023-02-01 13:02] VITALS: BMI 23.4
[2023-02-04] VITALS (18 sets, daily range): BP systolic 128–182; BP diastolic 65–78; PULSE 63–77; RESP 12–19; TEMP 36.6; O2SAT 97–100
[2023-02-04 07:31] LABS: Basophils Percent Auto 0.4 % (0.2-1.2); Eosinophils Absolute Auto 0.2 K/mm3 (0-0.3); Eosinophils Percent Auto 2.5 % (0-4.4); Hematocrit 38.4 % (37.0-47.0); Hemoglobin 11.7 g/dL (12.0-15.0); Immature Granulocyte Absolute 0.03 K/mm3 (0.00-0.031); Immature Granulocyte Percent A 0.4 % (0-0.5); Lymphocytes Absolute Auto 0.57 K/mm3 (0.9-3.2); Mean Corpuscular HGB Conc 30.5 g/dl (32-36); Mean Corpuscular Volume 88.5 fl (80-100); Mean Platelet Volume 10.4 fl (7.4-10.4); Monocytes Absolute Auto 0.4 K/mm3 (0.1-0.6); Monocytes Percent Auto 4.9 % (2.6-8.5); Neutrophils Percent Auto 83.8 % (45.5-73.1); Platelet Count Result 249 k/mm3 (150-375); Red Blood Count 4.34 M/mm3 (4.2-5.4); Red Cell Distribution Width 15.1 % (11.5-14.5); White Blood Count 7.1 K/mm3 (4.5-10.0)
[2023-02-04 07:40] LABS: Anion Gap 7 mmol/L (8-16); Blood Urea Nitrogen 11 mg/dL (7-17); Calcium 8.7 mg/dL (8.4-10.2); Carbon Dioxide 27 mmol/L (22-30); Chloride 105 mmol/L (98-107); Estimated CRCL calculation 37 ml/min; Estimated Glomerular Filt Rate 54; Glucose 145 mg/dL (65-110); Potassium 3.7 mmol/L (3.4-5.0); Sodium 139 mmol/L (137-145)
[2023-02-04] MEDS: SODIUM CHLORIDE 0.9% IV 500 ML 100 ML IV CONT (07:45)
--- NOTE | 2023-02-04 08:22 | WPDHPUPDATE1 ---
History and Physical Update Update Date/Time: 02/04/23 08:22 History and Physical has been reviewed, including an updated exam of the patient. There are NO changes in the patient's condition. Risks, benefits, and alternatives have been discussed and questions answered. Patient agrees to proceed with procedure.
--- NOTE | 2023-02-04 08:22 | WPDMODSED ---
Moderate Sedation Note-Pt Data Patient Data Diagnosis: Abnormal stress test, CAD Present Complaint: none Procedure to be performed/Plan: left heart catheterization with selective left and right coronary angiography and left ventriculography and hemodynamics history and physical update: Patient is a very pleasant 77-year-old female with a history of CAD status post 3.5 x 22 mm drug-eluting stent, lupus, history of CHF, atrial fibrillation on anticoagulation with complaints of fatigue, shortness of breath referred for left heart catheterization due to abnormal stress test which revealed fixed inferior defect and anterior ischemia. Impression: CAD with abnormal stress test atrial fibrillation CHF lupus hypertension plan of care: [facility] Recommendations to follow. Allergies Allergy/AdvReac Type Severity Reaction Status Date / Time cat dander Allergy Unknown Sneezing Verified 02/04/23 07:17 house dust Allergy Unknown Sneezing Verified 02/04/23 07:17 mold Allergy Unknown Sneezing Verified 02/04/23 07:17 ciprofloxacin AdvReac Unknown Nausea Verified 02/04/23 07:17 erythromycin base AdvReac Unknown Nausea Verified 02/04/23 07:17 Sulfa (Sulfonamide AdvReac Unknown Nausea Verified 02/04/23 07:17 Antibiotics) Home Medications Medication Instructions Recorded Confirmed Type pilocarpine HCl 5 mg tablet 5 mg PO TID PRN Dry Mouth 10/19/19 02/01/23 History (Salagen (pilocarpine)) tramadol 50 mg tablet 50 mg PO QID PRN pain #60 tabs 04/24/21 02/01/23 Rx nitroglycerin 0.4 mg sublingual 0.4 mg sublingual Q5MIN PRN Chest 05/21/21 02/01/23 Rx tablet (Nitrostat) Pain 10 days #30 tabs cyclobenzaprine 10 mg tablet 10 mg PO HS PRN Spasms 07/10/21 02/01/23 History rivaroxaban 2.5 mg tablet (Xarelto) 2.5 mg PO DAILY 10/06/21 02/01/23 History albuterol sulfate 90 mcg/actuation 2 inh inhalation BID PRN Shortness 04/16/22 02/01/23 History aerosol inhaler Of Breath Or Wheezing nystatin 100,000 unit/gram topical See Rx Instructions .Route 04/16/22 02/01/23 History cream .COMPLEX PRN yeast alprazolam 0.5 mg tablet 0.5 mg PO BID PRN Anxiety #60 tabs 04/19/22 02/01/23 Rx fluticasone fur. 100 mcg-umeclid 1 inh inhalation DAILY COPD 1 10/24/22 02/01/23 Rx 62.5 mcg-vilant 25 mcg month #60 ea inhalat.powder (Trelegy Ellipta) clopidogrel 75 mg tablet 75 mg PO DAILY #90 tabs 12/11/22 02/04/23 Rx fluoxetine 20 mg tablet 20 mg PO DAILY 01/14/23 02/04/23 History potassium chloride 10 mEq 10 meq PO .qod hypokalemia #15 tabs 01/14/23 02/01/23 Rx tablet,extended release (Klor-Con) pregabalin 150 mg capsule 150 mg PO DAILY #180 caps 01/14/23 02/04/23 Rx artificial tears solution eye drops 1 drp ophthalmic (eye) DAILY 02/01/23 02/01/23 History hydrocodone 10 mg-acetaminophen 1 tablet PO PRN PRN Pain 02/01/23 02/01/23 History 325 mg tablet Current Medications: Active Medications Sodium Chloride (Normal Saline Iv) 500 mls @ 100 mls/hr IV CONT .Q5H ACOSTA Sedation/Anesthesia: No previous sedation/anesthesia problems (including family history). FORMERLY [facility] Past Medical History Medical History Anemia Anxiety Aortic dissection Asthma C. difficile colitis In August 2010. Chronic anemia SAw field spec Chronic kidney disease, stage 3 Baseline creatinine is between 1.0 and 1.10. Colitis Congestive heart disease (~05/16/21) Cough Degenerative joint disease (DJD) of lumbar spine Depression Fibromyalgia GERD (gastroesophageal reflux disease) Heart attack Herniated disc, cervical x2 Osteoarthritis Pancytopenia Paroxysmal atrial fibrillation Pulmonary hypertension Shingles SLE (systemic lupus erythematosus related syndrome) (~1988) Tobacco abuse Surgical History Surgical History H/O cataract extraction H/O cervical discectomy H/O laminectomy History of cardiac radiofrequency ablation History of lumbar
--- NOTE | 2023-02-04 08:27 | W.PM.PROC2 ---
Procedure Note - Detailed Date of Procedure 02/04/23 Pre-op Diagnosis abnormal stress test Post-op Diagnosis Same Procedure Performed left heart catheterization with selective left and right coronary angiography with left ventricle and hemodynamics Surgeon Kashif Barrientos MD Anesthesia Local and Other Indications abnormal stress test, CAD Findings BRIEF HISTORY OF PRESENT ILLNESS: Patient is a pleasant 77-year-old female with a history of atrial fibrillation, history of cardiomyopathy, CAD status post 3.5 x 23 mm drug-eluting stent to circumflex 05/17/2021, hypertension CHF complaints of intermittent chest pain, fatigue dyspnea abnormal stress test fixed inferior infarct anterior ischemia refer for left heart catheterization delineation of her coronary anatomy due to ongoing symptoms. PROCEDURES PERFORMED: 1. Left heart catheterization 2. Selective left and right coronary angiography 3. Left ventriculography and hemodynamics 4. Moderate/conscious sedation administration CATHETERS UTILIZED: Left coronary system- 5 Croatian JL4 catheter Right coronary system- 5 Croatian JR4 catheter Left ventriculography and hemodynamics- 5 Croatian angled pigtail catheter PROCEDURE IN DETAIL: After verbal and written informed consent was obtained the patient, risks, benefits, and alternatives explained in detail the patient agreed to proceed with the plan of care as outlined above. The patient was subsequently brought to the cardiac catheterization lab, placed on the cardiac catheterization table, and prepped and draped in the usual sterile fashion. Utilizing approximately 12cc of 1% subcutaneous Lidocaine, the right groin was then locally anesthetized. Utilizing the modified Seldinger technique, a 6 Croatian arterial vascular access sheath was inserted in the right common femoral artery easily and without complications. Through this access, coronary angiography was subsequently obtained in multiple standard re-projections. Following this, a 5 Croatian angled pigtail catheter was advanced retrograde across aortic valve into the cavity of the left ventricle. Left ventriculography was performed and pullback across aortic valve was subsequently recorded. The vascular access sheath and angiographic catheters were flushed before and after catheter exchanges. Selective right femoral angiography was then performed in the standard RODRIGUEZ projection with a saline contrast mix injected through the side arm port of the 6 Croatian arterial vascular access she At the conclusion of the diagnostic portion of the procedure, all angiographic guidewires and catheters were removed and the 6 Croatian arterial vascular access sheath was then pulled and satisfactory hemostasis was achieved using manual compression. There no complications noted at the conclusion of the diagnostic portion of the study. MODERATE SEDATION/ANESTHESIA ADMINISTRATION: Patient reports no prior problems with sedation/anesthesia. Please see pre-sedation noted for physical examination documentation. Sedation start time was 0840 and end time was 0917 for a total intra-service/procedure face-face time of 37 minutes. A total of 1 mg intravenous Versed and a total of 50 mcg intravenous Fentanyl in multiple divided doses was administered for moderate sedation. Moderate sedation was administered by qualified/certified observer Deborah Ramirez RN under my supervision with intra-procedure [id number] observation and management throughout the entirety of the procedure. There were no other issues or complications and patient tolerated the procedure well. See post-anesthesia documentation. Description of Procedure CORONARY ANGIOGRAPHY: The LEFT MAIN arose from the left coronary cusp and was without angiographically significant disease. The left main then bifurcated into the left anterior descending artery and circumflex coronary artery. LEFT ANTERIOR DESCENDING ARTERY: Moderate sized vessel extending to and wrapping a
== END 2023-02-04 15:50 | disposition home or self-care (01) ==
PROVIDERS: PCP Emergency Medicine; Visit Provider Internal Medicine Cardiovascular Disease
PROC: 4A023N7 Measurement of Cardiac Sampling and Pressure, Left Heart, Percutaneous Approach (ICD-10-PCS; CPT 93452; principal; 2023-02-04 08:30)
DX: I25.10 Atherosclerotic heart disease of native coronary artery without angina pectoris (principal); R94.39 Abnormal result of other cardiovascular function study; R07.9 Chest pain, unspecified; I42.9 Cardiomyopathy, unspecified; I48.91 Unspecified atrial fibrillation; I13.0 Hypertensive heart and chronic kidney disease with heart failure and stage 1 through stage 4 chronic kidney disease, or unspecified chronic kidney disease; I50.9 Heart failure, unspecified; N18.30 Chronic kidney disease, stage 3 unspecified; Z95.5 Presence of coronary angioplasty implant and graft; D64.9 Anemia, unspecified; I25.2 Old myocardial infarction; I48.0 Paroxysmal atrial fibrillation; M79.7 Fibromyalgia; M32.9 Systemic lupus erythematosus, unspecified; K21.9 Gastro-esophageal reflux disease without esophagitis; F32.A Depression, unspecified; F41.9 Anxiety disorder, unspecified; Z79.51 Long term (current) use of inhaled steroids; Z79.01 Long term (current) use of anticoagulants; Z79.02 Long term (current) use of antithrombotics/antiplatelets; Z98.1 Arthrodesis status; Z87.891 Personal history of nicotine dependence
CPT/HCPCS: 36415; 80048; 85025; 93458; C1887; C1894; J0461; J1644; J2250; J3010; J7040

== ENCOUNTER 2023-04-14 14:20 | Emergency (ER) | payer MEDICARE, BC, SELFPAY ==
[2023-04-14 14:30] VITALS: BP 108/45; PULSE 61; RESP 20; TEMP 36.7; O2SAT 100
--- NOTE | 2023-04-14 14:32 | ED.FEMALEGU ---
HPI - Female Genitourinary General Chief complaint: Urogenital-Female Stated complaint: UTI Time Seen by Provider: 04/14/23 14:32 Source: patient Mode of arrival: ambulatory Limitations: no limitations History of Present Illness HPI Narrative: Carmen is a 77-year-old female patient presenting to the clinic today with complaints of possible urinary tract infection. She reports symptoms started 4 days ago. Reports that she is having some burning with urination now pressure and frequency. Denies any known fever. But has had some chills. Has some left-sided flank pain and bladder pressure Related Data Home Medications Medication Instructions Recorded Confirmed pilocarpine HCl 5 mg tablet 5 mg PO TID PRN Dry Mouth 10/19/19 04/14/23 (Salagen (pilocarpine)) cyclobenzaprine 10 mg tablet 10 mg PO HS PRN Spasms 07/10/21 04/14/23 rivaroxaban 2.5 mg tablet (Xarelto) 2.5 mg PO DAILY 10/06/21 04/14/23 albuterol sulfate 90 mcg/actuation 2 inh inhalation BID PRN Shortness 04/16/22 04/14/23 aerosol inhaler Of Breath Or Wheezing nystatin 100,000 unit/gram topical See Rx Instructions .Route 04/16/22 04/14/23 cream .COMPLEX PRN yeast artificial tears solution eye drops 1 drp ophthalmic (eye) DAILY 02/01/23 04/14/23 Allergies Allergy/AdvReac Type Severity Reaction Status Date / Time cat dander Allergy Unknown Sneezing Verified 04/14/23 14:37 house dust Allergy Unknown Sneezing Verified 04/14/23 14:37 mold Allergy Unknown Sneezing Verified 04/14/23 14:37 ciprofloxacin AdvReac Unknown Nausea Verified 04/14/23 14:37 erythromycin base AdvReac Unknown Nausea Verified 04/14/23 14:37 Sulfa (Sulfonamide AdvReac Unknown Nausea Verified 04/14/23 14:37 Antibiotics) Review of Systems Review of Systems: Pertinent positives per HPI. Patient denies any fever, chills, rash, headache, visual changes, dizziness, cough, runny nose, sore throat, shortness of breath, chest pain, palpitations, nausea, vomiting, diarrhea, constipation. PMFSH Past Medical History Medical History Anemia Anxiety Aortic dissection Asthma C. difficile colitis In August 2010. 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 Colitis Congestive heart disease (~05/16/21) Cough Degenerative joint disease (DJD) of lumbar spine Depression Fibromyalgia GERD (gastroesophageal reflux disease) Heart attack Herniated disc, cervical x2 Osteoarthritis Pancytopenia Paroxysmal atrial fibrillation Pulmonary hypertension Shingles SLE (systemic lupus erythematosus related syndrome) (~1988) Tobacco abuse Surgical History Surgical History H/O cataract extraction H/O cervical discectomy H/O laminectomy History of cardiac radiofrequency ablation History of lumbar fusion History of renal stent History of tonsillectomy Family History Family History Sibling Family history of cardiovascular disease Diabetes mellitus Family history of malignant neoplasm of urinary bladder Hypertension Father Patient's father is , Onset Age: 64 Family history of coronary artery disease Family history of schizophrenia Heart attack Atrial fibrillation Mother Patient's mother is , Onset Age: 89 Family history of coronary artery disease Family history of chronic obstructive pulmonary disease Throat cancer Other Cerebrovascular accident Family history of alcoholism Family history of arthritis Family history of heart disease in male family member before age 55 Family history of kidney disease Family history of malignant neoplasm Family history of mental disorder Family history of tuberculosis Social History Social History
== END 2023-04-14 15:04 | disposition home or self-care (01) ==
PROVIDERS: Emergency Provider Nurse Practitioner Family; PCP Emergency Medicine
DX: N30.01 Acute cystitis with hematuria (principal); B96.20 Unspecified Escherichia coli [E. coli] as the cause of diseases classified elsewhere; Z87.891 Personal history of nicotine dependence; I13.0 Hypertensive heart and chronic kidney disease with heart failure and stage 1 through stage 4 chronic kidney disease, or unspecified chronic kidney disease; N18.30 Chronic kidney disease, stage 3 unspecified; I50.9 Heart failure, unspecified; M79.7 Fibromyalgia; K21.9 Gastro-esophageal reflux disease without esophagitis; I25.2 Old myocardial infarction; M19.90 Unspecified osteoarthritis, unspecified site; I48.91 Unspecified atrial fibrillation
CPT/HCPCS: 81003; 87077; 87086; 87186; 99213; G0463

== ENCOUNTER → 2023-05-16 15:21 | Outpatient (CLI) | payer MEDICARE, BC, SELFPAY ==
--- NOTE | ~2023-05-16 | XR_ITS ---
XR chest 2V 05/16/2023 15:44 Indication: Shortness of breath Procedure: 2 view chest Comparison: 07/08/2022 Findings: Extensive bilateral airspace disease which may represent pneumonia or edema. Small effusion s. No pneumothorax. The lungs are hyperinflated which is consistent with, but not diagnostic of chron ic obstructive pulmonary disease. Impression: 1: Interval development of diffuse bilateral airspace disease which may represent pneumonia or edema. 2: Small pleural effusions. Reviewed, dictated and finalized at location A. Impression: 1: Interval development of diffuse bilateral airspace disease which may represe nt pneumonia or edema. 2: Small pleural effusions.
== END ==
PROVIDERS: PCP Internal Medicine Cardiovascular Disease; Visit Provider Emergency Medicine
DX: R06.02 Shortness of breath (principal); J90 Pleural effusion, not elsewhere classified
CPT/HCPCS: 71046

== ENCOUNTER 2023-10-23 15:41 | Outpatient (CLI) | payer MEDICARE, BC, SELFPAY ==
[2023-10-23 19:07] LABS: Iron 60 ug/dL (37-170)
[2023-10-23 19:15] LABS: Basophils Absolute Auto 0.1 K/mm3 (0.0-0.1); Basophils Percent Auto 0.5 % (0.2-1.2); Eosinophils Absolute Auto 0.1 K/mm3 (0-0.3); Hematocrit 30.1 % (37.0-47.0); Hemoglobin 8.5 g/dL (12.0-15.0); Immature Granulocyte Absolute 0.11 K/mm3 (0.00-0.031); Lymphocytes Absolute Auto 0.72 K/mm3 (0.9-3.2); Lymphocytes Percent Auto 6.5 % (18.3-44.2); Mean Corpuscular HGB Conc 28.2 g/dl (32-36); Mean Corpuscular Hemoglobin 27.7 pg (26-34); Mean Platelet Volume 9.9 fl (7.4-10.4); Monocytes Absolute Auto 0.4 K/mm3 (0.1-0.6); Monocytes Percent Auto 3.9 % (2.6-8.5); Neutrophils Absolute Auto 9.7 K/mm3 (1.3-6.7); Neutrophils Percent Auto 87.1 % (45.5-73.1); Platelet Count Result 382 k/mm3 (150-375); Red Blood Count 3.07 M/mm3 (4.2-5.4); Red Cell Distribution Width 16.3 % (11.5-14.5); White Blood Count 11.2 K/mm3 (4.5-10.0)
[2023-10-23 19:16] LABS: Percent Iron Saturation 14 % (20-50)
[2023-10-23 20:11] LABS: Platelet Estimate Increased (Adequate)
[2023-10-23 20:12] LABS: Hypochromasia 1+ (NORMAL); Schistocytes None Seen (NORMAL)
[2023-10-23 20:13] LABS: Anisocytosis 2+ (NORMAL)
== END 2023-10-23 15:42 | disposition home or self-care (01) ==
LOC: ANHGOSHLAB 15:43
PROVIDERS: PCP Emergency Medicine; Visit Provider Emergency Medicine
DX: D64.9 Anemia, unspecified (principal)
CPT/HCPCS: 36415; 82728; 83540; 83550; 85025

== ENCOUNTER 2023-11-05 14:16 | Outpatient (CLI) | payer MEDICARE, BC, SELFPAY ==
--- NOTE | ~2023-11-05 | CT_ITS ---
EXAMINATION: CT brain wo con DATE: 11/05/2023 14:39 INDICATION: Left-sided head injury with loss of consciousness TECHNIQUE: Computed tomography (CT) of the head was performed without intravenous contrast. Sagittal and coronal reconstructions were performed. The mA was adjusted according to patient size. Iterative reconstruction technique was employed. The dose-length product was 605.33 mGy-cm. COMPARISON: Head CT and CT angiogram dated 08/27/2022 and MRI dated 08/28/2022 FINDINGS: No fracture. No acute intracranial hemorrhage, acute infarction or abnormal extra axial fluid collect ion. There is mild scattered white matter hypoattenuation consistent with chronic small vessel ischem ic disease. Symmetric prominence of the sulci consistent with mild age-appropriate diffuse cerebral v olume loss. Ventricles are normal and symmetric. No mass/mass effect. Changes of bilateral intraocula r lens replacement. The orbits, paranasal sinuses and mastoid air cells are normal. IMPRESSION: 1. No fracture or acute intracranial process. 2. History changes including mild diffuse volume loss and mild scattered white matter hypoattenuation consistent with chronic small vessel ischemic disease. Reviewed, dictated and finalized at location L.
== END 2023-11-05 14:17 | disposition home or self-care (01) ==
PROVIDERS: PCP Emergency Medicine; Visit Provider Internal Medicine Cardiovascular Disease
DX: R29.6 Repeated falls (principal)
CPT/HCPCS: 70450

== ENCOUNTER 2023-11-25 14:28 | Outpatient (CLI) | payer MEDICARE, BC, SELFPAY ==
[2023-11-25 14:43] LABS: Basophils Percent Auto 0.3 % (0.2-1.2); Eosinophils Percent Auto 0.4 % (0-4.4); Hematocrit 33.4 % (37.0-47.0); Hemoglobin 9.7 g/dL (12.0-15.0); Immature Granulocyte Absolute 0.07 K/mm3 (0.00-0.031); Immature Granulocyte Percent A 0.6 % (0-0.5); Lymphocytes Absolute Auto 0.74 K/mm3 (0.9-3.2); Lymphocytes Percent Auto 6.5 % (18.3-44.2); Mean Corpuscular Hemoglobin 25.3 pg (26-34); Mean Platelet Volume 9.9 fl (7.4-10.4); Monocytes Absolute Auto 0.5 K/mm3 (0.1-0.6); Monocytes Percent Auto 4.2 % (2.6-8.5); Platelet Count Result 363 k/mm3 (150-375); Red Blood Count 3.84 M/mm3 (4.2-5.4); Red Cell Distribution Width 15.6 % (11.5-14.5); White Blood Count 11.4 K/mm3 (4.5-10.0)
[2023-11-25 14:47] LABS: Hypochromasia 1+; Platelet Estimate Adequate (Adequate); Schistocytes None Seen
[2023-11-25 14:51] LABS: Blood Urea Nitrogen 17 mg/dL (8-26); Carbon Dioxide 28 mmol/L (22-30); Chloride 100 mmol/L (98-109); Estimated Glomerular Filt Rate 44; Glucose 129 mg/dL (70-105); Ionized Calcium (POC) 1.14 mmol/L (1.11-1.31); Potassium 4.8 mmol/L (3.5-4.9); Sodium 138 mmol/L (138-146)
[2023-11-25 16:30] LABS: Iron 49 ug/dL (37-170)
[2023-11-25 16:40] LABS: Percent Iron Saturation 12 % (20-50)
[2023-11-25 16:43] LABS: Alanine Aminotransferase 12 U/L (6-35); Albumin Level 3.8 g/dL (3.5-5.1); Alkaline Phosphatase 103 U/L (38-126); Anion Gap 9 mmol/L (4-12); Aspartate Amino Transferase 30 U/L (14-36); Bilirubin,Total 0.4 mg/dL (0.2-1.3); Blood Urea Nitrogen 18 mg/dL (7-17); Calcium 9.5 mg/dL (8.4-10.2); Carbon Dioxide 25 mmol/L (22-30); Chloride 102 mmol/L (98-107); Estimated Glomerular Filt Rate 48; Glucose 128 mg/dL (65-110); Potassium 4.7 mmol/L (3.4-5.0); Sodium 136 mmol/L (137-145)
== END 2023-11-25 14:29 | disposition home or self-care (01) ==
LOC: ANHLAB 14:32
PROVIDERS: PCP Emergency Medicine; Visit Provider Internal Medicine Hematology & Oncology
DX: D64.9 Anemia, unspecified (principal)
CPT/HCPCS: 36415; 80047; 80053; 82728; 83540; 83550; 85025

== ENCOUNTER 2023-12-30 13:31 | Emergency (ER) | payer MEDICARE, BC, SELFPAY ==
[2023-12-30 13:45] VITALS: BP 145/54; PULSE 89; RESP 20; TEMP 36.6; O2SAT 99
--- NOTE | 2023-12-30 13:46 | ED.FEMALEGU ---
HPI - Female Genitourinary General Chief complaint: Urogenital-Female Stated complaint: back pain,hip pain Time Seen by Provider: 12/30/23 13:46 Source: patient Mode of arrival: ambulatory Limitations: no limitations History of Present Illness HPI Narrative: 78-year-old female with significant medical history, congestive heart failure, atrial fibrillation, lupus, renal failure presents today with complaint of low back pain, chills, urinary frequency, incontinence for 3 days. Afebrile. Denies nausea vomiting. Patient reports that she is currently in AFib. Has appointment with her new rn travel in 2 weeks. No recent changes to medications. 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 All systems reviewed and negative except as noted above. Related Data Home Medications Medication Instructions Recorded Confirmed pilocarpine HCl 5 mg tablet 5 mg PO TID PRN Dry Mouth 10/19/19 12/30/23 (Salagen (pilocarpine)) artificial tears solution eye drops 1 drp ophthalmic (eye) DAILY 02/01/23 12/30/23 nitroglycerin 0.4 mg sublingual 0.4 mg sublingual Q5MIN PRN Chest 05/16/23 12/30/23 tablet (Nitrostat) Pain aspirin 81 mg tablet,delayed 81 mg PO DAILY 10/23/23 12/30/23 release (Enteric Coated Aspirin) esomeprazole magnesium 40 mg 40 mg PO DAILY 10/23/23 12/30/23 capsule,delayed release (Nexium) furosemide 20 mg tablet See Rx Instructions PO QAM 10/23/23 12/30/23 metoprolol succinate 25 mg 25 mg PO DAILY 10/23/23 12/30/23 tablet,extended release 24 hr (Toprol XL) prednisone 10 mg tablet 10 mg PO DAILY 10/23/23 12/30/23 rivaroxaban 20 mg tablet (Xarelto) 20 mg PO DAILY 10/23/23 12/30/23 spironolactone 25 mg tablet 25 mg PO DAILY 10/23/23 12/30/23 Allergies Allergy/AdvReac Type Severity Reaction Status Date / Time cat dander Allergy Unknown Sneezing Verified 12/30/23 13:51 house dust Allergy Unknown Sneezing Verified 12/30/23 13:51 mold Allergy Unknown Sneezing Verified 12/30/23 13:51 ciprofloxacin AdvReac Unknown Nausea Verified 12/30/23 13:51 erythromycin base AdvReac Unknown Nausea Verified 12/30/23 13:51 Sulfa (Sulfonamide AdvReac Unknown Nausea Verified 12/30/23 13:51 Antibiotics) Review of Systems Review of Systems: CONSTITUTIONAL: Denies fever, chills, or sweats. EYES: Denies visual changes, redness, or discharge. ENT: Denies rhinorrhea, congestion, sore throat, or otalgia. CARDIOVASCULAR: Denies chest pain, palpitations, or edema. RESPIRATORY: Denies cough or dyspnea. GASTROINTESTINAL: Denies abdominal pain, nausea, vomiting, or diarrhea. GENITOURINARY: Reports dysuria, frequency, incontinence. Denies hematuria. SKIN: Denies rash or itching. MUSCULOSKELETAL: Denies back pain, joint pain, or myalgia. NEUROLOGIC: Denies headache, numbness, or weakness. PSYCHIATRIC: Denies anxiety or depression. All other systems reviewed are negative, except as documented in HPI. FORMERLY [facility] Past Medical History Medical History Anemia Anxiety Aortic dissection Asthma C. difficile colitis In August 2010. 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 Colitis Congestive heart disease (~05/16/21) Cough Degenerative joint disease (DJD) of lumbar spine Depression Fibromyalgia GERD (gastroesophageal reflux disease) Heart attack Herniated disc, cervical x2 Osteoarthritis Pancytopenia Paroxysmal atrial fibrillation Pulmonary hypertension Shingles SLE (systemic lupus erythematosus related syndrome) (~1988) Tobacco abuse Surgical History Surgical History H/O cataract extraction H/O cervical discectomy H/O laminectomy History of cardiac radiofrequency ablation History of lumbar fusion History
== END 2023-12-30 14:27 | disposition home or self-care (01) ==
PROVIDERS: Emergency Provider Nurse Practitioner Family; PCP Emergency Medicine
DX: N39.0 Urinary tract infection, site not specified (principal); I50.9 Heart failure, unspecified; M32.9 Systemic lupus erythematosus, unspecified; N18.30 Chronic kidney disease, stage 3 unspecified; F41.9 Anxiety disorder, unspecified; Z79.82 Long term (current) use of aspirin; K21.9 Gastro-esophageal reflux disease without esophagitis; I48.0 Paroxysmal atrial fibrillation; Z87.891 Personal history of nicotine dependence; Z79.01 Long term (current) use of anticoagulants
CPT/HCPCS: 81003; 87077; 87086; 87088; 87186; 99213; G0463

== ENCOUNTER 2024-01-02 14:22 | Outpatient (CLI) | payer MEDICARE, BC, SELFPAY ==
[2024-01-02 19:36] LABS: Basophils Percent Auto 0.4 % (0.2-1.2); Eosinophils Absolute Auto 0.1 K/mm3 (0-0.3); Eosinophils Percent Auto 0.6 % (0-4.4); Hematocrit 39.5 % (37.0-47.0); Hemoglobin 11.3 g/dL (12.0-15.0); Immature Granulocyte Absolute 0.08 K/mm3 (0.00-0.031); Immature Granulocyte Percent A 0.8 % (0-0.5); Lymphocytes Absolute Auto 0.61 K/mm3 (0.9-3.2); Lymphocytes Percent Auto 6.4 % (18.3-44.2); Mean Corpuscular HGB Conc 28.6 g/dl (32-36); Mean Corpuscular Hemoglobin 24.7 pg (26-34); Mean Corpuscular Volume 86.2 fl (80-100); Mean Platelet Volume 10.9 fl (7.4-10.4); Monocytes Absolute Auto 0.6 K/mm3 (0.1-0.6); Monocytes Percent Auto 6.7 % (2.6-8.5); Neutrophils Absolute Auto 8.2 K/mm3 (1.3-6.7); Neutrophils Percent Auto 85.1 % (45.5-73.1); Platelet Count Result 395 k/mm3 (150-375); Red Blood Count 4.58 M/mm3 (4.2-5.4); Red Cell Distribution Width 18.5 % (11.5-14.5); White Blood Count 9.6 K/mm3 (4.5-10.0)
[2024-01-02 19:56] LABS: Iron 46 ug/dL (37-170)
[2024-01-02 20:05] LABS: Appearance Urine Cloudy (Clear); Bacteria Urine None Seen /hpf; Bilirubin Urine Negative (Negative); Blood Urine Non-Hemolyzed Trace (Negative); Color Urine Dark Yellow (Yellow); Glucose Urine UA 3+ mg/dL (Negative); Hyaline Casts Urine Present /lpf; Ketones Urine Trace mg/dL (Negative); Leukocyte Esterase Ur 1+ LEU/UL (Negative); Mucus Urine Present /lpf; Need Manual Microscopic Reviewed; Nitrate Urine Negative (Negative); Protein Urine 2+ mg/dL (Negative); Specific Grav Ur 1.023 (1.001-1.035); Squamous Epithelial Cell Urine Moderate /hpf (Few); WBC Urine 21-50 /hpf (0-3)
[2024-01-02 20:09] LABS: Add Urine Microscopic? YES
[2024-01-02 20:10] LABS: Percent Iron Saturation 12 % (20-50)
[2024-01-02 20:14] LABS: Large Platelets Present; Platelet Estimate Slightly Increased (Adequate)
[2024-01-02 20:15] LABS: Hypochromasia 1+; Schistocytes None Seen
[2024-01-02 21:09] LABS: Hemoglobin A1C 6.4 % (<5.7)
== END 2024-01-02 14:23 | disposition home or self-care (01) ==
LOC: ANHGOSHLAB 14:23
PROVIDERS: PCP Emergency Medicine; Visit Provider Emergency Medicine
DX: N39.0 Urinary tract infection, site not specified (principal); I21.A1 Myocardial infarction type 2; R73.01 Impaired fasting glucose; Z79.52 Long term (current) use of systemic steroids; D59.19 Other autoimmune hemolytic anemia; M32.19 Other organ or system involvement in systemic lupus erythematosus; I50.20 Unspecified systolic (congestive) heart failure
CPT/HCPCS: 36415; 81001; 82728; 83036; 83540; 83550; 85025; 87077; 87086; 87088; 87186

== ENCOUNTER 2024-01-10 13:41 | Emergency (ER) | payer MEDICARE, BC, SELFPAY ==
[2024-01-10 14:08] VITALS: BP 114/66; PULSE 83; RESP 18; TEMP 36.1; O2SAT 100
[2024-01-10 15:18] LABS: Basophils Percent Auto 0.2 % (0.2-1.2); Eosinophils Absolute Auto 0.1 K/mm3 (0-0.3); Eosinophils Percent Auto 0.7 % (0-4.4); Hematocrit 39.1 % (37.0-47.0); Immature Granulocyte Absolute 0.11 K/mm3 (0.00-0.031); Immature Granulocyte Percent A 0.9 % (0-0.5); Lymphocytes Absolute Auto 0.54 K/mm3 (0.9-3.2); Lymphocytes Percent Auto 4.2 % (18.3-44.2); Mean Corpuscular HGB Conc 28.1 g/dl (32-36); Mean Corpuscular Hemoglobin 24.6 pg (26-34); Mean Corpuscular Volume 87.3 fl (80-100); Mean Platelet Volume 9.7 fl (7.4-10.4); Monocytes Absolute Auto 0.5 K/mm3 (0.1-0.6); Monocytes Percent Auto 3.8 % (2.6-8.5); Neutrophils Absolute Auto 11.5 K/mm3 (1.3-6.7); Neutrophils Percent Auto 90.2 % (45.5-73.1); Platelet Count Result 391 k/mm3 (150-375); Red Blood Count 4.48 M/mm3 (4.2-5.4); Red Cell Distribution Width 18.5 % (11.5-14.5); White Blood Count 12.8 K/mm3 (4.5-10.0)
[2024-01-10 15:30] LABS: Appearance Urine Cloudy (Clear); Bacteria Urine None Seen /hpf; Bilirubin Urine Negative (Negative); Blood Urine Negative (Negative); Color Urine Yellow (Yellow); Glucose Urine UA 3+ mg/dL (Negative); Ketones Urine Negative (Negative); Leukocyte Esterase Ur 1+ LEU/UL (Negative); Need Manual Microscopic Reviewed; Nitrate Urine Negative (Negative); Protein Urine 2+ mg/dL (Negative); RBC Urine 0-2 /hpf (0-2); Specific Grav Ur 1.018 (1.001-1.035); Squamous Epithelial Cell Urine Moderate /hpf (Few); Urobilinogen Urine 0.2 mg/dL (<2.0); pH Urine 6.5 (5.0-9.0)
[2024-01-10 15:31] LABS: Alanine Aminotransferase 12 U/L (6-35); Albumin Level 4.2 g/dL (3.5-5.1); Alkaline Phosphatase 91 U/L (38-126); Anion Gap 9 mmol/L (4-12); Aspartate Amino Transferase 29 U/L (14-36); Bilirubin,Total 0.7 mg/dL (0.2-1.3); Blood Urea Nitrogen 18 mg/dL (7-17); Calcium 8.9 mg/dL (8.4-10.2); Carbon Dioxide 24 mmol/L (22-30); Chloride 105 mmol/L (98-107); Estimated CRCL calculation 34 ml/min; Estimated Glomerular Filt Rate 54; Glucose 135 mg/dL (65-110); Platelet Estimate Adequate (Adequate); Potassium 3.4 mmol/L (3.4-5.0); Sodium 138 mmol/L (137-145)
[2024-01-10 15:33] LABS: Anisocytosis 2+; Hypochromasia 1+; Ovalocytes 1+; Tear Drop Cells 1+
[2024-01-10 15:34] LABS: Acanthocytes 1+; Schistocytes None Seen
[2024-01-10 15:50] VITALS: BP 139/79; PULSE 71; RESP 18; O2SAT 99
[2024-01-10 15:54] LABS: Add Urine Microscopic? YES
[2024-01-10 17:02] VITALS: BP 144/77; PULSE 68; RESP 17; O2SAT 99
[2024-01-10 17:33] VITALS: BP 141/81; PULSE 71; RESP 15; TEMP 36.9; O2SAT 99
--- NOTE | 2024-01-10 18:36 | ED.RECABL ---
HPI - Recheck/Abnormal Lab/Rx General Chief Complaint: Recheck/Abnormal Lab/Rx Stated Complaint: kidney infection, iv abx Time Seen by Provider: 01/10/24 14:59 History of Present Illness HPI narrative: Patient having left flank pain, was started on antibiotics was not feeling much better, saw and started on more antibiotics, however got blood work just told by her doctor that she needed IV antibiotics Related Data Home Medications Medication Instructions Recorded Confirmed pilocarpine HCl 5 mg tablet 5 mg PO TID PRN Dry Mouth 10/19/19 01/02/24 (Salagen (pilocarpine)) artificial tears solution eye drops 1 drp ophthalmic (eye) DAILY 02/01/23 01/02/24 nitroglycerin 0.4 mg sublingual 0.4 mg sublingual Q5MIN PRN Chest 05/16/23 01/02/24 tablet (Nitrostat) Pain aspirin 81 mg tablet,delayed 81 mg PO DAILY 10/23/23 01/02/24 release (Enteric Coated Aspirin) esomeprazole magnesium 40 mg 40 mg PO DAILY 10/23/23 01/02/24 capsule,delayed release (Nexium) furosemide 20 mg tablet See Rx Instructions PO QAM 10/23/23 01/02/24 metoprolol succinate 25 mg 25 mg PO DAILY 10/23/23 01/02/24 tablet,extended release 24 hr (Toprol XL) prednisone 10 mg tablet 10 mg PO DAILY 10/23/23 01/02/24 rivaroxaban 20 mg tablet (Xarelto) 20 mg PO DAILY 10/23/23 01/02/24 spironolactone 25 mg tablet 25 mg PO DAILY 10/23/23 01/02/24 Allergies Allergy/AdvReac Type Severity Reaction Status Date / Time cat dander Allergy Unknown Sneezing Verified 01/02/24 13:35 house dust Allergy Unknown Sneezing Verified 01/02/24 13:35 mold Allergy Unknown Sneezing Verified 01/02/24 13:35 ciprofloxacin AdvReac Unknown Nausea Verified 01/02/24 13:35 erythromycin base AdvReac Unknown Nausea Verified 01/02/24 13:35 Sulfa (Sulfonamide AdvReac Unknown Nausea Verified 01/02/24 13:35 Antibiotics) Review of Systems Review of Systems: All systems reviewed & are unremarkable except as noted in HPI and below PMFSH Past Medical History Medical History Anemia Anxiety Aortic dissection Asthma C. difficile colitis In August 2010. 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 Colitis Congestive heart disease (~05/16/21) Cough Degenerative joint disease (DJD) of lumbar spine Depression Fibromyalgia GERD (gastroesophageal reflux disease) Heart attack Herniated disc, cervical x2 Osteoarthritis Pancytopenia Paroxysmal atrial fibrillation Pulmonary hypertension Shingles SLE (systemic lupus erythematosus related syndrome) (~1988) Tobacco abuse Surgical History Surgical History H/O cataract extraction H/O cervical discectomy H/O laminectomy History of cardiac radiofrequency ablation History of lumbar fusion History of renal stent History of tonsillectomy Family History Family History Sibling Family history of cardiovascular disease Diabetes mellitus Family history of malignant neoplasm of urinary bladder Hypertension Father Patient's father is , Onset Age: 64 Family history of coronary artery disease Family history of schizophrenia Heart attack Atrial fibrillation Mother Patient's mother is , Onset Age: 89 Family history of coronary artery disease Family history of chronic obstructive pulmonary disease Throat cancer Other Cerebrovascular accident Family history of alcoholism Family history of arthritis Family history of heart disease in male family member before age 55 Family history of kidney disease Family history of malignant neoplasm Family history of mental disorder Family history of tuberculosis Social History Social History Social History: Lives with , he was recently brought back home from memory
== END 2024-01-10 17:34 | disposition home or self-care (01) ==
PROVIDERS: Emergency Medicine; Emergency Provider Emergency Medicine; PCP Emergency Medicine
DX: N12 Tubulo-interstitial nephritis, not specified as acute or chronic (principal); Z79.82 Long term (current) use of aspirin; J45.909 Unspecified asthma, uncomplicated; I25.10 Atherosclerotic heart disease of native coronary artery without angina pectoris; F41.8 Other specified anxiety disorders; K21.9 Gastro-esophageal reflux disease without esophagitis; I48.0 Paroxysmal atrial fibrillation; Z79.01 Long term (current) use of anticoagulants; Z87.891 Personal history of nicotine dependence
CPT/HCPCS: 36415; 80053; 81001; 85025; 87040; 87086; 96365; 99284; J0696

== ENCOUNTER 2024-12-18 12:30 | Outpatient (NON) | payer MEDICARE, BC, SELFPAY ==
--- OUTSIDE RECORDS SUMMARY | 2024-12-18 12:37 | XMS_ITS | Clinical Summary ---
Author Organization [facility] Camilo Hawthorne Address [address] [place] [address] Care Team Providers Care Flight Crew Scheduler Name Role Phone Oswald Wells MD Primary Care Provider [phone] Allergies Active Allergy Reactions Criticality Noted Date Comments Cat Dander Other (See Comments) Low 06/21/2021 allergies Ciprofloxacin Other (See Comments) Low 06/21/2021 Allergies Erythromycin Other (See Comments) Low 06/21/2021 Allergies House Dust Other (See Comments) Low 06/21/2021 allergies Mold Other (See Comments) Low 06/21/2021 allergies Sulfa (Sulfonamide Antibiotics) Rash Medium 05/20/2012 Medications pregabalin (LYRICA) 150 mg Capsule Take 150 mg by mouth. Active furosemide (LASIX) 20 mg tablet Take 20 mg by mouth daily. Active FLUoxetine (PROzac) 20 mg tablet Take 20 mg by mouth daily. Active acetaminophen (TYLENOL ORAL) Take by mouth. Active azaTHIOprine (IMURAN) 50 mg tablet Take 50 mg by mouth daily. Active aspirin (ECOTRIN EC) 81 mg Tablet, Delayed Release (E.C.) Take 81 mg by mouth daily. Active fluticasone propion/salmete rol (ADVAIR HFA INHALATION) Take by inhalation. Active cyanocobalamin, vitamin B-12, (VITAMIN B12 ORAL) Take by mouth. Activ e predniSONE (DELTASONE) 10 mg tablet TK 1 T PO D 0 Active nystatin (MYCOSTATIN) 100,000 unit/gram Ointment FEDE EXT AA BID 8 Active metroNIDAZOLE (FLAGYL) 500 mg tablet TK 1 T PO Q 8 H. NO ALCOHOL WITH MEDICATION AND 3 DAYS AFTER 0 Active ALPRAZolam (XANAX) 0.5 mg tablet TK 1 T PO BID PRF ANXIETY 0 Active albuterol HFA 90 mcg inhaler INL 1 PUFF PO BID 0 Active albuterol HFA 90 mcg inhaler INL 2 PFS PO Q 4 H PRN 8 Active traMADoL (ULTRAM) 50 mg tablet TK 1 T PO QID PRN P 0 Active methocarbamoL (ROBAXIN) 750 mg tablet TK 1 T PO TID PRF MSP 0 Active Irbesartan (AVAPRO) 300 mg tablet TK 1 T PO D 0 Active amiodarone (CORDARONE) 200 mg tablet 2 Active atorvastatin (LIPITOR) 40 mg tablet 2 Active clopidogreL (PLAVIX) 75 mg Tablet Take 75 mg by mouth daily. 2 Active BinaxNOW COVID-19 Ag Self Test Kit Use as Directed on the Package 2 Active Trelegy Ellipta 100-62.5-25 mcg Disk with Device INHALE 1 PUFF BY MOUTH DAILY. RINSE AND SPIT AFTER EACH USE.TAKE AT THE SAME TIME EVERY DAY 2 Active nystatin-triamc inolone (MYCOLOG) 100,000-0.1 unit/gram-% Ointment APPLY TO THE AFFECTED AREA TWICE DAILY TO THREE TIMES DAILY 2 Active Xarelto 20 mg Tablet 2 Active potassium chloride (MICRO-K EXTENCAPS) 10 mEq Extended Release capsule 2 Active naloxone (NARCAN) 4 mg/spray [place], Non-Aerosol EMERGENCY USE ONLY: Administer 1 spray (4 mg) in one nostril one time. May repeat in alternating nostrils every 2-3 min until responsive or EMS arrives. 2 Each 3 2 Active Active Problems Problem Noted Date Diagnosed Date Stage 3 chronic kidney disease 06/01/2020 Chronic anemia 11/24/2019 Systemic lupus erythematosus 11/24/2019 Encounters Date Type Department Care Team Description 11/18/2024 Orders Only [facility] Oncology and Hematology - [place] [address] [place] [id number] Júnior Olmedo MD Chronic anemia (Primary Dx) 11/11/2024 External Device Data [facility] ABSTRACTION Provider, Abstract 10/31/2024 External Device Data [facility] ABSTRACTION Provider, Abstract 10/30/2024 External Device Data [facility] ABSTRACTION Provider, Abstract 10/27/2024 External Device Data [facility] ABSTRACTION Provider, Abstract from Last 3 Months Family History Medical History Relation Name Comments Cancer Brother 2 Heart Disease Father Diabetes Mother Heart Disease Mother Diabetes Sister 2 Relation Name Status Comments Brother 1 Alive Brother 2 Daughter Father Mother Sister 1 Alive Sister 2 Alive Son 1 Alive Son 2 Alive Social History Tobacco Use Types Packs/Day Years Used Date Smoking Tobacco: Every Day Cigarettes 1 25 Smokeless Tobacco: Never Tobacco Cessation:Ready to Q uit: Not Asked; Counseling Given: Not Answered Alcohol Use Standard Drinks/Week Comments Never 0 (1 standard drink = 0.6 oz pur e alcohol) Comments No Sex and Gender Information Value Date Recorded Sex Assigned at Not on file Legal Sex Female 3:59 PM CDT Gender Identity Not on file Sexual Orientation Not on file Last Filed Vital Signs Vital Sign Reading Time Taken Comments Blood Pressure 122/61 05/24/2022 11:34 AM CDT Pulse 61 05/24/2022 11:34 AM CDT Temperature 36.2 C (97.1 F) 05/24/2022 11:34 AM CDT Respiratory Rate - - Oxygen Saturation 98% 05/24/2022 11:34 AM CDT Inhaled Oxygen Concentration - - Weight 69.9 kg (154 lb) 05/24/2022 11:34 AM CDT Height 160 cm (5' 3 ) 05/24/2022 11:34 AM CDT Body Mass Index 27.28 05/24/2022 11:34 AM CDT Plan of Treatment Upcoming Encounters Date Type Department Care Team (Late st Contact Info) Description 02/22/2025 2:30 PM CDT Office Visit [facility] Oncology and Hematology [place] [address] [place] [id number] Júnior Olmedo MD [address] [facility] [address] [place] [address] Health Maintenance Due Date Last Done Comments ZOSTER VACCINE (1 of 2) 1996 OSTEOPOROSIS SCREENING 2011 PNEUMOCOCCAL VACCINE 50+ YEA RS (2 of 2 - PPSV23) 08/27/2016 07/02/2016 RSV VACCINE (60+ or ) (1 - 1-dose 75+ series) 2021 INFLUENZA VACCINE (#1) 2024 9, 05/24/2018, 05/23/2018, Additional history exists DTAP/TDAP/TD VACCINES (2 - T d or Tdap) 04/16/2025 04/16/2015 COLORECTAL SCREENING Discontinued 05/02/2021 Colorectal Cancer Screening Discontinued FIT-DNA Q 3 years Discontinued FIT/FOBT Q 1 year Discontinued Flex Sig/CT Colonography Q 5 years Discontinued Insurance MEDICARE PART A AND B [facility] Care Teams Flight Crew Scheduler Relationship Specialty Start Date End Date Oswald Wells MD [address] [place] [address] PCP - General Family Practice 11/02/19
--- OUTSIDE RECORDS SUMMARY | 2024-12-18 12:38 | XMS_ITS | Referral Summary ---
Author Organization [facility] Address [address] [place] [address] Care Team Providers Care Human Service Specialist Name Role Phone Keshav Gregory MD Unavailable [phone] David Samson MD PhD Unavailable + Kashif Barrientos MD Unavailable [phone] Ike Perace MD Unavailable [phone] Keisha Xiong MD Primary Care Provider [phone] Dana Mcintosh RN Unavailable Unavailable Yisel Jacobs RN Unavailable Unavaila Marie Cary Unavailable Unavailable Encounters Date Type Department Care Team Description 12/01/2024 2:19 PM CDT - 12/09/2024 9:30 PM CDT Hospital Encounter [facility] [id number] [place] [address] Jordan Castillo MD Berhil, Anis, MD Ahmad, Bazgha Imtiaz, DO Teckchandani, Renu, MD Chronic obstructive pulmonary disease, unspecified COPD type (HCC) (Primary Dx); Shortness of breath; Acute on chronic heart failure, unspecified heart failure type (HCC); Atrial fibrillation, unspecified type (HCC); Pneumonia due to infectious organism, unspecified laterality, unspecified part of lung; 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) [J84.9, M35.9]; Paroxysmal atrial fibrillation with RVR (HCC) [I48.0]; Acute on chronic systolic congestive heart failure (HCC) [I50.23]; Lung nodule [R91.1]; 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); Acute on chronic systolic congestive heart failure (HCC); Chronic fatigue; Ischemic cardiomyopathy; Stage 3 chronic kidney disease, unspecified whether stage 3a or 3b CKD (HCC); Lung nodule Discharge Disposition: Discharge to a short term hospital for IP 12/08/2024 Telephone [facility] [address] [place] [address] Keshav Gregory MD 10/29/2024 8:32 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 - 10/29/2024 11:59 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 Hospital Encounter [facility] [address] [place] [address] Discharge Disposition: Discharge to home or self care from Last 3 Months Allergies Active Allergy Reactions Criticality Noted Date Comments Cat Dander Other (See comments) Low 06/21/2021 allergies allergies Ciprofloxacin Other (See comments) Low 06/21/2021 Allergies Allergies Erythromycin Other (See comments) Low 06/21/2021 Allergies Allergies House Dust Other (See comments) Low 06/21/2021 allergies allergies Mold Other (See comments) Low 06/21/2021 allergies allergies Sulfa (Sulfonamide Antibiotics) Unknown 10/13/2014 Medications FLUoxetine (PROzac) 20 mg capsule Take 1 capsule (20 mg total) by mouth daily 1 12/27/19 18 Active pregabalin (LYRICA) 150 mg capsule Take 1 capsule (150 mg total) by mouth 2 (two) times a day 09/10/19 13 Active ALPRAZolam (XANAX) 0.5 mg tablet Take 1 tablet (0.5 mg total) by mouth 2 (two) times a day as needed 3 02/08/20 18 Active traMADoL (ULTRAM) 50 mg tablet Take 1 tablet (50 mg total) by mouth every 6 (six) hours as needed 03/30/20 20 Active nitroglycerin (NITROSTAT) 0.4 mg SL tablet Take 1 tablet (0.4 mg total) by mouth every 5 (five) minutes as needed 05/21/20 21 Active Saccharomyces boulardii (FLORASTOR) 250 mg capsule Take 1 capsule (250 mg total) by mouth daily Active artificial tears,hypromell ose, 0.3 % drops Administer 1 drop into both eyes daily as needed Active aspirin (Adult Low Dose Aspirin) 81 mg enteric coated tablet Take 1 tablet (81 mg total) by mouth daily 06/05/20 23 Active albuterol HFA (PROVENTIL HFA,VENTOLIN HFA,PROAIR HFA) 90 mcg/actuation inhaler Inhale 2 puffs every 6 (six) hours as needed for wheezing Active potassium chloride ER 10 mEq CR tablet Take 1 tablet/capsule (10 mEq total) by mouth daily 90 tablet/capsu le 2 11/28/19 24 Active azaTHIOprine (IMURAN) 50 mg tablet Take 1 tablet (50 mg total) by mouth daily 01/01/20 24 Active ipratropium (ATROVENT) 0.02 % nebulizer solution Take 2.5 mL (0.5 mg total) by nebulization every 6 (six) hours as needed 11/21/19 24 Active predniSONE (DELTASONE) 5 mg tablet Take 0.5 tablets (2.5 mg) by mouth daily 11/13/19 24 Active Trelegy Ellipta 100-62.5-25 mcg inhaler Inhale 1 puff daily 3 each 3 02/05/20 24 Active clopidogreL (PLAVIX) 75 mg tablet Take 1 tablet (75 mg total) by mouth daily 10/06/19 25 Active furosemide (LASIX) 40 mg tablet Take 1 tablet (40 mg total) by mouth daily 12/11/19 25 026 Active metoprolol XL (TOPROL-XL) 25 mg extended release tablet Take 0.5 tablets (12.5 mg total) by mouth daily 12/11/19 25 026 Active empagliflozin (JARDIANCE) 10 mg tabletIndicatio ns:Heart Failure Take 1 tablet (10 mg total) by mouth daily 12/11/19 25 Active folic acid (FOLVITE) 1 mg tablet Take 1 tablet (1 mg total) by mouth daily 12/11/19 25 026 Active losartan (COZAAR) 25 mg tablet Take 0.5 tablets (12.5 mg total) by mouth daily 12/10/19 25 Active spironolactone (ALDACTONE) 25 mg tablet Take 1 tablet (25 mg total) by mouth daily 12/11/19 25 Active HYDROcodone-booker taminophen (NORCO) 10-325 mg per tabletIndicatio ns:Pain Take 1 tablet by mouth every 8 (eight) hours as needed 02/06/20 11 025 Discontin ued(Patie nt Reported) esomeprazole DR (NexIUM) 40 mg capsule Take 1 capsule (40 mg total) by mouth daily as needed 12/27/19 08 025 Discontin ued(Patie nt Reported) pilocarpine (SALAGEN) 5 mg tablet Take 1 tablet (5 mg total) by mouth 3 (three) times a day as needed 025 Discontin ued(Patie nt Reported) atorvastatin (LIPITOR) 40 mg tabletIndicatio ns:Coronary artery disease of [place] artery of [place] heart with stable angina pectoris Take 1 tablet (40 mg total) by mouth daily 90 tablet 3 02/22/20 23 025 Discontin ued(Patie nt Reported) cyclobenzaprine (FLEXERIL) 10 mg tablet Take 1 tablet (10 mg total) by mouth nightly as needed for muscle spasms 025 Discontin ued(Patie nt Reported) dapagliflozin propanediol (FARXIGA) 10 mg tabletIndicatio ns:Heart Failure Take 1 tablet (10 mg total) by mouth daily 30 tablet 11 07/25/20 23 025 Discontin ued(Patie nt Reported) furosemide (LASIX) 20 mg tablet Take 1 tablet (20 mg total) by mouth 2 (two) times a day 180 tablet 07/26/20 23 025 Discontin ued(Dupli marie order) metoprolol XL (TOPROL-XL) 25 mg extended release tablet Take 1 tablet (25 mg total) by mouth daily 90 tablet 07/27/20 23 025 Discontin ued(Stop Taking at Discharge ) spironolactone (ALDACTONE) 25 mg tablet Take 1 tablet (25 mg total) by mouth daily 90 tablet 07/27/20 23 025 Discontin ued(Patie nt Reported) FLUoxetine (PROzac) 20 mg tablet Take 1 tablet (20 mg total) by mouth daily 11/12/19 24 025 Discontin ued(Dupli marie order) valACYclovir (VALTREX) 1 gram tablet Take 1 tablet (1,000 mg total) by mouth 2 (two) times a day 01/02/20 24 025 Discontin ued(Patie nt Reported) sacubitriL-vals rohit (ENTRESTO) 24-26 mg tabletIndicatio ns:chronic heart failure Take 1 tablet by mouth 2 (two) times a day 60 tablet 11 02/03/20 24 025 Discontin ued(Patie nt Reported) rivaroxaban (Xarelto) 20 mg tablet TAKE 1 TABLET(20 MG) BY MOUTH DAILY 30 tablet 2 08/03/20 24 025 Discontin ued(Patie nt Reported) furosemide (LASIX) 20 mg tablet Take 1 tablet (20 mg total) by mouth 2 (two) times a day 025 Discontin ued(Stop Taking at Discharge ) Active Problems Problem Noted Date Diagnosed Date Shortness of breath 12/02/2024 Lung nodule 12/02/2024 Acute respiratory failure with hypoxia Paroxysmal atrial fibrillation with RVR 12/02/19 25 COPD (chronic obstructive pulmonary disease) 03/2025 Interstitial lung disease due to collagen vascul ar disease 12/01/2024 Opacities of both lungs present on chest x-ray 0 12/01/2024 Anxiety 12/01/2024 Presence of Watchman left atrial appendage closu re device 12/01/2024 Acute on chronic systolic congestive heart failu re 02/04/2024 Recurrent falls 11/05/2023 Severe protein-calorie malnutrition 07/20/2023 Acute systolic heart failure 07/19/2023 Lupus (systemic lupus erythematosus) 07/19/2023 QT prolongation 05/15/2023 Orthostatic hypotension 05/09/2022 Acute diastolic congestive heart failure 022 Anticoagulation management encounter 04/01/2022 Assessment & Plan (04/01/2022 1:11 PM CDT): The patient has a [id number] score of 6 (annualized risk of stroke HIGH). I have therefore recommended continued anticoagulation for thromboprophylaxis. Chronic anticoagulation 02/06/2022 Chronic fatigue 02/06/2022 Mixed hyperlipidemia 10/04/2021 S/P coronary artery stent placement 10/04/2021 Chronic HFrEF (heart failure with reduced ejection fraction) 10/04/2021 Persistent atrial fibrillation 10/04/2021 Assessment & Plan (04/01/2022 1:10 PM CDT): Patient has highly symptomatic persistent atrial fibrillation that has been refractory to antiarrhythmic drug therapy. We discussed catheter ablation. We discussed the rationale for atrial fibrillation ablation, including the steps involved in ablation. I detailed the risks of the procedure, including vascular injury/hematoma, myocardial injury/perforation, stroke, myocardial infarction, pulmonary vein stenosis, thermal esophageal injury, phrenic nerve injury, and . I estimated a 70% chance of freedom from long-term atrial arrhythmia, and the patient understands that occasionally a second procedure is necessary. Because of the patient's persistent atrial fibrillation, I recommended that they undergo transesophageal echocardiography (to exclude the presence of left atrial thrombus) immediately prior to EP study and ablation. My office will make the appropriate arrangements From: August, Tito LS, Massiel JS, Jeannette H, Bernard CHERYL, Peggy JE, Mindi DENNIS, Brice PT, Jenny IRENE, ME, Valente KT, Rigoberto RL, Dominic WG, Ernestine PJ, Jojo CM, Jessica CW. 2014 AHA/ACC/HRS guideline for the management of patients with atrial fibrillation: a report of the [place] College [employer]/[place] Heart Association Task Force on Practice Guidelines and the Heart Rhythm Society. J Am Molly Cardiol 2014. 6.3. AF Catheter Ablation to Maintain Sinus Rhythm: Recommendations Class IIa AF catheter ablation is reasonable for selected patients with symptomatic persistent AF refractory or intolerant to at least 1 class I or III antiarrhythmic medication (388, [phone]). (Level of Evidence: A) Ischemic cardiomyopathy 06/21/2021 Coronary artery disease invo [place]ving [place] coronary artery of [place] heart without angina pectoris 06/21/2021 Atherosclerosis of [place] le[place] of both lower extremities with intermittent claudication (CMS/HCC) 11/25/2020 Assessment & Plan (11/25/2020 5:50 PM CDT): Impression: Stable nondisabling claudication both lower extremities. She has patent common iliac artery stenting bilaterally with no progressive stenosis of either lower extremity. No rest pain or ischemic ulcerations currently. Plan: No surgical intervention currently needed. Recommend ongoing risk factor modifications and follow-up in 6 months for re-evaluation and repeat lower extremity arterial duplex surveillance. Traumatic leg injury, left, initial encounter Assessment & Plan (06/02/2020 9:25 AM CDT): Patient had a fall 5-6 weeks ago that resulted in mild soft tissue trauma. Patient states her symptoms are markedly improved. No evidence of skin compromise. Lower extremities are well perfused follow-up 6 months for repeat duplex. No further workup needed. Stage 3 chronic kidney disease 06/01/2020 Symptomatic anemia 11/24/2019 Status post insertion of iliac artery stent 10/24 Assessment & Plan (06/02/2020 9:26 AM CDT): Patient has no recurrence lower extremity claudication symptoms. Continue anti-platelet therapy. Stents are patent. Bilateral carotid artery stenosis 11/06/2019 Assessment & Plan (11/25/2020 5:48 PM CDT): Impression: Patient with recent episode of blurred vision and vertigo with questionable left-sided weakness. She had MRI following this episode that was ordered by her primary care physician which was negative for any cranial pathology. She denied any associated facial droop, amaurosis fugax or speech disturbances. Her carotid duplex surveillance revealed stable bilateral carotid artery disease with a moderate right internal carotid stenosis which remains unchanged. Upon examination I noticed a irregular heart rhythm and patient reported a history of dysrhythmias. She has not followed by cardiology. Plan: Patient to sign release of information to obtain her recent MRI. Also recommended following up with her primary care physician to further evaluate her arrhythmia as this could be a potential embolic source if she indeed did experience a TIA. Otherwise patient to follow-up in 6 months for re-evaluation and repeat carotid duplex surveillance. Assessment & Plan (06/02/2020 9:25 AM CDT): Patient has stable moderate right internal carotid artery stenosis no surgical intervention needed currently. Continue ongoing risk factor modification 6 month duplex. Long-term use of Plaquenil 11/26/2018 Assessment & Plan (12/03/2018 10:41 AM CDT): No definitive changes related to toxicity based on HVF 10-2 today. However, given the time horizon that the patient has been taking plaquenil 400mg/day, her cumulative dose would be well over 4,000 grams. Given her age (73) and the fact that above 1,000 grams cumulative dose is very high risk for toxicity, along with some subtle ellipsoid zone changes on the macular OCT, I would not recommend restarting plaquenil. Letter to Dr. Lo in rheumatology. Assessment & Plan (11/26/2018 1:16 PM CDT): Use since 1988. No obvious abnormalities on OCT today. Sjogren's syndrome without extraglandular involv ement 11/26/2018 Assessment & Plan (11/26/2018 1:20 PM CDT): +SSA, SSB antibodies. Admits xerostomia and FBS c/f xerophthalmia. Not using AT's reguarly. Her tear film appears decreased after receiving topical anesthesia and phenylephrine. She also has MGD/blepharitis which may be affecting her tear film. AT's QID OU. Needs [employer] testing next appointment prior to any drops. Meibomian gland dysfunction (MGD) of upper and lower lids of both eyes 11/26/2018 Tobacco dependence syndrome 01/09/2014 Overview (11/29/2016): TOBACCO USE DISORDER Assessment & Plan (11/25/2020 5:51 PM CDT): Tobacco abuse with significant smoking history who is currently a every day smoker. I had a lengthy greater than 3 minute discussion with the patient on the importance of smoking cessation and the overall negative affects on her entire cardiovascular system. The patient is currently not interested in quitting. Primary hypertension 01/09/2014 Overview (11/30/2016): HYPERTENSION NOS Assessment & Plan (11/25/2020 5:49 PM CDT): Impression: Chronic hypertension on daily antihypertensive regimen. Patient states since her questionable TIA episode which occurred approximately 1 month ago she has been experiencing uncontrolled hypertension. Plan: I recommend following up with her primary care physician to further evaluate her uncontrolled hypertension and potential medication adjustment. Assessment & Plan (06/02/2020 9:26 AM CDT): Per patient blood pressure is controlled. Continue medical therapy per PCP Abnormal result of cardiovascular function study 01/09/2014 Overview (12/01/2016): Nonspecific abnormal cardiovascular function study Resolved Problems Problem Noted Date Diagnosed Date Resolved Date A-fib 04/13/2022 07/19/2023 Immunizations Immunization Administration Dates Next Due Influenza, Quadrivalent, Rec ombinant, Egg Free, Preservative Free, Intramuscular 05/18/2019 Influenza, Trivalent, Adjuvanted, Intramuscular 05/24/2018,05/23/2018 Influenza, Trivalent, High D ose, Split, Preservative Free, Intramuscular 06/02/2017,07/02/2016 Influenza, Trivalent, IM (MDV) 07/12/2014 Pneumococcal Conjugate PCV 13 07/02/2016 Tdap 04/16/2015 Social History Tobacco Use Types Packs/Day Years Used Date Smoking Tobacco: Former Cigarettes Q uit: 05/28/2020 Smokeless Tobacco: Never Tobacco Cessation:Counseling Given: Not Answered [facility] Utilities Answer Date Recorded In the past 12 months has [employer], or water [employer] threatened to shut off services in your home? No 12/02/2024 Social Connection and Isolat ion Panel [NHANES] Answer Date Recorded In a typical week, how many times do you talk on the phone with family, friends, or neighbors? More than three times a week 12/02/2024 How often do you get togethe r with friends or relatives? Never 12/02/2024 How often do you attend [facility] or gnosticist services? Never 12/02/2024 Do you belong to any clubs o r organizations such as jainism groups, unions, fraternal or athletic groups, or school groups? No 12/02/2024 How often do you attend meet ings of the clubs or organizations you belong to? Never 12/02/2024 Are you , , di vorced, , never , or living with a partner? 12/02/2024 Overall Financial Resource Strain (CARDIA) Answe r Date Recorded How hard is it for you to pa y for the very basics like food, housing, medical care, and heating? Not very hard 12/02/2024 Hunger Vital Sign Answer Date Recorded Within the past 12 months, y ou worried that your food would run out before you got the money to buy more. Never true 12/03/19 25 Ran Out of Food in the Last Year Not on file 12/02/2024 PRAPARE - Transportation Answer Date Re corded In the past 12 months, has l ack of transportation kept you from medical appointments or from getting medications? No 04/2025 In the past 12 months, has l ack of transportation kept you from meetings, work, or from getting things needed for daily living? No 12/02/2024 Housing Stability Vital Sign Answer Kavon e Recorded In the last 12 months, was t here a time when you were not able to pay the mortgage or rent on time? No 07/23/2023 In the last 12 months, how many places have you lived? 1 07/23/2023 In the last 12 months, was t here a time when you did not have a steady place to sleep or slept in a senior living (including now)? No 07/23/2023 Housing Stability Vital Sign Answer Kavon e Recorded In the last 12 months, was t here a time when you were not able to pay the mortgage or rent on time? No 12/02/2024 In the past 12 months, how m any times have you moved where you were living? 0 12/02/2024 At any time in the past 12 m [facility], were you homeless or living in a senior living (including now)? No 12/02/2024 Personal Safety Answer Date Recorded Have you ever been in or are you currently in a harmful physical or emotional relationship or is someone making you feel afraid or unsafe? 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 Gender Identity Not on file Sexual Orientation Not on file Last Filed Vital Signs Vital Sign Reading Time Taken Comments Blood Pressure 124/44 12/09/2024 8:24 PM CDT notified rn Pulse 55 12/09/2024 9:15 PM CDT d/c strip Temperature 36.9 C (98.4 F) 12/09/2024 8:24 PM CDT Respiratory Rate 18 12/09/2024 8:24 PM CDT Oxygen Saturation 100% 12/09/2024 5:5 7 PM CDT Inhaled Oxygen Concentration - - Weight 53.3 kg (117 lb 8.1 oz) 12/10/19 10:01 AM CDT Height 162.6 cm (5' 4 ) 12/01/2024 6:20 PM CDT Body Mass Index 20.17 12/01/2024 6:20 PM CDT Plan of Treatment Not on file Medical Devices Implanted Type Area Light Bulb Replacer Device Identifier Shelf Expiration Date Model / Serial / Lot [employer] Vascade Mvp 6-12fr Venous Closure [id number] - [id number] - [id number] Implanted:Qty: 1 on 04/13/2022 by Ike Pearce MD at [facility] [employer] 02/06/2024 800-612C-1 0U / [id number] / [id number] [employer] Vascade Mvp 6-12fr Venous Closure [id number] - [id number] - [id number] Implanted:Qty: 1 on 04/13/2022 by Iek Pearce MD at [facility] [employer] 02/06/2024 800-612C-1 0U / [id number] / [id number] [employer] Vascade Mvp 6-12fr Venous Closure [id number] - [id number] - [id number] Implanted:Qty: 1 on 04/13/2022 by Ike Pearce MD at [facility] [employer] 02/06/2024 800-612C-1 0U / [id number] / [id number] [employer] Vascade Mvp 6-12fr Venous Closure [id number] - [id number] - [id number] Implanted:Qty: 1 on 04/13/2022 by Ike Pearce MD at [facility] [employer] 02/06/2024 800-612C-1 0U / [id number] / [id number] Procedures Procedure Name Priority Date/Time Associated Diagnosis Comments POCT GLUCOSE DEVICE Routine 12/09/2024 9 :13 PM CDT POCT GLUCOSE DEVICE Routine 12/09/2024 5 :34 PM CDT XR SHOULDER RIGHT 2 OR MORE VIEWS IP Routine 12/09/2024 1:16 PM CDT XR KUB IP Routine 12/09/2024 1:16 PM CDT POCT GLUCOSE DEVICE Routine 12/09/2024 1 2:25 PM CDT POCT GLUCOSE DEVICE Routine 12/09/2024 6 :27 AM CDT EGFR Routine 12/09/2024 4:30 AM CDT BASIC METABOLIC PANEL Routine 12/09/2024 4:30 AM CDT POCT GLUCOSE DEVICE Routine 12/08/2024 9 :29 PM CDT POCT GLUCOSE DEVICE Routine 12/08/2024 6 :09 PM CDT POCT GLUCOSE DEVICE Routine 12/08/2024 1 :23 PM CDT ECG 12-LEAD STAT 12/08/2024 11:33 AM CDT POCT GLUCOSE DEVICE Routine 12/08/2024 8 :41 AM CDT EGFR Routine 12/08/2024 3:51 AM CDT MAGNESIUM Routine 12/08/2024 3:51 AM CDT BASIC METABOLIC PANEL Routine 12/08/2024 3:51 AM CDT POCT GLUCOSE DEVICE Routine 12/07/2024 8 :13 PM CDT POCT GLUCOSE DEVICE Routine 12/07/2024 6 :03 PM CDT POCT GLUCOSE DEVICE Routine 12/07/2024 1 2:45 PM CDT ADD ON LAB TEST Add-On 12/07/2024 10:18 AM CDT POCT GLUCOSE DEVICE Routine 12/07/2024 8 :06 AM CDT PRO B-TYPE NATRIURETIC PEPTIDE Routine 12/07/2024 4:38 AM CDT EGFR Routine 12/07/2024 4:38 AM CDT BASIC METABOLIC PANEL Routine 12/07/2024 4:38 AM CDT POCT GLUCOSE DEVICE Routine 12/06/2024 8 :49 PM CDT POCT GLUCOSE DEVICE Routine 12/06/2024 5 :45 PM CDT HOME O2 EVAL (DESATURATION SCREEN) Routine 12/06/2024 1:22 PM CDT POCT GLUCOSE DEVICE Routine 12/06/2024 1 2:50 PM CDT XR CHEST 1 VIEW IP Routine 12/06/2024 11:29 AM CDT POCT GLUCOSE DEVICE Routine 12/06/2024 8 :23 AM CDT EGFR Routine 12/06/2024 4:18 AM CDT BASIC METABOLIC PANEL Routine 12/06/2024 4:18 AM CDT POCT GLUCOSE DEVICE Routine 12/05/2024 8 :24 PM CDT POCT GLUCOSE DEVICE Routine 12/05/2024 6 :14 PM CDT POCT GLUCOSE DEVICE Routine 12/05/2024 1 2:49 PM CDT INFECTION PREVENTION SRIDEVI AURIS PCR, SURVEILLANCE Routine 12/05/2024 11:00 AM CDT POCT GLUCOSE DEVICE Routine 12/05/2024 6 :05 AM CDT EGFR Routine 12/05/2024 4:52 AM CDT BASIC METABOLIC PANEL Routine 12/05/2024 4:52 AM CDT POCT GLUCOSE DEVICE Routine 12/04/2024 8 :55 PM CDT POCT GLUCOSE DEVICE Routine 12/04/2024 6 :00 PM CDT POCT GLUCOSE DEVICE Routine 12/04/2024 1 2:39 PM CDT ADD ON LAB TEST Add-On 12/04/2024 9:20 AM CDT ADD ON LAB TEST Add-On 12/04/2024 6:36 AM CDT ADD ON LAB TEST Add-On 12/04/2024 6:36 AM CDT HEMOGLOBIN A1C Routine 12/04/2024 5:14 AM CDT FOLATE Routine 12/04/2024 5:14 AM CDT VITAMIN B12 Routine 12/04/2024 5:14 AM CDT EGFR Routine 12/04/2024 5:14 AM CDT DIFFERENTIAL AUTO Routine 12/04/2024 5:1 4 AM CDT FERRITIN Routine 12/04/2024 5:14 AM CDT IRON PROFILE W/ IBC Routine 12/04/2024 5 :14 AM CDT PRO B-TYPE NATRIURETIC PEPTIDE Routine 12/04/2024 5:14 AM CDT PHOSPHORUS Routine 12/04/2024 5:14 AM CDT MAGNESIUM Routine 12/04/2024 5:14 AM CDT COMPREHENSIVE METABOLIC PANEL Routine 12/04/2024 5:14 AM CDT CBC WITH AUTO DIFFERENTIAL Routine 12/04/2024 5:[address] HEAD WO CONTRAST IP Routine 12/03/2024 9 :55 AM CDT EGFR Routine 12/03/2024 9:23 AM CDT DIFFERENTIAL AUTO Routine 12/03/2024 9:2 3 AM CDT PHOSPHORUS Routine 12/03/2024 9:23 AM CDT MAGNESIUM Routine 12/03/2024 9:23 AM CDT COMPREHENSIVE METABOLIC PANEL Routine 12/03/2024 9:23 AM CDT CBC WITH AUTO DIFFERENTIAL Routine 12/03/2024 9:23 AM CDT TRANSTHORACIC ECHO (TTE) COMPLETE W DOPPLER/CF WO CONTRAST Routine 12/02/2024 4:[address] HEAD WO CONTRAST IP Routine 12/02/2024 8 :02 AM CDT EGFR Routine 12/02/2024 5:19 AM CDT DIFFERENTIAL AUTO Routine 12/02/2024 5:1 9 AM CDT LIPID PANEL Routine 12/02/2024 5:19 AM CDT CBC WITH AUTO DIFFERENTIAL Routine 12/02/2024 5:19 AM CDT MAGNESIUM Routine 12/02/2024 5:19 AM CDT RENAL FUNCTION PANEL Routine 12/02/2024 5:19 AM CDT RESPIRATORY PATHOGEN PANEL Routine 12/01/2024 8:44 PM CDT ADD ON LAB TEST Add-On 12/01/2024 6:41 PM CDT TROPONIN T HIGH-SENSITIVITY 4-HR Timed 12/01/2024 5:53 PM CDT URINALYSIS, MICROSCOPIC ONLY STAT 12/01/2024 4:51 PM CDT URINALYSIS AND REFLEX TO MICROSCOPIC AND CULTURE STAT 12/01/2024 4:51 PM CDT TROPONIN T HIGH-SENSITIVITY 2-HOUR Timed 12/01/2024 3:[address] CHEST PE W CONTRAST ED 12/01/2024 3:29 PM CDT XR CHEST PA LATERAL 2 VIEWS ED 12/01/2024 2:07 PM CDT PROCALCITONIN STAT 12/01/2024 1:22 PM CDT EGFR STAT 12/01/2024 1:22 PM CDT DIFFERENTIAL AUTO STAT 12/01/2024 1:2 2 PM CDT PRO B-TYPE NATRIURETIC PEPTIDE STAT 12/01/2024 1:22 PM CDT TROPONIN T HIGH-SENSITIVITY SERIES (BASELINE, 2HR, 4HR, 6HR) STAT 12/01/2024 1:22 PM CDT CBC WITH AUTO DIFFERENTIAL STAT 12/01/2024 1:22 PM CDT COMPREHENSIVE METABOLIC PANEL STAT 12/01/2024 1:22 PM CDT ECG 12-LEAD Routine 12/01/2024 12:59 PM CDT FERRITIN Routine 10/29/2024 2:30 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 IRON PROFILE W/ IBC Routine 10/29/2024 2 :30 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 EGFR Routine 10/29/2024 2:30 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 DIFFERENTIAL AUTO Routine 10/29/2024 2:3 0 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 CREATININE Routine 10/29/2024 2:30 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 HEPATIC FUNCTION PANEL Routine 10/29/2024 2:30 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 CBC WITH AUTO DIFFERENTIAL Routine 10/29/2024 2:30 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 HEPATITIS C ANTIBODY Routine 12/10/2018 2:44 PM CDT Sjogren's syndrome, with unspecified organ involvement Encounter for long-term (current) use of high-risk medication from Last 3 Months or Most Recently Relevant to Health Maintenance Results * POCT glucose (12/09/2024 9:13 PM CDT) Glucose, POC 113 70 - 199 mg/dL Comment: For Glucose values <35 mg/dl when Hematocrit is >60 mg/dl,the test may not accurately detect significant hypoglycemia,and testing in the Laboratory should be considered if clinically indicated. POC Performer [id number] [facility] Blood 12/09/2024 9:13 PM CDT 12/09/2024 9:13 PM CDT Mabel Leary MD LAB POCT ORDERABLES - DEVIC E Final Result Performing Organization Address [facility] Co de Phone Number [facility] [address] [place] [address] * POCT glucose (12/09/2024 5:34 PM CDT) [facility] Glucose, POC 143 70 - 199 mg/dL Comment: For Glucose values <35 mg/dl when Hematocrit is >60 mg/dl,the test may not accurately detect significant hypoglycemia,and testing in the Laboratory should be considered if clinically indicated. POC Performer [id number] [facility] Blood 12/09/2024 5:34 PM CDT 12/09/2024 5:34 PM CDT Mabel Leary MD LAB POCT ORDERABLES - DEVIC E Final Result Performing Organization Address [facility] Co de Phone Number [facility] [address] [place] [address] * XR Kub (12/09/2024 1:16 PM CDT) Anatomical Region Laterality Modality Body, Abdomen N/A Computed Radiogr aphy 12/09/2024 1:39 PM CDT Impressions 12/09/2024 1:42 PM CDT Right shoulder: There is moderate acromioclavicular and mild glenohumeral joint osteoarthritis. Alignment is normal. No acute fracture. Initial thickening better assessed on chest radiograph and recent thoracic CT. Abdominal radiograph: Lumbosacral spinal instrumentation is present. Vascular stents are noted. There is mild gaseous distention of loops of ileum in the central pelvis. Gas is noted overlying the rectum. There is no acute displaced fracture. Dictated by: Tray Magana MD The radiology attending physician has personally reviewed this study, and had reviewed and/or edited this written report and agrees with it. Electronically signed by: Tru Jenkins M.D. Narrative 12/09/2024 1:42 PM CDT EXAMINATION: XR SHOULDER RIGHT 2 OR MORE VIEWS, XR KUB HISTORY: Shoulder pain, abdominal distention COMPARISON: None. Procedure Note Tru Jenkins MD - 12/09/2024 EXAMINATION: XR SHOULDER RIGHT 2 OR MORE VIEWS, XR KUB HISTORY: Shoulder pain, abdominal distention COMPARISON: None. 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 Alignment is normal. No acute fracture. Initial thickening better assessed on chest radiograph and recent thoracic CT. Abdominal radiograph: Lumbosacral spinal instrumentation is present. Vascular stents are noted. There is mild gaseous distention of loops of ileum in the central pelvis. Gas is noted overlying the rectum. There is no acute displaced fracture. Dictated by: Tray Magana MD The radiology attending physician has personally reviewed this study, and had reviewed and/or edited this written report and agrees with it. Electronically signed by: Tru Jenkins M.D. Cecile Tejada TRAVELING ACCOUNTANT IMG XR PROCEDURES Final Result * XR Shoulder Right 2 or More Views (12/09/2024 1:16 PM CDT) Anatomical Region Laterality Modality Upper Extremities, Shoulder Right Comp uted Radiography 12/09/2024 1:39 PM CDT Impressions 12/09/2024 1:42 PM CDT Right shoulder: There is moderate acromioclavicular and mild glenohumeral joint osteoarthritis. Alignment is normal. No acute fracture. Initial thickening better assessed on chest radiograph and recent thoracic CT. Abdominal radiograph: Lumbosacral spinal instrumentation is present. Vascular stents are noted. There is mild gaseous distention of loops of ileum in the central pelvis. Gas is noted overlying the rectum. There is no acute displaced fracture. Dictated by: Tray Magana MD The radiology attending physician has personally reviewed this study, and had reviewed and/or edited this written report and agrees with it. Electronically signed by: Tru Jenkins M.D. Narrative 12/09/2024 1:42 PM CDT EXAMINATION: XR SHOULDER RIGHT 2 OR MORE VIEWS, XR KUB HISTORY: Shoulder pain, abdominal distention COMPARISON: None. Procedure Note Tru Jenkins MD - 12/09/2024 EXAMINATION: XR SHOULDER RIGHT 2 OR MORE VIEWS, XR KUB HISTORY: Shoulder pain, abdominal distention COMPARISON: None. 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 Alignment is normal. No acute fracture. Initial thickening better assessed on chest radiograph and recent thoracic CT. Abdominal radiograph: Lumbosacral spinal instrumentation is present. Vascular stents are noted. There is mild gaseous distention of loops of ileum in the central pelvis. Gas is noted overlying the rectum. There is no acute displaced fracture. Dictated by: Tray Magana MD The radiology attending physician has personally reviewed this study, and had reviewed and/or edited this written report and agrees with it. Electronically signed by: Tru Jenkins M.D. Cecile Tejada NP IMG XR PROCEDURES Final Result * POCT glucose (12/09/2024 12:25 PM CDT) [facility] Signature Glucose, POC 135 70 - 199 mg/dL Comment: For Glucose values <35 mg/dl when Hematocrit is >60 mg/dl,the test may not accurately detect significant hypoglycemia,and testing in the Laboratory should be considered if clinically indicated. POC Performer [id number] [facility] Blood 12/09/2024 12:2 5 PM CDT 12/09/2024 12:25 PM CDT Mabel Leary MD LAB POCT ORDERABLES - DEVIC E Final Result [facility] [address] Department [place] [address] * POCT glucose (12/09/2024 6:27 AM CDT) Glucose, POC 104 70 - 199 mg/dL Comment: For Glucose values <35 mg/dl when Hematocrit is >60 mg/dl,the test may not accurately detect significant hypoglycemia,and testing in the Laboratory should be considered if clinically indicated. POC Performer [id number] [facility] Blood 12/09/2024 6:27 AM CDT 12/09/2024 6:27 AM CDT us Lucy Garcia Aharun DO LAB POCT ORDERABLES - DEV ICE Final Result [facility] [address] [place] [address] * (ABNORMAL) eGFR (12/09/2024 4:30 AM CDT) [facility] eGFR 47(L) >=60 mL/min/1. 73 m2 Comment: Interpretive Data Reference Interval Normal >/= 90 mL/min/1.73m2 Mildly decreased* 60 - 89 mL/min/1.73m2 Mildly to moderately decreased 45 - 59 mL/min/1.73m2 Moderately to severely decreased 30 - 44 mL/min/1.73m2 Severely decreased 15 - 29 mL/min/1.73m2 Kidney Failure < 15 mL/min/1.73m2 *Relative to young adult level Estimated glomerular filtration rate is determined by the 2020 CKD-EPI equation recommended by the National Kidney Foundation (A Unifying Approach to GFR Estimation: Recommendations of the NKF-ASK Task Force on Reassessing the Inclusion of Race in Diagnosing Kidney Disease, JASN 2020). The CKD-EPI equation should not be used for patients with unstable renal function and has not been validated in children and those over 70. Current interpretive data was last reviewed 2021. Blood 12/09/2024 4:30 AM CDT 12/09/2024 4:52 AM CDT Lucy Garcia Ahmad DO LAB BLOOD ORDERABLES Jaja l Result [facility] [address] [place] [address] * (ABNORMAL) Basic metabolic panel (12/09/2024 4:30 AM CDT) [facility] Sodium 136 135 - 145 mmol/L Potassium, pl 4.0 3.3 - 4.9 mmol/L [facility] Chloride 95(L) 97 - 110 mmol/L [facility] CO2 32 22 - 32 mmol/L [facility] Anion gap 9 2 - 15 mmol/L [facility] BUN 44(H) 6 - 25 mg/dL [facility] Creatinine 1.19(H) 0.60 - 1.10 mg/dL [facility] Glucose 96 70 - 199 mg/dL [facility] Comment: Interpretive Data Fasting glucose >/= 126 mg/dl is diagnostic for diabetes. Fasting is defined as no caloric intake for at least 8 hours. Fasting glucose between 100 mg/dl to 125 mg/dl is diagnostic of prediabetes. In a patient with classic symptoms of hyperglycemia or hyperglycemic crisis, a random glucose >/= 200 mg/dl is diagnostic for diabetes. In the absence of unequivocal hyperglycemia, results should be confirmed by repeat testing. The classification and Diagnosis of Diabetes Diabetes Care 2021; 46: S19-S40. Current interpretive data was last revised 2022. Calcium 8.3(L) 8.5 - 10.3 mg/dL [facility] Blood 12/09/2024 4:30 AM CDT 12/09/2024 4:52 AM CDT Lucy Victoriamad DO LAB BLOOD ORDERABLES Jaja l Result [facility] [address] [place] [address] * POCT glucose (12/08/2024 9:29 PM CDT) Glucose, POC 115 70 - 199 mg/dL Comment: For Glucose values <35 mg/dl when Hematocrit is >60 mg/dl,the test may not accurately detect significant hypoglycemia,and testing in the Laboratory should be considered if clinically indicated. POC Performer [id number] [facility] Blood 12/08/2024 9:29 PM CDT 12/08/2024 9:29 PM CDT [facility] LAB POCT ORDERABLES - DEV ICE Final Result Performing Organization Address [facility] Co de Phone Number [facility] [address] [facility] [employer] [place], [place] [id number] * POCT glucose (12/08/2024 6:09 PM CDT) Glucose, POC 183 70 - 199 mg/dL Comment: For Glucose values <35 mg/dl when Hematocrit is >60 mg/dl,the test may not accurately detect significant hypoglycemia,and testing in the Laboratory should be considered if clinically indicated. POC Performer [id number] [facility] Blood 12/08/2024 6:09 PM CDT 12/08/2024 6:09 PM CDT [facility]az[facility]ha Jose [facility] DO LAB POCT ORDERABLES - DEV ICE Final Result Performing Organization Address City/[facility]/ZIP Co de Phone Number [facility] [address] [facility] [place] [address] * POCT glucose (12/08/2024 1:23 PM CDT) Glucose, POC 122 70 - 199 mg/dL Comment: For Glucose values <35 mg/dl when Hematocrit is >60 mg/dl,the test may not accurately detect significant hypoglycemia,and testing in the Laboratory should be considered if clinically indicated. POC Performer [phone] [facility] Blood 12/08/2024 1:23 PM CDT 12/08/2024 1:23 PM CDT Lucy Lanieriaz Ahmad DO LAB POCT ORDERABLES - DEV ICE Final Result Performing Organization Address [facility] Co de Phone Number [facility] [address] [place] [address] * ECG 12 lead (12/08/2024 11:33 AM CDT) 12/08/2024 11:3 3 AM CDT Narrative [facility] - 12/08/2024 8:53 PM CDT Vent Rate: 63 bpm RR Interval: 948 msec IA Interval: 0 msec QRS Duration: 97 msec QT Interval: 437 msec QTC Interval: 444 msec P-R-T [place]: 0 - -22 - -18 degrees IMPRESSION: ATRIAL FLUTTER/TACHYCARDIA BORDERLINE LEFT AXIS DEVIATION MINIMAL VOLTAGE CRITERIA FOR LVH, CONSIDER NORMAL VARIANT NONSPECIFIC ST ABNORMALITY ABNORMAL ECG Electronically Signed By: Salvador Palomino MD Cecile Tejada NP ECG ORDERABLES Final Result Performing Organization Address [facility] de Phone Number [facility] [employer] [facility] [[email or web address] * POCT glucose (12/08/2024 8:41 AM CDT) [facility] Glucose, POC 117 70 - 199 mg/dL Comment: For Glucose values <35 mg/dl when Hematocrit is >60 mg/dl,the test may not accurately detect significant hypoglycemia,and testing in the Laboratory should be considered if clinically indicated. POC Performer [id number] [facility] Blood 12/08/2024 8:41 AM CDT 12/08/2024 8:41 AM CDT Lucy Lanieriaz Julienmad DO LAB POCT ORDERABLES - DEV ICE Final Result Performing Organization Address [facility] Co de Phone Number [facility] [address] [place] [address] * (ABNORMAL) eGFR (12/08/2024 3:51 AM CDT) Pathologist [facility] eGFR 51(L) >=60 mL/min/1. 73 m2 Comment: Interpretive Data Reference Interval Normal >/= 90 mL/min/1.73m2 Mildly decreased* 60 - 89 mL/min/1.73m2 Mildly to moderately decreased 45 - 59 mL/min/1.73m2 Moderately to severely decreased 30 - 44 mL/min/1.73m2 Severely decreased 15 - 29 mL/min/1.73m2 Kidney Failure < 15 mL/min/1.73m2 *Relative to young adult level Estimated glomerular filtration rate is determined by the 2020 CKD-EPI equation recommended by the National Kidney Foundation (A Unifying Approach to GFR Estimation: Recommendations of the NKF-ASK Task Force on Reassessing the Inclusion of Race in Diagnosing Kidney Disease, JASN 2020). The CKD-EPI equation should not be used for patients with unstable renal function and has not been validated in children and those over 70. Current interpretive data was last reviewed 2021. Blood 12/08/2024 3:51 AM CDT 12/08/2024 4:09 AM CDT us Lucy Lanieriaz Ahmad DO LAB BLOOD ORDERABLES Jaja l Result Performing Organization Address City/[facility]/ZIP Co de Phone Number [facility] [address] [employer] [place], [place] [id number] * Magnesium (12/08/2024 3:51 AM CDT) Pathologist [facility] Magnesium 1.7 1.4 - 2.5 mg/dL Blood 12/08/2024 3:51 AM CDT 12/08/2024 4:09 AM CDT Cecile Tejada TRAVELING ACCOUNTANT LAB BLOOD ORDERABLES Final Resul t Performing Organization Address City/[facility]/ZIP Co de Phone Number [facility] [address] [place] [address] * (ABNORMAL) Basic metabolic panel (12/08/2024 3:51 AM CDT) [facility] Sodium 138 135 - 145 mmol/L Potassium, pl 4.0 3.3 - 4.9 mmol/L [facility] Chloride 96(L) 97 - 110 mmol/L [facility] CO2 32 22 - 32 mmol/L [facility] Anion gap 10 2 - 15 mmol/L [facility] BUN 34(H) 6 - 25 mg/dL [facility] Creatinine 1.10 0.60 - 1.10 mg/dL [facility] Glucose 111 70 - 199 mg/dL [facility] Comment: Interpretive Data Fasting glucose >/= 126 mg/dl is diagnostic for diabetes. Fasting is defined as no caloric intake for at least 8 hours. Fasting glucose between 100 mg/dl to 125 mg/dl is diagnostic of prediabetes. In a patient with classic symptoms of hyperglycemia or hyperglycemic crisis, a random glucose >/= 200 mg/dl is diagnostic for diabetes. In the absence of unequivocal hyperglycemia, results should be confirmed by repeat testing. The classification and Diagnosis of Diabetes Diabetes Care 2021; 46: S19-S40. Current interpretive data was last revised 2022. Calcium 8.4(L) 8.5 - 10.3 mg/dL [facility] Blood 12/08/2024 3:51 AM CDT 12/08/2024 4:09 AM CDT Bazgha Jose Ahmad DO LAB BLOOD ORDERABLES Jaja l Result [facility] [address] [place] [address] * (ABNORMAL) POCT glucose (12/07/2024 8:13 PM CDT) [facility] Glucose, POC 255(H) 70 - 199 mg/dL Comment: For Glucose values <35 mg/dl when Hematocrit is >60 mg/dl,the test may not accurately detect significant hypoglycemia,and testing in the Laboratory should be considered if clinically indicated. POC Performer [id number] [facility] Blood 12/07/2024 8:13 PM CDT 12/07/2024 8:13 PM CDT Lucy Victoriamad DO LAB POCT ORDERABLES - DEV ICE Final Result Performing Organization Address City/[facility]/ZIP Co de Phone Number [facility] [address] [place] [address] * POCT glucose (12/07/2024 6:03 PM CDT) Glucose, POC 196 70 - 199 mg/dL Comment: For Glucose values <35 mg/dl when Hematocrit is >60 mg/dl,the test may not accurately detect significant hypoglycemia,and testing in the Laboratory should be considered if clinically indicated. POC Performer [id number] [facility] Blood 12/07/2024 6:03 PM CDT 12/07/2024 6:03 PM CDT [facility] DO LAB POCT ORDERABLES - DEV ICE Final Result Performing Organization Address [facility] Co de Phone Number [facility] [address] [place] [address] * (ABNORMAL) POCT glucose (12/07/2024 12:45 PM CDT) Glucose, POC 233(H) 70 - 199 mg/dL Comment: For Glucose values <35 mg/dl when Hematocrit is >60 mg/dl,the test may not accurately detect significant hypoglycemia,and testing in the Laboratory should be considered if clinically indicated. POC Performer [id number] [facility] Blood 12/07/2024 12:4 5 PM CDT 12/07/2024 12:45 PM CDT Lucy Colónd DO LAB POCT ORDERABLES - DEV ICE Final Result Performing Organization Address City/[facility]/ZIP Co de Phone Number [facility] [address] [place] [address] * NT-Pro BNP - Add on lab test (12/07/2024 10:18 AM CDT) [facility] Acceptable Yes Blood 12/07/2024 10:1 8 AM CDT 12/07/2024 10:18 AM CDT Narrative [facility] - 12/07/2024 10:18 AM CDT Name of Test->NT-Pro BNP Cecile Tejada TRAVELING ACCOUNTANT LAB BLOOD ORDERABLES Final Resul t [facility] [address] [place] [address] * POCT glucose (12/07/2024 8:06 AM CDT) [facility] Glucose, POC 120 70 - 199 mg/dL Comment: For Glucose values <35 mg/dl when Hematocrit is >60 mg/dl,the test may not accurately detect significant hypoglycemia,and testing in the Laboratory should be considered if clinically indicated. POC Performer [id number] [facility] Blood 12/07/2024 8:06 AM CDT 12/07/2024 8:06 AM CDT us Lucy Rasmussen DO LAB POCT ORDERABLES - DEV ICE Final Result Performing Organization Address City/[facility]/ZIP Co de Phone Number [facility] [address] [place] [address] * eGFR (12/07/2024 4:38 AM CDT) [facility] eGFR 75 >=60 mL/min/1. 73 m2 Comment: Interpretive Data Reference Interval Normal >/= 90 mL/min/1.73m2 Mildly decreased* 60 - 89 mL/min/1.73m2 Mildly to moderately decreased 45 - 59 mL/min/1.73m2 Moderately to severely decreased 30 - 44 mL/min/1.73m2 Severely decreased 15 - 29 mL/min/1.73m2 Kidney Failure < 15 mL/min/1.73m2 *Relative to young adult level Estimated glomerular filtration rate is determined by the 2020 CKD-EPI equation recommended by the National Kidney Foundation (A Unifying Approach to GFR Estimation: Recommendations of the NKF-ASK Task Force on Reassessing the Inclusion of Race in Diagnosing Kidney Disease, JASN 202). The CKD-EPI equation should not be used for patients with unstable renal function and has not been validated in children and those over 70. Current interpretive data was last reviewed 2021. Blood 12/07/2024 4:38 AM CDT 12/07/2024 5:02 AM CDT us Bazgha Jose Ahmad DO LAB BLOOD ORDERABLES Jaja l Result [facility] [address] [place] [address] * (ABNORMAL) Pro B-type natriuretic peptide (12/07/2024 4:38 AM CDT) NT-proBNP 4,166(H) <=450 pg/mL Comment: Interpretive Comments: A. Dyspnea in Acute Care Setting All Ages: < 300 pg/ml, acute heart failure unlikely. < 50 yrs: 300 - 450 pg/ml, further investigation warranted. > 450 pg/ml, acute heart failure likely. 50 - 74 yrs: 300 - 900 pg/ml, further investigation warranted. > 900 pg/ml, acute heart failure likely . > or = 75 yrs: 450 - 1800 pg/ml, further investigation warranted. > 1800 pg/ml, acute heart failure likely. B. Non-acute Setting < 75 yrs < 125 pg/ml, rules out heart failure. > or = 125 pg/ml, further investigation warranted. > or = 75 yrs < 450 pg/ml, rules out heart failure. > or = 450 pg/ml, further investigation warranted. - Knowledge of each individual patient's NT-proBNP range may be more useful than using similar cut-points for every patient. Please note that marked elevations in NT-proBNP levels may be observed in state other than Left Ventricular Congestive Failure, including: acute coronary syndromes, right heart strain/failure (including pulmonary embolism and cor pulmonale), critical illness, renal failure, as well as advanced age. - References: 1. Manolo CRISOSTOMO et.al. Eur Heart J. 2006:27:330-337. 2. Wendy RW, Jan LUDWIG. J. AM Molly Cardiol: Cardiovasc Imag. 2009;2: 216- 225. Interpretive Data Last Revised Date: 2018. Blood 12/07/2024 4:38 AM CDT 12/07/2024 5:02 AM CDT us Bazgha Jose Ahmad DO LAB BLOOD ORDERABLES Jaja l Result [facility] [address] [place] [address] * (ABNORMAL) Basic metabolic panel (12/07/2024 4:38 AM CDT) Sodium 136 135 - 145 mmol/L Potassium, pl 3.9 3.3 - 4.9 mmol/L [facility] Chloride 98 97 - 110 mmol/L [facility] CO2 29 22 - 32 mmol/L [facility] Anion gap 9 2 - 15 mmol/L [facility] BUN 29(H) 6 - 25 mg/dL [facility] Creatinine 0.80 0.60 - 1.10 mg/dL [facility] Glucose 115 70 - 199 mg/dL [facility] Comment: Interpretive Data Fasting glucose >/= 126 mg/dl is diagnostic for diabetes. Fasting is defined as no caloric intake for at least 8 hours. Fasting glucose between 100 mg/dl to 125 mg/dl is diagnostic of prediabetes. In a patient with classic symptoms of hyperglycemia or hyperglycemic crisis, a random glucose >/= 200 mg/dl is diagnostic for diabetes. In the absence of unequivocal hyperglycemia, results should be confirmed by repeat testing. The classification and Diagnosis of Diabetes Diabetes Care 2022; 46: S19-S40. Current interpretive data was last revised 2022. Calcium 8.4(L) 8.5 - 10.3 mg/dL [facility] Blood 12/07/2024 4:38 AM CDT 12/07/2024 5:02 AM CDT [facility] [employer] LAB BLOOD ORDERABLES Jaja l Result [facility] [address] [place] [address] * POCT glucose (12/06/2024 8:49 PM CDT) Glucose, POC 167 70 - 199 mg/dL Comment: For Glucose values <35 mg/dl when Hematocrit is >60 mg/dl,the test may not accurately detect significant hypoglycemia,and testing in the Laboratory should be considered if clinically indicated. POC Performer [phone] [facility] Blood 12/06/2024 8:49 PM CDT 12/06/2024 8:49 PM CDT [facility] [employer] DO LAB POCT ORDERABLES - DEV ICE Final Result Performing Organization Address [facility]/ZIP Co de Phone Number [facility] [address] [place] [address] * POCT glucose (12/06/2024 5:45 PM CDT) Glucose, POC 174 70 - 199 mg/dL Comment: For Glucose values <35 mg/dl when Hematocrit is >60 mg/dl,the test may not accurately detect significant hypoglycemia,and testing in the Laboratory should be considered if clinically indicated. POC Performer [id number] [facility] Blood 12/06/2024 5:45 PM CDT 12/06/2024 5:45 PM CDT [facility] Colónd DO LAB POCT ORDERABLES - DEV ICE Final Result Performing Organization Address City/[facility]/ZIP Co de Phone Number [facility] [address] [place] [address] * POCT glucose (12/06/2024 12:50 PM CDT) Glucose, POC 178 70 - 199 mg/dL Comment: For Glucose values <35 mg/dl when Hematocrit is >60 mg/dl,the test may not accurately detect significant hypoglycemia,and testing in the Laboratory should be considered if clinically indicated. POC Performer [id number] [facility] Blood 12/06/2024 12:5 0 PM CDT 12/06/2024 12:50 PM CDT us Bazgha Jose Ahmad DO LAB POCT ORDERABLES - DEV ICE Final Result [facility] [address] [place] [address] * XR Chest 1 Vw (12/06/2024 11:29 AM CDT) Anatomical Region Laterality Modality Body, Chest N/A Computed Radiogr aphy 12/06/2024 11:5 0 AM CDT Impressions 12/06/2024 11:50 AM CDT There are unchanged interstitial and airspace opacities predominantly in the upper lungs. 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 No pleural effusion. No pneumothorax. Stable heart size. Electronically signed by: Bridget Erickson M.D. Narrative 12/06/2024 11:50 AM CDT EXAMINATION: XR CHEST 1 VIEW HISTORY: Shortness of breath, hypoxia COMPARISON: 12/01/2024 Procedure Note Bridget Erickson MD - 12/06/2024 EXAMINATION: XR CHEST 1 VIEW HISTORY: Shortness of breath, hypoxia COMPARISON: 12/01/2024 IMPRESSION: There are unchanged interstitial and airspace opacities predominantly in the upper lungs. 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 No pleural effusion. No pneumothorax. Stable heart size. Electronically signed by: Bridget Erickson M.D. Cecile Tejada TRAVELING ACCOUNTANT IMG XR PROCEDURES Final Result * POCT glucose (12/06/2024 8:23 AM CDT) Glucose, POC 142 70 - 199 mg/dL Comment: For Glucose values <35 mg/dl when Hematocrit is >60 mg/dl,the test may not accurately detect significant hypoglycemia,and testing in the Laboratory should be considered if clinically indicated. POC Performer [id number] [facility] Blood 12/06/2024 8:23 AM CDT 12/06/2024 8:23 AM CDT Reakermit Jose Ahsalonid DO LAB POCT ORDERABLES - DEV ICE Final Result [facility] [address] [place] [address] * eGFR (12/06/2024 4:18 AM CDT) Pathologist [facility] eGFR 81 >=60 mL/min/1. 73 m2 Comment: Interpretive Data Reference Interval Normal >/= 90 mL/min/1.73m2 Mildly decreased* 60 - 89 mL/min/1.73m2 Mildly to moderately decreased 45 - 59 mL/min/1.73m2 Moderately to severely decreased 30 - 44 mL/min/1.73m2 Severely decreased 15 - 29 mL/min/1.73m2 Kidney Failure < 15 mL/min/1.73m2 *Relative to young adult level Estimated glomerular filtration rate is determined by the 2020 CKD-EPI equation recommended by the National Kidney Foundation (A Unifying Approach to GFR Estimation: Recommendations of the NKF-ASK Task Force on Reassessing the Inclusion of Race in Diagnosing Kidney Disease, JASN 2020). The CKD-EPI equation should not be used for patients with unstable renal function and has not been validated in children and those over 70. Current interpretive data was last reviewed 2021. Blood 12/06/2024 4:18 AM CDT 12/06/2024 4:42 AM CDT [facility] Col[facility]nd DO LAB BLOOD ORDERABLES Jaja l Result [facility] [address] [place] [address] * (ABNORMAL) Basic metabolic panel (12/06/2024 4:18 AM CDT) [facility] Sodium 137 135 - 145 mmol/L Potassium, pl 3.9 3.3 - 4.9 mmol/L [facility] Chloride 99 97 - 110 mmol/L [facility] CO2 27 22 - 32 mmol/L [facility] Anion gap 11 2 - 15 mmol/L [facility] BUN 33(H) 6 - 25 mg/dL [facility] Creatinine 0.75 0.60 - 1.10 mg/dL [facility] Glucose 156 70 - 199 mg/dL [facility] Comment: Interpretive Data Fasting glucose >/= 126 mg/dl is diagnostic for diabetes. Fasting is defined as no caloric intake for at least 8 hours. Fasting glucose between 100 mg/dl to 125 mg/dl is diagnostic of prediabetes. In a patient with classic symptoms of hyperglycemia or hyperglycemic crisis, a random glucose >/= 200 mg/dl is diagnostic for diabetes. In the absence of unequivocal hyperglycemia, results should be confirmed by repeat testing. The classification and Diagnosis of Diabetes Diabetes Care 2021; 46: S19-S40. Current interpretive data was last revised 2022. Calcium 8.1(L) 8.5 - 10.3 mg/dL [facility] Blood 12/06/2024 4:18 AM CDT 12/06/2024 4:42 AM CDT Reayosef Victoriamad DO LAB BLOOD ORDERABLES Jaja l Result [facility] [address] [place] [address] * (ABNORMAL) POCT glucose (12/05/2024 8:24 PM CDT) Glucose, POC 304(H) 70 - 199 mg/dL Comment: For Glucose values <35 mg/dl when Hematocrit is >60 mg/dl,the test may not accurately detect significant hypoglycemia,and testing in the Laboratory should be considered if clinically indicated. POC Performer [id number] [facility] Blood 12/05/2024 8:24 PM CDT 12/05/2024 8:[address] [facility] POCT ORDERABLES - DEV ICE Final Result Performing Organization Address [facility] Co de Phone Number [facility] [address] [facility] [place], [place] [id number] * (ABNORMAL) POCT glucose (12/05/2024 6:14 PM CDT) Glucose, POC 334(H) 70 - 199 mg/dL Comment: For Glucose values <35 mg/dl when Hematocrit is >60 mg/dl,the test may not accurately detect significant hypoglycemia,and testing in the Laboratory should be considered if clinically indicated. POC Performer [id number] [facility] Blood 12/05/2024 6:14 PM CDT 12/05/2024 6:14 PM CDT [facility] LAB POCT ORDERABLES - DEV ICE Final Result Performing Organization Address [facility] Co de Phone Number [facility] [address] [facility] [place] [address] * POCT glucose (12/05/2024 12:49 PM CDT) Glucose, POC 130 70 - 199 mg/dL Comment: For Glucose values <35 mg/dl when Hematocrit is >60 mg/dl,the test may not accurately detect significant hypoglycemia,and testing in the Laboratory should be considered if clinically indicated. POC Performer [id number] [facility] Blood 12/05/2024 12:4 9 PM CDT 12/05/2024 12:49 PM CDT Jessicayosef Jose Rasmussen DO LAB POCT ORDERABLES - DEV ICE Final Result Performing Organization Address [facility]/ZIP Co de Phone Number [facility] [address] [place] [address] * Infection Prevention Sridevi auris PCR, surveillance Axilla/Groin (12/05/2024 11:00 AM CDT) Pathologist [facility] Sridevi auris DNA Not Detected Not Detected [facility] Comment: Interpretive Data Testing performed by [facility] Disease [facility] using the Mitch hanna [employer] Sridevi auris assay. This assay detects DNA from Sridvei auris using Real-Time PCR. This assay is laboratory developed and is not cleared by the [facility] [[email or web address]] Food and Drug Administration. The performance characteristics have been verified by the [facility]. Testing performed by: [facility], [address] [place]., [address] Axilla/Groin 12/05/2024 11:0 0 AM CDT 12/05/2024 2:15 PM CDT Narrative [facility] - 12/06/2024 12:02 AM CDT C auris Ring Surveillance Robson Salcedo MD LAB MICROBIOLOGY - GENERA L ORDERABLES Final Result Performing Organization Address [facility]/ZIP Co de Phone Number [facility] [address] [place] [address] [facility] * (ABNORMAL) POCT glucose (12/05/2024 6:05 AM CDT) Glucose, POC 207(H) 70 - 199 mg/dL Comment: For Glucose values <35 mg/dl when Hematocrit is >60 mg/dl,the test may not accurately detect significant hypoglycemia,and testing in the Laboratory should be considered if clinically indicated. POC Performer [id number] [facility] Blood 12/05/2024 6:05 AM CDT 12/05/2024 6:05 AM CDT Lucy Rasmussen DO LAB POCT ORDERABLES - DEV ICE Final Result Performing Organization Address [facility] Co de Phone Number [facility] [address] [place] [address] * eGFR (12/05/2024 4:52 AM CDT) eGFR 75 >=60 mL/min/1. 73 m2 Comment: Interpretive Data Reference Interval Normal >/= 90 mL/min/1.73m2 Mildly decreased* 60 - 89 mL/min/1.73m2 Mildly to moderately decreased 45 - 59 mL/min/1.73m2 Moderately to severely decreased 30 - 44 mL/min/1.73m2 Severely decreased 15 - 29 mL/min/1.73m2 Kidney Failure < 15 mL/min/1.73m2 *Relative to young adult level Estimated glomerular filtration rate is determined by the 2020 CKD-EPI equation recommended by the National Kidney Foundation (A Unifying Approach to GFR Estimation: Recommendations of the NKF-ASK Task Force on Reassessing the Inclusion of Race in Diagnosing Kidney Disease, JASN 2020). The CKD-EPI equation should not be used for patients with unstable renal function and has not been validated in children and those over 70. Current interpretive data was last reviewed 2021. Blood 12/05/2024 4:52 AM CDT 12/05/2024 5:31 AM CDT Lucy Rasmussen DO LAB BLOOD ORDERABLES Jaja l Result Performing Organization Address City/[facility]/ZIP Co de Phone Number [facility] [address] Department [place], [place] [id number] * (ABNORMAL) Basic metabolic panel (12/05/2024 4:52 AM CDT) Sodium 137 135 - 145 mmol/L Potassium, pl 4.1 3.3 - 4.9 mmol/L [facility] Chloride 100 97 - 110 mmol/L [facility] CO2 25 22 - 32 mmol/L [facility] Anion gap 12 2 - 15 mmol/L [facility] BUN 37(H) 6 - 25 mg/dL [facility] Creatinine 0.80 0.60 - 1.10 mg/dL [facility] Glucose 183 70 - 199 mg/dL [facility] Comment: Interpretive Data Fasting glucose >/= 126 mg/dl is diagnostic for diabetes. Fasting is defined as no caloric intake for at least 8 hours. Fasting glucose between 100 mg/dl to 125 mg/dl is diagnostic of prediabetes. In a patient with classic symptoms of hyperglycemia or hyperglycemic crisis, a random glucose >/= 200 mg/dl is diagnostic for diabetes. In the absence of unequivocal hyperglycemia, results should be confirmed by repeat testing. The classification and Diagnosis of Diabetes Diabetes Care 2021; 46: S19-S40. Current interpretive data was last revised 2022. Calcium 8.0(L) 8.5 - 10.3 mg/dL [facility] Blood 12/05/2024 4:52 AM CDT 12/05/2024 5:31 AM CDT [employer] LAB BLOOD ORDERABLES Jaja l Result Performing Organization Address [facility]/State/ZIP Co de Phone Number [facility] [address] [place] [address] * (ABNORMAL) POCT glucose (12/04/2024 8:55 PM CDT) Glucose, POC 323(H) 70 - 199 mg/dL Comment: For Glucose values <35 mg/dl when Hematocrit is >60 mg/dl,the test may not accurately detect significant hypoglycemia,and testing in the Laboratory should be considered if clinically indicated. POC Performer [id number] [facility] Blood 12/04/2024 8:55 PM CDT 12/04/2024 8:55 PM CDT [employer] CXstephanie [employer] LAB POCT ORDERABLES - DEV ICE Final Result Performing Organization Address City/[facility] Co de Phone Number [facility] [address] Department of [place], [place] [id number] * POCT glucose (12/04/2024 6:00 PM CDT) Glucose, POC 172 70 - 199 mg/dL Comment: For Glucose values <35 mg/dl when Hematocrit is >60 mg/dl,the test may not accurately detect significant hypoglycemia,and testing in the Laboratory should be considered if clinically indicated. POC Performer [phone] [facility] Blood 12/04/2024 6:00 PM CDT 12/04/2024 6:00 PM CDT [employer] Jose Ahmad DO LAB POCT ORDERABLES - DEV ICE Final Result Performing Organization Address [facility] de Phone Number [facility] [address] [place] [address] * (ABNORMAL) POCT glucose (12/04/2024 12:39 PM CDT) Glucose, POC 340(H) 70 - 199 mg/dL Comment: For Glucose values <35 mg/dl when Hematocrit is >60 mg/dl,the test may not accurately detect significant hypoglycemia,and testing in the Laboratory should be considered if clinically indicated. POC Performer [id number] [facility] Blood 12/04/2024 12:3 9 PM CDT 12/04/2024 12:39 PM CDT Bazgha Jose Ahmad DO LAB POCT ORDERABLES - DEV ICE Final Result Performing Organization Address [facility] Co de Phone Number [facility] [address] [place] [address] * Glycohemoglobin A1C - Add on lab test (12/04/2024 9:20 AM CDT) Acceptable Yes Blood 12/04/2024 9:20 AM CDT 12/04/2024 9:20 AM CDT Narrative [facility] - 12/04/2024 9:21 AM CDT Name of Test->Glycohemoglobin A1C Lcuy Garcia Aharun DO LAB BLOOD ORDERABLES Jaja l Result Performing Organization Address City/[facility]/ZIP Co de Phone Number [facility] [address] [facility] [place] [address] * Folate - Add on lab test (12/04/2024 6:36 AM CDT) Acceptable Yes Blood 12/04/2024 6:36 AM CDT 12/04/2024 6:36 AM CDT Narrative [facility] 12/04/2024 6:36 AM CDT Name of Test->Folate Cecile Tejada TRAVELING ACCOUNTANT LAB BLOOD ORDERABLES Final Resul t Performing Organization Address [facility] Co de Phone Number [facility] [address] [facility] [place], [place] [id number] * Vitamin B12 - Add on lab test (12/04/2024 6:36 AM CDT) Acceptable Yes Blood 12/04/2024 6:36 AM CDT 12/04/2024 6:36 AM CDT [employer]day [facility] 12/04/2024 6:36 AM CDT Name of Test->Vitamin B12 Razae Terrell TRAVELING ACCOUNTANT LAB BLOOD ORDERABLES Final Resul t Performing Organization Address City/[facility]/ZIP Co de Phone Number [facility] [address] [facility] [place], [place] [phone] * eGFR (12/04/2024 5:14 AM CDT) eGFR 69 >=60 mL/min/1. 73 m2 Comment: Interpretive Data Reference Interval Normal >/= 90 mL/min/1.73m2 Mildly decreased* 60 - 89 mL/min/1.73m2 Mildly to moderately decreased 45 - 59 mL/min/1.73m2 Moderately to severely decreased 30 - 44 mL/min/1.73m2 Severely decreased 15 - 29 mL/min/1.73m2 Kidney Failure < 15 mL/min/1.73m2 *Relative to young adult level Estimated glomerular filtration rate is determined by the 2020 CKD-EPI equation recommended by the National Kidney Foundation (A Unifying Approach to GFR Estimation: Recommendations of the NKF-ASK Task Force on Reassessing the Inclusion of Race in Diagnosing Kidney Disease, JASN 2020). The CKD-EPI equation should not be used for patients with unstable renal function and has not been validated in children and those over 70. Current interpretive data was last reviewed 2021. Blood 12/04/2024 5:14 AM CDT 12/04/2024 5:31 AM CDT Vanna Reynoso TRAVELING ACCOUNTANT LAB BLOOD ORDERABLES Jaja l Result [facility] [address] Department of Laboratories [place], [place] [phone] * (ABNORMAL) Differential, auto (12/04/2024 5:14 AM CDT) Neutrophil abs 6.40 1.50 - 6.50 K/cumm Imm gran abs 0.03 0.00 - 0.10 K/cumm [facility] Lymphocyte abs 0.18(L) 0.80 - 3.30 K/cumm [facility] Monocyte abs 0.35 0.20 - 0.80 K/cumm [facility] Eosinophil abs 0.00 0.00 - 0.50 K/cumm [facility] Basophil abs 0.01 0.00 - 0.10 K/cumm [facility] Neutrophil pct 91.9 % [facility] Comment: Interpretive Data Percent cell count reference ranges are not reported, since discordance with absolute values may lead to misinterpretation of CBC data. Current Interpretive Data was last revised on 2017. Imm gran pct 0.4 % [facility] Comment: Interpretive Data Percent cell count reference ranges are not reported, since discordance with absolute values may lead to misinterpretation of CBC data. Current Interpretive Data was last revised on 2017. Lymphocyte pct 2.6 % [facility] Comment: Interpretive Data Percent cell count reference ranges are not reported, since discordance with absolute values may lead to misinterpretation of CBC data. Current Interpretive Data was last revised on 2017. Monocyte pct 5.0 % [facility] Comment: Interpretive Data Percent cell count reference ranges are not reported, since discordance with absolute values may lead to misinterpretation of CBC data. Current Interpretive Data was last revised on 2017. Eosinophil pct 0.0 % [facility] Comment: Interpretive Data Percent cell count reference ranges are not reported, since discordance with absolute values may lead to misinterpretation of CBC data. Current Interpretive Data was last revised on 2017. Basophil pct 0.1 % [facility] Comment: Interpretive Data Percent cell count reference ranges are not reported, since discordance with absolute values may lead to misinterpretation of CBC data. Current Interpretive Data was last revised on 2017. Blood 12/04/2024 5:14 AM CDT 12/04/2024 5:30 AM CDT Vanna Reynoso NP LAB BLOOD ORDERABLES Jaja l Result [facility] [address] [place] [address] * (ABNORMAL) Pro B-type natriuretic peptide (12/04/2024 5:14 AM CDT) NT-proBNP 5,126(H) <=450 pg/mL Comment: Interpretive Comments: A. Dyspnea in Acute Care Setting All Ages: < 300 pg/ml, acute heart failure unlikely. < 50 yrs: 300 - 450 pg/ml, further investigation warranted. > 450 pg/ml, acute heart failure likely. 50 - 74 yrs: 300 - 900 pg/ml, further investigation warranted. > 900 pg/ml, acute heart failure likely . > or = 75 yrs: 450 - 1800 pg/ml, further investigation warranted. > 1800 pg/ml, acute heart failure likely. B. Non-acute Setting < 75 yrs < 125 pg/ml, rules out heart failure. > or = 125 pg/ml, further investigation warranted. > or = 75 yrs < 450 pg/ml, rules out heart failure. > or = 450 pg/ml, further investigation warranted. - Knowledge of each individual patient's NT-proBNP range may be more useful than using similar cut-points for every patient. Please note that marked elevations in NT-proBNP levels may be observed in state other than Left Ventricular Congestive Failure, including: acute coronary syndromes, right heart strain/failure (including pulmonary embolism and cor pulmonale), critical illness, renal failure, as well as advanced age. - References: 1. Manolo CRISOSTOMO et.al. Eur Heart J. 2006:27:330-337. 2. Wendy RW, Jan LUDWIG. J. AM Molly Cardiol: Cardiovasc Imag. 2009;2: 216- 225. Interpretive Data Last Revised Date: 2018. Blood 12/04/2024 5:14 AM CDT 12/04/2024 5:31 AM CDT us Vanna Reynoso TRAVELING ACCOUNTANT LAB BLOOD ORDERABLES Jaja l Result Performing Organization Address City/[facility]/ZIP Co de Phone Number [facility] [address] [place] [address] * (ABNORMAL) Iron profile w/ IBC (12/04/2024 5:14 AM CDT) Iron 57 35 - 145 mcg/dL TIBC 199(L) 250 - 400 mcg/dL [facility] Transferrin saturation 29 20 - 50 % [facility] Blood 12/04/2024 5:14 AM CDT 12/04/2024 5:31 AM CDT Cecile Tejada TRAVELING ACCOUNTANT LAB BLOOD ORDERABLES Final Resul t [facility] [address] [place] [address] * (ABNORMAL) CBC with auto differential (12/04/2024 5:14 AM CDT) [facility] WBC 6.97 3.80 - 9.90 K/cumm Hgb 9.4(L) 11.9 - 15.5 g/dL [facility] Hct 32.2(L) 35.6 - 45.5 % [facility] Plt 290 150 - 400 K/cumm [facility] MPV 11.4 9.1 - 12.3 fL [facility] RBC 3.73(L) 3.90 - 5.20 M/cumm [facility] MCV 86.3 81.3 - 96.4 fL [facility] MCH 25.2(L) 27.1 - 33.3 pg [facility] MCHC 29.2(L) 32.3 - 35.7 g/dL [facility] RDW CV 17.1(H) 11.1 - 14.9 % [facility] RDW SD 53.5(H) 35.7 - 48.1 fL [facility] NRBC abs 0.00 0.00 - 0.01 K/cumm [facility] Blood 12/04/2024 5:14 AM CDT 12/04/2024 5:30 AM CDT [facility] LAB BLOOD ORDERABLES Jaja l Result [facility] [address] Department [place] [address] * Phosphorus (12/04/2024 5:14 AM CDT) [facility] Phosphorus, pl 3.0 2.3 - 4.5 mg/dL Blood 12/04/2024 5:14 AM CDT 12/04/2024 5:31 AM CDT Vanna Cinchcast TRAVELING ACCOUNTANT LAB BLOOD ORDERABLES Jaja l Result [facility] [address] [place] [address] * Magnesium (12/04/2024 5:14 AM CDT) Pathologist [facility] Magnesium 1.7 1.4 - 2.5 mg/dL Blood 12/04/2024 5:14 AM CDT 12/04/2024 5:31 AM CDT Vanna Meka Angeles LAB BLOOD ORDERABLES Jaja l Result Performing Organization Address [facility] Co de Phone Number [facility] [address] [place] [address] * (ABNORMAL) Hemoglobin A1c (12/04/2024 5:14 AM CDT) [facility] Hgb A1C 6.6(H) 4.0 - 5.6 % Estimated Average Glucose 143 mg/dL [facility] Comment: The ADA recommends reporting an estimated Average Glucose (eAG) with all Hemoglobin A1c results using the equation derived from a study of 507 normal and diabetic adults. Minority populations were underrepresented and children were not included. (Diabetes Care 31:5446-3099, 2008). The eAG is not equivalent to a fasting glucose. Blood 12/04/2024 5:14 AM CDT 12/04/2024 5:30 AM CDT Lucy Rasmussen DO LAB BLOOD ORDERABLES Jaja l Result Performing Organization Address [facility] Co de Phone Number [facility] [address] [place] [address] * (ABNORMAL) Folate (12/04/2024 5:14 AM CDT) Pathologist [facility] Folic acid 4.5(L) >=5.0 ng/mL Blood 12/04/2024 5:14 AM CDT 12/04/2024 5:31 AM CDT Lucy Jose Ahmad DO LAB BLOOD ORDERABLES Jaja l Result Performing Organization Address City/[facility]/ZIP Co de Phone Number [facility] [address] [facility] [place] [address] * (ABNORMAL) Ferritin (12/04/2024 5:14 AM CDT) Pathologist [facility] Ferritin 345(H) 15 - 150 ng/mL Blood 12/04/2024 5:14 AM CDT 12/04/2024 5:31 AM CDT Cecile Tejada TRAVELING ACCOUNTANT LAB BLOOD ORDERABLES Final Resul t Performing Organization Address [facility] Co de Phone Number [facility] [address] [facility] [place] [address] * Vitamin B12 (12/04/2024 5:14 AM CDT) [facility] Vitamin B12 863 230 - 1,250 pg/mL Blood 12/04/2024 5:14 AM CDT 12/04/2024 5:31 AM CDT Lucy Lanieriaz Julienmad DO LAB BLOOD ORDERABLES Jaja l Result Performing Organization Address [facility] Co de Phone Number [facility] [address] [facility] [place] [address] * (ABNORMAL) Comprehensive metabolic panel (12/04/2024 5:14 AM CDT) Pathologist [facility] Sodium 136 135 - 145 mmol/L Potassium, pl 4.4 3.3 - 4.9 mmol/L [facility] Chloride 98 97 - 110 mmol/L [facility] CO2 25 22 - 32 mmol/L [facility] Anion gap 13 2 - 15 mmol/L [facility] BUN 33(H) 6 - 25 mg/dL [facility] Creatinine 0.86 0.60 - 1.10 mg/dL [facility] Glucose 220(H) 70 - 199 mg/dL [facility] Comment: Interpretive Data Fasting glucose >/= 126 mg/dl is diagnostic for diabetes. Fasting is defined as no caloric intake for at least 8 hours. Fasting glucose between 100 mg/dl to 125 mg/dl is diagnostic of prediabetes. In a patient with classic symptoms of hyperglycemia or hyperglycemic crisis, a random glucose >/= 200 mg/dl is diagnostic for diabetes. In the absence of unequivocal hyperglycemia, results should be confirmed by repeat testing. The classification and Diagnosis of Diabetes Diabetes Care 2021; 46: S19-S40. Current interpretive data was last revised 2022. Calcium 8.2(L) 8.5 - 10.3 mg/dL [facility] Bilirubin, total 0.2 0.1 - 1.2 mg/dL [facility] Protein, pl 6.3(L) 6.5 - 8.5 g/dL [facility] Albumin 2.6(L) 3.5 - 5.0 g/dL [facility] Alk phos 82 40 - 130 Units/L [facility] ALT 13 7 - 45 Units/L [facility] AST 36 10 - 45 Units/L [facility] Blood 12/04/2024 5:14 AM CDT 12/04/2024 5:31 AM CDT Vanna Meka Pereztayo FARHEEN LAB BLOOD ORDERABLES Jaja l Result [facility] [address] [place] [address] * CT Head WO Contrast (12/03/2024 9:55 AM CDT) Anatomical Region Laterality Modality Head and Neck N/A Computed Tomogra phy 12/03/2024 10:0 5 AM CDT Impressions 12/03/2024 10:18 AM CDT Findings as detailed above and seen on prior CT head which were likely artifactual. No acute intracranial hemorrhage. Dictated by: Jace Soriano D.O. The radiology attending physician has personally reviewed this study, and had reviewed and/or edited this written report and agrees with it. Electronically signed by: Wilder Salinas MD Narrative 12/03/2024 10:18 AM CDT EXAMINATION: CT head without contrast HISTORY: 79 years-old Female with Head trauma, minor (Age >= 65y). Punctate focus of hyperdensity in the right insular cortex as seen on prior CT. TECHNIQUE: CT of the head was performed with images acquired from skull base to vertex without intravenous contrast. COMPARISON: CT head 12/02/2024. FINDINGS: Stable punctate focus of hyperdensity along the superior anterior right insular cortex without significant surrounding vasogenic edema. This appears less conspicuous on today's exam and was likely artifactual versus related to associated mineralization within this region. Otherwise, no acute intracranial hemorrhage. Ventricles are of normal size and morphology. No mass effect or midline shift is present. The tsai-white matter differentiation is normal. Calcified intracranial arterial atherosclerosis. The visualized portions of the orbits are normal. The visualized portions of the mastoids are normal. The visualized portions of the paranasal sinuses are normal. No fractures are identified. Procedure Note Wilder Salinas MD PhD - 12/03/2024 EXAMINATION: CT head without contrast HISTORY: 79 years-old Female with Head trauma, minor (Age >= 65y). Punctate focus of hyperdensity in the right insular cortex as seen on prior CT. TECHNIQUE: CT of the head was performed with images acquired from skull base to vertex without intravenous contrast. COMPARISON: CT head 12/02/2024. FINDINGS: Stable punctate focus of hyperdensity along the superior anterior right insular cortex without significant surrounding vasogenic edema. This appears less conspicuous on today's exam and was likely artifactual versus related to associated mineralization within this region. Otherwise, no acute intracranial hemorrhage. Ventricles are of normal size and morphology. No mass effect or midline shift is present. The tsai-white matter differentiation is normal. Calcified intracranial arterial atherosclerosis. The visualized portions of the orbits are normal. The visualized portions of the mastoids are normal. The visualized portions of the paranasal sinuses are normal. No fractures are identified. IMPRESSION: Findings as detailed above and seen on prior CT head which were likely artifactual. No acute intracranial hemorrhage. Dictated by: Jace Bo, D.O. The radiology attending physician has personally reviewed this study, and had reviewed and/or edited this written report and agrees with it. Electronically signed by: Wilder Salinas MD Vanna Reynoso NP IMG CT PROCEDURES Final R esult * eGFR (12/03/2024 9:23 AM CDT) Pathologist [facility] eGFR 70 >=60 mL/min/1. 73 m2 Comment: Interpretive Data Reference Interval Normal >/= 90 mL/min/1.73m2 Mildly decreased* 60 - 89 mL/min/1.73m2 Mildly to moderately decreased 45 - 59 mL/min/1.73m2 Moderately to severely decreased 30 - 44 mL/min/1.73m2 Severely decreased 15 - 29 mL/min/1.73m2 Kidney Failure < 15 mL/min/1.73m2 *Relative to young adult level Estimated glomerular filtration rate is determined by the 2020 CKD-EPI equation recommended by the National Kidney Foundation (A Unifying Approach to GFR Estimation: Recommendations of the NKF-ASK Task Force on Reassessing the Inclusion of Race in Diagnosing Kidney Disease, JASN 2020). The CKD-EPI equation should not be used for patients with unstable renal function and has not been validated in children and those over 70. Current interpretive data was last reviewed 2021. Blood 12/03/2024 9:23 AM CDT 12/03/2024 9:31 AM CDT Vanna Reynoso NP LAB BLOOD ORDERABLES Jaja l Result [facility] [address] Department [place] [address] * (ABNORMAL) Differential, auto (12/03/2024 9:23 AM CDT) Pathologist [facility] Neutrophil abs 3.93 1.50 - 6.50 K/cumm Imm gran abs 0.02 0.00 - 0.10 K/cumm [facility] Lymphocyte abs 0.16(L) 0.80 - 3.30 K/cumm [facility] Monocyte abs 0.22 0.20 - 0.80 K/cumm [facility] Eosinophil abs 0.00 0.00 - 0.50 K/cumm [facility] Basophil abs 0.00 0.00 - 0.10 K/cumm [facility] Neutrophil pct 90.7 % [facility] Comment: Interpretive Data Percent cell count reference ranges are not reported, since discordance with absolute values may lead to misinterpretation of CBC data. Current Interpretive Data was last revised on 2017. Imm gran pct 0.5 % [facility] Comment: Interpretive Data Percent cell count reference ranges are not reported, since discordance with absolute values may lead to misinterpretation of CBC data. Current Interpretive Data was last revised on 2017. Lymphocyte pct 3.7 % [facility] Comment: Interpretive Data Percent cell count reference ranges are not reported, since discordance with absolute values may lead to misinterpretation of CBC data. Current Interpretive Data was last revised on 2017. Monocyte pct 5.1 % [facility] Comment: Interpretive Data Percent cell count reference ranges are not reported, since discordance with absolute values may lead to misinterpretation of CBC data. Current Interpretive Data was last revised on 2017. Eosinophil pct 0.0 % [facility] Comment: Interpretive Data Percent cell count reference ranges are not reported, since discordance with absolute values may lead to misinterpretation of CBC data. Current Interpretive Data was last revised on 2017. Basophil pct 0.0 % [facility] Comment: Interpretive Data Percent cell count reference ranges are not reported, since discordance with absolute values may lead to misinterpretation of CBC data. Current Interpretive Data was last revised on 2017. Blood 12/03/2024 9:23 AM CDT 12/03/2024 9:31 AM CDT Vanna Reynoso NP LAB BLOOD ORDERABLES Jaja tuttle Result [facility] [address] [place] [address] * (ABNORMAL) CBC with auto differential (12/03/2024 9:23 AM CDT) [facility] WBC 4.33 3.80 - 9.90 K/cumm Hgb 9.6(L) 11.9 - 15.5 g/dL [facility] Hct 33.1(L) 35.6 - 45.5 % [facility] Plt 333 150 - 400 K/cumm [facility] MPV 11.8 9.1 - 12.3 fL [facility] RBC 3.84(L) 3.90 - 5.20 M/cumm [facility] MCV 86.2 81.3 - 96.4 fL [facility] MCH 25.0(L) 27.1 - 33.3 pg [facility] MCHC 29.0(L) 32.3 - 35.7 g/dL [facility] RDW CV 17.3(H) 11.1 - 14.9 % [facility] RDW SD 55.6(H) 35.7 - 48.1 fL [facility] NRBC abs 0.00 0.00 - 0.01 K/cumm [facility] Blood 12/03/2024 9:23 AM CDT 12/03/2024 9:31 AM CDT [facility] LAB BLOOD ORDERABLES Jaja l Result Performing Organization Address [facility] de Phone Number [facility] [address] [email or web address] [address] * Phosphorus (12/03/2024 9:23 AM CDT) [facility] Phosphorus, pl 3.7 2.3 - 4.5 mg/dL Blood 12/03/2024 9:23 AM CDT 12/03/2024 9:31 AM CDT [facility] LAB BLOOD ORDERABLES Jaja l Result Performing Organization Address City/[facility] Co de Phone Number [facility] [address] [place] [address] * Magnesium (12/03/2024 9:23 AM CDT) Pathologist [facility] Magnesium 1.8 1.4 - 2.5 mg/dL Blood 12/03/2024 9:23 AM CDT 12/03/2024 9:31 AM CDT Vanna Reynoso TRAVELING ACCOUNTANT LAB BLOOD ORDERABLES Jaja tuttle Result [facility] [address] [place] [address] * (ABNORMAL) Comprehensive metabolic panel (12/03/2024 9:23 AM CDT) [facility] Sodium 139 135 - 145 mmol/L Potassium, pl 4.4 3.3 - 4.9 mmol/L [facility] Chloride 101 97 - 110 mmol/L [facility] CO2 25 22 - 32 mmol/L [facility] Anion gap 13 2 - 15 mmol/L [facility] BUN 29(H) 6 - 25 mg/dL [facility] Creatinine 0.85 0.60 - 1.10 mg/dL [facility] Glucose 168 70 - 199 mg/dL [facility] Comment: Interpretive Data Fasting glucose >/= 126 mg/dl is diagnostic for diabetes. Fasting is defined as no caloric intake for at least 8 hours. Fasting glucose between 100 mg/dl to 125 mg/dl is diagnostic of prediabetes. In a patient with classic symptoms of hyperglycemia or hyperglycemic crisis, a random glucose >/= 200 mg/dl is diagnostic for diabetes. In the absence of unequivocal hyperglycemia, results should be confirmed by repeat testing. The classification and Diagnosis of Diabetes Diabetes Care 202; 46: S19-S40. Current interpretive data was last revised 2022. Calcium 8.4(L) 8.5 - 10.3 mg/dL [facility] Bilirubin, total 0.2 0.1 - 1.2 mg/dL [facility] Protein, pl 7.0 6.5 - 8.5 g/dL [facility] Albumin 2.9(L) 3.5 - 5.0 g/dL [facility] Alk phos 85 40 - 130 Units/L [facility] ALT 10 7 - 45 Units/L [facility] AST 36 10 - 45 Units/L [facility] Blood 12/03/2024 9:23 AM CDT 12/03/2024 9:31 AM CDT us Vanna Reynoso TRAVELING ACCOUNTANT LAB BLOOD ORDERABLES Jaja tuttle Result [facility] [address] [place] [address] * TRANSTHORACIC ECHO (TTE) COMPLETE W DOPPLER/CF WO CONTRAST (12/02/2024 4:55 PM CDT) LV EF 25 % CONS SCIMAGE Anatomical Region Laterality Modality Ultrasound 12/02/2024 3:06 PM CDT Narrative 12/04/2024 8:37 AM CDT [facility] [address] [place] [address] ECHOCARDIOGRAM Patient Name: CARMEN HOUSE K : 1945 (79y 1m) Gender: F Study Date: 12/02/2024 03:06:30 PM Ht(Inch): 64 Wt(Lb): 113.1 BSA: 1.52 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 INDICATIONS: Congestive heart failure and Dyspnea. MEASUREMENTS: 2D/MM Value Range Doppler Value Range IVSd 2D 1.03 cm [ 0.60 - 0.90 ] AV Peak Cristiano 0.95 m/s [ 1.00 - 1.70 ] LVIDd 2D 5.37 cm [ 3.80 - 5.20 ] AV Peak PG 3.6 mmHg LVIDs 2D 4.30 cm [ 2.20 - 3.50 ] AV Mean PG 2.2 mmHg LVPWd 2D 1.01 cm [ 0.60 - 0.90 ] AV VTI 24.8 cm Estimated EF 25 % RICKIE VTI 2.2 cm2 LA Dimension 2D 4.97 cm [ 2.70 - 3.80 ] LVOT Peak Cristiano 0.67 m/s [ 0.70 - 1.10 ] AoR Diam 2D 2.76 cm [ 2.70 - 3.70 ] LVOT Diam 2.0 cm AoR Diam 2D Index 1.82 LVOT Peak PG 1.8 mmHg TAPSE 1.60 cm [ 1.71 - 5.00 ] LVOT VTI 17.4 cm MV Peak PG 2.8 mmHg MV Mean PG 0.7 mmHg MV E Peak Cristiano 0.7 m/s [ 0.6 - 1.3 ] MV A Peak Cristiano 0.3 m/s [ 1.0 - 1.2 ] MV PHT 63.8 ms [ 20.0 - 100.0 ] MV Decel Time 208.7 ms [ 104.0 - 258.0 ] MVA PHT 3.5 ms MV E/A Ratio 2.3 TR Peak Cristiano 2.6 m/s [ 1.0 - 2.8 ] TR Peak PG 26 mmHg RVSP 29.1 mmHg [ 10.0 - 36.0 ] RA Pressure 3.0 mmHg PV Peak Cristiano 0.6 m/s [ 0.4 - 0.8 ] PV Peak PG 1.5 mmHg Lat E` Cristiano 0.03 m/s [ 0.10 - 0.15 ] Sept E' Cristiano 0.02 m/s [ 0.08 - 0.15 ] E/E` 23.33 RV S' 0.06 m/s 2D/MM Value Range Doppler Value Range - FINDINGS: BP: Blood pressure: 122/58 mmHg. Left Ventricle: Severe left ventricular systolic dysfunction. There is global hypokinesis. Ejection Fraction is estimated at 25 %. Diastolic indices overall most consistent with Grade II diastolic dysfunction (impaired myocardial relaxation with elevated filling pressures). Upper limits of normal left ventricular chamber size. There is mild eccentric hypertrophy. Right Ventricle: Mild right ventricular dysfunction. Normal right ventricular size. Left Atrium: There is mild enlargement of the left atrium. Right Atrium: There is mild enlargement of the right atrium. Atrial Septum: Normal appearing atrial septum. Cannot exclude PFO by atrial septal color Doppler interrogation. Mitral Valve: Normal appearance of the mitral valve leaflets. Mitral stenosis is absent. Mild mitral valve regurgitation. Aortic Valve: Aortic valve appears tricuspid in configuration. There appears to be a tiny filamentous mobile echodensity attached to the ventricular side of the valve. 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 Mild aortic stenosis. There is no aortic regurgitation. Tricuspid Valve: Normal appearance of the tricuspid leaflets. Mild to moderate tricuspid regurgitation. TR envelope inadequate to estimate RVSP. Pulmonic Valve: Normal appearance of the pulmonic valve. There is no pulmonic stenosis. Mild to moderate pulmonic regurgitation. Pericardium: No significant pericardial effusion. Aortic Root and Aorta: Normal caliber aortic root. Normal sized ascending aorta. Aortic Arch: Grossly normal aortic arch. IVC: Normal appearance of the inferior vena cava. CONCLUSIONS: 1. Severe left ventricular systolic dysfunction. There is global hypokinesis. Ejection Fraction is estimated at 25 %. Diastolic indices overall most consistent with Grade II diastolic dysfunction (impaired myocardial relaxation with elevated filling pressures). Upper limits of normal left ventricular chamber size. There is mild eccentric hypertrophy. 2. Mild right ventricular dysfunction. Normal right ventricular size. 3. Aortic valve appears tricuspid in configuration. There appears to be a tiny filamentous mobile echodensity attached to the ventricular side of the valve. 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 Mild aortic stenosis. There is no aortic regurgitation. 4. Normal appearance of the tricuspid leaflets. Mild to moderate tricuspid regurgitation. TR envelope inadequate to estimate RVSP. 5. Normal appearance of the pulmonic valve. There is no pulmonic stenosis. Mild to moderate pulmonic regurgitation. Electronically Signed By: Maxwell welch 12/04/2024 8:36:13 AM CDT Procedure Note Maxwell Amaral MD - 12/04/2024 [facility] [address] [place] [address] ECHOCARDIOGRAM Patient Name: CARMEN HOUSE K : 1945 (79y 1m) Gender: F Study Date: 12/02/2024 03:06:30 PM Ht(Inch): 64 Wt(Lb): 113.1 BSA: 1.52 Bulk Cooler Installer: Location: [id number] Order Provider: PURNIMA DRAKE BMI: 19.41 BP: 122/58 Ref Provider: PURNIMA DRAKE - PROCEDURES: Echocardiographic Report: Transthoracic Echocardiogram with complete 2D,M-Mode, Spectral and Color Flow Doppler examination. INDICATIONS: Congestive heart failure and Dyspnea. MEASUREMENTS: 2D/MM Value Range Doppler ValueRange IVSd 2D 1.03 cm [ 0.60 - 0.90 ] AV Peak Cristiano 0.95m/s [ 1.00 - 1.70 ] LVIDd 2D 5.37 cm [ 3.80 - 5.20 ] AV Peak PG 3.6mmHg LVIDs 2D 4.30 cm [ 2.20 - 3.50 ] AV Mean PG 2.2mmHg LVPWd 2D 1.01 cm [ 0.60 - 0.90 ] AV VTI 24.8cm Estimated EF 25 % RICKIE VTI 2.2cm2 LA Dimension 2D 4.97 cm [ 2.70 - 3.80 ] LVOT Peak Cristiano 0.67m/s [ 0.70 - 1.10 ] AoR Diam 2D 2.76 cm [ 2.70 - 3.70 ] LVOT Diam 2.0cm AoR Diam 2D Index 1.82 LVOT Peak PG 1.8mmHg TAPSE 1.60 cm [ 1.71 - 5.00 ] LVOT VTI 17.4cm MV Peak PG 2.8 mmHg MV Mean PG 0.7 mmHg MV E Peak Cristiano 0.7 m/s [ 0.6 - 1.3 ] MV A Peak Cristiano 0.3 m/s [ 1.0 - 1.2 ] MV PHT 63.8 ms [ 20.0 - 100.0 ] MV Decel Time 208.7 ms [ 104.0 - 258.0 ] MVA PHT 3.5 ms MV E/A Ratio 2.3 TR Peak Cristiano 2.6 m/s [ 1.0 - 2.8 ] TR Peak PG 26 mmHg RVSP 29.1 mmHg [ 10.0 - 36.0 ] RA Pressure 3.0 mmHg PV Peak Cristiano 0.6 m/s [ 0.4 - 0.8 ] PV Peak PG 1.5 mmHg Lat E` Cristiano 0.03 m/s [ 0.10 - 0.15 ] Sept E' Cristiano 0.02 m/s [ 0.08 - 0.15 ] E/E` 23.33 RV S' 0.06 m/s 2D/MM Value Range Doppler ValueRange - FINDINGS: BP: Blood pressure: 122/58 mmHg. Left Ventricle: Severe left ventricular systolic dysfunction. There isglobal hypokinesis. Ejection Fraction is estimated at 25 %. Diastolic indicesoverall most consistent with Grade II diastolic dysfunction (impaired myocardialrelaxation with elevated filling pressures). Upper limits of normal left ventricularchamber size. There is mild eccentric hypertrophy. Right Ventricle: Mild right ventricular dysfunction. Normal rightventricular size. Left Atrium: There is mild enlargement of the left atrium. Right Atrium: There is mild enlargement of the right atrium. Atrial Septum: Normal appearing atrial septum. Cannot exclude PFO byatrial septal color Doppler interrogation. Mitral Valve: Normal appearance of the mitral valve leaflets. Mitralstenosis is absent. Mild mitral valve regurgitation. Aortic Valve: Aortic valve appears tricuspid in configuration. Thereappears to be a tiny filamentous mobile echodensity attached to the ventricular side of thevalve. 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 Mild aortic stenosis. There is no aortic regurgitation. Tricuspid Valve: Normal appearance of the tricuspid leaflets. Mild tomoderate tricuspid regurgitation. TR envelope inadequate to estimate RVSP. Pulmonic Valve: Normal appearance of the pulmonic valve. There is nopulmonic stenosis. Mild to moderate pulmonic regurgitation. Pericardium: No significant pericardial effusion. Aortic Root and Aorta: Normal caliber aortic root. Normal sized ascendingaorta. Aortic Arch: Grossly normal aortic arch. IVC: Normal appearance of the inferior vena cava. CONCLUSIONS: 1. Severe left ventricular systolic dysfunction. There is globalhypokinesis. Ejection Fraction is estimated at 25 %. Diastolic indices overall most consistentwith Grade II diastolic dysfunction (impaired myocardial relaxation with elevatedfilling pressures). Upper limits of normal left ventricular chamber size. There is mildeccentric hypertrophy. 2. Mild right ventricular dysfunction. Normal right ventricular size. 3. Aortic valve appears tricuspid in configuration. There appears to be atiny filamentous mobile echodensity attached to the ventricular side of thevalve. 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 Mild aortic stenosis. There is no aortic regurgitation. 4. Normal appearance of the tricuspid leaflets. Mild to moderate tricuspidregurgitation. TR envelope inadequate to estimate RVSP. 5. Normal appearance of the pulmonic valve. There is no pulmonic stenosis.Mild to moderate pulmonic regurgitation. Electronically Signed By: Maxwell welch 12/04/2024 8:36:13 AM CDT Purnima Drake NP CV ECHO PROCEDUR ES Final Result * CT Head WO Contrast (12/02/2024 8:02 AM CDT) Anatomical Region Laterality Modality Head and Neck N/A Computed Tomogra phy 12/02/2024 8:37 AM CDT Impressions 12/02/2024 10:26 AM CDT Punctate focus of hyperdensity along the right insular cortex. Given lack of comparison imaging, findings are indeterminate and may be artifactual versus tiny focus of parenchymal hemorrhage/contusion in the setting of recent trauma. 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 Recommend short-term repeat follow-up imaging for further assessment. Chronic white matter small vessel disease. The Critical results were discussed with Lucy Rasmussen DO by Dr. Soriano on 12/02/2024 at 8:36 AM. Dictated by: Jace Soriano D.O. The radiology attending physician has personally reviewed this study, and had reviewed and/or edited this written report and agrees with it. Electronically signed by: Wilder Salinas MD Narrative 12/02/2024 10:26 AM CDT EXAMINATION: CT head without contrast HISTORY: Recent falls, assess for intracranial bleeding. TECHNIQUE: CT of the head was performed with images acquired from skull base to vertex without intravenous contrast. COMPARISON: None Available. FINDINGS: Punctate focus of hyperdensity along the right insular cortex. This is optimally seen on series 10, image 26). Ventricles are of normal size and morphology. No mass effect or midline shift is present. The tsai-white matter differentiation is normal. Moderate diffuse nonspecific bihemispheric periventricular and subcortical hypoattenuation. The visualized portions of the orbits are normal. The visualized portions of the mastoids are normal. The visualized portions of the paranasal sinuses are normal. No fractures are identified. Procedure Note Wilder Salinas MD PhD - 12/02/2024 EXAMINATION: CT head without contrast HISTORY: Recent falls, assess for intracranial bleeding. TECHNIQUE: CT of the head was performed with images acquired from skull base to vertex without intravenous contrast. COMPARISON: None Available. FINDINGS: Punctate focus of hyperdensity along the right insular cortex. This is optimally seen on series 10, image 26). Ventricles are of normal size and morphology. No mass effect or midline shift is present. The tsai-white matter differentiation is normal. Moderate diffuse nonspecific bihemispheric periventricular and subcortical hypoattenuation. The visualized portions of the orbits are normal. The visualized portions of the mastoids are normal. The visualized portions of the paranasal sinuses are normal. No fractures are identified. IMPRESSION: Punctate focus of hyperdensity along the right insular cortex. Given lack of comparison imaging, findings are indeterminate and may be artifactual versus tiny focus of parenchymal hemorrhage/contusion in the setting of recent trauma. 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 Recommend short-term repeat follow-up imaging for further assessment. Chronic white matter small vessel disease. The Critical results were discussed with Lucy Rasmussen DO by Dr. Soriano on 12/02/2024 at 8:36 AM. Dictated by: Jace Soriano D.O. The radiology attending physician has personally reviewed this study, and had reviewed and/or edited this written report and agrees with it. Electronically signed by: Wilder Salinas MD us Purnima Sheri Drake TRAVELING ACCOUNTANT IMG CT PROCEDURE S Final Result * eGFR (12/02/2024 5:19 AM CDT) eGFR 89 >=60 mL/min/1. 73 m2 Comment: Interpretive Data Reference Interval Normal >/= 90 mL/min/1.73m2 Mildly decreased* 60 - 89 mL/min/1.73m2 Mildly to moderately decreased 45 - 59 mL/min/1.73m2 Moderately to severely decreased 30 - 44 mL/min/1.73m2 Severely decreased 15 - 29 mL/min/1.73m2 Kidney Failure < 15 mL/min/1.73m2 *Relative to young adult level Estimated glomerular filtration rate is determined by the 2020 CKD-EPI equation recommended by the National Kid[employer] (A Unifying Approach to GFR Estimation: Recommendations of the NKF-ASK Task Force on Reassessing the Inclusion of Race in Diagnosing Kidney Disease, JASN 2020). The CKD-EPI equation should not be used for patients with unstable renal function and has not been validated in children and those over 70. Current interpretive data was last reviewed 2021. Blood 12/02/2024 5:19 AM CDT 12/02/2024 5:32 AM CDT us Jordan Castillo MD LAB BLOOD ORDERABLES Final Result [facility] [address] [place] [address] * (ABNORMAL) Differential, auto (12/02/2024 5:19 AM CDT) Neutrophil abs 3.40 1.50 - 6.50 K/cumm Imm gran abs 0.02 0.00 - 0.10 K/cumm [facility] Lymphocyte abs 0.14(L) 0.80 - 3.30 K/cumm [facility] Monocyte abs 0.12(L) 0.20 - 0.80 K/cumm [facility] Eosinophil abs 0.01 0.00 - 0.50 K/cumm [facility] Basophil abs 0.00 0.00 - 0.10 K/cumm [facility] Neutrophil pct 92.1 % [facility] Comment: Interpretive Data Percent cell count reference ranges are not reported, since discordance with absolute values may lead to misinterpretation of CBC data. Current Interpretive Data was last revised on 2017. Imm gran pct 0.5 % [facility] Comment: Interpretive Data Percent cell count reference ranges are not reported, since discordance with absolute values may lead to misinterpretation of CBC data. Current Interpretive Data was last revised on 2017. Lymphocyte pct 3.8 % [facility] Comment: Interpretive Data Percent cell count reference ranges are not reported, since discordance with absolute values may lead to misinterpretation of CBC data. Current Interpretive Data was last revised on 2017. Monocyte pct 3.3 % [facility] Comment: Interpretive Data Percent cell count reference ranges are not reported, since discordance with absolute values may lead to misinterpretation of CBC data. Current Interpretive Data was last revised on 2017. Eosinophil pct 0.3 % [facility] Comment: Interpretive Data Percent cell count reference ranges are not reported, since discordance with absolute values may lead to misinterpretation of CBC data. Current Interpretive Data was last revised on 2017. Basophil pct 0.0 % [facility] Comment: Interpretive Data Percent cell count reference ranges are not reported, since discordance with absolute values may lead to misinterpretation of CBC data. Current Interpretive Data was last revised on 2017. Blood 12/02/2024 5:19 AM CDT 12/02/2024 5:34 AM CDT us Jordan Castillo MD LAB BLOOD ORDERABLES Final Result [facility] [address] Department of Laboratories [place] [id number] * (ABNORMAL) CBC with auto differential (12/02/2024 5:19 AM CDT) [facility] WBC 3.69(L) 3.80 - 9.90 K/cumm Hgb 9.5(L) 11.9 - 15.5 g/dL [facility] Hct 31.0(L) 35.6 - 45.5 % [facility] Plt 282 150 - 400 K/cumm [facility] MPV 11.5 9.1 - 12.3 fL [facility] RBC 3.71(L) 3.90 - 5.20 M/cumm [facility] MCV 83.6 81.3 - 96.4 fL [facility] MCH 25.6(L) 27.1 - 33.3 pg [facility] MCHC 30.6(L) 32.3 - 35.7 g/dL [facility] RDW CV 17.7(H) 11.1 - 14.9 % [facility] RDW SD 54.4(H) 35.7 - 48.1 fL [facility] NRBC abs 0.00 0.00 - 0.01 K/cumm [facility] Blood 12/02/2024 5:19 AM CDT 12/02/2024 5:34 AM CDT Jordan Castillo MD LAB BLOOD ORDERABLES Final Result Performing Organization Address City/[facility]/ZIP Co de Phone Number [facility] [address] [place] [address] * Magnesium (12/02/2024 5:19 AM CDT) [facility] Magnesium 1.6 1.4 - 2.5 mg/dL Blood 12/02/2024 5:19 AM CDT 12/02/2024 5:32 AM CDT Jordan Castillo MD LAB BLOOD ORDERABLES Final Result [facility] [address] [place] [address] * (ABNORMAL) Renal function panel (12/02/2024 5:19 AM CDT) [facility] Sodium 134(L) 135 - 145 mmol/L Potassium, pl 3.2(L) 3.3 - 4.9 mmol/L [facility] Chloride 99 97 - 110 mmol/L [facility] CO2 24 22 - 32 mmol/L [facility] Anion gap 11 2 - 15 mmol/L [facility] BUN 13 6 - 25 mg/dL [facility] Creatinine 0.69 0.60 - 1.10 mg/dL [facility] Glucose 193 70 - 199 mg/dL [facility] Comment: Interpretive Data Fasting glucose >/= 126 mg/dl is diagnostic for diabetes. Fasting is defined as no caloric intake for at least 8 hours. Fasting glucose between 100 mg/dl to 125 mg/dl is diagnostic of prediabetes. In a patient with classic symptoms of hyperglycemia or hyperglycemic crisis, a random glucose >/= 200 mg/dl is diagnostic for diabetes. In the absence of unequivocal hyperglycemia, results should be confirmed by repeat testing. The classification and Diagnosis of Diabetes Diabetes Care 202; 46: S19-S40. Current interpretive data was last revised 2022. Calcium 7.9(L) 8.5 - 10.3 mg/dL [facility] Phosphorus, pl 4.2 2.3 - 4.5 mg/dL [facility] Albumin 2.5(L) 3.5 - 5.0 g/dL [facility] Blood 12/02/2024 5:19 AM CDT 12/02/2024 5:32 AM CDT us Jordan Castillo MD LAB BLOOD ORDERABLES Final Result [facility] [address] Department [place] [address] * (ABNORMAL) Lipid panel (12/02/2024 5:19 AM CDT) Cholesterol 154 30 - 199 mg/dL Comment: Interpretive Data Ages < or = 19 years Acceptable: <170 mg/dL Borderline high: 170-199 mg/dL High: >or= 200 mg/dL Ages > or = 20 years Desirable: <200 mg/dL Borderline high: 200-239 mg/dL High: >or= 240 mg/dL Literature References: 1. Expert Panel on Integrated Guidelines for Cardiovascular Health and Risk Reduction in Children and Adolescents. Pediatrics 2011;128:S213 2. NCEP Expert Panel. Circulation 2004;110:227 Current Interpretive Data was last revised on 2018. Triglycerides 143 <=149 mg/dL [facility] Comment: Interpretive Data Ages < or = 9 years Acceptable: <75 mg/dL Borderline high: 75-99 mg/dL High: >or= 100 mg/dL Ages 10 to 20 years Acceptable: <90 mg/dL Borderline high: 90-129 mg/dL High: >or= 130 mg/dL Ages > or = 20 years Desirable: <150 mg/dL Borderline high: 150-199 mg/dL High: 200-499 mg/dL Very high: >or= 499 mg/dL Literature References: 1. Expert Panel on Integrated Guidelines for Cardiovascular Health and Risk Reduction in Children and Adolescents. Pediatrics 2011;128:S213 2. NCEP Expert Panel. Circulation 2004;110:227 Current Interpretive Data was last revised on 2018. HDL 24(L) >=40 mg/dL [facility] Comment: Interpretive Data Ages < or = 19 years Acceptable: >45 mg/dL Borderline low: 40-45 mg/dL Low: <40 mg/dL Ages > or = 20 years Desirable: >or= 60 mg/dL Low: <40 mg/dL Literature References: 1. Expert Panel on Integrated Guidelines for Cardiovascular Health and Risk Reduction in Children and Adolescents. Pediatrics 2011;128:S213 2. NCEP Expert Panel. Circulation 2004;110:227 Current Interpretive Data was last revised on 2018. LDL, calculated 104 <=129 mg/dL [facility] Comment: Interpretive Data Ages < or = 19 years Acceptable: <110 mg/dL Borderline high: 110-129 mg/dL High: >or= 130 mg/dL Ages > or = 20 years Optimal: <100 mg/dL Near optimal: 100-129 mg/dL Borderline high: 130-159 mg/dL High: >160 mg/dL Calculated using the Carlos LDL-C estimating equation. This equation was implemented on 2024. Prior to this date LDL-C was estimated using the Friedewald equation. Literature References: 1. Expert Panel on Integrated Guidelines for Cardiovascular Health and Risk Reduction in Children and Adolescents. Pediatrics 2011;128:S213 2. NCEP Expert Panel. Circulation 2004;110:227 3. Carlos Fajardo et al. JAGDEEP Cardiol. 2020 December 24;5(5):540-548. doi: 10.1001/jamacardio.2020.0013 Current Interpretive Data was last revised on 2024. Non-HDL Cholesterol 130 mg/dL [facility] Comment: Interpretive Data Ages < or = 19 years Acceptable: <120 mg/dL Borderline high: 120-144 mg/dL High: >145 mg/dL Ages > or = 20 years When triglycerides are >200 mg/dL, Non-HDL cholesterol is a secondary target of therapy with treatment goals that are 30 mg/dL greater than the LDL cholesterol target. Literature References: 1. Expert Panel on Integrated Guidelines for Cardiovascular Health and Risk Reduction in Children and Adolescents. Pediatrics 2011;128:S213 2. NCEP Expert Panel. Circulation 2004;110:227 Current Interpretive Data was last revised on 2018. Chol/HDL ratio 6 [facility] Blood 12/02/2024 5:19 AM CDT 12/02/2024 5:32 AM CDT Purnima Drake TRAVELING ACCOUNTANT LAB BLOOD ORDERA BLES Final Result [facility] [address] Department [place] [address] * Respiratory pathogen panel Nasopharyngeal (12/01/2024 8:44 PM CDT) Influenza A RNA Not Detected Not Detected MBC Influenza B RNA Not Detected Not Detected [facility] RSV RNA Not Detected Not Detected [facility] COVID-19 RNA Not Detected Not Detected [facility] Coronavirus 229E RNA Not Detected Not Detected [facility] Coronavirus HKU1 RNA Not Detected Not Detected [facility] Coronavirus NL63 RNA Not Detected Not Detected [facility] Coronavirus OC43 RNA Not Detected Not Detected [facility] Adenovirus DNA Not Detected Not Detected [facility] Metapneumovirus RNA Not Detected Not Detected [facility] Rhinovirus/Enterov irus RNA Not Detected Not Detected [facility] Parainfluenza 1 RNA Not Detected Not Detected [facility] Parainfluenza 2 RNA Not Detected Not Detected [facility] Parainfluenza 3 RNA Not Detected Not Detected [facility] Parainfluenza 4 RNA Not Detected Not Detected [facility] B. pertussis DNA Not Detected Not Detected [facility] B. parapertussis DNA Not Detected Not Detected [facility] C. pneumoniae DNA Not Detected Not Detected [facility] M. pneumoniae DNA Not Detected Not Detected [facility] Comment: Interpretive Data The [employer] FilmArray Respiratory Panel (RP2.1) assay is a multiplexed real-time PCR based nucleic acid test capable of simultaneous qualitative detection and identification of multiple respiratory viral and bacterial nucleic acids, including SARS Coronavirus 2 (the causative agent of COVID-19). The following bacteria, viruses and virus subtypes can be identified using the FilmArray RP2.1 assay: Bordetella pertussis, Bordetella parapertussis, Chlamydia pneumoniae, Mycoplasma pneumoniae, Adenovirus, SARS Coronavirus 2, seasonal coronaviruses (Coronavirus HKU1, Coronavirus NL63, Coronavirus 229E, and Coronavirus OC43), Influenza A, Influenza A subtype H1, Influenza A subtype H3, Influenza A subtype 2009 H1, Influenza B, Metapneumovirus, Parainfluenza 1, Parainfluenza 2, Parainfluenza 3, Parainfluenza 4, RSV, Rhinovirus/Enterovirus. Due to the genetic similarity between human Rhinovirus and Enterovirus, the FilmArray RP2.1 assay cannot reliably differentiate them. Coronavirus OC43 may cross-react with some isolates of Coronavirus HKU1. A dual positive result may be due to cross-reactivity or may indicate a co- infection. The detection and identification of specific viral and bacterial nucleic acids from individuals exhibiting signs and symptoms of a respiratory infection aids in the diagnosis of respiratory infection if used in conjunction with other clinical and epidemiological information. The results of this test should not be used as the sole basis for diagnosis, treatment, or other management decisions. Negative results in the setting of a respiratory illness may be due to infection with pathogens that are not detected by this test. Positive results do not rule out infection/co-infection with other organisms. The agent(s) detected by the FilmArray RP2.1 may not be the definite cause of disease. Additional testing (lab, imaging, etc.) may be necessary when evaluating a patient with possible respiratory tract infection. The FilmArray RP2.1 assay has FDA clearance for testing of TRAVELING ACCOUNTANT swabs. The performance characteristics of this assay have been determined by [facility]. Current interpretive data was last revised on 2021. Nasopharyngeal 12/01/2024 8: 44 PM CDT 12/01/2024 9:01 PM CDT Narrative [facility] - 12/01/2024 9:51 PM CDT Is the Patient experiencing symptoms consistent with COVID?->Yes Surveillance testing for transplant patient?->No Purnima Drake TRAVELING ACCOUNTANT LAB MICROBIOLOGY - GENERAL ORDERABLES Final Result [facility] [address] [place] [address] MBC * Procalcitonin - Add on lab test (12/01/2024 6:41 PM CDT) Acceptable Yes Blood 12/01/2024 6:41 PM CDT 12/01/2024 6:42 PM CDT Narrative [facility] - 12/01/2024 6:42 PM CDT Name of Test->Procalcitonin Purnima Drake TRAVELING ACCOUNTANT LAB BLOOD ORDERA BLES Final Result [facility] [address] Department [employer] [place], [place] [id number] * (ABNORMAL) Troponin T high-sensitivity 4-hour (12/01/2024 5:53 PM CDT) Trop T hs 47(H) <=14 ng/L Comment: Interpretive Data For further hscTnT resources including the diagnostic algorithm and an aid in interpretation, copy and paste this link: [email or web address].testcatalog.org/show/[email or web address] Current Interpretive Data last revised 2020. Trop T hs delta 3 ng/L [facility] Trop T hs interp Insignificant [facility] Blood 12/01/2024 5:53 PM CDT 12/01/2024 6:08 PM CDT us Arnulfo Peñaloza MD LAB BLOOD ORDERABLES Final R esult [facility] [address] [place] [address] * (ABNORMAL) Urinalysis reflex to microscopic and culture Urine (12/01/2024 4:51 PM CDT) Color, ur Straw Yellow Clarity, ur Clear Clear [facility] Specific gravity, ur 1.020 1.003 - 1.030 [facility] pH, urine 7.0 [facility] Comment: Interpretive Data U rine pH is affected by diet, medications, systemic acid-base disturbances, and renal tubular function. pH may affect urinary stone formation. For example, urine pH below 6.0 may help reduce the tendency for calcium phosphate stones and pH greater than 6.0 may reduce the tendency for uric acid stone formation. Source: [facility] Current Interpretive Data was last revised on 2017 Protein, ur ql Trace Negative [facility] Glucose, ur ql Negative Negative [facility] Ketones, ur Negative Negative [facility] Bilirubin, ur Negative Negative [facility] Blood, ur 2+(A) Negative [facility] Urobilinogen, ur <2.0 <2.0 mg/dL [facility] Nitrite, ur Negative Negative [facility] Leukocyte esterase, ur Negative Negative [facility] UA reflex comment Reflex to microscopic UA will be performed. [facility] Urine 12/01/2024 4:51 PM CDT 12/01/2024 5:17 PM CDT Christina Campos NP LAB MICROBIOLOGY - GENE RAL ORDERABLES Final Result Performing Organization Address [facility]/ZIP Co de Phone Number [facility] [address] [place] [address] * (ABNORMAL) Urinalysis, microscopic only (12/01/2024 4:51 PM CDT) WBC, ur 6-10(A) 0 - 5 /HPF RBC, ur 21-50(A) 0 - 2 /HPF [facility] Epithelial cells, squamous, ur 1-5 0 - 5 /HPF [facility] Culture Reflex Comment Reflex conditions for urine culture (WBC >10) not met. [facility] Urine 12/01/2024 4:51 PM CDT 12/01/2024 5:17 PM CDT Arnulfo Peñaloza MD LAB URINE ORDERABLES Final R esult Performing Organization Address [facility] Co de Phone Number [facility] [address] Department [place] [address] * (ABNORMAL) Troponin T high-sensitivity 2-hour (12/01/2024 3:46 PM CDT) Trop T hs 45(H) <=14 ng/L Comment: Interpretive Data For further hscTnT resources including the diagnostic algorithm and an aid in interpretation, copy and paste this link: [email or web address].[email or web address]/show/[email or web address] Current Interpretive Data last revised 2020. Trop T hs delta 1 ng/L [facility] Trop T hs interp Insignificant [facility] Blood 12/01/2024 3:46 PM CDT 12/01/2024 3:58 PM CDT Arnulfo Peñaloza MD LAB BLOOD ORDERABLES Final R esult [facility] [address] [place] [address] * CT Chest PE (CTA) W Contrast (12/01/2024 3:29 PM CDT) Anatomical Region Laterality Modality Body N/A Computed Tomogra phy 12/01/2024 3:38 PM CDT Impressions 12/01/2024 3:38 PM CDT 1. No pulmonary embolus 2. 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 3. Previously described spiculated nodule in the left lower lobe is obscured by groundglass opacities. Recommend continued attention on follow-up. Electronically signed by: Kenny Yusuf MD, PHD Narrative 12/01/2024 3:38 PM CDT EXAMINATION: CT CHEST PE (CTA) W CONTRAST HISTORY: Shortness of breath, concern for pulmonary embolus TECHNIQUE: Computed tomographic images were acquired using a chest angiographic protocol optimized for pulmonary embolism. Contrast enhanced transaxial images were obtained following the intravenous administration of 70 ml of nonionic contrast. Multiplanar reformatted images and three-dimensional images were obtained on the 3-D workstation and sent to the PACS archival system. COMPARISON: CT chest 09/24/2023 FINDINGS: There is no pulmonary embolus. Mild atherosclerotic disease in the thoracic aorta. Cystic changes in reticulations throughout both lungs with an upper lobe predominance not significantly changed from prior. However, there are extensive groundglass opacities throughout both lungs, including a more consolidative component in the left lower lobe. Unchanged 10 mm left lower lobe nodule (series 5 image 105) with the previously noted spiculated nodule left lower lobe obscured. There is no pleural effusion or pneumothorax. Mild cardiomegaly with no pericardial effusion. Changes of left atrial appendage occlusion. Mild atherosclerotic disease in the coronary arteries. Subcentimeter mediastinal and right hilar lymph nodes are likely reactive no supraclavicular or axillary lymphadenopathy. Imaged upper abdomen is unremarkable. No suspicious osseous lesion or acute fracture. Procedure Note Kenny Yusuf MD PhD - 12/01/2024 EXAMINATION: CT CHEST PE (CTA) W CONTRAST HISTORY: Shortness of breath, concern for pulmonary embolus TECHNIQUE: Computed tomographic images were acquired using a chest angiographic protocol optimized for pulmonary embolism. Contrast enhanced transaxial images were obtained following the intravenous administration of 70 ml of nonionic contrast. Multiplanar reformatted images and three-dimensional images were obtained on the 3-D workstation and sent to the PACS archival system. COMPARISON: CT chest 09/24/2023 FINDINGS: There is no pulmonary embolus. Mild atherosclerotic disease in the thoracic aorta. Cystic changes in reticulations throughout both lungs with an upper lobe predominance not significantly changed from prior. However, there are extensive groundglass opacities throughout both lungs, including a more consolidative component in the left lower lobe. Unchanged 10 mm left lower lobe nodule (series 5 image 105) with the previously noted spiculated nodule left lower lobe obscured. There is no pleural effusion or pneumothorax. Mild cardiomegaly with no pericardial effusion. Changes of left atrial appendage occlusion. Mild atherosclerotic disease in the coronary arteries. Subcentimeter mediastinal and right hilar lymph nodes are likely reactive no supraclavicular or axillary lymphadenopathy. Imaged upper abdomen is unremarkable. No suspicious osseous lesion or acute fracture. IMPRESSION: 1. No pulmonary embolus 2. 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 3. Previously described spiculated nodule in the left lower lobe is obscured by groundglass opacities. Recommend continued attention on follow-up. Electronically signed by: Kenny Yusuf MD, PHD Christina Campos NP IMG CT PROCEDURES Final Result * XR Chest PA Lateral 2 Views (12/01/2024 2:07 PM CDT) Anatomical Region Laterality Modality Body, Chest N/A Computed Radiogr aphy 12/01/2024 2:27 PM CDT Impressions 12/01/2024 3:39 PM CDT The current study is compared with the prior radiograph dated 07/19/2023, CT from 09/24/2023. Left atrial occluder device and partially imaged abdominal stents. Diffuse interstitial opacities bilaterally which may related to combination of pulmonary edema and interstitial lung disease. Small bilateral pleural effusions. No pneumothorax. Pulmonary nodules are better assessed on CT chest from 09/24/2023. As a follow-up chest CT was recommended at that time and is overdue, chest CT is recommended on a nonemergent basis. Dictated by: Tray Magana MD The radiology attending physician has personally reviewed this study, and had reviewed and/or edited this written report and agrees with it. Electronically signed by: Bindu Sutherland M.D. Narrative 12/01/2024 3:39 PM CDT EXAMINATION: 2 view chest radiograph Procedure Note Bindu Sutherland MD - 12/01/2024 EXAMINATION: 2 view chest radiograph IMPRESSION: The current study is compared with the prior radiograph dated 07/19/2023, CT from 09/24/2023. Left atrial occluder device and partially imaged abdominal stents. Diffuse interstitial opacities bilaterally which may related to combination of pulmonary edema and interstitial lung disease. Small bilateral pleural effusions. No pneumothorax. Pulmonary nodules are better assessed on CT chest from 09/24/2023. As a follow-up chest CT was recommended at that time and is overdue, chest CT is recommended on a nonemergent basis. Dictated by: Tray Magana MD The radiology attending physician has personally reviewed this study, and had reviewed and/or edited this written report and agrees with it. Electronically signed by: Bindu Sutherland M.D. Christina Campos TRAVELING ACCOUNTANT IMG XR PROCEDURES Final Result * (ABNORMAL) Troponin T high-sensitivity series (baseline, 2hr, 4hr, 6hr) (12/01/2024 1:22 PM CDT) Trop T hs 44(H) <=14 ng/L Comment: Interpretive Data For further hscTnT resources including the diagnostic algorithm and an aid in interpretation, copy and paste this link: [email or web address].testcatalog.org/show/[email or web address] Current Interpretive Data last revised 2020. Blood 12/01/2024 1:22 PM CDT 12/01/2024 1:57 PM CDT us Christina Patel Andres ZHONG LAB BLOOD ORDERABLES Ed ited Result - Final Performing Organization Address City/[facility]/ZIP Co de Phone Number [facility] [address] [place] [address] * eGFR (12/01/2024 1:22 PM CDT) eGFR 89 >=60 mL/min/1. 73 m2 Comment: Interpretive Data Reference Interval Normal >/= 90 mL/min/1.73m2 Mildly decreased* 60 - 89 mL/min/1.73m2 Mildly to moderately decreased 45 - 59 mL/min/1.73m2 Moderately to severely decreased 30 - 44 mL/min/1.73m2 Severely decreased 15 - 29 mL/min/1.73m2 Kidney Failure < 15 mL/min/1.73m2 *Relative to young adult level Estimated glomerular filtration rate is determined by the 2020 CKD-EPI equation recommended by the National Kidney Foundation (A Unifying Approach to GFR Estimation: Recommendations of the NKF-ASK Task Force on Reassessing the Inclusion of Race in Diagnosing Kidney Disease, JASN 2020). The CKD-EPI equation should not be used for patients with unstable renal function and has not been validated in children and those over 70. Current interpretive data was last reviewed 2021. Blood 12/01/2024 1:22 PM CDT 12/01/2024 1:57 PM CDT us Jordan Castillo MD LAB BLOOD ORDERABLES Final Result Performing Organization Address City/[facility]/ZIP Co de Phone Number [facility] [address] Department of [employer] [place], [place] [id number] * (ABNORMAL) Differential, auto (12/01/2024 1:22 PM CDT) Neutrophil abs 7.35(H) 1.50 - 6.50 K/cumm Imm gran abs 0.04 0.00 - 0.10 K/cumm [facility] Lymphocyte abs 0.20(L) 0.80 - 3.30 K/cumm [facility] Monocyte abs 0.33 0.20 - 0.80 K/cumm [facility] Eosinophil abs 0.04 0.00 - 0.50 K/cumm [facility] Basophil abs 0.01 0.00 - 0.10 K/cumm [facility] Neutrophil pct 92.3 % [facility] Comment: Interpretive Data Percent cell count reference ranges are not reported, since discordance with absolute values may lead to misinterpretation of CBC data. Current Interpretive Data was last revised on 2017. Imm gran pct 0.5 % [facility] Comment: Interpretive Data Percent cell count reference ranges are not reported, since discordance with absolute values may lead to misinterpretation of CBC data. Current Interpretive Data was last revised on 2017. Lymphocyte pct 2.5 % [facility] Comment: Interpretive Data Percent cell count reference ranges are not reported, since discordance with absolute values may lead to misinterpretation of CBC data. Current Interpretive Data was last revised on 2017. Monocyte pct 4.1 % [facility] Comment: Interpretive Data Percent cell count reference ranges are not reported, since discordance with absolute values may lead to misinterpretation of CBC data. Current Interpretive Data was last revised on 2017. Eosinophil pct 0.5 % [facility] Comment: Interpretive Data Percent cell count reference ranges are not reported, since discordance with absolute values may lead to misinterpretation of CBC data. Current Interpretive Data was last revised on 2017. Basophil pct 0.1 % [facility] Comment: Interpretive Data Percent cell count reference ranges are not reported, since discordance with absolute values may lead to misinterpretation of CBC data. Current Interpretive Data was last revised on 2017. Blood 12/01/2024 1:22 PM CDT 12/01/2024 1:57 PM CDT us Jordan Castillo MD LAB BLOOD ORDERABLES Final Result [facility] [address] [place] [address] * Procalcitonin (12/01/2024 1:22 PM CDT) Pathologist [facility] Procalcitonin 0.20 <=0.25 ng/mL Blood 12/01/2024 1:22 PM CDT 12/01/2024 1:57 PM CDT us Cb Ely MD LAB BLOOD ORDERABLES Final Resul t Performing Organization Address [facility] Co de Phone Number [facility] [address] [place] [address] * (ABNORMAL) Pro B-type natriuretic peptide (12/01/2024 1:22 PM CDT) NT-proBNP 17,077(H) <=450 pg/mL Comment: Interpretive Comments: A. Dyspnea in Acute Care Setting All Ages: < 300 pg/ml, acute heart failure unlikely. < 50 yrs: 300 - 450 pg/ml, further investigation warranted. > 450 pg/ml, acute heart failure likely. 50 - 74 yrs: 300 - 900 pg/ml, further investigation warranted. > 900 pg/ml, acute heart failure likely . > or = 75 yrs: 450 - 1800 pg/ml, further investigation warranted. > 1800 pg/ml, acute heart failure likely. B. Non-acute Setting < 75 yrs < 125 pg/ml, rules out heart failure. > or = 125 pg/ml, further investigation warranted. > or = 75 yrs < 450 pg/ml, rules out heart failure. > or = 450 pg/ml, further investigation warranted. - Knowledge of each individual patient's NT-proBNP range may be more useful than using similar cut-points for every patient. Please note that marked elevations in NT-proBNP levels may be observed in state other than Left Ventricular Congestive Failure, including: acute coronary syndromes, right heart strain/failure (including pulmonary embolism and cor pulmonale), critical illness, renal failure, as well as advanced age. - References: 1. Manolo CRISOSTOMO et.al. Eur Heart J. 2006:27:330-337. 2. Wendy RW, Jan LUDWIG. J. AM Molly Cardiol: Cardiovasc Imag. 2009;2: 216- 225. Interpretive Data Last Revised Date: 2018. Blood 12/01/2024 1:22 PM CDT 12/01/2024 1:57 PM CDT Christina Campos TRAVELING ACCOUNTANT LAB BLOOD ORDERABLES Fi nal Result Performing Organization Address [facility]/ZIP Co de Phone Number [facility] [address] [place] [address] * (ABNORMAL) CBC with auto differential (12/01/2024 1:22 PM CDT) [facility] WBC 7.97 3.80 - 9.90 K/cumm Hgb 10.2(L) 11.9 - 15.5 g/dL [facility] Hct 34.0(L) 35.6 - 45.5 % [facility] Plt 380 150 - 400 K/cumm [facility] MPV 11.6 9.1 - 12.3 fL [facility] RBC 4.00 3.90 - 5.20 M/cumm [facility] MCV 85.0 81.3 - 96.4 fL [facility] MCH 25.5(L) 27.1 - 33.3 pg [facility] MCHC 30.0(L) 32.3 - 35.7 g/dL [facility] RDW CV 17.5(H) 11.1 - 14.9 % [facility] RDW SD 54.4(H) 35.7 - 48.1 fL [facility] NRBC abs 0.00 0.00 - 0.01 K/cumm [facility] Blood 12/01/2024 1:22 PM CDT 12/01/2024 1:57 PM CDT Christina Campos NP LAB BLOOD ORDERABLES Fi nal Result Performing Organization Address [facility]/ZIP Co de Phone Number [facility] [address] [place] [address] * (ABNORMAL) Comprehensive metabolic panel (12/01/2024 1:22 PM CDT) Sodium 136 135 - 145 mmol/L Potassium, pl 3.5 3.3 - 4.9 mmol/L [facility] Chloride 102 97 - 110 mmol/L [facility] CO2 20(L) 22 - 32 mmol/L [facility] Anion gap 14 2 - 15 mmol/L [facility] BUN 10 6 - 25 mg/dL [facility] Creatinine 0.67 0.60 - 1.10 mg/dL [facility] Glucose 152 70 - 199 mg/dL [facility] Comment: Interpretive Data Fasting glucose >/= 126 mg/dl is diagnostic for diabetes. Fasting is defined as no caloric intake for at least 8 hours. Fasting glucose between 100 mg/dl to 125 mg/dl is diagnostic of prediabetes. In a patient with classic symptoms of hyperglycemia or hyperglycemic crisis, a random glucose >/= 200 mg/dl is diagnostic for diabetes. In the absence of unequivocal hyperglycemia, results should be confirmed by repeat testing. The classification and Diagnosis of Diabetes Diabetes Care 2021; 46: S19-S40. Current interpretive data was last revised 2022. Calcium 8.3(L) 8.5 - 10.3 mg/dL [facility] Bilirubin, total 0.7 0.1 - 1.2 mg/dL [facility] Protein, pl 6.8 6.5 - 8.5 g/dL [facility] Albumin 2.6(L) 3.5 - 5.0 g/dL [facility] Alk phos 82 40 - 130 Units/L [facility] ALT 5(L) 7 - 45 Units/L [facility] AST 25 10 - 45 Units/L [facility] Blood 12/01/2024 1:22 PM CDT 12/01/2024 1:57 PM CDT us Christina Campos NP LAB BLOOD ORDERABLES Fi nal Result [facility] [address] [place] [address] * ECG 12 lead (12/01/2024 12:59 PM CDT) 12/01/2024 12:5 9 PM CDT Narrative [facility] - 12/02/2024 9:25 AM CDT Vent Rate: 111 bpm RR Interval: 538 msec IA Interval: 0 msec QRS Duration: 98 msec QT Interval: 222 msec QTC Interval: 288 msec P-R-T [place]: 0 - 7 - 0 degrees IMPRESSION: ATRIAL FIBRILLATION WITH RAPID VENTRICULAR RESPONSE WITH ABERRANT CONDUCTION OR VENTRICULAR PREMATURE COMPLEXES NONSPECIFIC ST \T\ T-WAVE ABNORMALITY ABNORMAL RHYTHM ECG INTERPRETATION BASED ON A DEFAULT AGE OF 40 YEARS Electronically Signed By: Giancarlo Ventura MD, [facility] us Christina Campos TRAVELING ACCOUNTANT ECG ORDERABLES Final R esult [facility] * eGFR (10/29/2024 2:30 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) eGFR 73 >=60 mL/min/1. 73 m2 Comment: Interpretive Data Reference Interval Normal >/= 90 mL/min/1.73m2 Mildly decreased* 60 - 89 mL/min/1.73m2 Mildly to moderately decreased 45 - 59 mL/min/1.73m2 Moderately to severely decreased 30 - 44 mL/min/1.73m2 Severely decreased 15 - 29 mL/min/1.73m2 Kidney Failure < 15 mL/min/1.73m2 *Relative to young adult level Estimated glomerular filtration rate is determined by the 2020 CKD-EPI equation recommended by the National Kidney Foundation (A Unifying Approach to GFR Estimation: Recommendations of the NKF-ASK Task Force on Reassessing the Inclusion of Race in Diagnosing Kidney Disease, JASN 202). The CKD-EPI equation should not be used for patients with unstable renal function and has not been validated in children and those over 70. Current interpretive data was last reviewed 2021. Blood 10/29/2024 2:30 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 10/29/2024 9:40 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 us Arnold Perkins MD LAB BLOOD ORDERABLES Fin al Result [facility] [address] Department [place] [address] * (ABNORMAL) Differential, auto (10/29/2024 2:30 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) Neutrophil abs 4.9 1.5 - 6.5 K/cumm Imm gran abs 0.0 0.0 - 0.1 K/cumm [facility] Lymphocyte abs 0.2(L) 0.8 - 3.3 K/cumm [facility] Monocyte abs 0.4 0.2 - 0.8 K/cumm [facility] Eosinophil abs 0.1 0.0 - 0.5 K/cumm [facility] Basophil abs 0.0 0.0 - 0.1 K/cumm [facility] Neutrophil pct 88.0 % [facility] Comment: Interpretive Data Percent cell count reference ranges are not reported, since discordance with absolute values may lead to misinterpretation of CBC data. Current Interpretive Data was last revised on 2017. Imm gran pct 0.5 % [facility] Comment: Interpretive Data Percent cell count reference ranges are not reported, since discordance with absolute values may lead to misinterpretation of CBC data. Current Interpretive Data was last revised on 2017. Lymphocyte pct 3.2 % [facility] Comment: Interpretive Data Percent cell count reference ranges are not reported, since discordance with absolute values may lead to misinterpretation of CBC data. Current Interpretive Data was last revised on 2017. Monocyte pct 7.2 % [facility] Comment: Interpretive Data Percent cell count reference ranges are not reported, since discordance with absolute values may lead to misinterpretation of CBC data. Current Interpretive Data was last revised on 2017. Eosinophil pct 0.9 % [facility] Comment: Interpretive Data Percent cell count reference ranges are not reported, since discordance with absolute values may lead to misinterpretation of CBC data. Current Interpretive Data was last revised on 2017. Basophil pct 0.2 % [facility] Comment: Interpretive Data Percent cell count reference ranges are not reported, since discordance with absolute values may lead to misinterpretation of CBC data. Current Interpretive Data was last revised on 2017. Blood 10/29/2024 2:30 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 10/29/2024 9:02 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 Arnold Perkins MD LAB BLOOD ORDERABLES Fin al Result Performing Organization Address [facility]/ZIP Co de Phone Number [facility] [address] Department of [place], [place] [id number] * (ABNORMAL) Iron profile w/ IBC (10/29/2024 2:30 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) [facility] Iron 49 35 - 145 mcg/dL TIBC 258 250 - 400 mcg/dL [facility] Transferrin saturation 19(L) 20 - 50 % [facility] Blood 10/29/2024 2:30 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 10/29/2024 9:40 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 us Arnold Perkins MD LAB BLOOD ORDERABLES Fin al Result Performing Organization Address [facility] de Phone Number [facility] [address] [employer] [place] [place], [place] [id number] * (ABNORMAL) CBC with auto differential (10/29/2024 2:30 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) [facility] WBC 5.6 3.8 - 9.9 K/cumm Hgb 10.4(L) 11.9 - 15.5 g/dL [facility] Hct 34.8(L) 35.6 - 45.5 % [facility] Plt 301 150 - 400 K/cumm [facility] MPV 10.8 9.1 - 12.3 fL [facility] RBC 3.96 3.90 - 5.20 M/cumm [facility] MCV 87.9 81.3 - 96.4 fL [facility] MCH 26.3(L) 27.1 - 33.3 pg [facility] MCHC 29.9(L) 32.3 - 35.7 g/dL [facility] RDW CV 16.3(H) 11.1 - 14.9 % [facility] RDW SD 52.5(H) 35.7 - 48.1 fL [facility] NRBC abs 0.00 0.00 - 0.01 K/cumm [facility] Blood 10/29/2024 2:30 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 10/29/2024 9:02 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 Arnold Perkins MD LAB BLOOD ORDERABLES Fin al Result Performing Organization Address City/[facility] Co de Phone Number [facility] [address] [facility] [place] [address] * (ABNORMAL) Ferritin (10/29/2024 2:30 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) Ferritin 178(H) 15 - 150 ng/mL Blood 10/29/2024 2:30 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 10/29/2024 9:40 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 Arnold Perkins MD LAB BLOOD ORDERABLES Fin al Result Performing Organization Address [facility] Co de Phone Number [facility] [address] [facility] [place], [place] [id number] * Creatinine (10/29/2024 2:30 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) Creatinine 0.82 0.60 - 1.10 mg/dL Blood 10/29/2024 2:30 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 10/29/2024 9:02 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 Arnold Perkins MD LAB BLOOD ORDERABLES Fin al Result Performing Organization Address [facility] Co de Phone Number [facility] [address] [facility] [place], [place] [phone] * Hepatic function panel (10/29/2024 2:30 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) Bilirubin, total 0.4 0.1 - 1.2 mg/dL Bilirubin, direct 0.2 0.1 - 0.3 mg/dL [facility] Protein, pl 7.4 6.5 - 8.5 g/dL [facility] Albumin 3.5 3.5 - 5.0 g/dL [facility] Alk phos 94 40 - 130 Units/L [facility] ALT 9 7 - 45 Units/L [facility] AST 26 10 - 45 Units/L [facility] Blood 10/29/2024 2:30 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 10/29/2024 9:02 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 us Arnold Perkins MD LAB BLOOD ORDERABLES Fin al Result Performing Organization Address [facility]/ZIP Co de Phone Number [facility] [address] [place] [address] * Hepatitis C antibody (12/10/2018 2:44 PM CDT) Pathologist [facility] Hep C Ab Nonreactive Nonreactive [facility] Comment: Interpretive Data Positive results should be confirmed by a molecular method. If positive, a second separately collected sample should be submitted for Hepatitis C Virus (HCV) RNA Detection and Quantitation by Real-Time Reverse Field Reviewer-PCR (RT-PCR). Current interpretive data was last revised on 2016. Blood specimen (specimen) 12/10/2018 2:44 PM CDT 12/10/2018 2:56 PM CDT Narrative [facility] - 12/11/2018 1:42 PM CDT us Maricarmen Lo MD LAB MICROBIOLOGY - GENERAL ORDERABLES Edited Result - Final [facility] [address] [place] [address] from Last 3 Months or Most Recently Relevant to Health Maintenance Insurance MEDICARE [facility] [employer] Member Subscriber Plan / Payer (Ef fective 2004-Present) Name:Carmen House Relation to Subscriber:Spouse Name:KYLE HOUSE JR (Work) Address: [address] [place] [id number] Payer ID:[id number] (NAIC) Group ID:[id number] Type:Dezineforce Address: [facility] [id number] [employer]AL MEDICARE [facility] [employer] Advance Directives For more information, please contact: [phone] * LIMITED - No CPR (Latest Code Status on File) Date Activated Date Inactivated Comments 12/01/2024 6:52 PM 12/10/2024 3:28 AM Question Answer Comments Provide aggressive medical m anagement before a full cardiopulmonary arrest occurs. Use antibiotics, IV Fluids, and medical treatment unless specifically selected below: No intubation * Full Code Date Activated Date Inactivated Comments 12/01/2024 6:01 PM 12/01/2024 6:52 PM * Full Code Date Activated Date Inactivated Comments 07/19/2023 10:25 PM 07/27/2023 6:08 PM * Full Code Date Activated Date Inactivated Comments 04/13/2022 11:19 PM 04/14/2022 2:53 PM Care Teams Human Service Specialist Relationship Specialty Start Date End Date Keisha Xiong MD [address] [address] PCP - General Family Medicine 12/02/24 Keshav Gregory MD [address] [facility] [address] [place] [address] Consulting Physician Pulmonary Disease 07/26/23 David Samson MD PhD [address] [facility] [address] [place] [address] Referring Physician Cardiology 07/26/23 Kashif Barrientos MD [address] [facility] [address] [place] [address] Consulting Physician Cardiology 07/26/23 Ike Pearce MD [address] [facility] [address], [place] [address] Consulting Physician Cardiology 07/26/23 Dana Mcintosh, manager resortSoftware Team Leader 12/18/24 Yisel Jacobs, manager resortSoftware Team Leader 12/18/24 Marie Ma Primary Kinesiologist 12/18/24
--- OUTSIDE RECORDS SUMMARY | 2024-12-18 12:38 | XMS_ITS ---
Author Organization [facility] larry Address [address] [facility] [address] [place] [address] Care Team Providers Care Landscape Specialist Name Role Phone Daisy Falk Primary Care Provider Arnold Jones [phone] Encounters Encounter Location Date Provider Diagnosis [facility] [address] [facility] [address] [place] [address] 10/30/2024 Arnold Pang Plan Of Treatment Next Appt Details Provider Name:Arnold esposito, 01/12/2025 02:00:00 PM, [address] [facility] [address], [place], [address], Progress Notes * AV BOYDDOB:[birth year] (79 yo F)Acc No.[id number]:10/30/2024 Patient: AV ORTEZ :1945 A ge:79 Y S ex:Female Address:[facility] [address] * true * Date: Generated for Printi ng/Faxing/eTransmitting on: 0 12/18/2024 12:37 PM CDT
--- OUTSIDE RECORDS SUMMARY | 2024-12-18 12:38 | XMS_ITS | Clinical Summary ---
Author Organization [facility] Address [address] [place] [id number] Care Team Providers Care Charter Bus Driver Name Role Phone Serjio Perez MD Primary Care Provider Unav ailable Social History Tobacco Use Types Packs/Day Years Used Date Smoking Tobacco: Never Assessed Comments Unknown Sex and Gender Information Value Date Recorded Sex Assigned at Not on file Legal Sex Female 9:22 PM CDT Gender Identity Not on file Sexual Orientation Not on file Plan of Treatment Health Maintenance Due Date Last Done Comments Hepatitis C 1963 DTaP, Tdap and Td Vaccines ( 1 - Tdap) 1965 Pneumococcal Vaccine: 50+ Ye ars (1 of 1 - PCV) 1996 Zoster Vaccines (1 of 2) 1996 Dexa Scan (General) 2011 RSV Immunization or 60+ Years (1 - 1-dose 75+ series) 2021 COVID-19 Vaccine (1 - 2023-2 5 season) 2024 Meningococcal B Vaccine Aged Out No l onger eligible based on patient's age to complete this topic Meningococcal Vaccine Aged Out No josue cielo eligible based on patient's age to complete this topic RSV Immunizations Under 20 Months Aged Out No longer eligible based on patient's age to complete this topic Additional Health Concerns Infection Onset Date Last Indicated C. 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
--- OUTSIDE RECORDS SUMMARY | 2024-12-18 12:38 | XMS_ITS | Clinical Summary ---
Author Organization [facility] Address [address] [place] [address] Care Team Providers Care Handle Sander Operator Name Role Phone Keshav Gregory MD Unavailable [phone] David Samson MD PhD Unavailable + Kashif Barrientos MD Unavailable Ike Pearce MD Unavailable [phone] Keisha Xiong MD Primary Care Provider [phone] Dana Mcintosh RN Unavailable Unavailable Yisel Jacobs RN Unavailable Unavaila Marie Cary Unavailable Unavailable Allergies Active Allergy Reactions Criticality Noted Date [...] total) by mouth daily 12/11/19 25 Active losartan (COZAAR) 25 mg tablet Take 0.5 tablets (12.5 mg total) by mouth daily 12/10/19 25 026 Active spironolactone (ALDACTONE) 25 mg tablet Take [...] 40 mg tabletIndicatio ns:Coronary artery disease of [place] artery of [place] heart with stable angina pectoris Take 1 [...] hypoxia Paroxysmal atrial fibrillation with RVR 12/02/19 COPD (chronic obstructive pulmonary disease) 03/2025 Interstitial [...] 1:11 PM CDT): The patient has a [id number]-[id number] score of 6 (annualized risk of stroke [...] with atrial fibrillation: a report of the [employer] Task Force on Practice Guidelines [...] cardiomyopathy 06/21/2021 Coronary artery disease invo lving [place] coronary artery of [place] heart without angina pectoris 06/21/2021 Atherosclerosis of [place] ar leighann of both lower extremities with intermittent claudication ([facility]) 11/25/2020 Assessment & Plan (11/25/2020 5:50 PM [...] definitive changes related to toxicity based on F 10-2 today. 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 - 10/29/2024 11:59 PM CAUSTIC CRESYLATE SHIFT SUPERINTENDENT Hospital Encounter [address] [address] Discharge Disposition: Discharge to home or self care from Last 3 Months Immunizations Immunization Administration Dates Next Due Influenza, Quadrivalent, Rec ombinant, Egg Free, Preservative Free, Intramuscular 05/18/2019 Influenza, Trivalent, Adjuvanted, Intramuscular 05/24/2018,05/23/2018 Influenza, Trivalent, High D ose, Split, Preservative Free, Intramuscular 06/02/2017,07/02/2016 Influenza, Trivalent, IM (MDV) 07/12/2014 Pneumococcal Conjugate PCV 13 07/02/2016 Tdap 04/16/2015 Surgical History Surgery Date Site/Laterality Comments BACK SURGERY Back Surgery - (Added by TW Conv) CATARACT EXTRACTION INTRAOCULAR LENS INSERTION ILIAC ARTERY STENT 08/26/2010 - 08/25/2011 @[facility] Medical History Medical History Date Comments Tobacco abuse counseling Encount er for smoking cessation counseling - (Added by TW Conv) Lupus Anemia Coronary artery disease Hyperlipidemia Hypertension Cardiomyopathy (HCC) Ischemic cardiomyopathy CHF (congestive heart failure) (HCC) Atrial fibrillation (HCC) Diabetes mellitus (HCC) Family History Medical History Relation Name Comments Arthritis Mother Family history of arthritis - (Added by TW Conv) Relation Name Status Comments Mother Social History Tobacco Use Types Packs/Day Years Used Date Smoking Tobacco: Former Cigarettes Q uit: 05/28/2020 Smokeless Tobacco: Never Tobacco Cessation:Counseling Given: Not Answered [facility] Utilities Answer Date Recorded In the past 12 months has th e electric, gas, oil, or water company threatened to shut off services in your home? No 12/02/2024 Social Connection and Isolat ion Panel [NHANES] Answer Date Recorded In a typical week, how many times do you talk on the phone with family, friends, or neighbors? More than three times a week 12/02/2024 How often do you get togethe r with friends or relatives? Never 12/02/2024 How often do you attend chur ch or gnosticism services? Never 12/02/2024 Do you belong to any clubs o r organizations such as judaism groups, unions, fraternal or athletic groups, or [...] place to sleep or slept in a fdc (including now)? No 07/23/2023 Housing Stability Vital Sign Answer Kavon e Recorded In the last 12 months, was t here a time when you were not able to pay the mortgage or rent on time? No 12/02/2024 In the past 12 months, how m any times have you moved where you were living? 0 12/02/2024 At any time in the past 12 m [facility], were you homeless or living in a fdc (including now)? No 12/02/2024 Personal Safety Answer Date Recorded Have you ever been in or are you currently in a harmful physical or emotional relationship or is someone making you feel afraid or unsafe? 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 Gender Identity Not on file Sexual Orientation Not on file Obstetrics History Last Filed Vital Signs Vital Sign Reading [...] 12/01/2024 6:20 PM CDT Plan of Treatment Health Maintenance Due Date Last Done Comments Albumin Creatinine Ratio, Urine 1946 Depression Screening 1945 Osteoporosis Screening-Bone Density Scan 1946 Foot Exam 1946 Hepatitis B Screening 1964 Zoster Vaccine (1 of 2) 1965 Well Visit 65+ 2011 Pneumococcal vaccine 65+ (2 of 2 - PPSV23) 08/27/2016 07/02/2016 Dilated Eye Exam 11/27/2019 11/26/2018 DTaP/Tdap/Td Vaccine (2 - Td or Tdap) 04/16/2025 04/16/2015 Influenza Vaccine (Season Ended) 2025 05/18/2019, 05/24/2018, 05/23/2018, Additional history exists Hemoglobin A1C 06/05/2025 12/04/2024 Lipid Panel 12/02/2025 12/02/2024, 06/27, 11/01/2022, Additional history exists Fall Risk Assessment 12/09/2025 12/09/2024, 02/03/20 24 eGFR 12/09/2025 12/09/2024, 11/24, 12/07/2024, Additional history exists Hepatitis C Screening Completed 12/10/2018 Medical Devices Implanted Type Area Rn L And D Device Identifier Shelf Expiration Date Model / Serial / Lot [employer] Vascade Mvp 6-12fr Venous Closure [id number] - [id number] - [id number] Implanted:Qty: 1 on 04/13/2022 by Ike Pearce MD at [facility] [employer] 02/06/2024 800-612C-1 0U / [id number] / [id number] [employer] Vascade Mvp 6-12fr Venous Closure [id number] - [id number] - [id number] Implanted:Qty: 1 on 04/13/2022 by Ike Pearce MD at [facility] [employer] 02/06/2024 800-612C-1 0U / [id number] / [id number] [employer] Vascade Mvp 6-12fr Venous Closure [id number] - [id number] - [id number] Implanted:Qty: 1 on 04/13/2022 by Ike Pearce MD at [facility] [employer] 02/06/2024 800-612C-1 0U / [id number] / [id number] [employer] Vascade Mvp 6-12fr Venous Closure [id number] - [id number] - [id number] Implanted:Qty: 1 on 04/13/2022 by Ike Pearce MD at [facility] [employer] 02/06/2024 800-612C-1 0U / [id number] [id number] / [id number] Procedures Procedure Name Priority Date/Time Associated [...] PM CDT FERRITIN Routine 10/29/2024 2:30 PM CAUSTIC CRESYLATE SHIFT SUPERINTENDENT IRON PROFILE W/ IBC Routine 10/29/2024 2 :30 PM CAUSTIC CRESYLATE SHIFT SUPERINTENDENT EGFR Routine 10/29/2024 2:30 PM CAUSTIC CRESYLATE SHIFT SUPERINTENDENT DIFFERENTIAL AUTO Routine 10/29/2024 2:3 0 PM CAUSTIC CRESYLATE SHIFT SUPERINTENDENT CREATININE Routine 10/29/2024 2:30 PM CAUSTIC CRESYLATE SHIFT SUPERINTENDENT HEPATIC FUNCTION PANEL Routine 10/29/2024 2:30 PM CAUSTIC CRESYLATE SHIFT SUPERINTENDENT CBC WITH AUTO DIFFERENTIAL Routine 10/29/2024 2:30 PM CAUSTIC CRESYLATE SHIFT SUPERINTENDENT HEPATITIS C ANTIBODY Routine 12/10/2018 2:44 PM CDT Sjogren's syndrome, with unspecified organ involvement Encounter for long-term (current) use of high-risk medication from Last 3 Months or Most Recently Relevant to Health Maintenance Results * POCT glucose (12/09/2024 9:13 PM CDT) [facility] Glucose, POC 113 70 - 199 mg/dL Comment: For Glucose values <35 mg/dl when Hematocrit is >60 mg/dl,the test may not accurately detect significant hypoglycemia,and testing in the Laboratory should be considered if clinically indicated. POC Performer [id number] [facility] Blood 12/09/2024 9:13 PM CDT 12/09/2024 9:13 PM CDT Mabel Leary MD LAB POCT ORDERABLES - DEVIC E Final Result Performing Organization Address City/[facility] Co de Phone Number [facility] [address] Department [place] [address] * POCT glucose (12/09/2024 5:34 PM CDT) [facility] Signature Glucose, POC 143 70 - 199 mg/dL Comment: For Glucose values <35 mg/dl when Hematocrit is >60 mg/dl,the test may not accurately detect significant hypoglycemia,and testing in the Laboratory should be considered if clinically indicated. POC Performer [id number] [facility] Blood 12/09/2024 5:34 PM CDT 12/09/2024 5:34 PM CDT Mabel Leary MD LAB POCT ORDERABLES - DEVIC E Final Result Performing Organization Address [facility] Co de Phone Number [facility] [address] Department [place] [address] * XR Kub (12/09/2024 1:16 PM CDT) [...] signed by: Tru Jenkins M.D. Cecile Tejada FABRICATION AND ASSEMBLY SUPERVISOR IM XR PROCEDURES Final Result * XR Shoulder [...] signed by: Tru Jenkins M.D. Cecile Tejada FABRICATION AND ASSEMBLY SUPERVISOR IMG XR PROCEDURES Final Result * POCT glucose (12/09/2024 12:25 PM CDT) Glucose, POC 135 70 - 199 mg/dL Comment: For Glucose values <35 mg/dl when Hematocrit is >60 mg/dl,the test may not accurately detect significant hypoglycemia,and testing in the Laboratory should be considered if clinically indicated. POC Performer [id number] [facility] Blood 12/09/2024 12:2 5 PM CDT 12/09/2024 12:25 PM CDT Mabel Leary MD LAB POCT ORDERABLES - DEVIC E Final Result [facility] [address] [place] [address] * POCT glucose (12/09/2024 6:27 AM CDT) Glucose, POC 104 70 - 199 mg/dL Comment: For Glucose values <35 mg/dl when Hematocrit is >60 mg/dl,the test may not accurately detect significant hypoglycemia,and testing in the Laboratory should be considered if clinically indicated. POC Performer [id number] [facility] Blood 12/09/2024 6:27 AM CDT 12/09/2024 6:27 AM CDT Lucy Colónd DO LAB POCT ORDERABLES - DEV ICE Final Result Performing Organization Address City/[facility]/ZIP Co de Phone Number [facility] [address] [place] [address] * (ABNORMAL) eGFR (12/09/2024 4:30 AM CDT) eGFR 47(L) >=60 mL/min/1. 73 m2 Comment: [...] ORDERABLES Jaja l Result Performing Organization Address City/[facility]/ZIP Co de Phone Number [facility] [address] Department of [employer] [place], [place] [id number] * (ABNORMAL) Basic metabolic panel (12/09/2024 4:30 AM CDT) Pathologist [facility] Sodium 136 135 - 145 mmol/L Potassium, pl 4.0 3.3 - 4.9 mmol/L [facility] Chloride 95(L) 97 - 110 mmol/L [facility] CO2 32 22 - 32 mmol/L [facility] Anion gap 9 2 - 15 mmol/L [facility] BUN 44(H) 6 - 25 mg/dL [facility] Creatinine 1.19(H) 0.60 - 1.10 mg/dL [facility] Glucose 96 70 - 199 mg/dL [facility] Comment: Interpretive Data Fasting glucose >/= 126 [...] 2022. Calcium 8.3(L) 8.5 - 10.3 mg/dL [facility] Blood 12/09/2024 4:30 AM CDT 12/09/2024 4:52 AM CDT Bazgha Jose Ahmad DO LAB BLOOD ORDERABLES Jaja l Result [facility] [address] Department [place] [address] * POCT glucose (12/08/2024 9:29 PM CDT) [facility] Glucose, POC 115 70 - 199 mg/dL Comment: For Glucose values <35 mg/dl when Hematocrit is >60 mg/dl,the test may not accurately detect significant hypoglycemia,and testing in the Laboratory should be considered if clinically indicated. POC Performer [id number] [facility] Blood 12/08/2024 9:29 PM CDT 12/08/2024 9:29 PM CDT Lucy Garcia Ahmad DO LAB POCT ORDERABLES - DEV ICE Final Result Performing Organization Address City/[facility]/ZIP Co de Phone Number [facility] [address] [facility] [place] [address] * POCT glucose (12/08/2024 6:09 PM CDT) Glucose, POC 183 70 - 199 mg/dL Comment: For Glucose values <35 mg/dl when Hematocrit is >60 mg/dl,the test may not accurately detect significant hypoglycemia,and testing in the Laboratory should be considered if clinically indicated. POC Performer [id number] [facility] Blood 12/08/2024 6:09 PM CDT 12/08/2024 6:09 PM CDT Lucy Colónd DO LAB POCT ORDERABLES - DEV ICE Final Result Performing Organization Address [facility] Co de Phone Number [facility] [address] [place] [address] * POCT glucose (12/08/2024 1:23 PM CDT) Glucose, POC 122 70 - 199 mg/dL Comment: For Glucose values <35 mg/dl when Hematocrit is >60 mg/dl,the test may not accurately detect significant hypoglycemia,and testing in the Laboratory should be considered if clinically indicated. POC Performer [id number] [facility] Blood 12/08/2024 1:23 PM CDT 12/08/2024 1:23 PM CDT Lucy Victoriamad DO LAB POCT ORDERABLES - DEV ICE Final Result Performing Organization Address City/[facility]/ZIP Co de Phone Number [facility] [address] [place] [address] * ECG 12 lead (12/08/2024 11:33 AM CDT) 12/08/2024 11:3 3 AM CDT Narrative [facility] - 12/08/2024 8:53 PM CDT Vent Rate: 63 bpm RR Interval: 948 msec MI Interval: 0 msec QRS Duration: 97 msec QT Interval: 437 msec QTC Interval: 444 msec P-R-T [place]: 0 - -22 - -18 degrees IMPRESSION: ATRIAL FLUTTER/TACHYCARDIA BORDERLINE LEFT AXIS DEVIATION MINIMAL VOLTAGE CRITERIA FOR LVH, CONSIDER NORMAL VARIANT NONSPECIFIC ST ABNORMALITY ABNORMAL ECG Electronically Signed By: Salvador Palomino MD us Cecile Tejada NP ECG ORDERABLES Final Result Performing Organization Address City/[facility]/ZIP Co de Phone Number [facility] * POCT glucose (12/08/2024 8:41 AM CDT) Glucose, POC 117 70 - 199 mg/dL Comment: For Glucose values <35 mg/dl when Hematocrit is >60 mg/dl,the test may not accurately detect significant hypoglycemia,and testing in the Laboratory should be considered if clinically indicated. POC Performer [id number] [facility] Blood 12/08/2024 8:41 AM CDT 12/08/2024 8:41 AM CDT us Nikitazgha Jose Ahmad DO LAB POCT ORDERABLES - DEV ICE Final Result Performing Organization Address City/[facility]/ZIP Co de Phone Number [facility] [address] Department [place] [address] * (ABNORMAL) eGFR (12/08/2024 3:51 AM CDT) eGFR 51(L) >=60 mL/min/1. 73 m2 Comment: [...] 3:51 AM CDT 12/08/2024 4:09 AM CDT Reakermit Jose Grady DO LAB BLOOD ORDERABLES Jaja l Result Performing Organization Address [facility] Co de Phone Number [facility] [address] Department of [place], [place] [id number] * Magnesium (12/08/2024 3:51 AM CDT) Pathologist [facility] Magnesium 1.7 1.4 - 2.5 mg/dL Blood 12/08/2024 3:51 AM CDT 12/08/2024 4:09 AM CDT us Cecile Tejada FABRICATION AND ASSEMBLY SUPERVISOR LAB BLOOD ORDERABLES Final Resul t Performing Organization Address [facility] Co de Phone Number [facility] [address] [place] [address] * (ABNORMAL) Basic metabolic panel (12/08/2024 3:51 AM CDT) Sodium 138 135 - 145 mmol/L Potassium, pl 4.0 3.3 - 4.9 mmol/L [facility] Chloride 96(L) 97 - 110 mmol/L [facility] CO2 32 22 - 32 mmol/L [facility] Anion gap 10 2 - 15 mmol/L [facility] BUN 34(H) 6 - 25 mg/dL [facility] Creatinine 1.10 0.60 - 1.10 mg/dL [facility] Glucose 111 70 - 199 mg/dL [facility] Comment: Interpretive Data Fasting glucose >/= 126 [...] 2022. Calcium 8.4(L) 8.5 - 10.3 mg/dL [facility] Blood 12/08/2024 3:51 AM CDT 12/08/2024 4:09 AM CDT [facility]ist. [facility] hospitalAcrisureJose Aquest Systemsstephanie LAB BLOOD ORDERABLES Jaja l Result Performing Organization Address City/[facility]/ZIP Co de Phone Number [facility] [address] [place] [address] * (ABNORMAL) POCT glucose (12/07/2024 8:13 PM CDT) [facility] Signature Glucose, POC 255(H) 70 - 199 mg/dL Comment: For Glucose values <35 mg/dl when Hematocrit is >60 mg/dl,the test may not accurately detect significant hypoglycemia,and testing in the Laboratory should be considered if clinically indicated. POC Performer [id number] [facility] Blood 12/07/2024 8:13 PM CDT 12/07/2024 8:13 PM CDT Nasuniflorenceyosef Garcia [employer] Systemsstephanie Cloudian LAB POCT ORDERABLES - DEV ICE Final Result Performing Organization Address City/[facility]/ZIP Co de Phone Number [facility] [address] [place] [address] * POCT glucose (12/07/2024 6:03 PM CDT) Glucose, POC 196 70 - 199 mg/dL Comment: For Glucose values <35 mg/dl when Hematocrit is >60 mg/dl,the test may not accurately detect significant hypoglycemia,and testing in the Laboratory should be considered if clinically indicated. POC Performer [id number] [facility] Blood 12/07/2024 6:03 PM CDT 12/07/2024 6:03 PM CDT Nasuniflorenceyosef Victoriamad DO LAB POCT ORDERABLES - DEV ICE Final Result Performing Organization Address [facility] Co de Phone Number [facility] [address] Department [place], [place] [id number] * (ABNORMAL) POCT glucose (12/07/2024 12:45 PM CDT) [facility] Glucose, POC 233(H) 70 - 199 mg/dL Comment: For Glucose values <35 mg/dl when Hematocrit is >60 mg/dl,the test may not accurately detect significant hypoglycemia,and testing in the Laboratory should be considered if clinically indicated. POC Performer [id number] [facility] Blood 12/07/2024 12:4 5 PM CDT 12/07/2024 12:45 PM CDT [facility] Centerflorenceyosef LanierJose Ahded DO LAB POCT ORDERABLES - DEV ICE Final Result Performing Organization Address City/[facility]/ZIP Co de Phone Number [facility] [address] [place] [address] * NT-Pro BNP - Add on lab test (12/07/2024 10:18 AM CDT) [facility] Acceptable Yes Blood 12/07/2024 10:1 8 AM CDT 12/07/2024 10:18 AM CDT Narrative [facility] - 12/07/2024 10:18 AM CDT Name of Test->NT-Pro BNP Cecile Tejada FABRICATION AND ASSEMBLY SUPERVISOR LAB BLOOD ORDERABLES Final Resul t [facility] [address] Department of Laboratories [place], [place] [id number] * POCT glucose (12/07/2024 8:06 AM CDT) Glucose, POC 120 70 - 199 mg/dL Comment: For Glucose values <35 mg/dl when Hematocrit is >60 mg/dl,the test may not accurately detect significant hypoglycemia,and testing in the Laboratory should be considered if clinically indicated. POC Performer [id number] [facility] Blood 12/07/2024 8:06 AM CDT 12/07/2024 8:06 AM CDT Lucy Jose Ahmad DO LAB POCT ORDERABLES - DEV ICE Final Result Performing Organization Address City/[facility]/ZIP Co de Phone Number [facility] [address] [place] [address] * eGFR (12/07/2024 4:38 AM CDT) eGFR 75 >=60 mL/min/1. 73 [...] 4:38 AM CDT 12/07/2024 5:02 AM CDT Bazgha Jose Ahmad DO LAB BLOOD ORDERABLES Jaja tuttle Result [facility] [address] [place] [address] * (ABNORMAL) Pro B-type natriuretic peptide (12/07/2024 [...] 4:38 AM CDT 12/07/2024 5:02 AM CDT [facility] Col[facility]nd DO LAB BLOOD ORDERABLES Jaja l Result [facility] [address] [place] [address] * (ABNORMAL) Basic metabolic panel (12/07/2024 4:38 AM CDT) [facility] Sodium 136 135 - 145 mmol/L Potassium, pl 3.9 3.3 - 4.9 mmol/L [facility] Chloride 98 97 - 110 mmol/L [facility] CO2 29 22 - 32 mmol/L [facility] Anion gap 9 2 - 15 mmol/L [facility] BUN 29(H) 6 - 25 mg/dL [facility] Creatinine 0.80 0.60 - 1.10 mg/dL [facility] Glucose 115 70 - 199 mg/dL [facility] Comment: Interpretive Data Fasting glucose >/= 126 [...] 2022. Calcium 8.4(L) 8.5 - 10.3 mg/dL [facility] Blood 12/07/2024 4:38 AM CDT 12/07/2024 5:02 AM CDT Lucy Victoriamad DO LAB BLOOD ORDERABLES Jaja l Result Performing Organization Address [facility]/ZIP Co de Phone Number [facility] [address] [place] [address] * POCT glucose (12/06/2024 8:49 PM CDT) Glucose, POC 167 70 - 199 mg/dL Comment: For Glucose values <35 mg/dl when Hematocrit is >60 mg/dl,the test may not accurately detect significant hypoglycemia,and testing in the Laboratory should be considered if clinically indicated. POC Performer [id number] [facility] Blood 12/06/2024 8:49 PM CDT 12/06/2024 8:49 PM CDT [facility] Jose Ahmad DO LAB POCT ORDERABLES - DEV ICE Final Result Performing Organization Address [facility] Co de Phone Number [facility] [address] [facility] [place] [address] * POCT glucose (12/06/2024 5:45 PM CDT) Glucose, POC 174 70 - 199 mg/dL Comment: For Glucose values <35 mg/dl when Hematocrit is >60 mg/dl,the test may not accurately detect significant hypoglycemia,and testing in the Laboratory should be considered if clinically indicated. POC Performer [id number] [facility] Blood 12/06/2024 5:45 PM CDT 12/06/2024 5:45 PM CDT [facility] LAB POCT ORDERABLES - DEV ICE Final Result Performing Organization Address City/[facility] Co de Phone Number [facility] [address] [facility] [employer] [place], [place] [id number] * POCT glucose (12/06/2024 12:50 PM CDT) Glucose, POC 178 70 - 199 mg/dL Comment: For Glucose values <35 mg/dl when Hematocrit is >60 mg/dl,the test may not accurately detect significant hypoglycemia,and testing in the Laboratory should be considered if clinically indicated. POC Performer [phone] [facility] Blood 12/06/2024 12:5 0 PM CDT 12/06/2024 12:50 PM CDT Lucy Garcia Aharun DO LAB POCT ORDERABLES - DEV ICE Final Result [facility] [address] [place] [address] * XR Chest 1 Vw (12/06/2024 11:29 [...] signed by: Bridget Erickson M.D. Cecile Tejada NP IMG XR PROCEDURES Final Result * POCT glucose (12/06/2024 8:23 AM CDT) Glucose, POC 142 70 - 199 mg/dL Comment: For Glucose values <35 mg/dl when Hematocrit is >60 mg/dl,the test may not accurately detect significant hypoglycemia,and testing in the Laboratory should be considered if clinically indicated. POC Performer [id number] [facility] Blood 12/06/2024 8:23 AM CDT 12/06/2024 8:23 AM CDT Reayosef Rasmussen LAB POCT ORDERABLES - DEV ICE Final Result Performing Organization Address City/[facility]/ZIP Co de Phone Number [facility] [address] [place] [address] * eGFR (12/06/2024 4:18 AM CDT) eGFR 81 >=60 mL/min/1. 73 m2 Comment: [...] 4:18 AM CDT 12/06/2024 4:42 AM CDT Lucy Rasmussen DO LAB BLOOD ORDERABLES Jaja l Result Performing Organization Address City/[facility]/ZIP Co de Phone Number [facility] [address] [place] [address] * (ABNORMAL) Basic metabolic panel (12/06/2024 4:18 AM CDT) Sodium 137 135 - 145 mmol/L Potassium, pl 3.9 3.3 - 4.9 mmol/L [facility] Chloride 99 97 - 110 mmol/L [facility] CO2 27 22 - 32 mmol/L [facility] Anion gap 11 2 - 15 mmol/L [facility] BUN 33(H) 6 - 25 mg/dL [facility] Creatinine 0.75 0.60 - 1.10 mg/dL [facility] Glucose 156 70 - 199 mg/dL [facility] Comment: Interpretive Data Fasting glucose >/= 126 [...] 2022. Calcium 8.1(L) 8.5 - 10.3 mg/dL [facility] Blood 12/06/2024 4:18 AM CDT 12/06/2024 4:42 AM CDT Bazgha Jose Ahmad DO LAB BLOOD ORDERABLES Jaja l Result [facility] [address] [place] [address] * (ABNORMAL) POCT glucose (12/05/2024 8:24 PM CDT) [facility] Glucose, POC 304(H) 70 - 199 mg/dL Comment: For Glucose values <35 mg/dl when Hematocrit is >60 mg/dl,the test may not accurately detect significant hypoglycemia,and testing in the Laboratory should be considered if clinically indicated. POC Performer [phone] [facility] Blood 12/05/2024 8:24 PM CDT 12/05/2024 8:24 PM CDT Lucy Victoriamad DO LAB POCT ORDERABLES - DEV ICE Final Result Performing Organization Address [facility]/ZIP Co de Phone Number [facility] [address] Department [place], [place] [id number] * (ABNORMAL) POCT glucose (12/05/2024 6:14 PM CDT) Glucose, POC 334(H) 70 - 199 mg/dL Comment: For Glucose values <35 mg/dl when Hematocrit is >60 mg/dl,the test may not accurately detect significant hypoglycemia,and testing in the Laboratory should be considered if clinically indicated. POC Performer [id number] [facility] Blood 12/05/2024 6:14 PM CDT 12/05/2024 6:14 PM CDT Lucy Colónd DO LAB POCT ORDERABLES - DEV ICE Final Result Performing Organization Address [facility] Co de Phone Number [facility] [address] Department [place], [place] [id number] * POCT glucose (12/05/2024 12:49 PM CDT) Glucose, POC 130 70 - 199 mg/dL Comment: For Glucose values <35 mg/dl when Hematocrit is >60 mg/dl,the test may not accurately detect significant hypoglycemia,and testing in the Laboratory should be considered if clinically indicated. POC Performer [phone] [facility] Blood 12/05/2024 12:4 9 PM CDT 12/05/2024 12:49 PM CDT Lucy Victoriamad DO LAB POCT ORDERABLES - DEV ICE Final Result Performing Organization Address City/[facility]/ZIP Co de Phone Number [facility] [address] Department of Laboratories [place], [place] [id number] * Infection Prevention Sridevi auris PCR, surveillance Axilla/Groin (12/05/2024 11:00 AM CDT) Sridevi auris DNA Not Detected Not Detected [facility] Comment: Interpretive Data Testing performed by [facility] Disease [facility] using the Mitch hanna 6800 Sridevi auris assay. This assay detects DNA from Sridevi auris using Real-Time PCR. This assay is laboratory developed and is not cleared by the [place] Food and Drug Administration. The performance characteristics have been verified by the [facility]. Testing performed by: [facility], [address] [place] [address] Axilla/Groin 12/05/2024 11:0 0 AM CDT 12/05/2024 2:15 PM CDT Narrative [facility] - 12/06/2024 12:02 AM CDT C auris Ring Surveillance Robson Salcedo MD LAB MICROBIOLOGY - GENERA L ORDERABLES Final Result [facility] [address] Department of [place], [place] [id number] [facility] * (ABNORMAL) POCT glucose (12/05/2024 6:05 AM CDT) Glucose, POC 207(H) 70 - 199 mg/dL Comment: For Glucose values <35 mg/dl when Hematocrit is >60 mg/dl,the test may not accurately detect significant hypoglycemia,and testing in the Laboratory should be considered if clinically indicated. POC Performer [phone] [facility] Blood 12/05/2024 6:05 AM CDT 12/05/2024 6:05 AM CDT Lucy Rasmussen DO LAB POCT ORDERABLES - DEV ICE Final Result [facility] [address] [place] [address] * eGFR (12/05/2024 4:52 AM CDT) eGFR [...] Lucy Rasmussen DO LAB BLOOD ORDERABLES Jaja tuttle Result [facility] [address] [place] [address] * (ABNORMAL) Basic metabolic panel (12/05/2024 4:52 AM CDT) Pathologist [facility] Sodium 137 135 - 145 mmol/L Potassium, pl 4.1 3.3 - 4.9 mmol/L [facility] Chloride 100 97 - 110 mmol/L [facility] CO2 25 22 - 32 mmol/L [facility] Anion gap 12 2 - 15 mmol/L [facility] BUN 37(H) 6 - 25 mg/dL [facility] Creatinine 0.80 0.60 - 1.10 mg/dL [facility] Glucose 183 70 - 199 mg/dL [facility] Comment: Interpretive Data Fasting glucose >/= 126 [...] 2022. Calcium 8.0(L) 8.5 - 10.3 mg/dL [facility] Blood 12/05/2024 4:52 AM CDT 12/05/2024 5:31 AM CDT Reayosef Garcia Julienarun DO LAB BLOOD ORDERABLES Jaja l Result Performing Organization Address [facility] Co de Phone Number [facility] [address] Department [employer] [place], [place] [phone] * (ABNORMAL) POCT glucose (12/04/2024 8:55 PM CDT) Glucose, POC 323(H) 70 - 199 mg/dL Comment: For Glucose values <35 mg/dl when Hematocrit is >60 mg/dl,the test may not accurately detect significant hypoglycemia,and testing in the Laboratory should be considered if clinically indicated. POC Performer [id number] [facility] Blood 12/04/2024 8:55 PM CDT 12/04/2024 8:55 PM CDT Reayosef Garcia Aharun DO LAB POCT ORDERABLES - DEV ICE Final Result Performing Organization Address City/[facility]/ZIP Co de Phone Number [facility] [address] Department [employer] [place], [place] [phone] * POCT glucose (12/04/2024 6:00 PM CDT) Glucose, POC 172 70 - 199 mg/dL Comment: For Glucose values <35 mg/dl when Hematocrit is >60 mg/dl,the test may not accurately detect significant hypoglycemia,and testing in the Laboratory should be considered if clinically indicated. POC Performer [id number] [facility] Blood 12/04/2024 6:00 PM CDT 12/04/2024 6:00 PM CDT Lucy Victoriamad DO LAB POCT ORDERABLES - DEV ICE Final Result Performing Organization Address [facility] Co de Phone Number [facility] [address] [place] [address] * (ABNORMAL) POCT glucose (12/04/2024 12:39 PM CDT) Glucose, POC 340(H) 70 - 199 mg/dL Comment: For Glucose values <35 mg/dl when Hematocrit is >60 mg/dl,the test may not accurately detect significant hypoglycemia,and testing in the Laboratory should be considered if clinically indicated. POC Performer [phone] [facility] Blood 12/04/2024 12:3 9 PM CDT 12/04/2024 12:39 PM CDT Reakermit Colónd DO LAB POCT ORDERABLES - DEV ICE Final Result Performing Organization Address [facility] de Phone Number [facility] [address] [place] [address] * Glycohemoglobin A1C - Add on lab test (12/04/2024 9:20 AM CDT) Pathologist [facility] Acceptable Yes Blood 12/04/2024 9:20 AM CDT 12/04/2024 9:20 AM CDT Narrative [facility] - 12/04/2024 9:21 AM CDT Name of Test->Glycohemoglobin A1C Nasunimandy Garcia Ahmad DO LAB BLOOD ORDERABLES Jaja l Result Performing Organization Address City/[facility]/ZIP Co de Phone Number [facility] [address] [facility] [place] [address] * Folate - Add on lab test (12/04/2024 6:36 AM CDT) Acceptable Yes Blood 12/04/2024 6:36 AM CDT 12/04/2024 6:36 AM CDT Narrative [facility] - 12/04/2024 6:36 AM CDT Name of Test->Folate [facility]rell [employer] LAB BLOOD ORDERABLES Final Resul t Performing Organization Address [facility] Co de Phone Number [facility] [address] [facility] [place] [address] * Vitamin B12 - Add on lab test (12/04/2024 6:36 AM CDT) Pathologist [facility] Acceptable Yes Blood 12/04/2024 6:36 AM CDT 12/04/2024 6:36 AM CDT Narrative [facility] - 12/04/2024 6:36 AM CDT Name of Test->Vitamin B12 Cecile Terrell [employer] LAB BLOOD ORDERABLES Final Resul t Performing Organization Address [facility] Co de Phone Number [facility] [address] [place] [address] * eGFR (12/04/2024 5:14 AM CDT) eGFR [...] 12/04/2024 5:31 AM CDT us Vanna Reynoso NP LAB BLOOD ORDERABLES Jaja tuttle Result [facility] [address] [place] [address] * (ABNORMAL) Differential, auto (12/04/2024 5:14 AM CDT) Neutrophil abs 6.40 1.50 - 6.50 K/cumm Imm gran abs 0.03 0.00 - 0.10 K/cumm [facility] Lymphocyte abs 0.18(L) 0.80 - 3.30 K/cumm [facility] Monocyte abs 0.35 0.20 - 0.80 K/cumm [facility] Eosinophil abs 0.00 0.00 - 0.50 K/cumm [facility] Basophil abs 0.01 0.00 - 0.10 K/cumm [facility] Neutrophil pct 91.9 % [facility] Comment: Interpretive Data Percent cell count reference ranges are not reported, since discordance with absolute values may lead to misinterpretation of CBC data. Current Interpretive Data was last revised on 2017. Imm gran pct 0.4 % [facility] Comment: Interpretive Data Percent cell count reference ranges are not reported, since discordance with absolute values may lead to misinterpretation of CBC data. Current Interpretive Data was last revised on 2017. Lymphocyte pct 2.6 % [facility] Comment: Interpretive Data Percent cell count reference ranges are not reported, since discordance with absolute values may lead to misinterpretation of CBC data. Current Interpretive Data was last revised on 2017. Monocyte pct 5.0 % [facility] Comment: Interpretive Data Percent cell count reference ranges are not reported, since discordance with absolute values may lead to misinterpretation of CBC data. Current Interpretive Data was last revised on 2017. Eosinophil pct 0.0 % [facility] Comment: Interpretive Data Percent cell count reference ranges are not reported, since discordance with absolute values may lead to misinterpretation of CBC data. Current Interpretive Data was last revised on 2017. Basophil pct 0.1 % [facility] Comment: Interpretive Data Percent cell count reference ranges are not reported, since discordance with absolute values may lead to misinterpretation of CBC data. Current Interpretive Data was last revised on 2017. Blood 12/04/2024 5:14 AM CDT 12/04/2024 5:30 AM CDT Vanna Reynoso NP LAB BLOOD ORDERABLES Jaja tuttle Result [facility] [address] [place] [address] * (ABNORMAL) Pro B-type natriuretic peptide (12/04/2024 [...] et.al. Eur Heart J. 2006:27:330-337. 2. Wendy VILLATORO, aJn LUDWIG. J. AM Molly Cardiol: Cardiovasc Imag. 2009;2: 216- 225. Interpretive Data Last Revised Date: 2018. Blood 12/04/2024 5:14 AM CDT 12/04/2024 5:31 AM CDT Vanna Reynoso [employer] LAB BLOOD ORDERABLES Jaja l Result Performing Organization Address City/[facility]/ZIP Co de Phone Number [facility] [address] Department [employer] [place], [place] [id number] * (ABNORMAL) Iron profile w/ IBC (12/04/2024 5:14 AM CDT) [facility] Iron 57 35 - 145 mcg/dL TIBC 199(L) 250 - 400 mcg/dL [facility] Transferrin saturation 29 20 - 50 % [facility] Blood 12/04/2024 5:14 AM CDT 12/04/2024 5:31 AM CDT Cecile Tejada [employer]PER[employer] LAB BLOOD ORDERABLES Final Resul t Performing Organization Address City/[facility]/ZIP Co de Phone Number [facility] [address] [place] [employer] [address] * (ABNORMAL) CBC with auto differential (12/04/2024 5:14 AM CDT) [facility] WBC 6.97 3.80 - 9.90 K/cumm Hgb 9.4(L) 11.9 - 15.5 g/dL [facility] Hct 32.2(L) 35.6 - 45.5 % [facility] Plt 290 150 - 400 K/cumm [facility] MPV 11.4 9.1 - 12.3 fL [facility] RBC 3.73(L) 3.90 - 5.20 M/cumm [facility] MCV 86.3 81.3 - 96.4 fL [facility] MCH 25.2(L) 27.1 - 33.3 pg [facility] MCHC 29.2(L) 32.3 - 35.7 g/dL [facility] RDW CV 17.1(H) 11.1 - 14.9 % [facility] RDW SD 53.5(H) 35.7 - 48.1 fL [facility] NRBC abs 0.00 0.00 - 0.01 K/cumm [facility] Blood 12/04/2024 5:14 AM CDT 12/04/2024 5:30 AM CDT [facility] LAB BLOOD ORDERABLES Jaja l Result Performing Organization Address City/[facility]/ZIP Co de Phone Number [facility] [address] [facility] [place] [address] * Phosphorus (12/04/2024 5:14 AM CDT) Phosphorus, pl 3.0 2.3 - 4.5 mg/dL Blood 12/04/2024 5:14 AM CDT 12/04/2024 5:31 AM CDT [facility] [employer] LAB BLOOD ORDERABLES Jaja l Result [facility] [address] [facility] [place] [address] * Magnesium (12/04/2024 5:14 AM CDT) Magnesium 1.7 1.4 - 2.5 mg/dL Blood 12/04/2024 5:14 AM CDT 12/04/2024 5:31 AM CDT Vanna Reynoso [employer] LAB BLOOD ORDERABLES Jaja l Result Performing Organization Address City/[facility] Co de Phone Number [facility] [address] [facility] [place] [address] * (ABNORMAL) Hemoglobin A1c (12/04/2024 5:14 AM CDT) Pathologist [facility] Hgb A1C 6.6(H) 4.0 - 5.6 % Estimated Average Glucose 143 mg/dL [facility] Comment: The ADA recommends reporting an estimated Average Glucose (eAG) with all Hemoglobin A1c results using the equation derived from a study of 507 normal and diabetic adults. Minority populations were underrepresented and children were not included. (Diabetes Care 31:1461-2214, 2008). The eAG is not equivalent to a fasting glucose. Blood 12/04/2024 5:14 AM CDT 12/04/2024 5:30 AM CDT Lucy Lanieriaz Katarzynad DO LAB BLOOD ORDERABLES Jaja l Result Performing Organization Address [facility] Co de Phone Number [facility] [address] [facility] [place] [address] * (ABNORMAL) Folate (12/04/2024 5:14 AM CDT) [facility] Folic acid 4.5(L) >=5.0 ng/mL Blood 12/04/2024 5:14 AM CDT 12/04/2024 5:31 AM CDT Lucy Jose Ahmad DO LAB BLOOD ORDERABLES Jaja l Result Performing Organization Address City/[facility] Co de Phone Number [facility] [address] [facility] [place] [address] * (ABNORMAL) Ferritin (12/04/2024 5:14 AM CDT) Pathologist [facility] Ferritin 345(H) 15 - 150 ng/mL Blood 12/04/2024 5:14 AM CDT 12/04/2024 5:31 AM CDT Cecile Tejada [employer]PER[employer] LAB BLOOD ORDERABLES Final Resul t [facility] [address] [place] [address] * Vitamin B12 (12/04/2024 5:14 AM CDT) [facility] Vitamin B12 863 230 - 1,250 pg/mL Blood 12/04/2024 5:14 AM CDT 12/04/2024 5:31 AM CDT Reakermit Jose Rasmussen DO LAB BLOOD ORDERABLES Jaja l Result Performing Organization Address City/[facility]/ZIP Co de Phone Number [facility] [address] [place] [address] * (ABNORMAL) Comprehensive metabolic panel (12/04/2024 5:14 AM CDT) [facility] Sodium 136 135 - 145 mmol/L Potassium, pl 4.4 3.3 - 4.9 mmol/L [facility] Chloride 98 97 - 110 mmol/L [facility] CO2 25 22 - 32 mmol/L [facility] Anion gap 13 2 - 15 mmol/L [facility] BUN 33(H) 6 - 25 mg/dL [facility] Creatinine 0.86 0.60 - 1.10 mg/dL [facility] Glucose 220(H) 70 - 199 mg/dL [facility] Comment: Interpretive Data Fasting glucose >/= 126 [...] 2022. Calcium 8.2(L) 8.5 - 10.3 mg/dL [facility] Bilirubin, total 0.2 0.1 - 1.2 mg/dL [facility] Protein, pl 6.3(L) 6.5 - 8.5 g/dL [facility] Albumin 2.6(L) 3.5 - 5.0 g/dL [facility] Alk phos 82 40 - 130 Units/L [facility] ALT 13 7 - 45 Units/L [facility] AST 36 10 - 45 Units/L [facility] Blood 12/04/2024 5:14 AM CDT 12/04/2024 5:31 AM CDT Vanna Reynoso NP LAB BLOOD ORDERABLES Jaja tuttle Result [facility] [address] [place] [address] * CT Head WO Contrast (12/03/2024 9:55 [...] esult * eGFR (12/03/2024 9:23 AM CDT) eGFR 70 >=60 mL/min/1. 73 m2 Comment: [...] NP LAB BLOOD ORDERABLES Jaja l Result [facility] [address] [place] [address] * (ABNORMAL) Differential, auto (12/03/2024 9:23 AM CDT) Neutrophil abs 3.93 1.50 - 6.50 K/cumm Imm gran abs 0.02 0.00 - 0.10 K/cumm [facility] Lymphocyte abs 0.16(L) 0.80 - 3.30 K/cumm [facility] Monocyte abs 0.22 0.20 - 0.80 K/cumm [facility] Eosinophil abs 0.00 0.00 - 0.50 K/cumm [facility] Basophil abs 0.00 0.00 - 0.10 K/cumm [facility] Neutrophil pct 90.7 % [facility] Comment: Interpretive Data Percent cell count reference ranges are not reported, since discordance with absolute values may lead to misinterpretation of CBC data. Current Interpretive Data was last revised on 2017. Imm gran pct 0.5 % [facility] Comment: Interpretive Data Percent cell count reference ranges are not reported, since discordance with absolute values may lead to misinterpretation of CBC data. Current Interpretive Data was last revised on 2017. Lymphocyte pct 3.7 % [facility] Comment: Interpretive Data Percent cell count reference ranges are not reported, since discordance with absolute values may lead to misinterpretation of CBC data. Current Interpretive Data was last revised on 2017. Monocyte pct 5.1 % [facility] Comment: Interpretive Data Percent cell count reference ranges are not reported, since discordance with absolute values may lead to misinterpretation of CBC data. Current Interpretive Data was last revised on 2017. Eosinophil pct 0.0 % [facility] Comment: Interpretive Data Percent cell count reference ranges are not reported, since discordance with absolute values may lead to misinterpretation of CBC data. Current Interpretive Data was last revised on 2017. Basophil pct 0.0 % [facility] Comment: Interpretive Data Percent cell count reference ranges are not reported, since discordance with absolute values may lead to misinterpretation of CBC data. Current Interpretive Data was last revised on 2017. Blood 12/03/2024 9:23 AM CDT 12/03/2024 9:31 AM CDT Vanna Reynoso NP LAB BLOOD ORDERABLES Jaja tuttle Result [facility] [address] [place] [address] * (ABNORMAL) CBC with auto differential (12/03/2024 9:23 AM CDT) WBC 4.33 3.80 - 9.90 K/cumm Hgb 9.6(L) 11.9 - 15.5 g/dL [facility] Hct 33.1(L) 35.6 - 45.5 % [facility] Plt 333 150 - 400 K/cumm [facility] MPV 11.8 9.1 - 12.3 fL [facility] RBC 3.84(L) 3.90 - 5.20 M/cumm [facility] MCV 86.2 81.3 - 96.4 fL [facility] MCH 25.0(L) 27.1 - 33.3 pg [facility] MCHC 29.0(L) 32.3 - 35.7 g/dL [facility] RDW CV 17.3(H) 11.1 - 14.9 % [facility] RDW SD 55.6(H) 35.7 - 48.1 fL [facility] NRBC abs 0.00 0.00 - 0.01 K/cumm [facility] Blood 12/03/2024 9:23 AM CDT 12/03/2024 9:31 AM CDT [facility] [employer] LAB BLOOD ORDERABLES Jaja l Result Performing Organization Address City/[facility]/ZIP Co de Phone Number [facility] [address] [place] [address] * Phosphorus (12/03/2024 9:23 AM CDT) Phosphorus, pl 3.7 2.3 - 4.5 mg/dL Blood 12/03/2024 9:23 AM CDT 12/03/2024 9:31 AM CDT [facility] [employer] LAB BLOOD ORDERABLES Jaja l Result [facility] [address] [place] [address] * Magnesium (12/03/2024 9:23 AM CDT) Magnesium 1.8 1.4 - 2.5 mg/dL Blood 12/03/2024 9:23 AM CDT 12/03/2024 9:31 AM CDT [facility] [employer] LAB BLOOD ORDERABLES Jaja l Result Performing Organization Address City/[facility]/ZIP Co de Phone Number [facility] [address] [place] [address] * (ABNORMAL) Comprehensive metabolic panel (12/03/2024 9:23 AM CDT) Sodium 139 135 - 145 mmol/L Potassium, pl 4.4 3.3 - 4.9 mmol/L [facility] Chloride 101 97 - 110 mmol/L [facility] CO2 25 22 - 32 mmol/L [facility] Anion gap 13 2 - 15 mmol/L [facility] BUN 29(H) 6 - 25 mg/dL [facility] Creatinine 0.85 0.60 - 1.10 mg/dL [facility] Glucose 168 70 - 199 mg/dL [facility] Comment: Interpretive Data Fasting glucose >/= 126 [...] 2022. Calcium 8.4(L) 8.5 - 10.3 mg/dL [facility] Bilirubin, total 0.2 0.1 - 1.2 mg/dL [facility] Protein, pl 7.0 6.5 - 8.5 g/dL [facility] Albumin 2.9(L) 3.5 - 5.0 g/dL [facility] Alk phos 85 40 - 130 Units/L [facility] ALT 10 7 - 45 Units/L [facility] AST 36 10 - 45 Units/L [facility] Blood 12/03/2024 9:23 AM CDT 12/03/2024 9:31 AM CDT Vanna Reynoso [employer] LAB BLOOD ORDERABLES Jaja l Result Performing Organization Address City/[facility]/ZIP Co de Phone Number [facility] [address] [place] [address] * TRANSTHORACIC ECHO (TTE) COMPLETE W DOPPLER/CF WO CONTRAST (12/02/2024 4:55 PM CDT) LV EF 25 % CONS SCIMAGE Anatomical Region Laterality Modality Ultrasound 12/02/2024 3:06 PM CDT Narrative 12/04/2024 8:37 AM CDT [facility] [address] [address] ECHOCARDIOGRAM Patient Name: CARMEN HOUSE K : 1945 (79y 1m) Gender: F Study Date: 12/02/2024 03:06:30 PM Ht(Inch): 64 Wt(Lb): 113.1 BSA: 1.52 Metal Neutralizer: Location: [address] Order Provider: PURNIMA DRAKE BMI: 19.41 [...] Procedure Note Maxwell Amaral MD - 12/04/2024 [facility] [address] [place] [address] ECHOCARDIOGRAM Patient Name: CARMEN HOUSE K : 1945 (79y 1m) Gender: F Study Date: 12/02/2024 03:06:30 PM Ht(Inch): 64 Wt(Lb): 113.1 BSA: 1.52 Metal Neutralizer: JESSI Location: [id number] Order Provider: FERSkylarPURNIMA DOTY BMI: 19.41 BP: 122/58 Ref Provider: FERSkylarPURNIMA DOTY - PROCEDURES: Echocardiographic Report: Transthoracic Echocardiogram with [...] it. Electronically signed by: Wilder Salinas MD Purnima Drake [employer]PER[employer] IMG CT PROCEDURE S Final Result * [...] Castillo MD LAB BLOOD ORDERABLES Final Result [facility] [address] Department [place] [address] * (ABNORMAL) Differential, auto (12/02/2024 5:19 AM CDT) Pathologist [facility] Neutrophil abs 3.40 1.50 - 6.50 K/cumm Imm gran abs 0.02 0.00 - 0.10 K/cumm [facility] Lymphocyte abs 0.14(L) 0.80 - 3.30 K/cumm [facility] Monocyte abs 0.12(L) 0.20 - 0.80 K/cumm [facility] Eosinophil abs 0.01 0.00 - 0.50 K/cumm [facility] Basophil abs 0.00 0.00 - 0.10 K/cumm [facility] Neutrophil pct 92.1 % [facility] Comment: Interpretive Data Percent cell count reference ranges are not reported, since discordance with absolute values may lead to misinterpretation of CBC data. Current Interpretive Data was last revised on 2017. Imm gran pct 0.5 % [facility] Comment: Interpretive Data Percent cell count reference ranges are not reported, since discordance with absolute values may lead to misinterpretation of CBC data. Current Interpretive Data was last revised on 2017. Lymphocyte pct 3.8 % [facility] Comment: Interpretive Data Percent cell count reference ranges are not reported, since discordance with absolute values may lead to misinterpretation of CBC data. Current Interpretive Data was last revised on 2017. Monocyte pct 3.3 % [facility] Comment: Interpretive Data Percent cell count reference ranges are not reported, since discordance with absolute values may lead to misinterpretation of CBC data. Current Interpretive Data was last revised on 2017. Eosinophil pct 0.3 % [facility] Comment: Interpretive Data Percent cell count reference ranges are not reported, since discordance with absolute values may lead to misinterpretation of CBC data. Current Interpretive Data was last revised on 2017. Basophil pct 0.0 % [facility] Comment: Interpretive Data Percent cell count reference ranges are not reported, since discordance with absolute values may lead to misinterpretation of CBC data. Current Interpretive Data was last revised on 2017. Blood 12/02/2024 5:19 AM CDT 12/02/2024 5:34 AM CDT us Jordan Castillo MD LAB BLOOD ORDERABLES Final Result [facility] [address] Department [place] [address] * (ABNORMAL) CBC with auto differential (12/02/2024 5:19 AM CDT) WBC 3.69(L) 3.80 - 9.90 K/cumm Hgb 9.5(L) 11.9 - 15.5 g/dL [facility] Hct 31.0(L) 35.6 - 45.5 % [facility] Plt 282 150 - 400 K/cumm [facility] MPV 11.5 9.1 - 12.3 fL [facility] RBC 3.71(L) 3.90 - 5.20 M/cumm [facility] MCV 83.6 81.3 - 96.4 fL [facility] MCH 25.6(L) 27.1 - 33.3 pg [facility] MCHC 30.6(L) 32.3 - 35.7 g/dL [facility] RDW CV 17.7(H) 11.1 - 14.9 % [facility] RDW SD 54.4(H) 35.7 - 48.1 fL [facility] NRBC abs 0.00 0.00 - 0.01 K/cumm [facility] Blood 12/02/2024 5:19 AM CDT 12/02/2024 5:34 AM CDT Jordan Castillo MD LAB BLOOD ORDERABLES Final Result Performing Organization Address City/[facility]/ZIP Co de Phone Number [facility] [address] [facility] [employer] [place], [place] [id number] * Magnesium (12/02/2024 5:19 AM CDT) [facility] Magnesium 1.6 1.4 - 2.5 mg/dL Blood 12/02/2024 5:19 AM CDT 12/02/2024 5:32 AM CDT Jordan Castillo MD LAB BLOOD ORDERABLES Final Result [facility] [address] [facility] [place] [employer] [address] * (ABNORMAL) Renal function panel (12/02/2024 5:19 AM CDT) Sodium 134(L) 135 - 145 mmol/L Potassium, pl 3.2(L) 3.3 - 4.9 mmol/L [facility] Chloride 99 97 - 110 mmol/L [facility] CO2 24 22 - 32 mmol/L [facility] Anion gap 11 2 - 15 mmol/L [facility] BUN 13 6 - 25 mg/dL [facility] Creatinine 0.69 0.60 - 1.10 mg/dL [facility] Glucose 193 70 - 199 mg/dL [facility] Comment: Interpretive Data Fasting glucose >/= 126 [...] 2022. Calcium 7.9(L) 8.5 - 10.3 mg/dL [facility] Phosphorus, pl 4.2 2.3 - 4.5 mg/dL [facility] Albumin 2.5(L) 3.5 - 5.0 g/dL [facility] Blood 12/02/2024 5:19 AM CDT 12/02/2024 5:32 AM CDT us Jordan Castillo MD LAB BLOOD ORDERABLES Final Result [facility] [address] Department [place] [address] * (ABNORMAL) Lipid panel (12/02/2024 5:19 AM [...] revised on 2018. Triglycerides 143 <=149 mg/dL [facility] Comment: Interpretive Data Ages < or = [...] revised on 2018. HDL 24(L) >=40 mg/dL [facility] Comment: Interpretive Data Ages < or = [...] on 2018. LDL, calculated 104 <=129 mg/dL [facility] Comment: Interpretive Data Ages < or = 19 years Acceptable: <110 mg/dL Borderline high: 110-129 mg/dL High: >or= 130 mg/dL Ages > or = 20 years Optimal: <100 mg/dL Near optimal: 100-129 mg/dL Borderline high: 130-159 mg/dL High: >160 mg/dL Calculated using the Gonzalez LDL-C estimating equation. This equation was implemented [...] revised on 2024. Non-HDL Cholesterol 130 mg/dL [facility] Comment: Interpretive Data Ages < or = [...] last revised on 2018. Chol/HDL ratio 6 [facility] Blood 12/02/2024 5:19 AM CDT 12/02/2024 5:32 AM CDT Purnima Drake [employer]PER[employer] LAB BLOOD ORDERA BLES Final Result [facility] [address] Department of Laboratories [place], [place] [id number] * Respiratory pathogen panel Nasopharyngeal (12/01/2024 8:44 PM CDT) Pathologist [facility] Influenza A RNA Not Detected Not Detected [facility] Influenza B RNA Not Detected Not Detected [facility] RSV RNA Not Detected Not Detected [facility] COVID-19 RNA Not Detected Not Detected [facility] Coronavirus 229E RNA Not Detected Not Detected [facility] Coronavirus HKU1 RNA Not Detected Not Detected [facility] Coronavirus NL63 RNA Not Detected Not Detected [facility] Coronavirus OC43 RNA Not Detected Not Detected [facility] Adenovirus DNA Not Detected Not Detected [facility] Metapneumovirus RNA Not Detected Not Detected [facility] Rhinovirus/Enterov irus RNA Not Detected Not Detected [facility] Parainfluenza 1 RNA Not Detected Not Detected [facility] Parainfluenza 2 RNA Not Detected Not Detected [facility] Parainfluenza 3 RNA Not Detected Not Detected [facility] Parainfluenza 4 RNA Not Detected Not Detected [facility] B. pertussis DNA Not Detected Not Detected [facility] B. parapertussis DNA Not Detected Not Detected [facility] C. pneumoniae DNA Not Detected Not Detected [facility] M. pneumoniae DNA Not Detected Not Detected [facility] Comment: Interpretive Data The [employer] FilmArray Respiratory Panel (RP2.1) assay is a [...] assay has FDA clearance for testing of [employer]OR swabs. The performance characteristics of this assay have been determined by [facility]. Current interpretive data was last revised on 2021. Nasopharyngeal 12/01/2024 8: 44 PM CDT 12/01/2024 9:01 PM CDT Narrative [facility] - 12/01/2024 9:51 PM CDT Is the Patient experiencing symptoms consistent with COVID?->Yes Surveillance testing for transplant patient?->No Purnima Drake [employer] SUPERVISOR LAB MICROBIOLOGY - GENERAL ORDERABLES Final Result Performing Organization Address City/[facility] Co de Phone Number [facility] [address] Department of [employer] [place], [place] [phone] MBC * Procalcitonin - Add on lab test (12/01/2024 6:41 PM CDT) Pathologist [facility] Acceptable Yes Blood 12/01/2024 6:41 PM CDT 12/01/2024 6:42 PM CDT Dayday [facility] - 12/01/2024 6:42 PM CDT Name of Test->Procalcitonin Purnima Drake [employer] SUPER[employer]OR LAB BLOOD ORDERA BLES Final Result Performing Organization Address City/[facility] Co de Phone Number [facility] [address] Department [employer] [place], [place] [id number] * (ABNORMAL) Troponin T high-sensitivity 4-hour (12/01/2024 5:53 PM CDT) Pathologist [facility] Trop T hs 47(H) <=14 ng/L Comment: Interpretive Data For further hscTnT resources including the diagnostic algorithm and an aid in interpretation, copy and paste this link: https://nrl.testcatalog.org/show/hsTrop Current Interpretive Data last revised 2020. Trop T hs delta 3 ng/L [facility] Trop T hs interp Insignificant [facility] Blood 12/01/2024 5:53 PM CDT 12/01/2024 6:08 PM CDT us Arnulfo Peñaloza MD LAB BLOOD ORDERABLES Final R esult [facility] [address] [place] [address] * (ABNORMAL) Urinalysis reflex to microscopic and culture Urine (12/01/2024 4:51 PM CDT) Color, ur Straw Yellow Clarity, ur Clear Clear [facility] Specific gravity, ur 1.020 1.003 - 1.030 [facility] pH, urine 7.0 [facility] Comment: Interpretive Data U rine pH is affected by diet, medications, systemic acid-base disturbances, and renal tubular function. pH may affect urinary stone formation. For example, urine pH below 6.0 may help reduce the tendency for calcium phosphate stones and pH greater than 6.0 may reduce the tendency for uric acid stone formation. Source: [facility] Current Interpretive Data was last revised on 2017 Protein, ur ql Trace Negative [facility] Glucose, ur ql Negative Negative [facility] Ketones, ur Negative Negative [facility] Bilirubin, ur Negative Negative [facility] Blood, ur 2+(A) Negative [facility] Urobilinogen, ur <2.0 <2.0 mg/dL [facility] Nitrite, ur Negative Negative [facility] Leukocyte esterase, ur Negative Negative [facility] UA reflex comment Reflex to microscopic UA will be performed. [facility] Urine 12/01/2024 4:51 PM CDT 12/01/2024 5:17 PM CDT us Christina Campos NP LAB MICROBIOLOGY - GENE RAL ORDERABLES Final Result [facility] [address] Department [place] [address] * (ABNORMAL) Urinalysis, microscopic only (12/01/2024 4:51 PM CDT) WBC, ur 6-10(A) 0 - 5 /HPF RBC, ur 21-50(A) 0 - 2 /HPF [facility] Epithelial cells, squamous, ur 1-5 0 - 5 /HPF [facility] Culture Reflex Comment Reflex conditions for urine culture (WBC >10) not met. [facility] Urine 12/01/2024 4:51 PM CDT 12/01/2024 5:17 PM CDT Arnulfo Peñaloza MD LAB URINE ORDERABLES Final R esult Performing Organization Address [facility] Co de Phone Number [facility] [address] [place] [address] * (ABNORMAL) Troponin T high-sensitivity 2-hour (12/01/2024 3:46 PM CDT) Trop T hs 45(H) <=14 ng/L Comment: Interpretive Data For further hscTnT resources including the diagnostic algorithm and an aid in interpretation, copy and paste this link: https://nrl.testcatalog.org/show/hsTrop Current Interpretive Data last revised 2020. Trop T hs delta 1 ng/L [facility] Trop T hs interp Insignificant [facility] Blood 12/01/2024 3:46 PM CDT 12/01/2024 3:58 PM CDT Arnulfo Peñaloza MD LAB BLOOD ORDERABLES Final R esult Performing Organization Address City/[facility]/ZIP Co de Phone Number [facility] [address] [place] [address] * CT Chest PE (CTA) W Contrast [...] signed by: Bindu Sutherland M.D. Christina Campos NP IMG XR PROCEDURES Final Result * (ABNORMAL) [...] us Christina Campos NP LAB BLOOD ORDERABLES Ed ited Result - Final [facility] [address] [place] [address] * eGFR (12/01/2024 1:22 PM CDT) Pathologist [facility] eGFR 89 >=60 mL/min/1. 73 m2 Comment: [...] MD LAB BLOOD ORDERABLES Final Result [facility] [address] [place] [address] * (ABNORMAL) Differential, auto (12/01/2024 1:22 PM CDT) Pathologist [facility] Neutrophil abs 7.35(H) 1.50 - 6.50 K/cumm Imm gran abs 0.04 0.00 - 0.10 K/cumm [facility] Lymphocyte abs 0.20(L) 0.80 - 3.30 K/cumm [facility] Monocyte abs 0.33 0.20 - 0.80 K/cumm [facility] Eosinophil abs 0.04 0.00 - 0.50 K/cumm [facility] Basophil abs 0.01 0.00 - 0.10 K/cumm [facility] Neutrophil pct 92.3 % [facility] Comment: Interpretive Data Percent cell count reference ranges are not reported, since discordance with absolute values may lead to misinterpretation of CBC data. Current Interpretive Data was last revised on 2017. Imm gran pct 0.5 % [facility] Comment: Interpretive Data Percent cell count reference ranges are not reported, since discordance with absolute values may lead to misinterpretation of CBC data. Current Interpretive Data was last revised on 2017. Lymphocyte pct 2.5 % [facility] Comment: Interpretive Data Percent cell count reference ranges are not reported, since discordance with absolute values may lead to misinterpretation of CBC data. Current Interpretive Data was last revised on 2017. Monocyte pct 4.1 % [facility] Comment: Interpretive Data Percent cell count reference ranges are not reported, since discordance with absolute values may lead to misinterpretation of CBC data. Current Interpretive Data was last revised on 2017. Eosinophil pct 0.5 % [facility] Comment: Interpretive Data Percent cell count reference ranges are not reported, since discordance with absolute values may lead to misinterpretation of CBC data. Current Interpretive Data was last revised on 2017. Basophil pct 0.1 % [facility] Comment: Interpretive Data Percent cell count reference ranges are not reported, since discordance with absolute values may lead to misinterpretation of CBC data. Current Interpretive Data was last revised on 2017. Blood 12/01/2024 1:22 PM CDT 12/01/2024 1:57 PM CDT us Jordan Castillo MD LAB BLOOD ORDERABLES Final Result [facility] [address] Department of Laboratories [place], [place] [id number] * Procalcitonin (12/01/2024 1:22 PM CDT) Procalcitonin 0.20 <=0.25 ng/mL Blood 12/01/2024 1:22 PM CDT 12/01/2024 1:57 PM CDT Cb Ely MD LAB BLOOD ORDERABLES Final Resul t [facility] [address] [place] [address] * (ABNORMAL) Pro B-type natriuretic peptide (12/01/2024 [...] as advanced age. - References: 1. Manolo JL et.al. Eur Heart J. 2006:27:330-337. 2. Wendy VILLATORO, Jan LUDWIG. J. AM Molly Cardiol: Cardiovasc Imag. 2009;2: 216- 225. Interpretive Data Last Revised Date: 2018. Blood 12/01/2024 1:22 PM CDT 12/01/2024 1:57 PM CDT Christina Campos [employer]PER[employer] LAB BLOOD ORDERABLES Fi nal Result Performing Organization Address City/[facility]/ZIP Co de Phone Number [facility] [address] [employer] [place], [place] [id number] * (ABNORMAL) CBC with auto differential (12/01/2024 1:22 PM CDT) Pathologist [facility] WBC 7.97 3.80 - 9.90 K/cumm Hgb 10.2(L) 11.9 - 15.5 g/dL [facility] Hct 34.0(L) 35.6 - 45.5 % [facility] Plt 380 150 - 400 K/cumm [facility] MPV 11.6 9.1 - 12.3 fL [facility] RBC 4.00 3.90 - 5.20 M/cumm [facility] MCV 85.0 81.3 - 96.4 fL [facility] MCH 25.5(L) 27.1 - 33.3 pg [facility] MCHC 30.0(L) 32.3 - 35.7 g/dL [facility] RDW CV 17.5(H) 11.1 - 14.9 % [facility] RDW SD 54.4(H) 35.7 - 48.1 fL [facility] NRBC abs 0.00 0.00 - 0.01 K/cumm [facility] Blood 12/01/2024 1:22 PM CDT 12/01/2024 1:57 PM CDT Christina Campos [employer]PER[employer] LAB BLOOD ORDERABLES Fi nal Result [facility] [address] [employer] [place], [place] [phone] * (ABNORMAL) Comprehensive metabolic panel (12/01/2024 1:22 PM CDT) Pathologist [facility] Sodium 136 135 - 145 mmol/L Potassium, pl 3.5 3.3 - 4.9 mmol/L [facility] Chloride 102 97 - 110 mmol/L [facility] CO2 20(L) 22 - 32 mmol/L [facility] Anion gap 14 2 - 15 mmol/L [facility] BUN 10 6 - 25 mg/dL [facility] Creatinine 0.67 0.60 - 1.10 mg/dL [facility] Glucose 152 70 - 199 mg/dL [facility] Comment: Interpretive Data Fasting glucose >/= 126 [...] 2022. Calcium 8.3(L) 8.5 - 10.3 mg/dL [facility] Bilirubin, total 0.7 0.1 - 1.2 mg/dL [facility] Protein, pl 6.8 6.5 - 8.5 g/dL [facility] Albumin 2.6(L) 3.5 - 5.0 g/dL [facility] Alk phos 82 40 - 130 Units/L [facility] ALT 5(L) 7 - 45 Units/L [facility] AST 25 10 - 45 Units/L [facility] Blood 12/01/2024 1:22 PM CDT 12/01/2024 1:57 PM CDT us Christina Campos NP LAB BLOOD ORDERABLES Fi nal Result [facility] [address] [place] [address] * ECG 12 lead (12/01/2024 12:59 PM CDT) 12/01/2024 12:5 9 PM CDT Narrative [facility] - 12/02/2024 9:25 AM CDT Vent Rate: 111 bpm RR Interval: 538 msec MI Interval: 0 msec QRS Duration: 98 msec QT Interval: 222 msec QTC Interval: 288 msec P-R-T [place]: 0 - 7 - 0 degrees IMPRESSION: ATRIAL FIBRILLATION WITH RAPID VENTRICULAR RESPONSE WITH ABERRANT CONDUCTION OR VENTRICULAR PREMATURE COMPLEXES NONSPECIFIC ST \T\ T-WAVE ABNORMALITY ABNORMAL RHYTHM ECG INTERPRETATION BASED ON A DEFAULT AGE OF 40 YEARS Electronically Signed By: Giancarlo Ventura MD, [facility] us Christina Campos FABRICATION AND ASSEMBLY SUPERVISOR ECG ORDERABLES Final R esult [facility] * eGFR (10/29/2024 2:30 PM CAUSTIC CRESYLATE SHIFT SUPERINTENDENT) eGFR 73 >=60 mL/min/1. 73 m2 Comment: [...] last reviewed 2021. Blood 10/29/2024 2:30 PM CAUSTIC CRESYLATE SHIFT SUPERINTENDENT 10/29/2024 9:40 PM CAUSTIC CRESYLATE SHIFT SUPERINTENDENT us Arnold Perkins MD LAB BLOOD ORDERABLES Fin al Result [facility] [address] Department [place] [address] * (ABNORMAL) Differential, auto (10/29/2024 2:30 PM CAUSTIC CRESYLATE SHIFT SUPERINTENDENT) Neutrophil abs 4.9 1.5 - 6.5 K/cumm Imm gran abs 0.0 0.0 - 0.1 K/cumm [facility] Lymphocyte abs 0.2(L) 0.8 - 3.3 K/cumm [facility] Monocyte abs 0.4 0.2 - 0.8 K/cumm [facility] Eosinophil abs 0.1 0.0 - 0.5 K/cumm [facility] Basophil abs 0.0 0.0 - 0.1 K/cumm [facility] Neutrophil pct 88.0 % [facility] Comment: Interpretive Data Percent cell count reference ranges are not reported, since discordance with absolute values may lead to misinterpretation of CBC data. Current Interpretive Data was last revised on 2017. Imm gran pct 0.5 % [facility] Comment: Interpretive Data Percent cell count reference ranges are not reported, since discordance with absolute values may lead to misinterpretation of CBC data. Current Interpretive Data was last revised on 2017. Lymphocyte pct 3.2 % [facility] Comment: Interpretive Data Percent cell count reference ranges are not reported, since discordance with absolute values may lead to misinterpretation of CBC data. Current Interpretive Data was last revised on 2017. Monocyte pct 7.2 % [facility] Comment: Interpretive Data Percent cell count reference ranges are not reported, since discordance with absolute values may lead to misinterpretation of CBC data. Current Interpretive Data was last revised on 2017. Eosinophil pct 0.9 % [facility] Comment: Interpretive Data Percent cell count reference ranges are not reported, since discordance with absolute values may lead to misinterpretation of CBC data. Current Interpretive Data was last revised on 2017. Basophil pct 0.2 % [facility] Comment: Interpretive Data Percent cell count reference ranges are not reported, since discordance with absolute values may lead to misinterpretation of CBC data. Current Interpretive Data was last revised on 2017. Blood 10/29/2024 2:30 PM CAUSTIC CRESYLATE SHIFT SUPERINTENDENT 10/29/2024 9:02 PM CAUSTIC CRESYLATE SHIFT SUPERINTENDENT Arnold Perkins MD LAB BLOOD ORDERABLES Fin al Result Performing Organization Address [facility]/ZIP Co de Phone Number [facility] [address] [facility] [employer] [place], [place] [id number] * (ABNORMAL) Iron profile w/ IBC (10/29/2024 2:30 PM CAUSTIC CRESYLATE SHIFT SUPERINTENDENT) [facility] Iron 49 35 - 145 mcg/dL TIBC 258 250 - 400 mcg/dL [facility] Transferrin saturation 19(L) 20 - 50 % [facility] Blood 10/29/2024 2:30 PM CAUSTIC CRESYLATE SHIFT SUPERINTENDENT 10/29/2024 9:40 PM CAUSTIC CRESYLATE SHIFT SUPERINTENDENT us Arnold Perkins MD LAB BLOOD ORDERABLES Fin al Result Performing Organization Address [facility] Co de Phone Number [facility] [address] [place] [address] * (ABNORMAL) CBC with auto differential (10/29/2024 2:30 PM CAUSTIC CRESYLATE SHIFT SUPERINTENDENT) [facility] WBC 5.6 3.8 - 9.9 K/cumm Hgb 10.4(L) 11.9 - 15.5 g/dL [facility] Hct 34.8(L) 35.6 - 45.5 % [facility] Plt 301 150 - 400 K/cumm [facility] MPV 10.8 9.1 - 12.3 fL [facility] RBC 3.96 3.90 - 5.20 M/cumm [facility] MCV 87.9 81.3 - 96.4 fL [facility] MCH 26.3(L) 27.1 - 33.3 pg [facility] MCHC 29.9(L) 32.3 - 35.7 g/dL [facility] RDW CV 16.3(H) 11.1 - 14.9 % [facility] RDW SD 52.5(H) 35.7 - 48.1 fL [facility] NRBC abs 0.00 0.00 - 0.01 K/cumm [facility] Blood 10/29/2024 2:30 PM CAUSTIC CRESYLATE SHIFT SUPERINTENDENT 10/29/2024 9:02 PM CAUSTIC CRESYLATE SHIFT SUPERINTENDENT us Arnold Perkins MD LAB BLOOD ORDERABLES Fin al Result Performing Organization Address City/[facility] Co de Phone Number [facility] [address] [facility] [place] [address] * (ABNORMAL) Ferritin (10/29/2024 2:30 PM CAUSTIC CRESYLATE SHIFT SUPERINTENDENT) Ferritin 178(H) 15 - 150 ng/mL Blood 10/29/2024 2:30 PM CAUSTIC CRESYLATE SHIFT SUPERINTENDENT 10/29/2024 9:40 PM CAUSTIC CRESYLATE SHIFT SUPERINTENDENT us Arnold Perkins MD LAB BLOOD ORDERABLES Fin al Result Performing Organization Address [facility] Co de Phone Number [facility] [address] [facility] [place] [address] * Creatinine (10/29/2024 2:30 PM CAUSTIC CRESYLATE SHIFT SUPERINTENDENT) Creatinine 0.82 0.60 - 1.10 mg/dL Blood 10/29/2024 2:30 PM CAUSTIC CRESYLATE SHIFT SUPERINTENDENT 10/29/2024 9:02 PM CAUSTIC CRESYLATE SHIFT SUPERINTENDENT Arnold Perkins MD LAB BLOOD ORDERABLES Fin al Result Performing Organization Address [facility] Co de Phone Number [facility] [address] [place] [address] * Hepatic function panel (10/29/2024 2:30 PM CAUSTIC CRESYLATE SHIFT SUPERINTENDENT) Bilirubin, total 0.4 0.1 - 1.2 mg/dL Bilirubin, direct 0.2 0.1 - 0.3 mg/dL [facility] Protein, pl 7.4 6.5 - 8.5 g/dL [facility] Albumin 3.5 3.5 - 5.0 g/dL [facility] Alk phos 94 40 - 130 Units/L [facility] ALT 9 7 - 45 Units/L [facility] AST 26 10 - 45 Units/L [facility] Blood 10/29/2024 2:30 PM CAUSTIC CRESYLATE SHIFT SUPERINTENDENT 10/29/2024 9:02 PM CAUSTIC CRESYLATE SHIFT SUPERINTENDENT us Arnold Perkins MD LAB BLOOD ORDERABLES Fin al Result Performing Organization Address [facility] Co de Phone Number [facility] [address] [place] [address] * Hepatitis C antibody (12/10/2018 2:44 PM CDT) Hep C Ab Nonreactive Nonreactive [facility] Comment: Interpretive Data Positive results should be confirmed by a molecular method. If positive, a second separately collected sample should be submitted for Hepatitis C Virus (HCV) RNA Detection and Quantitation by Real-Time Reverse Continuous Improvement Coach-PCR (RT-PCR). Current interpretive data was last revised on 2016. Blood specimen (specimen) 12/10/2018 2:44 PM CDT 12/10/2018 2:56 PM CDT Narrative [facility] - 12/11/2018 1:42 PM CDT Maricarmen Lo MD LAB MICROBIOLOGY - GENERAL ORDERABLES Edited Result - Final Performing Organization Address [facility] Co de Phone Number [facility] [address] [facility] [place] [address] from Last 3 Months or Most Recently Relevant to Health Maintenance Insurance MEDICARE [facility] FEDERAL FEDERAL MEDICARE [facility] FED[facility]AL Advance Directives For more information, please contact: [phone] * LIMITED - No CPR (Latest Code [...] 11:19 PM 04/14/2022 2:53 PM Care Teams Handle Sander Operator Relationship Specialty Start Date End Date Keisha Xiong MD [address] [facility] [address] [place] [address] PCP - General Family Medicine 12/02/24 Keshav Gregory MD [address] [facility] [address] [place] [address] Consulting Physician Pulmonary Disease 07/26/23 David Samson MD PhD [address] [place] [address] Referring Physician Cardiology 07/26/23 Kashif Barrientos MD [address] [place] [address] Consulting Physician Cardiology 07/26/23 Ike Pearce MD [address] [place] [address] Consulting Physician Cardiology 07/26/23 Dana Mcintosh, supervisor international reservationsBalance Wheel Facer 12/18/24 Yisel Jacobs, supervisor international reservationsBalance Wheel Facer 12/18/24 Marie Ma Primary Legal Stenographer 12/18/24
--- OUTSIDE RECORDS SUMMARY | 2024-12-18 12:38 | XMS_ITS | Patient Health Record ---
Author Organization [facility] larry Address [address] [facility] [address] [place] [address] Care Team Providers Care Satellite Communications Engineer Name Role Phone Daisy Falk Primary Care Provider Arnold Jones Unavailable [phone] Allergies Allergen (clinical drug ingredient) Drug/Non Drug Allergy documented on EMR Reaction Allergy Type Onset Date Status Non-steroidal anti-inflammatory agent (FN) NSAIDs Afib Drug Allergy Active Results Component Value Reference Range Notes eGFR Reviewed date:10/30/2024 09:05:31 AM Interpretation: Performing Lab:[facility] , [address] [facility]. [facility] [address] Notes/Report: eGFR 73 >=60 mL/min/1.73 m2 Interpretive Data Reference Interval Normal >/= 90 [...] Current interpretive data was last reviewed 2021. Differential Automated Reviewed date:10/30/2024 09:09:11 AM Interpretation: Performing Lab:[facility] , [address] [facility]. [place] [address] Notes/Report: Neut Abs 4.9 1.5-6.5 K/cumm ImmGran Abs 0.0 0.0-0.1 K/cumm Lymphocyte Abs 0.2 0.8-3.3 K/cumm Chilton Abs 0.4 0.2-0.8 K/cumm Eos Abs 0.1 0.0-0.5 K/cumm Baso Abs 0.0 0.0-0.1 K/cumm Neut Pct 88.0 Interpretive Data Percent cell count reference ranges are not reported, since discordance with absolute values may lead to misinterpretation of CBC data. Current Interpretive Data was last revised on 2017. ImmGran Pct 0.5 Interpretive Data Percent cell count reference ranges are not reported, since discordance with absolute values may lead to misinterpretation of CBC data. Current Interpretive Data was last revised on 2017. Lymph Pct 3.2 Interpretive Data Percent cell count reference ranges are not reported, since discordance with absolute values may lead to misinterpretation of CBC data. Current Interpretive Data was last revised on 2017. Chilton Pct 7.2 Interpretive Data Percent cell count reference ranges are not reported, since discordance with absolute values may lead to misinterpretation of CBC data. Current Interpretive Data was last revised on 2017. Eos Pct 0.9 Interpretive Data Percent cell count reference ranges are not reported, since discordance with absolute values may lead to misinterpretation of CBC data. Current Interpretive Data was last revised on 2017. Baso Pct 0.2 Interpretive Data Percent cell count reference ranges are not reported, since discordance with absolute values may lead to misinterpretation of CBC data. Current Interpretive Data was last revised on 2017. Hep Func Panel Reviewed date:10/30/2024 09:03:18 AM Interpretation: Performing Lab:[facility] , [address] [facility]. [place] [address] Notes/Report: Total Bilirubin 0.4 0.1-1.2 mg/dL Bilirubin, Direct 0.2 0.1-0.3 mg/dL Plasma Total Protein 7.4 6.5-8.5 g/dL Albumin 3.5 3.5-5.0 g/dL Alkaline Phosphatase 94 40-130 Units/L ALT 9 7-45 Units/L AST 26 10-45 Units/L Creatinine Reviewed date:03/25/2024 04:24:59 AM Interpretation: Performing Lab:[facility] , [address] [place] [address]. [facility] [address] Notes/Report: Creatinine 0.83 0.60-1.10 mg/dL CBC without Diff Reviewed date:03/25/2024 05:09:32 AM Interpretation: Performing Lab:[facility] , [address] [place] [address]. [facility] [address] Notes/Report: WBC 5.6 3.8-9.9 K/cumm Hgb 10.4 11.9-15.5 g/dL Hct 35.1 35.6-45.5 % Platelet Ct 280 150-400 K/cumm MPV 11.0 9.1-12.3 fL RBC 3.96 3.90-5.20 M/cumm MCV 88.6 81.3-96.4 fL MCH 26.3 27.1-33.3 pg MCHC 29.6 32.3-35.7 g/dL RDW CV 18.2 11.1-14.9 % RDW SD 59.4 35.7-48.1 fL NRBC Abs Auto 0.00 0.00-0.01 K/cumm Iron Profile Reviewed date:11/03/2024 05:11:37 PM Interpretation: Performing Lab:[facility] , [address] [place] [address]. [facility] [address] Notes/Report: Total Iron 49 35-145 mcg/dL Total Iron Bind Capacity 258 250-400 mcg/dL Transferrin Saturation 19 20-50 % Ferritin Reviewed date:10/30/2024 11:48:03 AM Interpretation: Performing Lab:[facility] , [address] [place] [address]. [facility] [address] Notes/Report: Ferritin 178 15-150 ng/mL Creatinine Reviewed date:10/30/2024 09:03:22 AM Interpretation: Performing Lab:[facility] , [address] [place] [address] Notes/Report: Creatinine 0.82 0.60-1.10 mg/dL CBC w auto diff Reviewed date:10/30/2024 09:34:49 AM Interpretation: Performing Lab:[facility] , [address] [place] [address]. [place] [address] Notes/Report: WBC 5.6 3.8-9.9 K/cumm Hgb 10.4 11.9-15.5 g/dL Hct 34.8 35.6-45.5 % Platelet Ct 301 150-400 K/cumm MPV 10.8 9.1-12.3 fL RBC 3.96 3.90-5.20 M/cumm MCV 87.9 81.3-96.4 fL MCH 26.3 27.1-33.3 pg MCHC 29.9 32.3-35.7 g/dL RDW CV 16.3 11.1-14.9 % RDW SD 52.5 35.7-48.1 fL NRBC Abs Auto 0.00 0.00-0.01 K/cumm Hep Func Panel Reviewed date:03/25/2024 04:28:05 AM Interpretation: Performing Lab:[facility] , [address] [place] [address]. [place] [address] Notes/Report: Total Bilirubin 0.4 0.1-1.2 mg/dL Bilirubin, Direct <0.2 0.1-0.3 mg/dL Plasma Total Protein 6.9 6.5-8.5 g/dL Albumin 3.4 3.5-5.0 g/dL Alkaline Phosphatase 108 40-130 Units/L ALT 10 7-45 Units/L AST 29 10-45 Units/L eGFR Reviewed date:05/20/2024 06:19:02 AM Interpretation: Performing Lab:[facility] , [address] [place] [address]. [place] [address] Notes/Report: eGFR 63 >=60 mL/min/1.73 m2 Reassessing the Inclusion of Race in Diagnosing Kidney Disease, JASN 2020). The CKD-EPI equation should not be used for patients with unstable renal function and has not been validated in children and those over 70. Current interpretive data was last reviewed 2021. Interpretive Data Reference Interval Normal >/= 90 [...] Recommendations of the NKF-ASK Task Force on eGFR Reviewed date:03/25/2024 04:25:29 AM Interpretation: Performing Lab:[facility] , [facility] [facility]. [place] [address] Notes/Report: eGFR 73 >=60 mL/min/1.73 m2 Interpretive Data Reference Interval Normal >/= 90 [...] Current interpretive data was last reviewed 2021. Iron Profile Reviewed date:05/21/2024 01:54:33 PM Interpretation: Performing Lab:[facility] , [address] [facility] [place] [address] Notes/Report: Total Iron 54 35-145 mcg/dL Total Iron Bind Capacity 270 250-400 mcg/dL Transferrin Saturation 20 20-50 % Ferritin Reviewed date:05/21/2024 01:54:39 PM Interpretation: Performing Lab:[facility] , [address] [facility]. [place] [address] Notes/Report: Ferritin 89 15-150 ng/mL Differential Automated Reviewed date:05/20/2024 06:22:36 AM Interpretation: Performing Lab:[facility] , [address] [facility]. [place] [address] Notes/Report: Neut Abs 5.0 1.5-6.5 K/cumm ImmGran Abs 0.0 0.0-0.1 K/cumm Lymphocyte Abs 0.2 0.8-3.3 K/cumm Chilton Abs 0.4 0.2-0.8 K/cumm Eos Abs 0.1 0.0-0.5 K/cumm Baso Abs 0.0 0.0-0.1 K/cumm Neut Pct 87.3 Interpretive Data Percent cell count reference ranges are not reported, since discordance with absolute values may lead to misinterpretation of CBC data. Current Interpretive Data was last revised on 2017. ImmGran Pct 0.5 Interpretive Data Percent cell count reference ranges are not reported, since discordance with absolute values may lead to misinterpretation of CBC data. Current Interpretive Data was last revised on 2017. Lymph Pct 2.8 Interpretive Data Percent cell count reference ranges are not reported, since discordance with absolute values may lead to misinterpretation of CBC data. Current Interpretive Data was last revised on 2017. Chilton Pct 7.2 Interpretive Data Percent cell count reference ranges are not reported, since discordance with absolute values may lead to misinterpretation of CBC data. Current Interpretive Data was last revised on 2017. Eos Pct 1.9 Interpretive Data Percent cell count reference ranges are not reported, since discordance with absolute values may lead to misinterpretation of CBC data. Current Interpretive Data was last revised on 2017. Baso Pct 0.3 Interpretive Data Percent cell count reference ranges are not reported, since discordance with absolute values may lead to misinterpretation of CBC data. Current Interpretive Data was last revised on 2017. Hep Func Panel Reviewed date:05/20/2024 06:20:39 AM Interpretation: Performing Lab:[facility] , [address] [facility]. [place] [address] Notes/Report: Total Bilirubin 0.5 0.1-1.2 mg/dL Bilirubin, Direct 0.2 0.1-0.3 mg/dL Plasma Total Protein 7.3 6.5-8.5 g/dL Albumin 3.6 3.5-5.0 g/dL Alkaline Phosphatase 113 40-130 Units/L ALT 6 7-45 Units/L AST 24 10-45 Units/L Creatinine Reviewed date:05/20/2024 06:16:51 AM Interpretation: Performing Lab:[facility] , [address] [place] [address]. [facility] [address] Notes/Report: Creatinine 0.93 0.60-1.10 mg/dL CBC w auto diff Reviewed date:10/30/2024 09:34:49 AM Interpretation: Performing Lab:[facility] , [address] [place] [address]. [facility] [address] Notes/Report: WBC 5.7 3.8-9.9 K/cumm Hgb 11.2 11.9-15.5 g/dL Hct 38.0 35.6-45.5 % Platelet Ct 235 150-400 K/cumm MPV 11.3 9.1-12.3 fL RBC 4.14 3.90-5.20 M/cumm MCV 91.8 81.3-96.4 fL MCH 27.1 27.1-33.3 pg MCHC 29.5 32.3-35.7 g/dL RDW CV 16.4 11.1-14.9 % RDW SD 55.8 35.7-48.1 fL NRBC Abs Auto 0.00 0.00-0.01 K/cumm Reason For Referral No Information Medications Medication SIG (Take, Route, Frequency, Duration) Notes Start Date End Date Status Cefdinir 300 MG Oral for 7 Days Active traMADol HCl 50 MG 1 tablet as needed Orally every 6 hours As needed. dx=Sjogren's M35.01 10/29/2024 Active azaTHIOprine 50 MG TAKE 1 TABLET BY GALILEO DAILY FOR 7 DAYS, THEN 2 TABLETS DAILY for 90 Active Trelegy Ellipta 100-62.5-25 MCG/ACT Inhalation for 30 Days Activ e Xarelto 20 MG Oral for 30 Days Active Problems Problem Type SNOMED Code ICD Code Onset Dates Problem Status W/U Status Risk Notes Problem 503903466 Other superintendent terminal (current) drug therapy (Z79.899) Active confirmed Problem 918574290 Raynaud's phenom enon without gangrene (I73.00) Active confirmed Problem 09683182 Sjogren's syndro me with keratoconjunctivitis sicca (M35.01) Active confirmed Problem 952614681 ILD (interstitia l lung disease) (J84.9) Active confirmed Vital Signs Heart Rate 57 /min 10/29/2024 Temperature 98.0 degrees Fahrenheit 10/29/2024 Height-cm 162.56 cm 10/29/2024 Blood pressure diastolic 80 mm Hg 10/29/2024 Oximetry 97 % 10/29/2024 Weight-kg 64.85 kg 10/29/2024 Height 64 in 10/29/2024 Blood pressure systolic 150 mm Hg 10/29/2024 Weight 143 lbs 10/29/2024 BMI 24.54 kg/m2 10/29/2024 Encounters Encounter Location Date Provider Diagnosis [facility] [address] [facility] [address] [place] [address] 01/23/2024 Arnold DiValerio Sjogren's syndrome with keratoconjunctivitis sicca M35.01 ; Other superintendent terminal (current) drug therapy Z79.899 ; ILD (interstitial lung disease) J84.9 and Raynaud's phenomenon without gangrene I73.00 [facility] [address] [place] [address] 03/24/2024 Arnold DiValerio Sjogren's syndrome with keratoconjunctivitis sicca M35.01 ; Other superintendent terminal (current) drug therapy Z79.899 ; ILD (interstitial lung disease) J84.9 and Raynaud's phenomenon without gangrene I73.00 [facility] [address] [place] [address] 05/19/2024 Arnold DiValerio Sjogren's syndrome with keratoconjunctivitis sicca M35.01 ; Other group home (current) drug therapy Z79.899 ; ILD (interstitial lung disease) J84.9 and Raynaud's phenomenon without gangrene I73.00 [facility] [address] [facility] [address] [place] [address] 07/20/2024 Arnold Bird [facility] [address] [facility] [address] [place] [address] 10/29/2024 Arnold Pang Sjogren's syndrome with keratoconjunctivitis sicca M35.01 ; Other superintendent terminal (current) drug therapy Z79.899 ; ILD (interstitial lung disease) J84.9 and Raynaud's phenomenon without gangrene I73.00 [facility] [address] [facility] [address] [place] [address] 10/30/2024 Arnold Pang Assessments Encounter Date Diagnosis (ICD Code) Assessment Notes Treatment Notes Treatment Clinical Notes Section Notes 01/23/2024 Sjogren's syndrome w ith keratoconjunctivitis sicca (ICD-10 - M35.01) 03/24/2024 Sjogren's syndrome w ith keratoconjunctivitis sicca (ICD-10 - M35.01) 05/19/2024 Sjogren's syndrome w ith keratoconjunctivitis sicca (ICD-10 - M35.01) 10/29/2024 Sjogren's syndrome w ith keratoconjunctivitis sicca (ICD-10 - M35.01) 10/29/2024 Other group home (current) drug therapy (ICD-10 - Z79.899) 05/19/2024 Other superintendent terminal (current) drug therapy (ICD-10 - Z79.899) 03/24/2024 Other group home (current) drug therapy (ICD-10 - Z79.899) 01/23/2024 Other superintendent terminal (current) drug therapy (ICD-10 - Z79.899) 01/23/2024 ILD (interstitial maura ng disease) (ICD-10 - J84.9) 03/24/2024 ILD (interstitial maura ng disease) (ICD-10 - J84.9) 05/19/2024 ILD (interstitial maura ng disease) (ICD-10 - J84.9) 10/29/2024 ILD (interstitial maura ng disease) (ICD-10 - J84.9) 10/29/2024 Raynaud's phenomenon without gangrene (ICD-10 - I73.00) 05/19/2024 Raynaud's phenomenon without gangrene (ICD-10 - I73.00) 03/24/2024 Raynaud's phenomenon without gangrene (ICD-10 - I73.00) 01/23/2024 Raynaud's phenomenon without gangrene (ICD-10 - I73.00) 07/20/2024 Other Plan Of Treatment Pending Test Test Name Order Date Creatinine, Serum 10/02/2023 CBC With Differential/Platelet CBC With Differential/Platelet CBC With Differential/Platelet MARIANA Comprehensive Panel 10/02/2023 Hepatic Function Panel (7) 01/23/2024 Hepatic Function Panel (7) 11/13/2023 Hepatic Function Panel (7) 10/02/2023 Creatinine 11/13/2023 Creatinine 01/23/2024 Quantiferon Gold 10/02/2023 Next Appt Details Provider Name:Arnold esposito, 01/12/2025 02:00:00 PM, [address] [facility] [address], [place], [address], Insurance Providers Payer Name Payer Address Payer Phone Subscriber Number Group Number Insured Name Patient Relationship to Insured Coverage Start Date Coverage End Date Medicare [address] [address] [place] [phone] [id number] AV BOYD Self - patient is the insured [facility] [address] [place] [address] [id number] AV BOYD Self - patient is the insured
--- OUTSIDE RECORDS SUMMARY | 2024-12-18 12:38 | XMS_ITS | Encounter Summary ---
Author Organization [facility] [email or web address] [facility] Address [address] [place] [address] Phone Care Team Providers Care Annealing Furnace Operator Name Role Phone No, Physician Primary Care Provider [phone] Silvestre Wells MD Primary Care Provider Sebastián Freire MD Primary Care Provider [phone] Keshav Gregory MD Unavailable [phone] David Samson MD PhD Unavailable + Kashif Barrientos MD Unavailable Ike Pearce MD Unavailable [phone] Keisha Xiong MD Primary Care Provider [phone] Dana Mcintosh RN Unavailable Unavailable Yisel Jacobs RN Unavailable Unavaila Marie Cary Unavailable Unavailable Encounter Details Date Type Department Care Team (Late st Contact Info) Description 05/28/2018 Orders Only [facility] Scanning, Provider Social History Tobacco Use Types Packs/Day Years Used Date Smoking Tobacco: Every Day Smokeless Tobacco: Never Comments Unknown Sex and Gender Information Value Date Recorded Sex Assigned at Not on file Legal Sex Female 1:40 AM [facility] Gender Identity Not on file Sexual Orientation Not on file documented as of this encounter Plan of Treatment Not on file documented as of this encounter Procedures Procedure Name Priority Date/Time Associated Diagnosis Comments SCAN - LABS 05/28/2018 documented in this encounter Results * SCAN - LABS (05/28/2018) us Provider Scanning Final Result documented in this encounter Visit Diagnoses Not on filedocumented in this encounter Additional Health Concerns Infection Onset Date Last Indicated Resolved Time COVID: Suspected 12/01/2024 12/01/2024 12/01/2024 9:52 PM CDT Ring Surveillance Comment:Danish auryuriy Ring Surveillance 12/04/2024 12/04/20242024 3:06 AM CDT documented as of this encounter Care Teams Annealing Furnace Operator Relationship Specialty Start Date End Date No, Physician PCP - General 05/28/18 11/04/19 Silvestre Wells MD [address] [place] [address] PCP - General Family Medicine 11/05/19 10/31/22 Sebastián Friere MD [address] [place] [address] PCP - General Family Medicine 11/01/22 12/01/24 Keisha Xiong MD [address] [facility] [address] [place] [address] PCP - General Family Medicine 12/02/24 Keshav Gregory MD [address] [place] [address] Consulting Physician Pulmonary Disease 07/26/23 David Samson MD PhD [address] [place] [address] Referring Physician Cardiology 07/26/23 Kashif Barrientos MD [address] [facility] [address] [place] [address] Consulting Physician Cardiology 07/26/23 Ike Pearce MD [address] [place] [address] Consulting Physician Cardiology 07/26/23 Dana Mcintosh, ranch helperStore Merchandiser 12/18/24 Yisel Jacobs, ranch helperStore Merchandiser 12/18/24 Marie Ma Primary Software Configuration Analyst 12/18/24 documented as of this encounter
--- OUTSIDE RECORDS SUMMARY | 2024-12-18 12:38 | XMS_ITS ---
Author Organization [facility] larry Address [address] [place] [address] Care Team Providers Care Biomedical Equipment Support Specialist Name Role Phone Daisy Falk Primary Care Provider Arnold Jones Unavailable [phone] Allergies Allergen (clinical drug ingredient) Drug/Non Drug Allergy documented on EMR Reaction Allergy Type Onset Date Status Non-steroidal anti-inflammatory agent (FN) NSAIDs Afib Drug Allergy Active REASON FOR VISIT follow-up Encounters Encounter Location Date Provider Diagnosis [facility] [email or web address] [place] [address] 09/24/2024 Arnold Pang Sjogren's syndrome with keratoconjunctivitis sicca M35.01 ; Other intermediate card tender (current) drug therapy Z79.899 ; ILD (interstitial lung disease) J84.9 and Raynaud's phenomenon without gangrene I73.00 Assessments Encounter Date Diagnosis (ICD Code) Assessment Notes Treatment Notes Treatment Clinical Notes Section Notes 09/24/2024 Sjogren's syndrome w ith keratoconjunctivitis sicca (ICD-10 - M35.01) 09/24/2024 Other group home (current) drug therapy (ICD-10 - Z79.899) 09/24/2024 ILD (interstitial maura ng disease) (ICD-10 - J84.9) 09/24/2024 Raynaud's phenomenon without gangrene (ICD-10 - I73.00) Plan Of Treatment Next Appt Details Follow Up: 3 Months, Reason: Provider Name:Arnold esposito, 01/12/2025 02:00:00 PM, [email or web address], [address], Progress Notes * AV BOYDDOB:[birth year] (79 yo F)Acc No.[id number]:09/24/2024 Progress Notes Patient: AV ORTEZ Provider: Esther Pang MD :1945 A ge:78 Y S ex:Female Date:09/24/2024 [address] Pcp:Daisy Falk Subjective: * Chief Complaints: * 1 . Follow-up. * HPI: A dvance Care Planning: Here for f/u of Sjogren's, ILD, Raynaud's. Labs show Sjogren's ab's, anemia. On AZA.No acute joint swelling. No significant AM stiffness, gelling. Has rash. Has bruises. No cough. Has SOB. No F/C/S. No GI upset. Bowels working. Energy lower and sleep are OK. Tolerates meds. BP listed. Wt. and appetite stable. Has LBP. Spouse with Alzheimer's. Has dry eyes/mouth. AZA has helped. Has macular rash on extremities on and off. Having a lot of issues with A. fib. * ROS: E nergy OK. Sleep OK . * Medical History: * Allergies: N SAIDs: Afib - Contraindication. Objective: * Vitals: * Examination: G eneral Examination: P hysical Examination Constitutional Appearance : well nourished, alert, in no acute distress Head and Face/Head : NC/AT Inspection : normocephalic, atraumatic Eyes/Conjunctivae : conjunctiva normal Sclerae : sclera white Psychiatric/Judgment and Insight : judgment and insight intact Mood and Affect : mood normal, affect appropriate Cervical Spine: normal curvatures Right Upper Extremity Hand : NS Left Upper Extremity Hand : NS Gait: gait normal . Assessment: * Assessment: 1. S jogren's syndrome with keratoconjunctivitis sicca - M35.01 (Primary) 2 .?Other intermediate card tender (current) drug therapy - Z79.899 3 . I LD (interstitial lung disease) - J84.9 4 . R aynaud's phenomenon without gangrene - I73.00 Plan: * Treatment: * Procedure Codes: G 2211 Complex e/m visit add on * Follow Up: 3 Months * Billing Information: * Visit Code: 33897 Office Visit, Est Pt., Level 4. * Procedure Codes: G2211 Complex e/m visit add on. * Electronic signature of Eliecer Pang MD on 12/18/2024 at 12:38 PM CDT Sign off status: Pending * Provider: Esther Pang MD Date: 0 09/24/2024 Generated for Viviana lovell/Edita/eTransmitting on: 0 12/18/2024 12:38 PM CDT History and Physical Notes * Examination Category Sub-Category Detail Notes Category Not es General Examination Physical Examination Constitutional Appearance : well nourished, alert, in no acute distress Head and Face/Head : NC/AT Inspection : normocephalic, atraumatic Eyes/Conjunctivae : conjunctiva normal Sclerae : sclera white Psychiatric/Judgment and Insight : judgment and insight intact Mood and Affect : mood normal, affect appropriate Cervical Spine: normal curvatures Right Upper Extremity Hand : NS Left Upper Extremity Hand : NS Gait: gait normal
--- OUTSIDE RECORDS SUMMARY | 2024-12-18 12:38 | XMS_ITS ---
Author Organization [facility] larry Address [address] [facility] [address] [place] [address] Care Team Providers Care Supervisor [employer] Name Role Phone Daisy Falk Primary Care Provider Arnold Jones Unavailable [phone] Allergies Allergen (clinical drug ingredient) Drug/Non Drug Allergy documented on EMR Reaction Allergy Type Onset Date Status Non-steroidal anti-inflammatory agent (FN) NSAIDs Afib Drug Allergy Active Results Component Value Reference Range Notes Hep Func Panel Reviewed date:10/30/2024 09:03:18 AM Interpretation: Performing Lab:[facility] , [facility]. [place] [address] Notes/Report: Total Bilirubin 0.4 0.1-1.2 mg/dL Bilirubin, Direct 0.2 0.1-0.3 mg/dL Plasma Total Protein 7.4 6.5-8.5 g/dL Albumin 3.5 3.5-5.0 g/dL Alkaline Phosphatase 94 40-130 Units/L ALT 9 7-45 Units/L AST 26 10-45 Units/L Creatinine Reviewed date:10/30/2024 09:03:22 AM Interpretation: Performing Lab:[facility] , [facility] [place] [address] Notes/Report: Creatinine 0.82 0.60-1.10 mg/dL CBC w auto diff Reviewed date:10/30/2024 09:34:49 AM Interpretation: Performing Lab:[facility] , [facility] [facility] [place] [address] Notes/Report: WBC 5.6 3.8-9.9 K/cumm Hgb 10.4 11.9-15.5 g/dL Hct 34.8 35.6-45.5 % Platelet Ct 301 150-400 K/cumm MPV 10.8 9.1-12.3 fL RBC 3.96 3.90-5.20 M/cumm MCV 87.9 81.3-96.4 fL MCH 26.3 27.1-33.3 pg MCHC 29.9 32.3-35.7 g/dL RDW CV 16.3 11.1-14.9 % RDW SD 52.5 35.7-48.1 fL NRBC Abs Auto 0.00 0.00-0.01 K/cumm REASON FOR VISIT follow up Medications Medication SIG (Take, Route, Frequency, Duration) Notes Start Date End Date Status Cefdinir 300 MG Oral for 7 Days Active azaTHIOprine 50 MG TAKE 1 TABLET BY GALILEO TH DAILY FOR 7 DAYS, THEN 2 TABLETS DAILY for 90 Active Trelegy Ellipta 100-62.5-25 MCG/ACT Inhalation for 30 Days Active Xarelto 20 MG Oral for 30 Days Active predniSONE 5 MG 2 tablets Orally Onc e a day for 30 days 11/13/2023 11/07/2024 Active traMADol HCl 50 MG 1 tablet as needed Orally every 6 hours As needed. dx=Sjogren's M35.01 10/29/2024 Active Vital Signs Temperature 98.0 degrees Fahrenheit 10/30/19 25 Blood pressure systolic 150 mm Hg 10/30/19 25 Blood pressure diastolic 80 mm Hg 025 Heart Rate 57 /min 10/29/2024 Height 64 in 10/29/2024 Weight 143 lbs 10/29/2024 BMI 24.54 kg/m2 10/29/2024 Oximetry 97 % 10/29/2024 Height-cm 162.56 cm 10/29/2024 Weight-kg 64.85 kg 10/29/2024 Encounters Encounter Location Date Provider Diagnosis [facility] [address] [facility] [address] [place] [address] 10/29/2024 Arnold Pang Sjogren's syndrome with keratoconjunctivitis sicca M35.01 ; Other manager intermediate (current) drug therapy Z79.899 ; ILD (interstitial lung disease) J84.9 and Raynaud's phenomenon without gangrene I73.00 Assessments Encounter Date Diagnosis (ICD Code) Assessment Notes Treatment Notes Treatment Clinical Notes Section Notes 10/29/2024 Sjogren's syndrome w ith keratoconjunctivitis sicca (ICD-10 - M35.01) 10/29/2024 Other residential (current) drug therapy (ICD-10 - Z79.899) 10/29/2024 ILD (interstitial maura ng disease) (ICD-10 - J84.9) 10/29/2024 Raynaud's phenomenon without gangrene (ICD-10 - I73.00) Plan Of Treatment Medication Medication Name Sig Start Date Stop Date Notes traMADol HCl 50 MG 1 tablet as needed Orally every 6 hours 10/29/2024 Next Appt Details Follow Up: 2 Months, Reason: Provider Name:Arnold esposito, 01/12/2025 02:00:00 PM, [address], [place], [address], Progress Notes * AV BOYDDOB:[birth year] (79 yo F)Acc No.[id number]:10/29/2024 Progress Notes Patient: AV ORTEZ Provider: Esther Pang MD :1945 A ge:79 Y S ex:Female Date:10/29/2024 Address:[address] [place], [place] [id number] Subjective: * Chief Complaints: * F ollow up * HPI: A dvance Care Planning: Here [...] macular rash on extremities on and off. Hx issues with A. fib. On AZA. Has anemia and SOB. * ROS: E nergy OK. Sleep OK . * Medical History: * Surgical History: * Hospitalization/Major Diagno stic Procedure: * Medications: T akingCefdinir 300 MG Capsule Oral traMADol HCl 50 MG Tablet 1 tablet as needed Orally every 6 hours As needed. dx=Sjogren's M35.01predniSONE 5 MG Tablet 2 tablets Orally Once a day , stop date 11/07/2024Xarelto 20 MG Tablet Oral Trelegy Ellipta 100-62.5-25 MCG/ACT Aerosol Powder Breath Activated Inhalation azaTHIOprine 50 MG Tablet TAKE 1 TABLET BY MOUTH DAILY FOR 7 DAYS, THEN 2 TABLETS DAILY Taking Cefdinir 300 MG Capsule Oral Taking traMADol HCl 50 MG Tablet 1 tablet as needed Orally every 6 hours As needed. dx=Sjogren's M35.01Taking predniSONE 5 MG Tablet 2 tablets Orally Once a day , stop date 11/07/2024Taking Xarelto 20 MG Tablet Oral Taking Trelegy Ellipta 100-62.5-25 MCG/ACT Aerosol Powder Breath Activated Inhalation Taking azaTHIOprine 50 MG Tablet TAKE 1 TABLET BY MOUTH DAILY FOR 7 DAYS, THEN 2 TABLETS DAILY * Allergies: N SAIDs: Afib - Contraindication Objective: * Vitals: B P:150/80mm Hg, HR:57/min, Temp:98.0F, Oxygen sat %:97%, Wt:143lbs, Wt- k.85kg, Ht:64in, Ht-cm:162.56cm, BMI:24.54Index, Body Surface Area:1.71. * Examination: G eneral Examination: P hysical [...] keratoconjunctivitis sicca - M35.01 (Primary) 2 .?Other residential (current) drug therapy - Z79.899 3 . I LD (interstitial lung disease) - J84.9 4 . R aynaud's phenomenon without gangrene - I73.00 Plan: * Treatment: Value Reference Range W BC 5.6 3.8-9.9 - K/cumm * R BC 3.96 3.90-5.20 - M/cumm * H gb 10.4 L 11.9-15.5 - g/dL * H ct 34.8 L 35.6-45.5 - % * M CV 87.9 81.3-96.4 - fL * M CH 26.3 L 27.1-33.3 - pg * M CHC 29.9 L 32.3-35.7 - g/dL * P lt 301 150-400 - K/cumm * M PV 10.8 9.1-12.3 - fL * R DW CV 16.3 H 11.1-14.9 - % * R DW SD 52.5 H 35.7-48.1 - fL * N RBC Abs Auto 0.00 0.00-0.01 - K/cumm * Iron studies added. Still an emia on labs. Copy to patient and PCP.This lab was reviewed by Arnold Pang on 10/30/2024 at 09:34 AM INSTRUMENT OPERATOR ?LAB: Hep Func Panel2.?Other manager intermediate (current) drug therapy?LAB: CBC w auto diff* Value Reference Range W BC 5.6 3.8-9.9 - K/cumm * R BC 3.96 3.90-5.20 - M/cumm * H gb 10.4 L 11.9-15.5 - g/dL * H ct 34.8 L 35.6-45.5 - % * M CV 87.9 81.3-96.4 - fL * M CH 26.3 L 27.1-33.3 - pg * M CHC 29.9 L 32.3-35.7 - g/dL * P lt 301 150-400 - K/cumm * M PV 10.8 9.1-12.3 - fL * R DW CV 16.3 H 11.1-14.9 - % * R DW SD 52.5 H 35.7-48.1 - fL * N RBC Abs Auto 0.00 0.00-0.01 - K/cumm * Iron studies added. Still an emia on labs. Copy to patient and PCP.This lab was reviewed by Arnold Pang on 10/30/2024 at 09:34 AM INSTRUMENT OPERATOR ?LAB: Creatinine ?LAB: Hep Func Panel3.?ILD (interstitial lung disease)?LAB: CBC w auto diff* Value Reference Range W BC 5.6 3.8-9.9 - K/cumm * R BC 3.96 3.90-5.20 - M/cumm * H gb 10.4 L 11.9-15.5 - g/dL * H ct 34.8 L 35.6-45.5 - % * M CV 87.9 81.3-96.4 - fL * M CH 26.3 L 27.1-33.3 - pg * M CHC 29.9 L 32.3-35.7 - g/dL * P lt 301 150-400 - K/cumm * M PV 10.8 9.1-12.3 - fL * R DW CV 16.3 H 11.1-14.9 - % * R DW SD 52.5 H 35.7-48.1 - fL * N RBC Abs Auto 0.00 0.00-0.01 - K/cumm * Iron studies added. Still an emia on labs. Copy to patient and PCP.This lab was reviewed by Arnold Pang on 10/30/2024 at 09:34 AM INSTRUMENT OPERATOR ?LAB: Creatinine ?LAB: Hep Func Panel4.?Raynaud's phenomenon without gangrene?LAB: Hep Func Panel ?LAB: CBC w auto diff* Value Reference Range W BC 5.6 3.8-9.9 - K/cumm * R BC 3.96 3.90-5.20 - M/cumm * H gb 10.4 L 11.9-15.5 - g/dL * H ct 34.8 L 35.6-45.5 - % * M CV 87.9 81.3-96.4 - fL * M CH 26.3 L 27.1-33.3 - pg * M CHC 29.9 L 32.3-35.7 - g/dL * P lt 301 150-400 - K/cumm * M PV 10.8 9.1-12.3 - fL * R DW CV 16.3 H 11.1-14.9 - % * R DW SD 52.5 H 35.7-48.1 - fL * N RBC Abs Auto 0.00 0.00-0.01 - K/cumm * Iron studies added. Still an emia on labs. Copy to patient and PCP.This lab was reviewed by Arnold Pang on 10/30/2024 at 09:34 AM INSTRUMENT OPERATOR ?LAB: Creatinine * Procedure Codes: G 2211 Complex e/m visit add on * Follow Up: 2 Months * Billing Information: * Visit Code: 30028 Office Visit, Est Pt., Level 4. * Procedure Codes: G2211 Complex e/m visit add on. * RUMENT OPERATOR Sign off status: Completed true * Provider: Esther Pang MD Date: 0 10/29/2024 Generated for Viviana lovell/Edita/eTransmitting on: 0 12/18/2024 12:37 PM CDT History and Physical Notes * [...]
[2024-12-18 13:27] LABS: Anion Gap 7 mmol/L (4-12); Blood Urea Nitrogen 17 mg/dL (7-17); Calcium 8.5 mg/dL (8.4-10.2); Carbon Dioxide 27 mmol/L (22-30); Chloride 104 mmol/L (98-107); Estimated Glomerular Filt Rate 60; Glucose 110 mg/dL (65-110); Potassium 4.7 mmol/L (3.4-5.0); Sodium 138 mmol/L (137-145)
[2024-12-18 13:36] LABS: NT Pro B Type Natriuretic Pept 3060 pg/mL (19.9-100)
== END 2024-12-18 12:31 | disposition home or self-care (01) ==
PROVIDERS: PCP Family Medicine
DX: I48.19 Other persistent atrial fibrillation (principal); I50.9 Heart failure, unspecified
CPT/HCPCS: 80048; 83880